=== PATIENT | male | born 1950 | race Caucasian/White ===

== ENCOUNTER 2017-06-04 18:24 | Inpatient (IN) | payer MEDICARE ==
[2017-06-04] MEDS ORDERED: DIPH,PERTUS(ACELL)TETVAC-LF 0.5 ML VIAL IM ONE (21:37)
[2017-06-04] MEDS ORDERED: VANCOMYCIN IV PER PHARMACY 1 EACH MISC MISCELLANE PRN (21:37)
[2017-06-04] MEDS ORDERED: HYDROcodone/APAP 5-325MG 1 EACH TAB PO STA (21:37)
--- NOTE | 2017-06-04 21:45 | ED ---
Skin/Abscess/FB HPI - General Chief complaint: Skin/Abscess/Foreign Body Stated complaint: arm infection Time Seen by Provider: 06/04/17 21:25 Source: patient Mode of arrival: ambulatory Limitations: no limitations - History of Present Illness Initial comments: This patient is a 66-year-old man who presents to be evaluated for right arm pain and swelling. The patient states that his right upper arm has been read, and has pain and swelling that is been going on for about 6-7 days. He noticed things from Sunday morning. On the day prior the patient states that he had been doing some work outside in his yard and believes he had scratched his arm on something. He states that he did not initially come in because the symptoms developed, and then were slightly better and then over the course the past day or 2 are worsening again. He states he has had similar episode to this and was told that he had an infection. Patient denies any IVDA. Patient does not recall when his last tetanus shot was. MD complaint: discoloration, other (Pain) Onset/Timin -: week(s) Tetanus Up to Date: no Location: RUE Severity: moderate Quality: dull, constant Consistency: constant Improves with: medication Worsens with: movement Associated symptoms: fever, chills Treatments Prior to Arrival: none - Related Data Previous Rx's Medication Instructions Recorded DAPTOmycin [Cubicin] 500 mg IVPB Q24HR #10 vial 06/15/17 HYDROcodone/APAP 7.5-325MG [[place]oga 2 each PO Q6H PRN #28 tab 06/15/17 7.5-325] amLODIPine [Norvasc] 5 mg PO DAILY #30 tab 06/15/17 Allergies Allergy/AdvReac Type Severity Reaction Status Date / Time No Known Allergies Allergy Verified 06/23/17 15:12 Review of Systems ROS Statement: Those systems with pertinent positive or pertinent negative responses have been documented in the HPI. ROS Other: All systems not noted in ROS Statement are negative. Constitutional: Reports: fever, chills. Denies: weakness Respiratory: Denies: cough, dyspnea Cardiovascular: Denies: chest pain, palpitations Gastrointestinal: Denies: abdominal pain, vomiting Skin: Reports: as per HPI, change in color Neurological: Denies: weakness, numbness, paresthesias Hematological/Lymphatic: Denies: easy bleeding Past Medical History Past Medical History: Cancer, COPD, Hypertension, Prostate Disorder Additional Past Medical History / Comment(s): prostate History of Any Multi-Drug Resistant Organisms: None Reported Past Surgical History: Hernia Repair, Prostate Surgery Additional Past Surgical History / Comment(s): Laparotomy with drainage of abscess. Prostatectomy with da Jessi. Past Anesthesia/Blood Transfusion Reactions: No Reported Reaction Past Psychological History: No Psychological Hx Reported Smoking Status: Former smoker Past Alcohol Use History: Occasional Past Drug Use History: None Reported - Past Family History Father Family Medical History: Cancer Additional Family Medical History / Comment(s): cholecystectomy General Exam Limitations: no limitations General appearance: alert, in no apparent distress Head exam: Present: atraumatic, normocephalic Neck exam: Present: normal inspection, full ROM. Absent: tenderness, meningismus, lymphadenopathy Respiratory exam: Present: normal lung sounds bilaterally. Absent: respiratory distress, wheezes, rales, rhonchi, stridor Cardiovascular Exam: Present: regular rate (Heart rate at my exam is 96.), normal rhythm, normal heart sounds. Absent: systolic murmur, diastolic murmur, rubs, gallop GI/Abdominal exam: Present: soft. Absent: tenderness Extremities exam: Present: tenderness, normal capillary refill. Absent: full ROM Right Shoulder Exam: Present: normal inspection, full ROM. Absent: tenderness, swelling, abrasion, laceration, ecchymosis Upper Arm exam: Present: tenderness, swelling, erythema, other (Patient has tenderness and swelling to the anteromedial aspect of the upper arm. This involves mainly the area over the biceps extending to the antecubital fossa. There is no detectable effusion.). Absent: abrasion, laceration, ecchymosis, deformity, crepidus, dislocation Elbow exam: Present: tenderness, swelling, erythema. Absent: full ROM, abrasion , laceration, ecchymosis, deformity, crepitus, dislocation, effusion, pain w/ pronation/supination, tenderness over radial head, other Forearm Wrist exam: Present: full ROM, erythema (To the proximal an acute low fossa. No track martinez.) Hand Wrist exam: Present: normal inspection, full ROM Neuro motor exam: Present: wrist extension intact, thumb opposition intact Neurosensory exam: Present: radial nerve intact, ulnar nerve intact, median nerve intact Vascular: Present: normal capillary refill, radial pulse (Normal) Neurological exam: Present: alert. Absent: motor sensory deficit Skin exam: Present: warm, dry, intact, erythema (See the extremity exam) Course Vital Signs 06/04/17 06/05/17 06/05/17 18:57 00:00 02:19 Temperature 97.8 F Pulse Rate 113 H 100 104 H Pulse Rate [ Left Pulse Oximetery] Respiratory 20 18 18 Rate Blood Pressure 114/57 132/74 134/71 Blood Pressure [Left Arm] O2 Sat by Pulse 96 98 97 Oximetry 06/05/17 06/05/17 06/05/17 03:46 04:46 04:57 Temperature 97.7 F Pulse Rate 98 85 Pulse Rate [ 109 H Left Pulse Oximetery] Respiratory 18 18 18 Rate Blood Pressure 122/70 116/70 Blood Pressure 118/73 [Left Arm] O2 Sat by Pulse 100 98 Oximetry Medical Decision Making - Medical Decision Making Patient is a 66-year-old man presenting with right upper extremity pain and swelling. He gives history of a possible scratch to the arm. He said he also had some fever and chills. His exam does look like cellulitis. Did obtain initial x-ray which does not show any foreign body or gas and soft tissue. Case discussed with Dr. Mihai Whiting who will admit patient and requested consults with Dr. Hare of infectious disease, and Dr. Marsh of surgery should there be abscess requiring I+D. patient also found to have some elevation of his creatinine, versus the previous result from a number of years ago, and the patient states that he had been [facility] that he did have some kidney issues though he does not recall his current creatinine. The patient did receive analgesia and antibiotics and was feeling better. Prior to going to the floor, his arm did seem to be developing some additional swelling, and computed tomography scan is added, also case discussed with Dr. Mendiola from orthopedics to see patient. - Lab Data Result diagrams: 06/14/17 06:42 06/15/17 07:00 Lab Results 06/04/17 06/04/17 06/04/17 Range/Units 22:00 22:00 23:00 WBC 29.3 H* (3.8-10.6) k/uL RBC 5.30 (4.30-5.90) m/uL Hgb 16.1 (13.0-17.5) gm/dL Hct 49.5 (39.0-53.0) % MCV 93.4 (80.0-100.0) fL MCH 30.3 (25.0-35.0) pg MCHC 32.4 (31.0-37.0) g/dL RDW 15.2 (11.5-15.5) % Plt Count 261 (150-450) k/uL Neutrophils % 94 % Lymphocytes % 1 % Monocytes % 3 % Eosinophils % 1 % Basophils % 0 % Neutrophils # 27.5 H (1.3-7.7) k/uL Lymphocytes # 0.3 L (1.0-4.8) k/uL Monocytes # 0.9 (0-1.0) k/uL Eosinophils # 0.1 (0-0.7) k/uL Basophils # 0.1 (0-0.2) k/uL Manual Slide Review Performed Toxic Granulation Present Sodium 133 L (137-145) mmol/L Potassium 4.5 (3.5-5.1) mmol/L Chloride 94 L (98-107) mmol/L Carbon Dioxide 21 L (22-30) mmol/L Anion Gap 18 mmol/L BUN 47 H (9-20) mg/dL Creatinine 3.20 H (0.66-1.25) mg/dL Est GFR (MDRD) Af Amer 24 (>60 ml/min/1.73 sqM) Est GFR (MDRD) Non-Af 20 (>60 ml/min/1.73 sqM) Glucose 93 (74-99) mg/dL Lactic Ac Sepsis Rflx Plasma Lactic Acid Gumaro (0.7-2.0) mmol/L Calcium 9.5 (8.4-10.2) mg/dL Total Creatine Kinase 490 H (55-170) U/L CK-MB (CK-2) 5.3 H* (0.0-2.4) ng/mL CK-MB (CK-2) Rel Index 1.1 06/05/17 06/05/17 06/05/17 Range/Units 00:01 00:38 04:06 WBC (3.8-10.6) k/uL RBC (4.30-5.90) m/uL Hgb (13.0-17.5) gm/dL Hct (39.0-53.0) % MCV (80.0-100.0) fL MCH (25.0-35.0) pg MCHC (31.0-37.0) g/dL RDW (11.5-15.5) % Plt Count (150-450) k/uL Neutrophils % % Lymphocytes % % Monocytes % % Eosinophils % % Basophils % % Neutrophils # (1.3-7.7) k/uL Lymphocytes # (1.0-4.8) k/uL Monocytes # (0-1.0) k/uL Eosinophils # (0-0.7) k/uL Basophils # (0-0.2) k/uL Manual Slide Review Toxic Granulation Sodium (137-145) mmol/L Potassium (3.5-5.1) mmol/L Chloride (98-107) mmol/L Carbon Dioxide (22-30) mmol/L Anion Gap mmol/L BUN (9-20) mg/dL Creatinine (0.66-1.25) mg/dL Est GFR (MDRD) Af Amer (>60 ml/min/1.73 sqM) Est GFR (MDRD) Non-Af (>60 ml/min/1.73 sqM) Glucose (74-99) mg/dL Lactic Ac Sepsis Rflx Y Plasma Lactic Acid Gumaro 3.2 H* 1.6 (0.7-2.0) mmol/L Calcium (8.4-10.2) mg/dL Total Creatine Kinase (55-170) U/L CK-MB (CK-2) (0.0-2.4) ng/mL CK-MB (CK-2) Rel Index Critical Care Time Critical Care Time: Yes (30 minutes) Total Critical Care Time: 30 Disposition Clinical Impression: Cellulitis, Acute renal failure, Leukocytosis, Lactic acidosis Disposition: ADMITTED IP TO THIS [facility] Condition: Fair
[2017-06-04] MEDS ORDERED: VANCOMYCIN 1,500 MG in SODIUM CHLORIDE 0.9% 250 ML IVPB STA (22:01)
[2017-06-04 22:10] LABS: Basophils # (A) 0.1 k/uL (0-0.2); Basophils % (A) 0 %; Eosinophils # (A) 0.1 k/uL (0-0.7); Eosinophils % (A) 1 %; HCT 49.5 % (39.0-53.0); HGB 16.1 gm/dL (13.0-17.5); Lymphocytes # (A) 0.3 k/uL (1.0-4.8); Lymphocytes % (A) 1 %; MCH 30.3 pg (25.0-35.0); MCHC 32.4 g/dL (31.0-37.0); MCV 93.4 fL (80.0-100.0); Monocytes # (A) 0.9 k/uL (0-1.0); Monocytes % (A) 3 %; Neutrophils # (A) 27.5 k/uL (1.3-7.7); Neutrophils % (A) 94 %; Platelet Count 261 k/uL (150-450); RDW 15.2 % (11.5-15.5)
[2017-06-04 22:19] LABS: WBC 29.3 k/uL (3.8-10.6)
--- NOTE | 2017-06-04 22:30 | XR ---
EXAMINATION TYPE: XR humerus RT DATE OF EXAM: 06/04/2017 COMPARISON: NONE HISTORY: Pain TECHNIQUE: 3 views FINDINGS: I see no fracture nor dislocation. Elbow joint and shoulder joint appear intact. There is n o sign of elbow joint effusion. There is soft tissue swelling around the elbow joint and lower forear m. IMPRESSION: Soft tissue swelling. No fracture seen.
[2017-06-04 22:32] LABS: Toxic Granulation Present
--- NOTE | 2017-06-04 23:13 | US ---
EXAMINATION TYPE: US venous doppler duplex UE RT DATE OF EXAM: 06/04/2017 COMPARISON: NONE CLINICAL HISTORY: Pain. Right arm edema and redness x 1 day SIDE PERFORMED: Right Right Arm: Negative for DVT No evidence of DVT right arm. IMPRESSION: Normal exam. No evidence of deep venous thrombosis in the right arm.
[2017-06-04] MEDS ORDERED: NAFCILLIN 2 GM in DEXTROSE 5% IN WATER 50 ML IVPB STA ×2 (23:28)
[2017-06-04 23:44] LABS: Calcium 9.5 mg/dL (8.4-10.2); Potassium 4.5 mmol/L (3.5-5.1)
[2017-06-05] MEDS ORDERED: SODIUM CHLORIDE 0.9% 2,500 ML IV ONE (00:38)
[2017-06-05] MEDS ORDERED: HYDROmorphone 1 MG/ML 1 ML SYRINGE IVP STA (01:50)
[2017-06-05 02:26] LABS: Creatine Kinase MB 5.3 ng/mL (0.0-2.4)
[2017-06-05] MEDS ORDERED: NALOXONE 0.4 MG/ML 1 ML VIAL IV PRN (04:24)
[2017-06-05 05:38] VITALS: BMI 24.3
[2017-06-05] MEDS: HYDROmorphone 2 MG/ML 1 ML SYRINGE IVP PRN ×5 (05:48→21:51)
--- NOTE | 2017-06-05 05:53 | CT ---
EXAM: CT Right Upper Extremity Without Intravenous Contrast CLINICAL HISTORY: Reason: pain TECHNIQUE: Axial computed tomography images of the right upper extremity without intravenous contrast. CTDI is 18 mGy and DLP is 737 mGy-cm. This CT exam was performed using one or more of the following dose reduction techniques: automated exposure control, adjustment of the mA and/or kV according to patient size, and/or use of iterative reconstruction technique. COMPARISON: No relevant prior studies available. FINDINGS: Bones/joints: Mild degenerative changes of the right acromioclavicular joint. No acute fracture. No dislocation. Soft tissues: Marked subcutaneous edema and swelling. No obvious intramuscular abnormality on this noncontrast study. Lymph nodes: Multiple axillary lymph nodes which predominantly demonstrate normal fatty leonid. Lungs: Visualized lungs are well aerated. Mediastinum: No definite mediastinal mass. IMPRESSION: Diffuse subcutaneous edema involving the right axilla and right upper extremity. Primary consideration is cellulitis. The nonenhanced muscle bundles of the right upper extremity demonstrate no definitive abnormality. However, if there is concern for myositis, MRI examination would provide greater soft tissue detail. Osseous right shoulder girdle and humerus demonstrate no CT abnormalities without evidence of fracture or osteomyelitis.
[2017-06-05] MEDS: SODIUM CHLORIDE 0.9% 1,000 ML IV SCH (06:11)
[2017-06-05] MEDS ORDERED: NAFCILLIN 2 GM in DEXTROSE 5% IN WATER 50 ML IVPB SCH ×2 (09:00)
--- NOTE | 2017-06-05 09:54 | P.CNOR ---
History of Present Illness - HPI Consult date: 06/05/17 Requesting physician: Gerardo Mendiola Consult reason: other History of present illness: This patient is a 66-year-old man seen at bedside this morning. He presented to the ER last evening after developing progressive right upper arm pain, redness and swelling for the past week. He states that he had been doing some work outside in his yard and believes he had scratched his arm on something. He also states that he was cleaning some cat litter boxes. He denies any other injury to his upper extremity. Patient denies any IVDA. He is currently denying numbness or tingling. He also denies fever, chills, chest pain or shortness of breath. Review of Systems All systems: negative Constitutional: Denies chills, Denies fever Eyes: denies blurred vision, denies pain Ears, nose, mouth and throat: Denies headache, Denies sore throat Cardiovascular: Denies chest pain, Denies shortness of breath Respiratory: Denies cough Gastrointestinal: Denies abdominal pain, Denies diarrhea, Denies nausea, Denies vomiting Musculoskeletal: Denies myalgias Integumentary: Denies pruritus, Denies rash Neurological: Denies numbness, Denies weakness Psychiatric: Denies anxiety, Denies depression Endocrine: Denies fatigue, Denies weight change Past Medical History Past Medical History: Cancer, COPD, Hypertension, Prostate Disorder Additional Past Medical History / Comment(s): prostate History of Any Multi-Drug Resistant Organisms: None Reported Past Surgical History: Hernia Repair, Prostate Surgery Additional Past Surgical History / Comment(s): Laparotomy with drainage of abscess. Prostatectomy with da Jessi. Past Anesthesia/Blood Transfusion Reactions: No Reported Reaction Past Psychological History: No Psychological Hx Reported Smoking Status: Former smoker Past Alcohol Use History: Occasional Past Drug Use History: None Reported - Past Family History Father Family Medical History: Cancer Additional Family Medical History / Comment(s): cholecystectomy Medications and Allergies Home Medications Medication Instructions Recorded Confirmed Type [id number] 1 - 2 tab PO Q4HR PRN 06/04/17 06/04/17 History [Excedrin] Allergies Allergy/AdvReac Type Severity Reaction Status Date / Time No Known Allergies Allergy Verified 06/04/17 21:44 Physical Examination Inspection of the right upper extremity shows diffuse erythema at the anterior aspect of the upper arm in the brachial region. There is no bony deformity. There is soft tissue swelling/edema and induration at the brachium. There is tenderness at the area of the tricep. The brachium is warm to touch. There is no apparent fluctuance or abscess. There is no fluid collection. He holds his arm in the flexed position. He has pain with extension to 30. He can flex to 100. There is mild pain with pronation and supination in the upper arm. Neurovascular status intact with motor and sensation throughout the right upper extremity. 2+ radial pulses present. Less than 2 second capillary refill is present. Results studies of the right upper extremity including x-ray, ultrasound and CT scan show no evidence of foreign body, abscess or fluid collection.there are no fractures or dislocations as well. - Labs Labs: Abnormal Lab Results - Last 24 Hours (Table) 06/04/17 06/04/17 06/04/17 Range/Units 22:00 22:00 23:00 WBC 29.3 H* (3.8-10.6) k/uL Neutrophils # 27.5 H (1.3-7.7) k/uL Lymphocytes # 0.3 L (1.0-4.8) k/uL Sodium 133 L (137-145) mmol/L Chloride 94 L (98-107) mmol/L Carbon Dioxide 21 L (22-30) mmol/L BUN 47 H (9-20) mg/dL Creatinine 3.20 H (0.66-1.25) mg/dL Plasma Lactic Acid Gumaro (0.7-2.0) mmol/L Total Creatine Kinase 490 H (55-170) U/L CK-MB (CK-2) 5.3 H* (0.0-2.4) ng/mL 06/05/17 Range/Units 00:01 WBC (3.8-10.6) k/uL Neutrophils # (1.3-7.7) k/uL Lymphocytes # (1.0-4.8) k/uL Sodium (137-145) mmol/L Chloride (98-107) mmol/L Carbon Dioxide (22-30) mmol/L BUN (9-20) mg/dL Creatinine (0.66-1.25) mg/dL Plasma Lactic Acid Gumaro 3.2 H* (0.7-2.0) mmol/L Total Creatine Kinase (55-170) U/L CK-MB (CK-2) (0.0-2.4) ng/mL H & H 06/04/17 Range/Units 22:00 Hgb 16.1 (13.0-17.5) gm/dL Hct 49.5 (39.0-53.0) % Result Diagrams: 06/04/17 22:00 06/04/17 22:00 Assessment and Plan (1) Cellulitis Narrative/Plan: Currently there is no apparent area for surgical I&D and he is neurovascularly intact. Recommend aggressive IV antibiotic therapy and elevation. Infectious disease has been consulted as well. Will consider obtaining MRI of the right upper arm. I'll discuss case with Dr. Mendiola and make further recommendations as appropriate. We will closely monitor. Current Visit: Yes Status: Acute Code(s): L03.90 - CELLULITIS, UNSPECIFIED SNOMED Code(s): 459596017 Time with Patient: Less than 30
[2017-06-05 10:00] LABS: HCT 42.1 % (39.0-53.0); HGB 13.6 gm/dL (13.0-17.5); MCH 30.2 pg (25.0-35.0); MCHC 32.2 g/dL (31.0-37.0); Mean Platelet Volume 9.5; Platelet Count 189 k/uL (150-450); RBC 4.48 m/uL (4.30-5.90); RDW 15.1 % (11.5-15.5); WBC 13.7 k/uL (3.8-10.6)
[2017-06-05 10:47] LABS: Band Neutrophils % 52 %; Lymphocytes # (M) 0.14 k/uL (1.0-4.8); Monocytes # (M) 0.41 k/uL (0-1.0); Myelocytes # (M) 0.14 k/uL (0); Myelocytes % 1 %; Neutrophils % (M) 44 %; Nucleated Red Blood Cells 0 /100 WBC (0-0); Total Cells Counted 200; Toxic Granulation Present
[2017-06-05 10:48] LABS: Anisocytosis (M) Present; Poikilocytosis (M) Present; Toxic Vacuolation Present
--- NOTE | 2017-06-05 13:32 | HP ---
HISTORY AND PHYSICAL CHIEF COMPLAINT: A 66-year-old white male with right arm cellulitis. HISTORY OF PRESENT ILLNESS: This 66-year-old white male presented to the ER after progressive right upper pain and swelling for the past week or 2. He said he scraped it on a board with some nails. He had a tetanus shot while being in the hospital. He also has been exposed to some cat litter boxes. He denies any other injury. He states he has hepatitis B and C, which he is not being treated for. He denies any numbness, tingling of the right extremity. Denies any chest pain, shortness of breath. Takes all natural medication. REVIEW OF SYSTEMS: Fourteen-point review of systems negative except for as mentioned in HPI. PAST MEDICAL HISTORY: Prostate cancer. He states he is in remission. COPD, hypertension. Hernia repair, prostate surgery are surgeries that have been done. and he had some infection status post prostatectomy with unsure of. He is a former smoker, quit 4 years ago. FAMILY HISTORY: Father with cancer, cholecystectomy. MEDICATIONS: Medications at home include aspirin, acetaminophen, caffeine. ALLERGIES: No known drug allergies. White count 29.3. Creatinine is 3.20, BUN is 47. Plasma lactic acid 3.2. Hemoglobin 16.1. ASSESSMENT: Cellulitis of the right arm extending into the right chest wall. IV nafcillin has been given. Await surgical recommendation. He has lactic acidosis with sepsis which is improving with normal lactic acidosis. His creatinine will be maybe a kidney doctor will see him as he has significant renal dysfunction of unclear etiology. MMODL / IJN: [id number] /
[2017-06-05] MEDS: ceFAZolin IN SWFI 2 GM/20 ML SYRINGE IVP SCH ×2 (14:01→23:44)
--- NOTE | 2017-06-05 15:30 | P.GSCN ---
History of Present Illness Consult date: 06/05/17 History of present illness: 66-year-old male being seen for a surgical eval at the request of the attending for patient developed a sudden onset a right upper arm pain increased swelling. Patient states that the incident occurred 6-7 days prior. He stated that he was out working in the yard and he scratched his right arm on something. Additionally patient stated he was cleaning out What her boxes Initially he did not become concerned because a was no symptoms. He stated over the past several days prior to coming to the emergency room the right arm became painful red and difficult to. He stated that he felt feverish and chilled. He denies any history of any IV drug use. He is not certain when he had his last tetanus shot. Patient reports that he had a similar episode to this and was told he had an infection. He states he did become concerned and did present to the emergency room with right upper arm significant pain and swelling noted. Patient has been seen by infectious disease as well as orthopedic service. White count was elevated to 29.3 computed tomography scan of the right upper extremity did show diffuse subcutaneous edema involving the right axillary in the right upper extremity. Consideration of cellulitis. Doppler studies to the right arm were negative for evidence of a DVT. Patient has a past medical history of prostate cancer, hypertension, COPD. Past surgical history hernia repair, prostate cancer surgery Review of Systems Essentially unremarkable except as mentioned in the present illness Past Medical History Past Medical History: Cancer, COPD, Hypertension, Prostate Disorder Additional Past Medical History / Comment(s): prostate History of Any Multi-Drug Resistant Organisms: None Reported Past Surgical History: Hernia Repair, Prostate Surgery Additional Past Surgical History / Comment(s): Laparotomy with drainage of abscess. Prostatectomy with da Jessi. Past Anesthesia/Blood Transfusion Reactions: No Reported Reaction Past Psychological History: No Psychological Hx Reported Smoking Status: Former smoker Past Alcohol Use History: Occasional Past Drug Use History: None Reported - Past Family History Father Family Medical History: Cancer Additional Family Medical History / Comment(s): cholecystectomy Medications and Allergies Home Medications Medication Instructions Recorded Confirmed Type [id number]-Gywq-[id number] [id number] 1 - 2 tab PO Q4HR PRN 06/04/17 06/04/17 History [Excedrin] Allergies Allergy/AdvReac Type Severity Reaction Status Date / Time No Known Allergies Allergy Verified 06/04/17 21:44 Surgical - Exam Vital Signs Temp Pulse Resp BP Pulse Ox 97.8 F 113 H 20 114/57 96 06/04/17 18:57 06/04/17 18:57 06/04/17 18:57 06/04/17 18:57 06/04/17 18:57 GENERAL APPEARANCE: The patient is alert, oriented, in no acute distress. VITAL SIGNS: Reviewed HEENT: Head is normocephalic and atraumatic. Pupils are equal and reactive. The nares are patent. Oropharynx is clear without lesions. NECK: Supple without lymphadenopathy. Traches midline. HEART: S1, S2. Regular rate and rhythm. Denying chest pain LUNGS: No crackles or wheezes are heard. Adequate air movement no shortness of breath ABDOMEN: Soft, nontender, nondistended with good bowel sounds. No peritoneal signs. No palpable organomegaly or masses. EXTREMITIES: Right upper extremity diffuse erythema at the anterior aspect of the right upper arm into the brachial region. No increase in reference markings positive tenderness at the area right upper arm pain with extension Radial pedal pulses are 2/4 bilaterally. Left upper extremity unremarkable no pedal edema NEUROLOGICAL: No focal deficits. Strength and sensation are grossly intact. Results - Labs 06/05/17 09:02 06/04/17 22:00 Abnormal Lab Results - Last 24 Hours (Table) 06/04/17 06/04/17 06/04/17 Range/Units 22:00 22:00 23:00 WBC 29.3 H* (3.8-10.6) k/uL Neutrophils # 27.5 H (1.3-7.7) k/uL Neutrophils # (Manual) (1.3-7.7) k/uL Lymphocytes # 0.3 L (1.0-4.8) k/uL Lymphocytes # (Manual) (1.0-4.8) k/uL Myelocytes # (Manual) (0) k/uL Sodium 133 L (137-145) mmol/L Chloride 94 L (98-107) mmol/L Carbon Dioxide 21 L (22-30) mmol/L BUN 47 H (9-20) mg/dL Creatinine 3.20 H (0.66-1.25) mg/dL Plasma Lactic Acid Gumaro (0.7-2.0) mmol/L Total Creatine Kinase 490 H (55-170) U/L CK-MB (CK-2) 5.3 H* (0.0-2.4) ng/mL 06/05/17 06/05/17 Range/Units 00:01 09:02 WBC 13.7 H (3.8-10.6) k/uL Neutrophils # (1.3-7.7) k/uL Neutrophils # (Manual) 13.10 H (1.3-7.7) k/uL Lymphocytes # (1.0-4.8) k/uL Lymphocytes # (Manual) 0.14 L (1.0-4.8) k/uL Myelocytes # (Manual) 0.14 H (0) k/uL Sodium (137-145) mmol/L Chloride (98-107) mmol/L Carbon Dioxide (22-30) mmol/L BUN (9-20) mg/dL Creatinine (0.66-1.25) mg/dL Plasma Lactic Acid Gumaro 3.2 H* (0.7-2.0) mmol/L Total Creatine Kinase (55-170) U/L CK-MB (CK-2) (0.0-2.4) ng/mL Diabetes panel 06/04/17 Range/Units 22:00 Sodium 133 L (137-145) mmol/L Potassium 4.5 (3.5-5.1) mmol/L Chloride 94 L (98-107) mmol/L Carbon Dioxide 21 L (22-30) mmol/L BUN 47 H (9-20) mg/dL Creatinine 3.20 H (0.66-1.25) mg/dL Glucose 93 (74-99) mg/dL Calcium 9.5 (8.4-10.2) mg/dL Calcium panel 06/04/17 Range/Units 22:00 Calcium 9.5 (8.4-10.2) mg/dL Pituitary panel 06/04/17 Range/Units 22:00 Sodium 133 L (137-145) mmol/L Potassium 4.5 (3.5-5.1) mmol/L Chloride 94 L (98-107) mmol/L Carbon Dioxide 21 L (22-30) mmol/L BUN 47 H (9-20) mg/dL Creatinine 3.20 H (0.66-1.25) mg/dL Glucose 93 (74-99) mg/dL Calcium 9.5 (8.4-10.2) mg/dL Adrenal panel 06/04/17 Range/Units 22:00 Sodium 133 L (137-145) mmol/L Potassium 4.5 (3.5-5.1) mmol/L Chloride 94 L (98-107) mmol/L Carbon Dioxide 21 L (22-30) mmol/L BUN 47 H (9-20) mg/dL Creatinine 3.20 H (0.66-1.25) mg/dL Glucose 93 (74-99) mg/dL Calcium 9.5 (8.4-10.2) mg/dL Assessment and Plan Assessment: Impression Present on admission right upper extremity pain redness suspect cellulitis Computed tomography scan of the right humerus show no evidence of a foreign body , abscess or fluid flexion no fractures Plan Continue recommendations by infectious disease antibiotic therapy No evidence for a surgical incision and drainage at this time Close monitoring Continue recommendations by orthopedic service defer to DVT and GI prophylaxis Pain control Will follow with you addressing surgically issues as they arise The above impression and plan of care have been discussed and directed by signing physician. Dasha Enciso nurse practitioner acting as scribe for signing physician.
[2017-06-05] MEDS: CLINDAMYCIN 900 MG in DEXTROSE 5% IN WATER 50 ML IVPB SCH ×4 (15:57→23:44)
[2017-06-05] MEDS ORDERED: VANCOMYCIN 1,500 MG in SODIUM CHLORIDE 0.9% 250 ML IVPB ONE (18:00)
[2017-06-06] MEDS: HYDROmorphone 2 MG/ML 1 ML SYRINGE IVP PRN ×7 (01:30→21:08)
[2017-06-06] MEDS: SODIUM CHLORIDE 0.9% 1,000 ML IV SCH ×2 (01:31→05:30)
--- NOTE | 2017-06-06 04:56 | CONS ---
CONSULTATION REASON FOR CONSULT: Renal failure. HISTORY OF PRESENT ILLNESS: The patient is a 66-year-old male who was admitted to the hospital with pain and swelling and redness in his right upper arm. He thinks he may have had a bite or a scratch while he was cleaning his mother's house. This has been going on for about 4 to 5 days. Patient's serum creatinine on admission was 3.2 mg/dL. We have a previous creatinine in 2014 of 1.09. 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 The patient did admit to use of nonsteroidal anti-inflammatory agents. He denies any difficulty in passing urine. He currently has significant infection of his left upper arm with cellulitis and is maintained on clindamycin and Kefzol. He did receive one dose of vancomycin. PAST MEDICAL HISTORY: Hypertension, COPD, BPH. PAST SURGICAL HISTORY: Prostatectomy for prostatic cancer, hernia repair. SOCIAL HISTORY: Patient is a former smoker. No history of drug abuse or alcohol abuse. MEDICATIONS: Prior to admission included Excedrin. The patient had taken some ibuprofen as well. ALLERGIES: None. PHYSICAL EXAMINATION: On examination, he is comfortable, awake. He is alert and oriented x3. He is not in any acute distress. Blood pressure is 120/66, heart rate 98 per minute. He is afebrile. EXAMINATION OF THE HEART: S1, S2. EXAMINATION OF THE LUNGS: Bilateral breath sounds are heard. Abdomen is soft, nontender. Examination of lower extremities shows no evidence of edema. His right upper extremity is significantly swollen and erythematous with severe cellulitis extending all the way down to his upper right chest with significant subcutaneous swelling noted as well. RELIGIOUS EDUCATION COORDINATOR exam is grossly intact. LABS: Sodium 133, potassium 4.5 from yesterday white cell count was 29.3, hemoglobin 16.1. ASSESSMENT: 1. Acute kidney injury secondary to severe cellulitis, currently nonoliguric. Will continue to maintain patient on IV fluids at 75 mL an hour. Continue current antibiotics. Hold off on second dose of vancomycin as patient has already received one dose. Repeat labs in a.m. Check ultrasound of the kidneys and check urinalysis. 2. Chronic kidney disease, baseline not known. Previous creatinine was 1.09 in June of 2014. 3. Severe cellulitis right upper arm, being followed by ID, maintained on antibiotics. CT does not show any gas/air. PLAN: Continue IV fluids. Hold off on vancomycin. Repeat labs in a.m. Check UA. Check ultrasound of the kidneys. Avoid nephrotoxic agents. The patient will need followup as outpatient for CKD. Thank you for your consultation. We will continue to follow the patient with you during his hospitalization. MMODL / IJN: [id number] /
[2017-06-06] MEDS: CLINDAMYCIN 900 MG in DEXTROSE 5% IN WATER 50 ML IVPB SCH ×4 (07:04→15:49)
[2017-06-06 08:11] LABS: Calcium 7.4 mg/dL (8.4-10.2); Potassium 4.1 mmol/L (3.5-5.1); Total Bilirubin 0.9 mg/dL (0.2-1.3); Total Protein 4.3 g/dL (6.3-8.2)
[2017-06-06 08:23] LABS: HCT 37.3 % (39.0-53.0); HGB 11.9 gm/dL (13.0-17.5); MCH 29.6 pg (25.0-35.0); MCHC 31.9 g/dL (31.0-37.0); MCV 92.9 fL (80.0-100.0); Mean Platelet Volume 9.7; Platelet Count 211 k/uL (150-450); RBC 4.02 m/uL (4.30-5.90); WBC 14.9 k/uL (3.8-10.6)
--- NOTE | 2017-06-06 08:45 | CONS ---
CONSULTATION DATE OF SERVICE: 06/05/2017. REASON FOR CONSULTATION: Right upper extremity cellulitis. HISTORY OF PRESENT ILLNESS: The patient is a 66-year-old male who presented to the ER at [facility] last evening with chief complaints of pain, swelling, redness of the right upper arm 3 days. Apparently the patient was working outside in the a.m. of Sunday when apparently he may have scratched his arm on something. He is not very clear about it. No history of any trauma. Over the last few days he noticed his right upper arm to becoming more swollen and red and painful. Pain described as throbbing almost 7 to 8/10, and no radiation. Subsequently spreading of the redness to the right upper chest wall area. The patient did have some chills. However, no high-grade fever has been noticed. The patient on arrival to the ER did have an elevated white count of 29.3. The patient did have a humerus CT, which did show diffuse subcutaneous edema involving the right axilla and right upper extremity suggestive of cellulitis. Right upper extremity Doppler was negative for DVT. The patient was started on nafcillin and vancomycin. ID was consulted for further recommendation regarding antibiotic therapy. REVIEW OF SYSTEMS: Constitutional: Positive for weakness with some chills. Eyes no complaint. ENT no complaint. Respiratory no complaint. Cardiovascular no complaint. Genitourinary no complaint. GASTROINTESTINAL: No complaint. Musculoskeletal as per HPI. Integumentary as per HPI. Psychological: No complaint. Endocrine: No complaint. Neurologic no complaint. PAST MEDICAL HISTORY: COPD, hypertension, prostate cancer. PAST SURGICAL HISTORY: Prostate cancer, hernia repair, laparotomy and drainage of the abscess. SOCIAL HISTORY: Former smoker. Occasionally drinks. No drug use. FAMILY HISTORY: Father with history of cancer of unknown type. ALLERGIES: No known drug allergies. MEDICATIONS: The patient is currently on Unasyn 1 g q.6h. He is on vancomycin, Dilaudid, Narcan, Zofran. EXAMINATION: Blood pressure is 97/56 with a pulse of 100, temperature 97.8. He is 100% on room air. General description is an elderly male lying in bed in no distress. No tachypnea or accessory muscles of respiration use. HEENT: Shows no pallor or scleral icterus. Oral mucosa membranes dry and no pharyngeal erythema or thrush. Neck trachea central. No thyromegaly. Lungs are unlabored breathing. Clear to auscultation. No wheeze or crackles. Heart S1, S2. Regular rate and rhythm. Abdomen soft. No tenderness. No guarding or rigidity. Extremities: No edema of the feet. Examination of the right upper extremity seemed to be swollen and red, warm to touch as well as tender to touch with some radiation to the right chest wall. No induration was noticed. Neurological patient is awake, alert, oriented x3. Mood and affect normal. LABS: Hemoglobin 13.6, white count 13.7, down from admission of 29,000 with a BUN of 47, creatinine 3.20. DIAGNOSTIC IMPRESSION AND PLAN: Patient with right upper extremity cellulitis with diffuse swelling and redness. Concern is likely for possible streptococcal cellulitis with no evidence of any abscess formation. Less likely MRSA or gram-negative infection. However the patient is to monitor closely for development of necrotizing fasciitis that may need for extensive surgical debridement and aggressive IV antibody therapy PLAN: 1. Jose Rafael the area of redness. 2. Discontinue Naprosyn daily and vancomycin. 3. We will start the patient on cefazolin 2 g q.12 hours dose adjust to his kidney function and clindamycin 900 mg IV piggyback q8h. 4. Monitor the patient closely for signs and symptoms of worsening infection and development of fasciitis, both orthopedics and surgery are on the case 5- Depending upon his clinical response as well as culture, will further adjust medication if needed. Thank you for this consultation. We will follow this patient along with you. MMODL / IJN: [id number] / MTDD
[2017-06-06 09:05] LABS: Nucleated Red Blood Cells 0 /100 WBC (0-0)
[2017-06-06 09:06] LABS: Band Neutrophils % 15 %; Eosinophils # (M) 0.45 k/uL (0-0.7); Neutrophils % (M) 78 %; Total Cells Counted 200
[2017-06-06 09:07] LABS: Poikilocytosis (M) Present; Toxic Granulation Present
--- NOTE | 2017-06-06 09:46 | P.PN ---
<Dasha Enciso - Last Filed: 06/06/17 09:36> Subjective Progress Note Date: 06/06/17 66-year-old male seen and examined. The right arm elevated on pillows. There is a significant improvement in the edema and the swelling in the right upper arm compared to prior assessment. Patient states the right upper arm less painful this morning Objective - Vital Signs Vital signs: Vital Signs Temp 97.5 F L 06/06/17 07:00 Pulse 100 06/06/17 08:00 Resp 16 06/06/17 08:00 BP 120/56 06/06/17 07:00 Pulse Ox 96 06/06/17 07:00 Intake & Output 06/05/17 06/06/17 06/06/17 18:59 06:59 18:59 Intake Total 675 Balance 675 Intake: Intake, IV Titration 675 Amount Nafcillin 2 gm In 50 Dextrose 5% in Water 50 ml @ 50 mls/hr IVPB Q8H [facility] Rx#:[id number] Sodium Chloride 0.9% 1, 625 000 ml @ 125 mls/hr IV . Q8H [facility] Rx#:[id number] Other: Voiding Method Toilet Toilet Toilet Urinal Urinal # Voids 1 - Exam Physical exam 66-year-old male sitting up in bed with right arm elevated on several pillows taking diet appears in no acute distress Lungs adequate air movement bilaterally no shortness of breath noted Heart S1-S2 audible regular denying chest pain Abdomen soft nondistended reports of nausea vomiting Extremities no pedal edema bilaterally. Left upper arm unremarkable right upper arm decrease redness from the reference markings involving right axillary - Labs CBC & Chem 7: 06/06/17 07:00 06/06/17 07:00 Labs: Abnormal Lab Results - Last 24 Hours (Table) 06/05/17 06/06/17 06/06/17 Range/Units 09:02 07:00 07:00 WBC 13.7 H 14.9 H (3.8-10.6) k/uL RBC 4.02 L (4.30-5.90) m/uL Hgb 11.9 L (13.0-17.5) gm/dL Hct 37.3 L (39.0-53.0) % Neutrophils # (Manual) 13.10 H 13.80 H (1.3-7.7) k/uL Lymphocytes # (Manual) 0.14 L 0.60 L (1.0-4.8) k/uL Myelocytes # (Manual) 0.14 H (0) k/uL Sodium 129 L (137-145) mmol/L Carbon Dioxide 18 L (22-30) mmol/L BUN 74 H (9-20) mg/dL Creatinine 4.89 H (0.66-1.25) mg/dL Calcium 7.4 L (8.4-10.2) mg/dL Total Protein 4.3 L (6.3-8.2) g/dL Albumin 2.0 L (3.5-5.0) g/dL Microbiology - Last 24 Hours (Table) 06/04/17 22:00 Blood Culture - Preliminary Blood No Growth after 24 hours Assessment and Plan Assessment: Impression Present on admission right upper extremity pain redness suspect cellulitis Computed tomography scan of the right humerus show no evidence of a foreign body , abscess or fluid flexion no fractures Plan Continue recommendations by infectious disease antibiotic therapy No evidence of a need for surgical incision and drainage at this time Keep elevated right upper arm at all times Continue recommendations by orthopedic service defer to DVT and GI prophylaxis Pain control The above impression and plan of care have been discussed and directed by signing physician. Dasha Enciso nurse practitioner acting as scribe for signing physician. <Eric Marsh - Last Filed: 06/06/17 17:29> Objective - Vital Signs Vital signs: Vital Signs Temp 98 F 06/06/17 15:00 Pulse 91 06/06/17 15:45 Resp 16 06/06/17 15:45 BP 129/62 06/06/17 15:00 Pulse Ox 97 06/06/17 15:00 Intake & Output 06/05/17 06/06/17 06/06/17 18:59 06:59 18:59 Intake Total 675 650 Balance 675 650 Intake: Intake, IV Titration 675 650 Amount Clindamycin 900 mg In 50 Dextrose 5% in Water 50 ml @ 100 mls/hr IVPB Q8HR [facility] Rx#:[id number] Nafcillin 2 gm In 50 Dextrose 5% in Water 50 ml @ 50 mls/hr IVPB Q8H [facility] Rx#:[id number] Sodium Chloride 0.9% 1, 625 475 000 ml @ 50 mls/hr IV . Q20H [facility] Rx#:[id number] Vancomycin 1,500 mg In 125 Sodium Chloride 0.9% 250 ml @ 125 mls/hr IVPB ONCE ONE Rx#:[id number] Other: Voiding Method Toilet Toilet Toilet Urinal Urinal # Voids 1 - Labs CBC & Chem 7: 06/06/17 07:00 06/06/17 07:00 Labs: Abnormal Lab Results - Last 24 Hours (Table) 06/06/17 06/06/17 Range/Units 07:00 07:00 WBC 14.9 H (3.8-10.6) k/uL RBC 4.02 L (4.30-5.90) m/uL Hgb 11.9 L (13.0-17.5) gm/dL Hct 37.3 L (39.0-53.0) % Neutrophils # (Manual) 13.80 H (1.3-7.7) k/uL Lymphocytes # (Manual) 0.60 L (1.0-4.8) k/uL Sodium 129 L (137-145) mmol/L Carbon Dioxide 18 L (22-30) mmol/L BUN 74 H (9-20) mg/dL Creatinine 4.89 H (0.66-1.25) mg/dL Calcium 7.4 L (8.4-10.2) mg/dL Total Protein 4.3 L (6.3-8.2) g/dL Albumin 2.0 L (3.5-5.0) g/dL Microbiology - Last 24 Hours (Table) 06/04/17 22:00 Blood Culture - Preliminary Blood No Growth after 24 hours Assessment and Plan Plan: Right arm cellulitis. The patient will be managed by orthopedics. We will sign off.
--- NOTE | 2017-06-06 11:49 | P.PN ---
Subjective Patient is seen in follow-up for acute kidney injury. His creatinine in 2015 was 1.09 and this admission it was 3.2. Renal function is worsening with creatinine up to 4.89 today. Patient presented to the hospital with right upper extremity swelling. He is currently maintained on antibiotics per infectious disease recommendations. His oral intake is fair. He admits to good urine output. No hematuria or dysuria. He denies regular use of NSAIDs. No vomiting or diarrhea. Hemodynamically stable. Vital signs are stable. General: The patient appeared well nourished and normally developed. HEENT: Head exam is unremarkable. Neck is without jugular venous distension. LUNGS: Lungs are clear to auscultation and percussion. Breath sounds decreased. HEART: Rate and Rhythm are regular. First and second heart sounds normal. No murmurs, rubs or gallops. ABDOMEN: Abdominal exam reveals normal bowel sounds. Non-tender and non- distended. No evidence of peritonitis. EXTREMITITES: No clubbing, cyanosis, or edema. Right upper extremity and axillary erythema noted. Objective - Vital Signs Vital signs: Vital Signs Temp 97.5 F L 06/06/17 07:00 Pulse 100 06/06/17 08:00 Resp 16 06/06/17 08:00 BP 120/56 06/06/17 07:00 Pulse Ox 96 06/06/17 07:00 Intake & Output 06/05/17 06/06/17 06/06/17 18:59 06:59 18:59 Intake Total 675 Balance 675 Intake: Intake, IV Titration 675 Amount Nafcillin 2 gm In 50 Dextrose 5% in Water 50 ml @ 50 mls/hr IVPB Q8H [facility] Rx#:[id number] Sodium Chloride 0.9% 1, 625 000 ml @ 125 mls/hr IV . Q8H [facility] Rx#:[id number] Other: Voiding Method Toilet Toilet Toilet Urinal Urinal # Voids 1 - Labs CBC & Chem 7: 06/06/17 07:00 06/06/17 07:00 Labs: Abnormal Lab Results - Last 24 Hours (Table) 06/06/17 06/06/17 Range/Units 07:00 07:00 WBC 14.9 H (3.8-10.6) k/uL RBC 4.02 L (4.30-5.90) m/uL Hgb 11.9 L (13.0-17.5) gm/dL Hct 37.3 L (39.0-53.0) % Neutrophils # (Manual) 13.80 H (1.3-7.7) k/uL Lymphocytes # (Manual) 0.60 L (1.0-4.8) k/uL Sodium 129 L (137-145) mmol/L Carbon Dioxide 18 L (22-30) mmol/L BUN 74 H (9-20) mg/dL Creatinine 4.89 H (0.66-1.25) mg/dL Calcium 7.4 L (8.4-10.2) mg/dL Total Protein 4.3 L (6.3-8.2) g/dL Albumin 2.0 L (3.5-5.0) g/dL Microbiology - Last 24 Hours (Table) 06/04/17 22:00 Blood Culture - Preliminary Blood No Growth after 24 hours Assessment and Plan Plan: Assessment: #1. Nonoliguric acute kidney injury secondary to septic ATN. Creatinine up to 4.89 today. Rule out urinary retention. #2. Hyponatremia. Appears euvolemic in nature. Due to excess water intake and poor solute intake. #3. Metabolic acidosis secondary to acute kidney injury. #4. Right upper extremity cellulitis maintain on antibiotics. #5. Rule out chronic kidney disease. Unclear as to what his baseline renal function is. Plan: Check urinalysis. Check renal ultrasound. Check postvoid residual. Encouraged oral intake. 1500 mL fluid restriction. Add oral sodium bicarbonate 650 mg twice daily. I will decrease rate of IV fluids to 50 mL an hour. Repeat electrolytes in the morning.
[2017-06-06] MEDS: SODIUM BICARBONATE TAB 650 MG TAB PO SCH ×2 (12:33→20:02)
[2017-06-06] MEDS: ceFAZolin IN SWFI 2 GM/20 ML SYRINGE IVP SCH (12:33)
--- NOTE | 2017-06-06 12:56 | P.PN ---
Subjective Progress Note Date: 06/06/17 Principal diagnosis: Right Upper extremity cellulitis Patient is a 66-year-old man seen at bedside this morning. We are following him for right upper arm cellulitis. He feels the swelling is a little improved today. No new complaints. He is currently denying numbness or tingling. He also denies fever, chills, chest pain or shortness of breath. He is on IV antibiotic therapy per ID and has been elevating it. Objective - Vital Signs Vital signs: Vital Signs Temp 97.5 F L 06/06/17 07:00 Pulse 100 06/06/17 08:00 Resp 16 06/06/17 08:00 BP 120/56 06/06/17 07:00 Pulse Ox 96 06/06/17 07:00 Intake & Output 06/05/17 06/06/17 06/06/17 18:59 06:59 18:59 Intake Total 675 Balance 675 Intake: Intake, IV Titration 675 Amount Nafcillin 2 gm In 50 Dextrose 5% in Water 50 ml @ 50 mls/hr IVPB Q8H [facility] Rx#:[id number] Sodium Chloride 0.9% 1, 625 000 ml @ 125 mls/hr IV . Q8H [facility] Rx#:[id number] Other: Voiding Method Toilet Toilet Toilet Urinal Urinal # Voids 1 - Exam Inspection of the right upper extremity shows diffuse erythema at the anterior aspect of the upper arm in the brachial region. It appears to be receded somewhat demarcated outlines. The diffuse edema and swelling is mildly improved. There is no bony deformity. There is soft tissue swelling/edema and induration at the brachium. There is tenderness at the area of the tricep. The brachium is warm to touch. There is no apparent fluctuance or abscess. There is no fluid collection. He holds his arm in the flexed position. He has pain with extension to 30. He can flex to 100. There is mild pain with pronation and supination in the upper arm. Neurovascular status intact with motor and sensation throughout the right upper extremity. 2+ radial pulses present. Less than 2 second capillary refill is present. - Constitutional General appearance: Present: no acute distress - Psychiatric Psychiatric: Present: A&O x's 3, appropriate affect, intact judgment & insight - Labs CBC & Chem 7: 06/06/17 07:00 06/06/17 07:00 Labs: Abnormal Lab Results - Last 24 Hours (Table) 06/06/17 06/06/17 Range/Units 07:00 07:00 WBC 14.9 H (3.8-10.6) k/uL RBC 4.02 L (4.30-5.90) m/uL Hgb 11.9 L (13.0-17.5) gm/dL Hct 37.3 L (39.0-53.0) % Neutrophils # (Manual) 13.80 H (1.3-7.7) k/uL Lymphocytes # (Manual) 0.60 L (1.0-4.8) k/uL Sodium 129 L (137-145) mmol/L Carbon Dioxide 18 L (22-30) mmol/L BUN 74 H (9-20) mg/dL Creatinine 4.89 H (0.66-1.25) mg/dL Calcium 7.4 L (8.4-10.2) mg/dL Total Protein 4.3 L (6.3-8.2) g/dL Albumin 2.0 L (3.5-5.0) g/dL Microbiology - Last 24 Hours (Table) 06/04/17 22:00 Blood Culture - Preliminary Blood No Growth after 24 hours Assessment and Plan (1) Cellulitis Narrative/Plan: There continues to be no apparent area for surgical I&D and he is neurovascularly intact. Recommend continued aggressive IV antibiotic therapy and elevation. We will closely monitor. Current Visit: Yes Status: Acute Code(s): L03.90 - CELLULITIS, UNSPECIFIED SNOMED Code(s): 041008407 Time with Patient: Less than 30
--- NOTE | 2017-06-06 16:20 | US ---
EXAMINATION TYPE: US kidneys/renal and bladder DATE OF EXAM: 06/06/2017 COMPARISON: NONE CLINICAL HISTORY: minal. EXAM MEASUREMENTS: Right Kidney: 11.5 x 4.9 x 5.3 cm Left Kidney: 11.9 x 5.7 x 3.7 cm Right Kidney: echogenic round mass measuring 0.5 x 0.5 x 0.6cm Left Kidney: No hydronephrosis or masses seen Bladder: not fully distended Patient scheduled for post void residual next week, in effort to save patient from coming back osvaldo hnologist had patient void. Normal post void residual of 12.5ml Cortical medullary differentiation is maintained. Renal echotexture on the right somewhat echogenic i n comparison to the liver echotexture. No evident renal calculi There is no ascites. IMPRESSION: There may be a component of medical renal disease. 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 Normal post void residual volume.
[2017-06-06 18:17] LABS: Amorphous Sediment,Urine Occasional /hpf; Appearance,Urine Turbid (Clear); Bacteria,Urine Occasional /hpf; Bilirubin,Urine Negative (Negative); Blood,Urine Small (Negative); Color,Urine Yellow; Glucose,Urine (UA) Negative (Negative); Granular Casts,Urine 36 /lpf (0); Hyaline Casts,Urine 21 /lpf (0-2); Ketones,Urine Negative (Negative); Leukocyte Esterase,Urine Large (Negative); Mucus,Urine Rare /hpf; Nitrite,Urine Negative (Negative); Protein,Urine 1+ (Negative); RBC,Urine 12 /hpf (0-5); Specific Gravity,Urine 1.009 (1.001-1.035); Squamous Epithelial Cell,Urine 4 /hpf (0-4); Urobilinogen,Urine <2.0 mg/dL (<2.0); WBC,Urine 110 /hpf (0-5)
--- NOTE | 2017-06-06 21:33 | PN ---
PROGRESS NOTE DATE OF SERVICE: 06/06/2017. REASON FOR FOLLOW UP: Right upper arm and chest wall cellulitis. INTERVAL HISTORY: The patient is afebrile. The right upper arm swelling and redness are improved as well as the pain has decreased. Denies having any chest pain or shortness of breath, cough. No abdominal pain. No diarrhea. EXAMINATION: Blood pressure 129/62 with a pulse of 91, temperature of 98. He is 97% on room air. General description is an elderly male lying in bed in no distress. Respiratory system: Unlabored breathing, clear to auscultation anteriorly. Heart S1, S2. Regular rate and rhythm. Abdomen soft. No tenderness. Right upper arm swelling and redness improved. Some more redness to the right lateral chest wall. LABS: Hemoglobin is 11.8, white count 14.9 with a BUN of 24, creatinine is 4.89. DIAGNOSTIC IMPRESSION AND PLAN: Patient with right upper arm and chest wall cellulitis with diffuse cellulitis likely streptococcal disease. No evidence of any abscess on the imaging study. Currently on cefazolin and Clinda. Continue to monitor his clinical course closely. Continue supportive care. MMODL / IJN: [id number] /
--- NOTE | 2017-06-06 22:48 | PN ---
PROGRESS NOTE SUBJECTIVE: 66-year-old white male with nonoliguric acute kidney injury secondary to septic ATN. Creatinine is up to 4.89 today. He has severe right arm and right lateral chest cellulitis with extreme amount of redness and fluctuance. Surgery has seen him for surgery and do not want to operate yet at this point. He is on IV cefazolin and IV Cleocin. Cardiovascular S1-S2. Lungs clear. GI soft. Integument: Whole right upper arm is swollen moderate with inner redness and fluctuance. Right upper chest is redness and swelling and increased redness. White count, lactic acid are improved. ASSESSMENTS: 1. Diffuse cellulitis. 2. Streptococcal disease. 3. No evidence of abscess. 4. On cefazolin, and clindamycin. 5. Renal doctor to maintaining renal function. Continue broad-spectrum antibiotics. MMODL / IJN: [id number] /
[2017-06-07] MEDS: HYDROmorphone 2 MG/ML 1 ML SYRINGE IVP PRN ×6 (00:14→23:43)
[2017-06-07] MEDS: ceFAZolin IN SWFI 2 GM/20 ML SYRINGE IVP SCH (00:14)
[2017-06-07] MEDS: CLINDAMYCIN 900 MG in DEXTROSE 5% IN WATER 50 ML IVPB SCH ×8 (00:14→23:45)
[2017-06-07] MEDS: SODIUM BICARBONATE TAB 650 MG TAB PO SCH ×2 (08:07→20:26)
[2017-06-07 08:45] LABS: MCH 29.9 pg (25.0-35.0); MCHC 32.5 g/dL (31.0-37.0); Mean Platelet Volume 8.8; Platelet Count 239 k/uL (150-450); RBC 4.02 m/uL (4.30-5.90); RDW 14.5 % (11.5-15.5)
[2017-06-07 08:57] LABS: Calcium 7.7 mg/dL (8.4-10.2); Total Bilirubin 0.9 mg/dL (0.2-1.3); Total Protein 4.3 g/dL (6.3-8.2)
--- NOTE | 2017-06-07 10:21 | P.PN ---
Subjective Progress Note Date: 06/07/17 Principal diagnosis: Right Upper extremity cellulitis Patient is a 66-year-old man seen at bedside this morning. We are following him for right upper arm cellulitis. He has minimal pain when interviewed today but relays stiffness. No new complaints. He is currently denying numbness or tingling. He also denies fever, chills, chest pain or shortness of breath. He is on IV antibiotic therapy per ID and has been elevating it. Objective - Vital Signs Vital signs: Vital Signs Temp 97.7 F 06/07/17 07:00 Pulse 91 06/07/17 07:00 Resp 18 06/07/17 07:00 BP 96/45 06/07/17 07:00 Pulse Ox 99 06/07/17 07:00 Intake & Output 06/06/17 06/07/17 06/07/17 18:59 06:59 18:59 Intake Total 650 1390 Balance 650 1390 Intake: Intake, IV Titration 650 400 Amount Clindamycin 900 mg In 50 Dextrose 5% in Water 50 ml @ 100 mls/hr IVPB Q8HR [facility] Rx#:[id number] Sodium Chloride 0.9% 1, 475 400 000 ml @ 50 mls/hr IV . Q20H [facility] Rx#:[id number] Vancomycin 1,500 mg In 125 Sodium Chloride 0.9% 250 ml @ 125 mls/hr IVPB ONCE ONE Rx#:[id number] Oral 990 Other: Voiding Method Toilet Toilet Toilet # Voids 2 - Exam Inspection of the right upper extremity shows diffuse erythema at the anterior aspect of the upper arm in the brachial region and right axilla. It appears to be receded somewhat from demarcated outlines. The diffuse edema and swelling is mildly improved. There is no bony deformity. There is soft tissue swelling/ edema and induration at the brachium. There is mild tenderness at the area of the tricep. The brachium is warm to touch. There is no apparent fluctuance or abscess. There is an superficial ecchymotic area measuring approximately 3cm x 6 cm at the brachium. There is no fluid collection. He holds his arm in the flexed position. He has minimal pain with passive extension to 20. He can flex to 100. Neurovascular status intact with motor and sensation throughout the right upper extremity. Sterile Tech strength, wrist flexion/extension are 5/5. 2+ radial pulse is present. Less than 2 second capillary refill is present. - Constitutional General appearance: Present: no acute distress - Psychiatric Psychiatric: Present: A&O x's 3, appropriate affect, intact judgment & insight - Labs CBC & Chem 7: 06/07/17 07:25 06/07/17 07:25 Labs: Abnormal Lab Results - Last 24 Hours (Table) 06/06/17 06/07/17 06/07/17 Range/Units 17:50 07:25 07:25 WBC 26.0 H* (3.8-10.6) k/uL RBC 4.02 L (4.30-5.90) m/uL Hgb 12.0 L (13.0-17.5) gm/dL Hct 37.0 L (39.0-53.0) % Sodium 129 L (137-145) mmol/L Carbon Dioxide 14 L (22-30) mmol/L BUN 86 H* (9-20) mg/dL Creatinine 5.48 H* (0.66-1.25) mg/dL Glucose 57 L (74-99) mg/dL Calcium 7.7 L (8.4-10.2) mg/dL Alkaline Phosphatase 135 H (38-126) U/L Total Protein 4.3 L (6.3-8.2) g/dL Albumin 2.0 L (3.5-5.0) g/dL Urine Protein 1+ H (Negative) Urine Blood Small H (Negative) Ur Leukocyte Esterase Large H (Negative) Urine RBC 12 H (0-5) /hpf Urine WBC 110 H (0-5) /hpf Urine WBC Clumps Many H (None) /hpf Amorphous Sediment Occasional H (None) /hpf Urine Bacteria Occasional H (None) /hpf Hyaline Casts 21 H (0-2) /lpf Urine Mucus Rare H (None) /hpf Microbiology - Last 24 Hours (Table) 06/04/17 22:00 Blood Culture - Preliminary Blood No Growth after 48 hours Assessment and Plan (1) Cellulitis Narrative/Plan: There continues to be no apparent area for surgical I&D and he is neurovascularly intact. His WBC has increased as well as his BUN/Creat. There is suspected streptococcal infection. He is being followed by ID, IM and Nephrology. IV antibiotics per ID. We will continue to monitor closely. Continue elevation. Current Visit: Yes Status: Acute Code(s): L03.90 - CELLULITIS, UNSPECIFIED SNOMED Code(s): 441633145 Time with Patient: Less than 30
[2017-06-07 10:48] LABS: Band Neutrophils % 4 %; Eosinophils # (M) 0.78 k/uL (0-0.7); Monocytes # (M) 0.52 k/uL (0-1.0); Myelocytes # (M) 0.26 k/uL (0); Myelocytes % 1 %; Neutrophils % (M) 91 %; Nucleated Red Blood Cells 0 /100 WBC (0-0); Total Cells Counted 200; Toxic Vacuolation Present
[2017-06-07 10:50] LABS: Polychromasia Present
[2017-06-07] MEDS: SODIUM CHLORIDE 0.9% 1,000 ML IV SCH ×4 (11:14→23:45)
--- NOTE | 2017-06-07 12:00 | P.PN ---
Subjective Progress Note Date: 06/07/17 66-year-old male seen and examined at the bedside patient states he is having increase stiffness involving the right upper arm. There is a slight increase in the reference markings. Patients being treated for right upper arm cellulitis. Patients being followed by infectious disease as well as orthopedic service. Surgical service was requested for evaluation for an incision and drainage of the affected area . Currently there is no surgical recommendations to do an incision and drainage of the right upper arm Objective - Vital Signs Vital signs: Vital Signs Temp 97.7 F 06/07/17 07:00 Pulse 91 06/07/17 07:00 Resp 18 06/07/17 07:00 BP 96/45 06/07/17 07:00 Pulse Ox 99 06/07/17 07:00 Intake & Output 06/06/17 06/07/17 06/07/17 18:59 06:59 18:59 Intake Total 650 1390 Balance 650 1390 Intake: Intake, IV Titration 650 400 Amount Clindamycin 900 mg In 50 Dextrose 5% in Water 50 ml @ 100 mls/hr IVPB Q8HR [facility] Rx#:[id number] Sodium Chloride 0.9% 1, 475 400 000 ml @ 50 mls/hr IV . Q20H [facility] Rx#:[id number] Vancomycin 1,500 mg In 125 Sodium Chloride 0.9% 250 ml @ 125 mls/hr IVPB ONCE ONE Rx#:[id number] Oral 990 Other: Voiding Method Toilet Toilet Toilet # Voids 2 - Exam Physical exam 66-year-old male sitting edge of bed right arm elevated on several pillows appears in no acute distress Lungs adequate air movement bilaterally no shortness of breath noted no cough noted Heart S1-S2 audible regular denying chest pain Abdomen soft nondistended reports of nausea vomiting Extremities no pedal edema bilaterally. Left upper arm unremarkable right upper arm increase redness from the reference markings involving right anterior aspect of the right upper arm brachial and right axillary palpable radial pulses. Patient states he has slight discomfort with passive extension of the right arm - Labs CBC & Chem 7: 06/07/17 07:25 06/07/17 07:25 Labs: Abnormal Lab Results - Last 24 Hours (Table) 06/06/17 06/07/17 06/07/17 Range/Units 17:50 07:25 07:25 WBC 26.0 H* (3.8-10.6) k/uL RBC 4.02 L (4.30-5.90) m/uL Hgb 12.0 L (13.0-17.5) gm/dL Hct 37.0 L (39.0-53.0) % Neutrophils # (Manual) 24.70 H (1.3-7.7) k/uL Eosinophils # (Manual) 0.78 H (0-0.7) k/uL Myelocytes # (Manual) 0.26 H (0) k/uL Sodium 129 L (137-145) mmol/L Carbon Dioxide 14 L (22-30) mmol/L BUN 86 H* (9-20) mg/dL Creatinine 5.48 H* (0.66-1.25) mg/dL Glucose 57 L (74-99) mg/dL Calcium 7.7 L (8.4-10.2) mg/dL Alkaline Phosphatase 135 H (38-126) U/L Total Protein 4.3 L (6.3-8.2) g/dL Albumin 2.0 L (3.5-5.0) g/dL Urine Protein 1+ H (Negative) Urine Blood Small H (Negative) Ur Leukocyte Esterase Large H (Negative) Urine RBC 12 H (0-5) /hpf Urine WBC 110 H (0-5) /hpf Urine WBC Clumps Many H (None) /hpf Amorphous Sediment Occasional H (None) /hpf Urine Bacteria Occasional H (None) /hpf Hyaline Casts 21 H (0-2) /lpf Urine Mucus Rare H (None) /hpf Microbiology - Last 24 Hours (Table) 06/04/17 22:00 Blood Culture - Preliminary Blood No Growth after 48 hours Assessment and Plan Assessment: Impression Present on admission right upper extremity pain redness suspect cellulitis Computed tomography scan of the right humerus show no evidence of a foreign body , abscess or fluid flexion no fractures Plan Continue recommendations by infectious disease antibiotic therapy No evidence of a need for surgical incision and drainage at this time Keep elevated right upper arm at all times Continue recommendations by orthopedic service defer to DVT and GI prophylaxis Pain control Will sign off and reevaluate as needed The above impression and plan of care have been discussed and directed by signing physician. Dasha Enciso nurse practitioner acting as scribe for signing physician.
[2017-06-07] MEDS ORDERED: SODIUM CHLORIDE 0.9% 1,000 ML IV SCH (12:15)
[2017-06-07] MEDS: DAPTOmycin IN 0.9% NACL 500 MG/10 ML SYRINGE IVP SCH (13:31)
--- NOTE | 2017-06-07 13:58 | PN ---
PROGRESS NOTE Patient is seen for followup for acute kidney injury. He was admitted to the hospital with a severe cellulitis of his right upper extremity. His serum creatinine on admission was 3.2 mg/dL and gone up to 5.4 today. Patient states he has been voiding. He is maintained on IV fluids. The patient received 1 dose of vancomycin after which it was discontinued. He is maintained on clindamycin right now and daptomycin. He denies any nausea, vomiting or abdominal pain. EXAMINATION: Blood pressure is 103/40, heart rate 73 per minute. Patient is afebrile. Examination of the heart: S1, S2. Examination lungs: Bilateral breath sounds are heard. Abdomen is soft. There is redness noted on the right side of the chest and significant edema in his right upper extremity with significant induration. FORWARDER OPERATOR exam is grossly intact. LABS SHOW: White cell count up to 26,000. Sodium 129, potassium 4.0, BUN 86, serum creatinine 5.48. ASSESSMENT: Acute kidney injury, acute tubular necrosis, currently nonoliguric secondary to ongoing severe cellulitis. The patient is maintained on IV fluids which I will increase for a short period of time. There is no evidence of obstructive uropathy on the ultrasound. Continue to avoid any nephrotoxic medications and repeat labs. Will check urine eosinophils as well. MMODL / IJN: [id number] /
--- NOTE | 2017-06-07 14:38 | CT ---
EXAMINATION TYPE: CT chest wo con DATE OF EXAM: 06/07/2017 COMPARISON: NONE HISTORY: Rt chest wall and trunk cellulitis CT DLP: 350.[address] of the chest was performed with lung and mediastinal window settings submitted. The la ck of contrast limits evaluation of the vascular, mediastinal and parenchymal structures including th e upper abdomen. Lack of contrast also limits evaluation for possible abscess formation. LUNGS: Mild basilar atelectasis noted right greater than left. No focal consolidation at this time. N o pulmonary nodule or mass is detected. No pleural effusion. No CT evidence of interstitial lung di sease. MEDIASTINUM/HOMERO: Thoracic aorta is of normal caliber with limited evaluation given lack of contrast . The heart is not enlarged. No evidence for mediastinal mass. No lymph nodes greater than 1cm. UPPER ABDOMEN: No significant abnormality is seen. OTHER: There is subcutaneous inflammatory change involving the right chest anteriorly with skin thick ening noted. There is also strandy density extending into the right axilla. There is also thickening of the right-sided pectoralis major and minor musculature. I do not see evidence for distinct abscess . A portion of the right chest wall is cut off the [id number]. Mild adenopathy right axilla measur ing up to 1.3 cm. IMPRESSION: 1. Cutaneous and subcutaneous edema extending to the right axilla and right chest wall without disce rnible drainable collection at this time although portions of the chest wall are cut off the field-of -view and limiting factor of noncontrast. There is also muscular edema noted of the pectoralis muscul ature which may reflect underlying myositis.
--- NOTE | 2017-06-07 15:28 | PN ---
PROGRESS NOTE DATE OF SERVICE: 06/07/2017 REASON FOR FOLLOWUP: Right upper extremity and right chest wall cellulitis and a question of abscess. INTERVAL HISTORY: The patient is afebrile. He is feeling slightly better as far as the pain and swelling is concerned. However, it has spread more down to the trunk on the right side. Patient denies having difficulty breathing. Denies having any chest pain. No cough. No abdominal pain. No diarrhea. He did have worsening of his creatinine, though his urine output is about the same and no decrease in the urine output. PHYSICAL EXAMINATION: Blood pressure is 112/57 with a pulse of 91, temperature of 97.9. He is 98% on 2 L nasal cannula. General description is an elderly male up in the room, in no distress. RESPIRATORY SYSTEM: Unlabored breathing, clear to auscultation. HEART: S1, S2. Regular rate and rhythm. ABDOMEN: Soft, no tenderness. Right upper extremity swelling and slightly decreased the right chest wall redness has tracked down to the lower trunk area, but no fluctuation. No crepitus. No induration, slightly warm to touch. LABS: Hemoglobin 12, white count 26,000 with a BUN of 86, creatinine 5.48. Culture has been negative so far. DIAGNOSTIC IMPRESSION AND PLAN: 1. Patient with a right upper extremity and chest wall cellulitis, now with worsening of his white count for which a CT has been done stat. Could not use the contrast because of his renal insufficiency. This shows cutaneous venous edema without drainable abscess and possible pectoralis muscle myositis. 2. Patient with right breast and extremity and left chest wall cellulitis with possible myositis in the jump in white count. Antibiotics will be adjusted to daptomycin. Continue with Clinda. Discussed with surgical team to see any need for I&D or any cultures. Continue supportive care. MMODL / IJN: [id number] /
--- NOTE | 2017-06-07 16:58 | PN ---
PROGRESS NOTE DATE OF VISIT: 06/07/2017. I visited Mani at the bedside today. He is resting comfortably. He notes minimal improvement at this point with his right upper extremity cellulitis. His pain is well controlled. He is being treated with IV antibiotics per the Infectious Disease service. He denies any numbness or tingling down into his hand. T-max 97.7, pulse 91, blood pressure 96/45, he is saturating 99% on room air. EXAM: Examination of his right upper extremity: There has been very little improvement since I examined him the other day. He still has a cellulitic area along the upper brachium. This is also extended into the lateral right-sided area of his axilla and chest as well. He does have an area of bruising/eschar in the central aspect of his upper brachium. This measures approximately 3 x 6 cm. There is no apparent fluctuance or subcutaneous fluid. There is no evidence of an abscess either. He has intact extensor pollicis longus, flexor pollicis longus, extensor indicis, hand intrinsics and the FDP to the small finger. He has intact radial, median, and ulnar nerve sensation and he has 2+ radial pulse with brisk capillary refill. LAB VALUES: Today, white count 26, hemoglobin 12, platelets 239. IMPRESSION: Right upper extremity cellulitis. RECOMMENDATIONS: Mani does appear to have a fairly serious cellulitic infection in his right upper extremity. At this point, there is no indication for surgical intervention as he does not have a subcutaneous fluid collection or deep abscess. He is being followed by infectious disease, internal medicine and nephrology. His IV antibiotics are as per the Infectious Disease service. We would recommend continue on antibiotic treatment and we will continue to follow closely. MMODL / IJN: [id number] /
--- NOTE | 2017-06-07 22:15 | PN ---
PROGRESS NOTE SUBJECTIVE: A 66-year-old white male with acute tubular necrosis, renal failure and worsening cellulitis of the right chest and right arm. He may need dialysis and [facility] is following him. His cellulitis appears to be a little bit more swelling on the right lateral chest. Surgical intervention is not needed per surgeon. His antibiotic, due to maybe progressive worsening of the cellulitis of right chest, has been switched to daptomycin IV by Infectious Disease. [facility] is following worsening renal function with creatinine over 5. ASSESSMENT: 1. Acute renal failure. 2. Cellulitis of the right upper extremity and right chest. 3. Appears acute tubular necrosis, acute renal failure. Please see further orders as mentioned above. MMODL / IJN: [id number] /
[2017-06-08] MEDS: HYDROmorphone 2 MG/ML 1 ML SYRINGE IVP PRN ×4 (02:35→14:25)
[2017-06-08] MEDS: CLINDAMYCIN 900 MG in DEXTROSE 5% IN WATER 50 ML IVPB SCH ×6 (08:16→23:57)
[2017-06-08] MEDS: SODIUM BICARBONATE TAB 650 MG TAB PO SCH ×3 (08:16→21:23)
--- NOTE | 2017-06-08 09:55 | P.PN ---
Subjective Progress Note Date: 06/08/17 Principal diagnosis: Right Upper extremity cellulitis Patient is a 66-year-old man seen at bedside this morning. We are following him for right upper arm, axillary and right sided chest cellulitis. He thinks he may feel improved today. He has no new complaints. He is currently denying numbness or tingling. He also denies fever, chills, chest pain or shortness of breath. He is on IV antibiotic therapy per ID and has been elevating it. Objective - Vital Signs Vital signs: Vital Signs Temp 98.1 F 06/08/17 07:00 Pulse 88 06/08/17 07:00 Resp 20 06/08/17 07:00 BP 120/66 06/08/17 07:00 Pulse Ox 97 06/08/17 07:00 Intake & Output 06/07/17 06/08/17 06/08/17 18:59 06:59 18:59 Intake Total 500 2040 Balance 500 2040 Intake: Intake, IV Titration 500 990 Amount Clindamycin 900 mg In 300 50 Dextrose 5% in Water 50 ml @ 100 mls/hr IVPB Q8HR [facility] Rx#:[id number] Sodium Chloride 0.9% 1, 200 000 ml @ 100 mls/hr IV . Q10H [facility] Rx#:[id number] Sodium Chloride 0.9% 1, 940 000 ml @ 70 mls/hr IV . [id number] [facility] Rx#:[id number] Oral 1050 Other: Voiding Method Toilet Toilet Toilet # Voids 3 - Exam Inspection of the right upper extremity shows diffuse erythema at the anterior aspect of the upper arm in the brachial region and right axilla and right chest. There may be some mild improvement with swelling. There is soft tissue swelling/edema and induration at the brachium. There is no apparent fluctuance or abscess. There is an superficial ecchymotic area measuring approximately 3cm x 6 cm at the brachium with a superficial blister. Neurovascular status intact with motor and sensation throughout the right upper extremity. Supervisor Solder Making strength, wrist flexion/extension are 5/5. 2+ radial pulse is present. Less than 2 second capillary refill is present. - Constitutional General appearance: Present: no acute distress - Psychiatric Psychiatric: Present: A&O x's 3, appropriate affect, intact judgment & insight - Labs CBC & Chem 7: 06/07/17 07:25 06/07/17 07:25 Labs: Abnormal Lab Results - Last 24 Hours (Table) 06/07/17 06/07/17 Range/Units 07:25 07:25 Neutrophils # (Manual) 24.70 H (1.3-7.7) k/uL Eosinophils # (Manual) 0.78 H (0-0.7) k/uL Myelocytes # (Manual) 0.26 H (0) k/uL BUN 86 H* (9-20) mg/dL Creatinine 5.48 H* (0.66-1.25) mg/dL Microbiology - Last 24 Hours (Table) 06/04/17 22:00 Blood Culture - Preliminary Blood No Growth after 72 hours Assessment and Plan (1) Cellulitis Narrative/Plan: There continues to be no apparent area for surgical I&D and he is neurovascularly intact. He is being followed by ID, IM and Nephrology. IV antibiotics per ID. We will continue to monitor closely. Continue pain management, supportive care, elevation. Current Visit: Yes Status: Acute Code(s): L03.90 - CELLULITIS, UNSPECIFIED SNOMED Code(s): 208849054 Time with Patient: Less than 30
[2017-06-08 10:22] LABS: HCT 37.8 % (39.0-53.0); Hypochromasia Slight; MCH 30.4 pg (25.0-35.0); MCHC 31.7 g/dL (31.0-37.0); MCV 95.8 fL (80.0-100.0); Mean Platelet Volume 9.1; Platelet Count 262 k/uL (150-450); RBC 3.95 m/uL (4.30-5.90); RDW 15.9 % (11.5-15.5)
[2017-06-08 10:33] LABS: Calcium 7.9 mg/dL (8.4-10.2); Potassium 4.2 mmol/L (3.5-5.1)
[2017-06-08 10:37] LABS: WBC 25.9 k/uL (3.8-10.6)
--- NOTE | 2017-06-08 16:05 | PN ---
PROGRESS NOTE Patient is seen for followup for acute kidney injury secondary to severe cellulitis of the right upper extremity. The patient is currently maintained on IV fluids. He has had good urine output. His creatinine is 5.2 from 5.4 yesterday. On examination, blood pressure is 120/66, heart rate 88 per minute. He is afebrile. EXAMINATION OF THE HEART: S1, S2. EXAMINATION OF LUNGS: Decreased breath sounds in the bases. ABDOMEN: Soft, non-tender. Examination of lower extremities shows no evidence of edema. Examination of his upper extremities shows severe cellulitis, close to abscess formation on his right upper extremity. CANAL TENDER exam is grossly intact. Labs show sodium 129, potassium 4.2, BUN 97, serum creatinine 5.2. ASSESSMENT: 1. Acute kidney injury, most likely acute tubular necrosis from severe infection and cellulitis. Serum creatinine is slightly improved from yesterday. Currently patient has good urine output. He is not maintained on any nephrotoxic agents. We will continue to monitor the renal function for now. 2. Metabolic acidosis secondary to renal failure, maintained on oral sodium bicarb. 3. Severe cellulitis of right upper extremity, maintained on clindamycin and status post vancomycin, currently on daptomycin; seems to be slowly improving. PLAN: Continue IV fluids. Repeat labs in a.m. Urine for eosinophils was ordered yesterday. MMODL / IJN: [id number] /
--- NOTE | 2017-06-08 16:23 | PN ---
PROGRESS NOTE DATE OF SERVICE: 06/08/2017 REASON FOR FOLLOWUP: Right upper extremity abscess and cellulitis. INTERVAL HISTORY: The patient is afebrile. He seems to have more fluctuation on the right upper arm with formation of a blister. The patient overall did mention that the pain has decreased in intensity. No chest pain. No abdominal pain. No diarrhea. PHYSICAL EXAMINATION: Blood pressure 120/66 with a pulse of 88, temperature 98.1. He is 97% on room air. General description is an elderly male up in the bed up in no distress. RESPIRATORY SYSTEM: Unlabored breathing. Clear to auscultation anteriorly. HEART: S1, S2. Regular rate and rhythm. ABDOMEN: Soft. No tenderness. Right upper arm is getting more fluctuant with formation of a blister. The right-sided trunk redness has decreased. LABS: Hemoglobin 12, white count 5.9 with a BUN of 97, creatinine 5.22. Blood culture has been negative so far. DIAGNOSTIC IMPRESSION AND PLAN: Patient with right upper extremity cellulitis involving the trunk with likely component of an abscess. Suspicion is likely for a group B abscess. Currently on daptomycin and clindamycin. Detailed discussion with the surgical team, who did mention they have signed out. I did contact Orthopedics and saw the patient again with them. Recommending drainage of the right upper arm abscess and exploration to make sure no evidence of any deep tissue involvement. Will keep on these antibiotics while waiting for the cultures to be finalized. Continue with supportive care. MMODL / IJN: [id number] /
[2017-06-08] MEDS: HYDROmorphone 0.5 MG/0.5 ML SYRINGE IVP PRN ×2 (17:25→21:28)
[2017-06-08] MEDS: SODIUM CHLORIDE 0.9% 1,000 ML IV SCH (19:25)
--- NOTE | 2017-06-08 19:37 | MR ---
MR right humerus without contrast HISTORY: Right upper extremity infection Multiplanar multisequence imaging through the right humerus. Correlation to chest CT 06/07/2017 There is extensive edema within the subcutaneous fat as well as right chest wall and the visualized p ortions. No definite fluid collection is present. The biceps muscle shows edema change. Adenopathy is present in the right axilla. Bone marrow signal is maintained. Myositis may extend into the pectoral is curvature. No intravenous contrast was administered due to patient's renal insufficiency. Acromioclavicular join t arthropathy noted incidentally. IMPRESSION: Cellulitis as described, myositis involving the biceps.
--- NOTE | 2017-06-08 22:20 | PN ---
PROGRESS NOTE SUBJECTIVE: 66-year-old white male with cellulitis of the right chest wall, right upper arm. He has been placed on IV daptomycin. His creatinine is little bit better from 5.8 down to 5.22. His white count still around 25,000. He has an early abscess on the right upper arm on the medial aspect for which I and D will be done. ASSESSMENT: 1. Abscess/cellulitis of the right upper arm and the right lateral chest. Continue on IV daptomycin I and D. 2. Acute tubular necrosis. 3. Renal failure. Continue with fluid rehydration and monitor with renal physician and infectious disease. MMODL / IJN: [id number] /
[2017-06-09] MEDS: HYDROmorphone 0.5 MG/0.5 ML SYRINGE IVP PRN ×7 (00:18→23:34)
[2017-06-09] MEDS: CLINDAMYCIN 900 MG in DEXTROSE 5% IN WATER 50 ML IVPB SCH ×6 (07:10→23:33)
[2017-06-09] MEDS: SODIUM BICARBONATE TAB 650 MG TAB PO SCH ×2 (07:13→19:19)
[2017-06-09 07:30] LABS: Anisocytosis Slight; Basophils # (A) 0.1 k/uL (0-0.2); Basophils % (A) 0 %; Eosinophils # (A) 0.6 k/uL (0-0.7); Eosinophils % (A) 3 %; HCT 35.5 % (39.0-53.0); HGB 11.3 gm/dL (13.0-17.5); Lymphocytes # (A) 0.7 k/uL (1.0-4.8); Lymphocytes % (A) 4 %; MCH 29.5 pg (25.0-35.0); MCHC 31.7 g/dL (31.0-37.0); Mean Platelet Volume 9.1; Monocytes # (A) 0.7 k/uL (0-1.0); Monocytes % (A) 4 %; Neutrophils # (A) 14.8 k/uL (1.3-7.7); Neutrophils % (A) 86 %; Platelet Count 284 k/uL (150-450); RBC 3.82 m/uL (4.30-5.90); WBC 17.2 k/uL (3.8-10.6)
[2017-06-09 07:48] LABS: Potassium 4.6 mmol/L (3.5-5.1); Total Bilirubin 1.1 mg/dL (0.2-1.3); Total Protein 4.5 g/dL (6.3-8.2)
--- NOTE | 2017-06-09 10:21 | P.PN ---
Subjective Progress Note Date: 06/09/17 Principal diagnosis: This is 66-year-old male seen in consultation because of acute kidney injury and chronic kidney disease. He was admitted with right upper arm cellulitis. His creatinine peaked at 5.48 and since yesterday has been improving, down 5.2 and 24.57 today. No fever chills or appetite no nausea vomiting diarrhea abdominal pain. The right upper arm pain remains but improved. Objective - Vital Signs Vital signs: Vital Signs Temp 97.4 F L 06/09/17 07:00 Pulse 87 06/09/17 07:00 Resp 16 06/09/17 07:00 BP 142/70 06/09/17 07:00 Pulse Ox 97 06/09/17 07:00 Intake & Output 06/08/17 06/09/17 06/09/17 18:59 06:59 18:59 Intake Total 560 Output Total 835 200 Balance -275 -200 Weight 70.45 kg 70.45 kg Intake: Intake, IV Titration 560 Amount Sodium Chloride 0.9% 1, 560 000 ml @ 70 mls/hr IV . [id number] [facility] Rx#:[id number] Output: Urine 835 200 Other: Voiding Method Toilet Toilet Urinal Urinal # Voids 2 On examination is awake alert oriented comfortable. HEENT exam no JVP lymphadenopathy thyromegaly. Lungs are clear to auscultation percussion good air entry bilaterally Heart sounds are unremarkable no murmur rub gallop Abdomen soft nontender no masses felt Extremity examination reveals no edema except the right upper arm which is swollen tender red. Neurologically awake alert oriented No focal motor deficit. - Labs CBC & Chem 7: 06/09/17 06:41 06/09/17 06:41 Labs: Abnormal Lab Results - Last 24 Hours (Table) 06/08/17 06/08/17 06/09/17 Range/Units 09:49 09:54 06:41 WBC 25.9 H* 17.2 H (3.8-10.6) k/uL RBC 3.95 L 3.82 L (4.30-5.90) m/uL Hgb 12.0 L 11.3 L (13.0-17.5) gm/dL Hct 37.8 L 35.5 L (39.0-53.0) % RDW 15.9 H 16.0 H (11.5-15.5) % Neutrophils # 14.8 H (1.3-7.7) k/uL Lymphocytes # 0.7 L (1.0-4.8) k/uL Sodium 129 L (137-145) mmol/L Carbon Dioxide 15 L (22-30) mmol/L BUN 97 H* (9-20) mg/dL Creatinine 5.22 H* (0.66-1.25) mg/dL Glucose 119 H (74-99) mg/dL Calcium 7.9 L (8.4-10.2) mg/dL Alkaline Phosphatase (38-126) U/L Total Protein (6.3-8.2) g/dL Albumin (3.5-5.0) g/dL 06/09/17 Range/Units 06:41 WBC (3.8-10.6) k/uL RBC (4.30-5.90) m/uL Hgb (13.0-17.5) gm/dL Hct (39.0-53.0) % RDW (11.5-15.5) % Neutrophils # (1.3-7.7) k/uL Lymphocytes # (1.0-4.8) k/uL Sodium 135 L (137-145) mmol/L Carbon Dioxide 17 L (22-30) mmol/L BUN 98 H* (9-20) mg/dL Creatinine 4.57 H (0.66-1.25) mg/dL Glucose (74-99) mg/dL Calcium 8.0 L (8.4-10.2) mg/dL Alkaline Phosphatase 238 H (38-126) U/L Total Protein 4.5 L (6.3-8.2) g/dL Albumin 2.0 L (3.5-5.0) g/dL Microbiology - Last 24 Hours (Table) 06/04/17 22:00 Blood Culture - Preliminary Blood No Growth after 96 hours Assessment and Plan Assessment: Impression. 1. Acute kidney injury from sepsis from right, creatinine improved from 5.48- 4.57. 2. Possible chronic kidney disease. The most recent previous creatinines 1.09 on 07/09/2014. 3. Myositis involving the biceps based on MRI. 4. Mild non-gap acidosis bicarb 17 improving. Recommendation. 1. Continue IV fluids. 2. Continue oral bicarb. 3. Continue antibiotics. Her graft 4. Monitor lytes BUN and creatinine
--- NOTE | 2017-06-09 10:33 | P.PN ---
Subjective Progress Note Date: 06/09/17 This is a 66-year-old male admitted for cellulitis of the right upper extremity. Orthopedics has been following. Patient is seen and evaluated at bedside today and patient reports a mild improvement in pain and swelling. Patient denies any fever/chills, numbness, weakness, tingling or any new complaints. Objective - Vital Signs Vital signs: Vital Signs Temp 97.4 F L 06/09/17 07:00 Pulse 87 06/09/17 07:00 Resp 16 06/09/17 07:00 BP 142/70 06/09/17 07:00 Pulse Ox 97 06/09/17 07:00 Intake & Output 06/08/17 06/09/17 06/09/17 18:59 06:59 18:59 Intake Total 560 Output Total 835 200 Balance -275 -200 Weight 70.45 kg 70.45 kg Intake: Intake, IV Titration 560 Amount Sodium Chloride 0.9% 1, 560 000 ml @ 70 mls/hr IV . [id number] [facility] Rx#:[id number] Output: Urine 835 200 Other: Voiding Method Toilet Toilet Urinal Urinal # Voids 2 - Exam On exam patient is in no acute distress and is alert and oriented 3. There is erythema and warmth to the right upper extremity extending from the right shoulder and axillary area to the elbow. There is ecchymosis and peeling skin to the medial aspect of the right upper arm. There is no drainage or abscess noted. Patient has full range of motion of the right wrist and hand. Sensation intact. Neurovascular status and circulatory status are intact. - Labs CBC & Chem 7: 06/09/17 06:41 06/09/17 06:41 Labs: Abnormal Lab Results - Last 24 Hours (Table) 06/08/17 06/08/17 06/09/17 Range/Units 09:49 09:54 06:41 WBC 25.9 H* 17.2 H (3.8-10.6) k/uL RBC 3.95 L 3.82 L (4.30-5.90) m/uL Hgb 12.0 L 11.3 L (13.0-17.5) gm/dL Hct 37.8 L 35.5 L (39.0-53.0) % RDW 15.9 H 16.0 H (11.5-15.5) % Neutrophils # 14.8 H (1.3-7.7) k/uL Lymphocytes # 0.7 L (1.0-4.8) k/uL Sodium 129 L (137-145) mmol/L Carbon Dioxide 15 L (22-30) mmol/L BUN 97 H* (9-20) mg/dL Creatinine 5.22 H* (0.66-1.25) mg/dL Glucose 119 H (74-99) mg/dL Calcium 7.9 L (8.4-10.2) mg/dL Alkaline Phosphatase (38-126) U/L Total Protein (6.3-8.2) g/dL Albumin (3.5-5.0) g/dL 06/09/17 Range/Units 06:41 WBC (3.8-10.6) k/uL RBC (4.30-5.90) m/uL Hgb (13.0-17.5) gm/dL Hct (39.0-53.0) % RDW (11.5-15.5) % Neutrophils # (1.3-7.7) k/uL Lymphocytes # (1.0-4.8) k/uL Sodium 135 L (137-145) mmol/L Carbon Dioxide 17 L (22-30) mmol/L BUN 98 H* (9-20) mg/dL Creatinine 4.57 H (0.66-1.25) mg/dL Glucose (74-99) mg/dL Calcium 8.0 L (8.4-10.2) mg/dL Alkaline Phosphatase 238 H (38-126) U/L Total Protein 4.5 L (6.3-8.2) g/dL Albumin 2.0 L (3.5-5.0) g/dL Microbiology - Last 24 Hours (Table) 06/04/17 22:00 Blood Culture - Preliminary Blood No Growth after 96 hours Assessment and Plan (1) Cellulitis Current Visit: Yes Status: Acute Code(s): L03.90 - CELLULITIS, UNSPECIFIED SNOMED Code(s): 735280029 Plan: #1. No surgical intervention planned at this time. We'll continue to follow the patient closely. #2. Continue rest, elevation, and antibiotics per infectious disease.
[2017-06-09] MEDS: SODIUM CHLORIDE 0.9% 1,000 ML IV SCH (11:16)
[2017-06-09] MEDS: DAPTOmycin IN 0.9% NACL 500 MG/10 ML SYRINGE IVP SCH (11:16)
--- NOTE | 2017-06-09 12:27 | PN ---
PROGRESS NOTE SUBJECTIVE: A 66-year-old white male for right upper extremity cellulitis into the right chest cellulitis. He has a mild improvement in his pain and swelling. No fever, chills, numbness, or tingling. Temp 97.4, pulse 87, respirations 16, blood pressure 142/70, O2 saturation 97. CARDIOVASCULAR: S1, S2. LUNGS: Transmitted upper airway sounds. INTEGUMENT: Erythema warmth right upper extremity extending from the right shoulder to the right axilla. Ecchymosis, peeling skin of the medial aspect of the right upper arm with some mild bruising. Full range of motion of his hand. He has decreased swelling in his right upper arm compared to the day before. NEUROVASCULAR: Intact. White count 17.2, hemoglobin is 11.3, BUN 98, creatinine 4.57, sodium 135. ASSESSMENT: 1. Cellulitis. Continue on IV which appears to be improving the patient. 2. Acute tubular necrosis secondary to sepsis. Creatinine is improved from 5.48 down to 4.57. 3. Myositis in biceps based on MRI. 4. Non anion gap metabolic acidosis, improving. Continue IV fluids, oral bicarbonate. Continue antibiotics. Prognosis is good as patient appears to be improving. MMODL / IJN: [id number] /
[2017-06-10] MEDS: HYDROmorphone 0.5 MG/0.5 ML SYRINGE IVP PRN (03:53)
[2017-06-10] MEDS: SODIUM CHLORIDE 0.9% 1,000 ML IV SCH ×2 (03:55→15:16)
[2017-06-10] MEDS: CLINDAMYCIN 900 MG in DEXTROSE 5% IN WATER 50 ML IVPB SCH ×4 (07:40→15:46)
[2017-06-10] MEDS: SODIUM BICARBONATE TAB 650 MG TAB PO SCH ×2 (07:40→21:21)
[2017-06-10 07:42] LABS: Anisocytosis Slight; HCT 40.2 % (39.0-53.0); HGB 12.7 gm/dL (13.0-17.5); MCH 29.9 pg (25.0-35.0); MCHC 31.5 g/dL (31.0-37.0); MCV 94.7 fL (80.0-100.0); Mean Platelet Volume 8.7; Platelet Count 348 k/uL (150-450); RBC 4.24 m/uL (4.30-5.90); RDW 16.4 % (11.5-15.5); WBC 14.9 k/uL (3.8-10.6)
--- NOTE | 2017-06-10 07:45 | P.PN ---
Subjective Progress Note Date: 06/10/17 This is a 66-year-old male admitted for cellulitis of the right upper extremity. Orthopedics has been following. Patient is seen and evaluated at bedside today and patient reports continued improvement in pain and swelling. Patient denies any fever/chills, numbness, weakness, tingling or any new complaints. Objective - Vital Signs Vital signs: Vital Signs Temp 98.7 F 06/09/17 22:20 Pulse 84 06/09/17 22:59 Resp 16 06/09/17 22:59 BP 169/83 06/09/17 22:20 Pulse Ox 96 06/09/17 22:05 Intake & Output 06/09/17 06/10/17 06/10/17 18:59 06:59 18:59 Intake Total 1210 810 Output Total 200 1300 Balance 1010 -490 Weight 70.45 kg Intake: Intake, IV Titration 750 810 Amount Clindamycin 900 mg In 50 Dextrose 5% in Water 50 ml @ 100 mls/hr IVPB Q8HR [facility] Rx#:[id number] Sodium Chloride 0.9% 1, 700 810 000 ml @ 70 mls/hr IV . [id number] [facility] Rx#:[id number] Oral 460 Output: Urine 200 1300 Other: Voiding Method Urinal Toilet Urinal # Voids 4 1 - Exam On exam patient is in no acute distress and is alert and oriented 3. There is erythema and warmth to the right upper extremity extending from the right axillary area to the elbow which is slightly improved from yesterday's exam. There is ecchymosis and peeling skin to the medial aspect of the right upper arm. There is no drainage or abscess noted. Patient has full range of motion of the right wrist and hand. Sensation intact. Neurovascular status and circulatory status are intact. - Labs CBC & Chem 7: 06/09/17 06:41 06/09/17 06:41 Labs: Abnormal Lab Results - Last 24 Hours (Table) 06/09/17 06/09/17 Range/Units 06:41 06:41 WBC 17.2 H (3.8-10.6) k/uL RBC 3.82 L (4.30-5.90) m/uL Hgb 11.3 L (13.0-17.5) gm/dL Hct 35.5 L (39.0-53.0) % RDW 16.0 H (11.5-15.5) % Neutrophils # 14.8 H (1.3-7.7) k/uL Lymphocytes # 0.7 L (1.0-4.8) k/uL Sodium 135 L (137-145) mmol/L Carbon Dioxide 17 L (22-30) mmol/L BUN 98 H* (9-20) mg/dL Creatinine 4.57 H (0.66-1.25) mg/dL Calcium 8.0 L (8.4-10.2) mg/dL Alkaline Phosphatase 238 H (38-126) U/L Total Protein 4.5 L (6.3-8.2) g/dL Albumin 2.0 L (3.5-5.0) g/dL Microbiology - Last 24 Hours (Table) 06/04/17 22:00 Blood Culture - Preliminary Blood No Growth after 120 hours Assessment and Plan (1) Cellulitis Current Visit: Yes Status: Acute Code(s): L03.90 - CELLULITIS, UNSPECIFIED SNOMED Code(s): 212058713 Plan: #1. No surgical intervention planned at this time. We'll continue to follow the patient closely. #2. Continue rest, elevation, and antibiotics per infectious disease.
[2017-06-10 07:46] LABS: Albumin 2.2 g/dL (3.5-5.0); Calcium 8.1 mg/dL (8.4-10.2); Potassium 4.8 mmol/L (3.5-5.1); Total Bilirubin 1.2 mg/dL (0.2-1.3); Total Protein 5.2 g/dL (6.3-8.2)
[2017-06-10] MEDS: HYDROcodone/APAP 7.5-325MG 1 EACH TAB PO PRN ×2 (10:01→15:46)
[2017-06-10 10:16] LABS: Band Neutrophils % 2 %; Eosinophils # (M) 0.45 k/uL (0-0.7); Lymphocytes # (M) 1.34 k/uL (1.0-4.8); Metamyelocytes # (M) 0.45 k/uL (0); Metamyelocytes % 3 %; Monocytes # (M) 0.75 k/uL (0-1.0); Myelocytes # (M) 0.15 k/uL (0); Myelocytes % 1 %; Neutrophils % (M) 80 %; Nucleated Red Blood Cells 0 /100 WBC (0-0); Total Cells Counted 200
[2017-06-10 10:17] LABS: Poikilocytosis (M) Present; Toxic Granulation Present
--- NOTE | 2017-06-10 11:02 | P.PN ---
Subjective Progress Note Date: 06/10/17 Principal diagnosis: This is 66-year-old male seen in consultation because of acute kidney injury and chronic kidney disease. He was admitted with right upper arm cellulitis. His creatinine peaked at 5.48 and s has been improving, down 5.2 and 4.57, and further down to 3.38 today. No fever chills or appetite no nausea vomiting diarrhea abdominal pain. The right upper arm pain remains but improved. No other new complaints. Appetite remains somewhat less than optimal Objective - Vital Signs Vital signs: Vital Signs Temp 98.8 F 06/10/17 07:00 Pulse 78 06/10/17 07:00 Resp 18 06/10/17 07:00 BP 151/70 06/10/17 07:00 Pulse Ox 97 06/10/17 07:00 Intake & Output 06/09/17 06/10/17 06/10/17 18:59 06:59 18:59 Intake Total 1210 810 Output Total 200 1300 Balance 1010 -490 Weight 70.45 kg Intake: Intake, IV Titration 750 810 Amount Clindamycin 900 mg In 50 Dextrose 5% in Water 50 ml @ 100 mls/hr IVPB Q8HR [facility] Rx#:[id number] Sodium Chloride 0.9% 1, 700 810 000 ml @ 70 mls/hr IV . [id number] [facility] Rx#:[id number] Oral 460 Output: Urine 200 1300 Other: Voiding Method Urinal Toilet Toilet Urinal Urinal # Voids 4 1 On examination is awake alert oriented comfortable HEENT exam no JVP neck supple no facial asymmetry The right upper arm remains red erythematous and edematoud, with a small bandage on the medial upper arm. Lungs are clear to auscultation percussion good air entry bilaterally. Heart sounds are unremarkable no murmur rub gallop Abdomen soft nontender Extremity exam was no edema Awake alert oriented comfortable - Labs CBC & Chem 7: 06/10/17 06:50 06/10/17 06:50 Labs: Abnormal Lab Results - Last 24 Hours (Table) 06/10/17 06/10/17 Range/Units 06:50 06:50 WBC 14.9 H (3.8-10.6) k/uL RBC 4.24 L (4.30-5.90) m/uL Hgb 12.7 L (13.0-17.5) gm/dL RDW 16.4 H (11.5-15.5) % Neutrophils # (Manual) 12.20 H (1.3-7.7) k/uL Metamyelocytes # (Man) 0.45 H (0) k/uL Myelocytes # (Manual) 0.15 H (0) k/uL Carbon Dioxide 20 L (22-30) mmol/L BUN 87 H* (9-20) mg/dL Creatinine 3.38 H (0.66-1.25) mg/dL Calcium 8.1 L (8.4-10.2) mg/dL Alkaline Phosphatase 273 H (38-126) U/L Total Protein 5.2 L (6.3-8.2) g/dL Albumin 2.2 L (3.5-5.0) g/dL Microbiology - Last 24 Hours (Table) 06/04/17 22:00 Blood Culture - Preliminary Blood No Growth after 120 hours Assessment and Plan Assessment: Impression. 1. Acute kidney injury from cellulitis of right upper arm and prerenal , creatinine improved from 5.48- to 3.38 2. Possible chronic kidney disease. The most recent previous creatinines 1.09 on 07/09/2014. 3. Myositis involving the biceps based on MRI. 4. Mild non-gap acidosis bicarb 20 improving. Recommendation. 1. Continue IV fluids. 2. Continue oral bicarb. 3. Continue antibiotics. 4. Monitor lytes BUN and creatinine
[2017-06-10] MEDS: NYSTATIN 100,000 UNIT/ML SUSP 500,000 UNIT/5 ML CUP PO SCH ×3 (13:08→21:22)
--- NOTE | 2017-06-10 18:49 | PN ---
PROGRESS NOTE SUBJECTIVE: 66-year-old white male who is admitted to the hospital. He remains on IV daptomycin, IV clindamycin for significant right upper arm and right chest infection, which is greatly improving. His labs show the white count is down to 14.9 from 17.2. His creatinine is down from 4.57 to 3.38. Albumin still remains low at 2.2 up from 2. ASSESSMENT: 1. Severe cellulitis of the upper right arm and right lateral chest. 2. Acute tubular necrosis, improving. 3. Protein calorie malnutrition, moderate to severe, improving. Please see further orders including antibiotics IV x2 and IV fluid rehydration. Please see further orders in the chart. MMODL / IJN: [id number] /
[2017-06-11] MEDS: ONDANSETRON 4 MG/2 ML VIAL IVP PRN (00:04)
[2017-06-11] MEDS: CLINDAMYCIN 900 MG in DEXTROSE 5% IN WATER 50 ML IVPB SCH ×8 (00:04→23:32)
--- NOTE | 2017-06-11 05:16 | PN ---
PROGRESS NOTE DATE OF SERVICE: 06/10/2017 REASON FOR FOLLOWUP: Right upper extremity, chest wall cellulitis and myositis. INTERVAL HISTORY: The patient is afebrile. He is feeling slightly better, breathing comfortably. Right- sided chest wall swelling and redness has improved and the right upper arm swelling and redness has improved as well. Denies having any abdominal pain or diarrhea. PHYSICAL EXAMINATION: On examination, blood pressure 150/96 with a pulse of 84, temperature of 99.6. He is 95% on room air. General description is an elderly male up in the bed, in no distress. RESPIRATORY SYSTEM: Unlabored breathing, clear to auscultation anteriorly. HEART: S1, S2. Regular rate and rhythm. ABDOMEN: Soft, no tenderness. Right upper extremity swelling has slightly improved. Chest wall redness has improved. LABS: Hemoglobin is 12.7, white count 14.9 with a BUN of 87, creatinine 3.38. Blood culture has been negative. DIAGNOSTIC IMPRESSION AND PLAN: Patient with right upper extremity and chest wall cellulitis and a component of myositis, no drainable abscess. Overall responding to the clindamycin and daptomycin, will be continued. In view of the extensive infection, he may need to continue with daptomycin outpatient setting. His outpatient antibiotic coverage will be discussed with the caser. Continue supportive care. MMODL / DREAN: [id number] /
[2017-06-11 07:40] LABS: Basophils # (A) 0.1 k/uL (0-0.2); Basophils % (A) 0 %; Eosinophils # (A) 0.2 k/uL (0-0.7); Eosinophils % (A) 2 %; HCT 38.1 % (39.0-53.0); HGB 12.1 gm/dL (13.0-17.5); Lymphocytes % (A) 7 %; MCH 29.8 pg (25.0-35.0); MCHC 31.8 g/dL (31.0-37.0); MCV 93.7 fL (80.0-100.0); Mean Platelet Volume 8.5; Monocytes # (A) 0.6 k/uL (0-1.0); Monocytes % (A) 4 %; Neutrophils % (A) 84 %; Platelet Count 327 k/uL (150-450); RBC 4.07 m/uL (4.30-5.90); WBC 13.2 k/uL (3.8-10.6)
[2017-06-11] MEDS: HYDROcodone/APAP 7.5-325MG 1 EACH TAB PO PRN (07:53)
[2017-06-11] MEDS: SODIUM BICARBONATE TAB 650 MG TAB PO SCH ×2 (07:55→21:17)
[2017-06-11] MEDS: NYSTATIN 100,000 UNIT/ML SUSP 500,000 UNIT/5 ML CUP PO SCH ×4 (07:55→21:17)
[2017-06-11 07:57] LABS: Albumin 2.1 g/dL (3.5-5.0); Calcium 7.8 mg/dL (8.4-10.2); Total Protein 5.1 g/dL (6.3-8.2)
[2017-06-11] MEDS: SODIUM CHLORIDE 0.9% 1,000 ML IV SCH (07:58)
--- NOTE | 2017-06-11 09:52 | P.PN ---
Subjective Progress Note Date: 06/11/17 Principal diagnosis: Right Upper extremity cellulitis Patient is a 66-year-old man seen at bedside this morning. We are following him for right upper arm, axillary and right sided chest cellulitis. He states he is doing better. His pain is improved as well as range of motion with right arm. He has no new complaints. He is currently denying numbness or tingling. He also denies fever, chills, chest pain or shortness of breath. He is on IV antibiotic therapy per ID and has been elevating it. Objective - Vital Signs Vital signs: Vital Signs Temp 98.0 F 06/11/17 07:00 Pulse 69 06/11/17 07:00 Resp 18 06/11/17 07:00 BP 150/69 06/11/17 07:00 Pulse Ox 97 06/11/17 07:00 Intake & Output 06/10/17 06/11/17 06/11/17 18:59 06:59 18:59 Intake Total 1520 Output Total 500 950 Balance 1020 -950 Weight 70.45 kg Intake: Intake, IV Titration 940 Amount Clindamycin 900 mg In 100 Dextrose 5% in Water 50 ml @ 100 mls/hr IVPB Q8HR [facility] Rx#:[id number] Sodium Chloride 0.9% 1, 840 000 ml @ 70 mls/hr IV . [id number] [facility] Rx#:[id number] Oral 580 Output: Urine 500 950 Other: Voiding Method Toilet Toilet Urinal Urinal # Voids 4 - Exam Inspection of the right upper extremity shows improved erythema at the anterior aspect of the upper arm in the brachial region and right axilla and right chest. There is also improvement with swelling. There continues to be no apparent fluctuance or abscess. The superficial ecchymotic area at the brachium is stable or improved. There previous blister has broken and skin is resolving. There is no purulent drainage. Neurovascular status intact with motor and sensation throughout the right upper extremity. Snapper On strength, wrist flexion/ extension are 5/5. 2+ radial pulse is present. Less than 2 second capillary refill is present. - Constitutional General appearance: Present: no acute distress - Psychiatric Psychiatric: Present: A&O x's 3, appropriate affect, intact judgment & insight - Labs CBC & Chem 7: 06/11/17 06:56 06/11/17 06:56 Labs: Abnormal Lab Results - Last 24 Hours (Table) 06/10/17 06/11/17 06/11/17 Range/Units 06:50 06:56 06:56 WBC 13.2 H (3.8-10.6) k/uL RBC 4.07 L (4.30-5.90) m/uL Hgb 12.1 L (13.0-17.5) gm/dL Hct 38.1 L (39.0-53.0) % Neutrophils # 11.0 H (1.3-7.7) k/uL Neutrophils # (Manual) 12.20 H (1.3-7.7) k/uL Metamyelocytes # (Man) 0.45 H (0) k/uL Myelocytes # (Manual) 0.15 H (0) k/uL Chloride 111 H (98-107) mmol/L Carbon Dioxide 20 L (22-30) mmol/L BUN 67 H (9-20) mg/dL Creatinine 2.45 H (0.66-1.25) mg/dL Calcium 7.8 L (8.4-10.2) mg/dL Alkaline Phosphatase 192 H (38-126) U/L Total Protein 5.1 L (6.3-8.2) g/dL Albumin 2.1 L (3.5-5.0) g/dL Microbiology - Last 24 Hours (Table) 06/04/17 22:00 Blood Culture - Final Blood No Growth after 144 hours Assessment and Plan (1) Cellulitis Narrative/Plan: Clinically overall it appears he is starting to significantly improve. His WBC has decreased significantly, his chemsitry is improving and his exam is improved. MRI was negative for abcess or fluid that required surgical intervention. Continue abiotics per ID. Continue pain management, supportive care, elevation. Will continue to monitor closely. Current Visit: Yes Status: Acute Priority: Medium Code(s): L03.90 - CELLULITIS, UNSPECIFIED SNOMED Code(s): 703909247 Time with Patient: Less than 30
[2017-06-11] MEDS: DAPTOmycin IN 0.9% NACL 500 MG/10 ML SYRINGE IVP SCH (11:43)
--- NOTE | 2017-06-11 19:25 | XR ---
EXAMINATION TYPE: XR chest 2V DATE OF EXAM: 06/11/2017 COMPARISON: NONE HISTORY: Facility placement TECHNIQUE: Frontal and lateral views of the chest are obtained. FINDINGS: There is no heart failure nor confluent pneumonic infiltrate. There is slight blunting of the Posterior costophrenic angles. Bony thorax is intact. IMPRESSION: Small pleural effusions or pleural diaphragmatic scarring. No gross heart failure.
--- NOTE | 2017-06-11 22:41 | PN ---
PROGRESS NOTE DATE OF SERVICE: 06/11/2017. REASON FOR FOLLOWUP: Right upper extremity and chest wall cellulitis and myositis. INTERVAL HISTORY: The patient is afebrile, has been breathing comfortably. Pain and swelling to the right upper arm and chest wall has improved. Denies having any shortness of breath. No abdominal pain. No diarrhea. EXAMINATION: Blood pressure 150/70 with a pulse of 66, temperature of 98.8. He is 99% on room air. General description is an elderly male up in the bed, in no distress. Respiratory system: Unlabored breathing, clear to auscultation anteriorly. Heart S1, S2 regular rate and rhythm. Abdomen soft. No tenderness. Right upper arm swelling has slightly improved. LABS: Hemoglobin is 12.1, white count 13.2 with a BUN of 67, creatinine is 2.45. DIAGNOSTIC IMPRESSION AND PLAN: Patient with right upper extremity cellulitis and myositis/clinically responding to the daptomycin and Clinda. We will recommend getting a PICC line once cleared by Nephrology and outpatient IV daptomycin for at least 2 weeks. Continue supportive care. MMODL / IJN: [id number] /
--- NOTE | 2017-06-11 23:32 | PN ---
PROGRESS NOTE SUBJECTIVE: 66-year-old white male whom is improving on IV daptomycin and Cleocin. His pain is improved. His right arm is moving. His creatinine is down to 3.5. Vital signs are stable. Afebrile. Cardiovascular S1, S2. Lungs clear. GI soft. Integument neurovascular intact, right upper extremity. Right upper extremity and erythema at the anterior aspect of the right arm, right chest, right axilla, right brachial region, improved. Continue with IV Cleocin IV daptomycin. White count of 13.2, hematocrit is down to 2.45, he has moderate protein calorie malnutrition and protein diet will be given. MMODL / IJN: [id number] /
--- NOTE | 2017-06-11 23:41 | PN ---
PROGRESS NOTE The patient is seen for followup for acute kidney injury. His renal function is now improved. Patient is maintained on IV fluids. He was admitted to the hospital with severe cellulitis and infection of his right upper arm. PHYSICAL EXAMINATION: On examination today, blood pressure was 150/70, heart rate 66 per minute. Patient is afebrile. Examination of the heart S1, S2. Examination of the lungs decreased breath sounds at bases. Abdomen is soft, nontender. Examination lower extremity shows no significant edema. His right upper extremity shows a significant infection. However, the redness seems to have decreased. LABS SHOW: Sodium 140, potassium 5.0, BUN 67, serum creatinine 2.45, hemoglobin 12.1 g/dL. ASSESSMENT: 1. Acute kidney injury secondary to severe cellulitis, currently improving. The patient is maintained on IV fluids which we will continue. 2. Severe cellulitis right upper extremity. Maintained on daptomycin and clindamycin. No abscess was noted. CT was negative for free air. 3. Metabolic acidosis secondary to renal failure, maintained on oral sodium bicarb. 4. Chronic kidney disease, baseline not known with previous creatinine 1.0 in June of 2014, possibly secondary to nephrosclerosis. This would be stage III. MMODL / IJN: [id number] /
[2017-06-12] MEDS: HYDROcodone/APAP 7.5-325MG 1 EACH TAB PO PRN ×2 (00:57→14:53)
[2017-06-12] MEDS: SODIUM CHLORIDE 0.9% 1,000 ML IV SCH ×2 (00:57→09:40)
[2017-06-12] MEDS: ONDANSETRON 4 MG/2 ML VIAL IVP PRN (00:57)
[2017-06-12 07:20] LABS: Basophils % (A) 0 %; Eosinophils # (A) 0.1 k/uL (0-0.7); Eosinophils % (A) 1 %; HCT 34.8 % (39.0-53.0); HGB 10.9 gm/dL (13.0-17.5); Lymphocytes # (A) 1.2 k/uL (1.0-4.8); Lymphocytes % (A) 10 %; MCH 29.1 pg (25.0-35.0); MCHC 31.4 g/dL (31.0-37.0); MCV 92.5 fL (80.0-100.0); Mean Platelet Volume 8.9; Monocytes # (A) 0.5 k/uL (0-1.0); Monocytes % (A) 4 %; Neutrophils # (A) 9.9 k/uL (1.3-7.7); Neutrophils % (A) 82 %; Platelet Count 309 k/uL (150-450); RBC 3.76 m/uL (4.30-5.90); RDW 15.7 % (11.5-15.5); WBC 12.1 k/uL (3.8-10.6)
[2017-06-12 07:38] LABS: Albumin 2.1 g/dL (3.5-5.0); Calcium 7.7 mg/dL (8.4-10.2); Potassium 4.8 mmol/L (3.5-5.1); Total Bilirubin 0.9 mg/dL (0.2-1.3); Total Protein 5.1 g/dL (6.3-8.2)
[2017-06-12] MEDS: NYSTATIN 100,000 UNIT/ML SUSP 500,000 UNIT/5 ML CUP PO SCH ×4 (08:53→21:47)
[2017-06-12] MEDS: SODIUM BICARBONATE TAB 650 MG TAB PO SCH ×2 (08:53→19:54)
[2017-06-12] MEDS: CLINDAMYCIN 900 MG in DEXTROSE 5% IN WATER 50 ML IVPB SCH ×2 (08:53)
--- NOTE | 2017-06-12 09:39 | PN ---
PROGRESS NOTE SUBJECTIVE: A 66-year-old white male with cellulitis of the right upper extremity and acute tubular necrosis renal failure and creatinine is improving to 3.5, decreasing over the last 4 to 5 days. His infection is improving on the right medial aspect of the arm and the right chest. Remains on IV Cleocin, IV daptomycin. CARDIOVASCULAR: S1 to S2. PSYCH: Fair mood and affect. NEUROLOGIC: Alert and oriented x3. GI: Soft, nontender. ASSESSMENT: 1. Cellulitis, right upper extremity. 2. Right chest wall cellulitis. 3. Acute tubular necrosis with end-stage renal disease. Continue current treatment. Monitor renal enzyme improvement. Sooner or later patient will be switched to oral antibiotics in next 2 to 3 days and the patient will be discharged home as he is greatly improving. MMODL / IJN: [id number] /
--- NOTE | 2017-06-12 09:48 | CDI ---
Last Revision, April 2017 Documentation Clarification Form Date: 06/12/2017 9:28:00 AM From: Dianne Gomez Admit Date: 06/05/2017 4:29:00 AM Patient Name: Mani Somers Visit Number: [id number] ATTENTION: The Clinical Documentation Specialists (CDI) and [facility] Coding Staff appreciate your assistance in clarifying documentation. Please respond to the clarification below the line at the bottom and electronically sign. The CDI & [facility] Coding staff will review the response and follow-up if needed. Please note: Queries are made part of the Legal Health Record. If you have any questions, please contact the author of this message via ITS. Dr. Mihai Whiting Sepsis is documented in the medical record in the H&P and progress notes until then dropped, Please clarify if this condition is current, ruled out or resolved. History/Risk Factors: Cellulitis, myocytis, scrapped right upper extremity on a board with nails 2 weeks [employer] [employer] Clinical Indicators: WBC: 29.3/13.7/14.9/26/25.9/17.2/14.9/13.2/12.1 Left Shift: 27.5/13.1/13.8/24.7/14.8/12.2/11.0/9.9 Lactic acid: 3.2/1.6 Blood cultures: negative blood cultures Vitals signs on admission: Temp 97.8, HR 113, RR 20, B/P 114/57, spo2 97% ra Other Clinical Indicators: MRI + for biceps myocytis with cellulitis of right upper extremity and chest wall YVROSE with ATN Treatment: ID Consult: Completed and following Antibiotics Currently: Clindamycin 900 mg IVPB q 8 hrs, Daptomycin 500 mg IVPB Q 48 hrs Previous: Vancomycin 1500 mg IVPB, Nafcillin 2 gm IVPB Q 8 hrs, Kefzol IVPB Q 12 hrs IV Bolus: 2.5 L IVF bolus followed by 70 cc/hr In your professional opinion, please clarify if these findings signify one of the following conditions, whether the condition is POA and current, resolved or ruled out, and cause, if known: Sepsis resolved Sepsis ruled out Sepsis Severe Sepsis Septic Shock Other, please specify Unable to determine Present on Admission: Yes No Identify the (suspected) organism Link or clarify if there is associated (due to/with): Organ failure Shock SIRS Criteria...2 or more of the following may indicate SIRS: Temperature < 96.8F (36C) or > 101.0F (38.3C) Heart Rate > 90 bpm Respiratory Rate > 20 breaths/min or PaCO2 < 32 mmHg White Blood Cell Count > 12,000 or < 4,000 cells/mm3 or > 10% bands Lactate >2.0 mmol/L (>4.0 is equivalent to septic shock) Please continue to document in your progress notes and discharge summary in order to capture severity of illness and risk of mortality. Include clinical findings that support your diagnosis. IRVIND
--- NOTE | 2017-06-12 10:08 | P.PN ---
Subjective Progress Note Date: 06/12/17 Principal diagnosis: Right Upper extremity cellulitis Patient is a 66-year-old man seen at bedside this morning. We are following him for right upper arm, axillary and right sided chest cellulitis. He states he is the same or a little better than yesterday, 06/11/17. His pain is controlled. He has no new complaints. He is currently denying numbness or tingling. He also denies fever, chills, chest pain or shortness of breath. He is on IV antibiotic therapy per ID. Objective - Vital Signs Vital signs: Vital Signs Temp 98.8 F 06/12/17 07:00 Pulse 65 06/12/17 07:00 Resp 18 06/12/17 07:00 BP 143/70 06/12/17 07:00 Pulse Ox 95 06/12/17 07:00 Intake & Output 06/11/17 06/12/17 06/12/17 18:59 06:59 18:59 Intake Total 1080 800 Output Total 480 500 Balance 600 300 Intake: Intake, IV Titration 560 Amount Sodium Chloride 0.9% 1, 560 000 ml @ 70 mls/hr IV . [id number] [facility] Rx#:[id number] Oral 1080 240 Output: Urine 480 500 Other: Voiding Method Urinal Urinal # Voids 3 2 - Exam Inspection of the right upper extremity shows improved erythema at the anterior aspect of the upper arm in the brachial region and right axilla and right chest. It has receded from the outlined areas. There is also improvement with swelling. There continues to be no apparent fluctuance or abscess. The superficial ecchymotic area at the brachium is stable or improved. Neurovascular status intact with motor and sensation throughout the right upper extremity. Control Specialist strength, wrist flexion/extension are 5/5. 2+ radial pulse is present. Less than 2 second capillary refill is present. - Constitutional General appearance: Present: no acute distress - Psychiatric Psychiatric: Present: A&O x's 3, appropriate affect, intact judgment & insight - Labs CBC & Chem 7: 06/12/17 06:28 06/12/17 06:28 Labs: Abnormal Lab Results - Last 24 Hours (Table) 06/12/17 06/12/17 Range/Units 06:28 06:28 WBC 12.1 H (3.8-10.6) k/uL RBC 3.76 L (4.30-5.90) m/uL Hgb 10.9 L (13.0-17.5) gm/dL Hct 34.8 L (39.0-53.0) % RDW 15.7 H (11.5-15.5) % Neutrophils # 9.9 H (1.3-7.7) k/uL Chloride 111 H (98-107) mmol/L BUN 54 H (9-20) mg/dL Creatinine 1.85 H (0.66-1.25) mg/dL Calcium 7.7 L (8.4-10.2) mg/dL Alkaline Phosphatase 152 H (38-126) U/L Total Protein 5.1 L (6.3-8.2) g/dL Albumin 2.1 L (3.5-5.0) g/dL Assessment and Plan (1) Cellulitis Narrative/Plan: He has continued with his improved status as his WBC remains decreased, he is afebrile, chemistry stabilized/improving and exam stable/improved. MRI was negative for abcess or fluid that required surgical intervention. Continue antibiotics per ID. Continue pain management, supportive care, elevation. Will continue to monitor closely. Current Visit: Yes Status: Acute Priority: Medium Code(s): L03.90 - CELLULITIS, UNSPECIFIED SNOMED Code(s): 658797431 Time with Patient: Less than 30
--- NOTE | 2017-06-12 11:47 | P.PN ---
Subjective Patient is seen in follow-up for acute kidney injury. His creatinine in 2015 was 1.09 and this admission it peaked at 5.48. Renal function has been improving over the last few days with creatinine down to 1.85 today. Patient presented to the hospital with right upper extremity swelling. He is currently maintained on antibiotics per infectious disease recommendations. His oral intake is fair. He admits to good urine output. No hematuria or dysuria. He denies regular use of NSAIDs. No vomiting or diarrhea. Hemodynamically stable. Vital signs are stable. General: The patient appeared well nourished and normally developed. HEENT: Head exam is unremarkable. Neck is without jugular venous distension. LUNGS: Lungs are clear to auscultation and percussion. Breath sounds decreased. HEART: Rate and Rhythm are regular. First and second heart sounds normal. No murmurs, rubs or gallops. ABDOMEN: Abdominal exam reveals normal bowel sounds. Non-tender and non- distended. No evidence of peritonitis. EXTREMITITES: No clubbing, cyanosis, or edema. Mild erythema in the right upper extremity noted. Objective - Vital Signs Vital signs: Vital Signs Temp 98.8 F 06/12/17 07:00 Pulse 65 06/12/17 07:00 Resp 18 06/12/17 07:00 BP 143/70 06/12/17 07:00 Pulse Ox 95 06/12/17 07:00 Intake & Output 06/11/17 06/12/17 06/12/17 18:59 06:59 18:59 Intake Total 1080 800 240 Output Total 480 500 Balance 600 300 240 Intake: Intake, IV Titration 560 Amount Sodium Chloride 0.9% 1, 560 000 ml @ 70 mls/hr IV . [id number] [facility] Rx#:[id number] Oral 1080 240 240 Output: Urine 480 500 Other: Voiding Method Urinal Urinal # Voids 3 2 - Labs CBC & Chem 7: 06/12/17 06:28 06/12/17 06:28 Labs: Abnormal Lab Results - Last 24 Hours (Table) 06/12/17 06/12/17 Range/Units 06:28 06:28 WBC 12.1 H (3.8-10.6) k/uL RBC 3.76 L (4.30-5.90) m/uL Hgb 10.9 L (13.0-17.5) gm/dL Hct 34.8 L (39.0-53.0) % RDW 15.7 H (11.5-15.5) % Neutrophils # 9.9 H (1.3-7.7) k/uL Chloride 111 H (98-107) mmol/L BUN 54 H (9-20) mg/dL Creatinine 1.85 H (0.66-1.25) mg/dL Calcium 7.7 L (8.4-10.2) mg/dL Alkaline Phosphatase 152 H (38-126) U/L Total Protein 5.1 L (6.3-8.2) g/dL Albumin 2.1 L (3.5-5.0) g/dL Assessment and Plan Plan: Assessment: #1. Nonoliguric acute kidney injury secondary to septic ATN. Renal function improving with creatinine down to 1.85 today. #2. Hyponatremia due to excess fluid intake and poor solute intake. Resolved. #3. Metabolic acidosis secondary to acute kidney injury. Improved. #4. Right upper extremity cellulitis maintain on antibiotics. #5. Rule out chronic kidney disease. Unclear as to what his baseline renal function is - creatinine was 1.09 in June 2014. Etiology is likely to be nephrosclerosis. Plan: Continue normal saline at 70 mL an hour. Nourished oral intake. Avoid nephrotoxic agents and hypotensive episodes. Repeat electrolytes in the morning. Potential discharge soon. He will need to follow-up as an outpatient in the next 2 weeks.
[2017-06-12] MEDS: DAPTOmycin 500 MG in SODIUM CHLORIDE 0.9% 50 ML IVPB SCH (12:54)
--- NOTE | 2017-06-12 15:09 | PN ---
PROGRESS NOTE DATE OF SERVICE: 06/12/2017 REASON FOR FOLLOWUP: Right upper extremity and chest wall cellulitis and myositis. INTERVAL HISTORY: The patient did have a low-grade fever last night of 100.1. The patient afebrile since then. Overall, swelling and redness to the right upper arm area has improved. The patient denies having any chest pain or shortness of breath. Occasional cough. No diarrhea. PHYSICAL EXAMINATION: Blood pressure 156/76 with a pulse of 60, temperature of 98.1. He is 98% on room air. General description is an elderly male lying in bed, in no distress. RESPIRATORY SYSTEM: Unlabored breathing clear to auscultation anteriorly. HEART: S1, S2. Regular rate. ABDOMEN: Soft, no tenderness. Right upper arm swelling and redness has decreased. LABS: Hemoglobin 10.8, white count 12.1. BUN of 54, creatinine has improved to 1.85. DIAGNOSTIC IMPRESSION AND PLAN: Patient with right upper extremity and chest wall cellulitis, a component of myositis. Responded very well to daptomycin, dose will be adjusted to daily dose in view of improvement in his kidney function. He will need a PICC line for outpatient IV antibiotic therapy for at least another 10 days. Continue with supportive care. MMODL / IJN: [id number] /
[2017-06-13] MEDS: HYDROcodone/APAP 7.5-325MG 1 EACH TAB PO PRN ×4 (00:18→22:05)
[2017-06-13] MEDS: SODIUM CHLORIDE 0.9% 1,000 ML IV SCH ×2 (00:19→15:58)
[2017-06-13 07:05] LABS: Calcium 7.8 mg/dL (8.4-10.2); Potassium 5.5 mmol/L (3.5-5.1)
[2017-06-13] MEDS: DAPTOmycin 500 MG in SODIUM CHLORIDE 0.9% 50 ML IVPB SCH (07:18)
[2017-06-13] MEDS: NYSTATIN 100,000 UNIT/ML SUSP 500,000 UNIT/5 ML CUP PO SCH ×4 (07:19→21:34)
[2017-06-13] MEDS: SODIUM BICARBONATE TAB 650 MG TAB PO SCH ×2 (07:19→20:15)
[2017-06-13] MEDS ORDERED: DAPTOmycin 500 MG in SODIUM CHLORIDE 0.9% 50 ML IVPB SCH (09:00)
[2017-06-13] MEDS ORDERED: LIDOCAINE 2% (PF) 20 MG/ML 10 ML AMP SQ ONE ×2 (10:08→10:14)
--- NOTE | 2017-06-13 11:58 | IR ---
EXAMINATION TYPE: IR cvc insert >=5 years DATE OF EXAM: 06/13/2017 COMPARISON: NONE CLINICAL HISTORY: Infection Needs long-term intravenous access for antibiotics. PROCEDURE: After informed consent, the skin overlying the left basilic vein was localized with ultrasound and no riya to be compressible and patent. An ultrasound image was obtained and submitted on the patient's c burnham. The overlying skin was prepped and draped and Lidocaine was used for local anesthesia. A skin lilia was made with a scalpel. Access was gained to the vein under ultrasound guidance with a 21 gau ge needle and a 0.018 inch wire was advanced. Access site was dilated with Peel-Away sheath and cath eter tailored to the appropriate length and advanced such that the distal tip is at the cavoatrial ju nction. Spot image was obtained verifying placement. Catheter was fixed to the skin with suture and a sterile dressing was placed following hemostasis. Catheter was aspirated and flushed with saline. Patient was discharged in stable condition without complication.Maximal barrier technique is utiliz ed. Ultrasound image is documented on the chart. Ultrasound used with sterile technique. Fluoro time and fluoroscopic images submitted to document procedure: 16 intraoperative images, 0.2 mi nutes fluoroscopy time IMPRESSION: STATUS POST ULTRASOUND AND FLUOROSCOPIC GUIDED PICC LINE PLACEMENT, READY FOR USE. THIS PROCEDURE WAS PERFORMED BY THE UNDERSIGNED.
--- NOTE | 2017-06-13 13:02 | P.PN ---
Subjective Patient is seen in follow-up for acute kidney injury. His creatinine in 2015 was 1.09 and this admission it peaked at 5.48. Renal function has been improving over the last few days with creatinine down to 1.51 today. Patient presented to the hospital with right upper extremity swelling. He is currently maintained on antibiotics per infectious disease recommendations. His oral intake is fair. He admits to good urine output. No hematuria or dysuria. He denies regular use of NSAIDs. No vomiting or diarrhea. Hemodynamically stable. Vital signs are stable. General: The patient appeared well nourished and normally developed. HEENT: Head exam is unremarkable. Neck is without jugular venous distension. LUNGS: Lungs are clear to auscultation and percussion. Breath sounds decreased. HEART: Rate and Rhythm are regular. First and second heart sounds normal. No murmurs, rubs or gallops. ABDOMEN: Abdominal exam reveals normal bowel sounds. Non-tender and non- distended. No evidence of peritonitis. EXTREMITITES: No clubbing, cyanosis, or edema. Mild erythema in the right upper extremity noted. Objective - Vital Signs Vital signs: Vital Signs Temp 97.8 F 06/13/17 07:00 Pulse 57 L 06/13/17 08:00 Resp 16 06/13/17 08:00 BP 154/74 06/13/17 07:00 Pulse Ox 98 06/13/17 07:00 Intake & Output 06/12/17 06/13/17 06/13/17 18:59 06:59 18:59 Intake Total 1580 920 Output Total 2200 650 Balance -620 270 Weight 70.45 kg 70.45 kg Intake: Intake, IV Titration 500 560 Amount Clindamycin 900 mg In 100 Dextrose 5% in Water 50 ml @ 100 mls/hr IVPB Q8HR [facility] Rx#:[id number] DAPTOmycin 500 mg In 50 Sodium Chloride 0.9% 50 ml @ 100 mls/hr IVPB Q24HR [facility] Rx#:[id number] DAPTOmycin 500 mg In 50 Sodium Chloride 0.9% 50 ml @ 100 mls/hr IVPB Q48H [facility] Rx#:[id number] Sodium Chloride 0.9% 1, 300 560 000 ml @ 70 mls/hr IV . [id number] [facility] Rx#:[id number] Oral 1080 360 Output: Urine 2200 650 Other: Voiding Method Urinal Urinal Urinal # Voids 3 1 - Labs CBC & Chem 7: 06/12/17 06:28 06/13/17 06:29 Labs: Abnormal Lab Results - Last 24 Hours (Table) 06/13/17 Range/Units 06:29 Potassium 5.5 H (3.5-5.1) mmol/L Chloride 110 H (98-107) mmol/L Carbon Dioxide 21 L (22-30) mmol/L BUN 49 H (9-20) mg/dL Creatinine 1.51 H (0.66-1.25) mg/dL Glucose 108 H (74-99) mg/dL Calcium 7.8 L (8.4-10.2) mg/dL Assessment and Plan Plan: Assessment: #1. Nonoliguric acute kidney injury secondary to septic ATN. Renal function improving with creatinine down to 1.51 today. #2. Hyponatremia due to excess fluid intake and poor solute intake. Resolved. #3. Metabolic acidosis secondary to acute kidney injury maintained on oral sodium bicarbonate. #4. Right upper extremity cellulitis maintain on antibiotics. #5. Rule out chronic kidney disease. Unclear as to what his baseline renal function is - creatinine was 1.09 in June 2014. Etiology is likely to be nephrosclerosis. #6. Mild hyperkalemia due to acute kidney injury and acidosis. No evidence of hypoglycemia. Plan: Continue normal saline at 70 mL an hour. Encouraged oral intake. Change to low potassium diet. Avoid nephrotoxic agents and hypotensive episodes. Repeat electrolytes in the morning. Potential discharge soon. He will need to follow-up as an outpatient in the next 2 weeks.
--- NOTE | 2017-06-13 14:19 | PN ---
PROGRESS NOTE DATE OF SERVICE: 06/13/2017 REASON FOR FOLLOWUP: Right upper extremity cellulitis, myositis. INTERVAL HISTORY: The patient is afebrile, has been breathing comfortably. Overall swelling and redness of the right upper extremity has slightly improved. The patient denies having any chest pain or shortness of breath. No cough, no abdominal pain and no diarrhea. PHYSICAL EXAMINATION: Blood pressure is 154/74 with a pulse of 57, temperature of 97.8, he is 98% on room air. General description is an elderly male up in the bed, in no distress. RESPIRATORY SYSTEM: Unlabored breathing, clear to auscultation anteriorly. HEART: S1, S2. Regular rate and rhythm. ABDOMEN: Soft, no tenderness. Right upper arm swelling and redness had improved. slight neurotic area more of a scab, but no drainage. LAB: Creatinine 1.51. Blood culture has been negative. DIAGNOSTIC IMPRESSION AND PLAN: Patient with right upper extremity cellulitis, myositis with cellulitis extending to the right chest wall. Patient seemed to be responding to the daptomycin that will be continued for another 10 days with close outpatient followup, baseline CPKs. Continue with supportive care. Once antibiotic administered, will go home from ID standpoint. MMODL / IJN: [id number] /
--- NOTE | 2017-06-13 16:44 | P.PN ---
Subjective Progress Note Date: 06/13/17 Principal diagnosis: Right Upper extremity cellulitis Patient is a 66-year-old man seen at bedside this morning, 06/13/17. We have been following him for right upper arm, axillary and right sided chest cellulitis. He has been improving on IV antibiotics. PICC line placed today. His pain is controlled. He has no new complaints. He is currently denying numbness or tingling. He also denies fever, chills, chest pain or shortness of breath. Objective - Vital Signs Vital signs: Vital Signs Temp 98.2 F 06/13/17 15:00 Pulse 56 L 06/13/17 15:00 Resp 16 06/13/17 16:00 BP 195/88 06/13/17 15:00 Pulse Ox 98 06/13/17 15:00 Intake & Output 06/12/17 06/13/17 06/13/17 18:59 06:59 18:59 Intake Total 1580 920 600 Output Total 2200 650 650 Balance -620 270 -50 Weight 70.45 kg 70.45 kg Intake: Intake, IV Titration 500 560 600 Amount Clindamycin 900 mg In 100 Dextrose 5% in Water 50 ml @ 100 mls/hr IVPB Q8HR [facility] Rx#:[id number] DAPTOmycin 500 mg In 50 100 Sodium Chloride 0.9% 50 ml @ 100 mls/hr IVPB Q24HR [facility] Rx#:[id number] DAPTOmycin 500 mg In 50 Sodium Chloride 0.9% 50 ml @ 100 mls/hr IVPB Q48H [facility] Rx#:[id number] Sodium Chloride 0.9% 1, 300 560 500 000 ml @ 70 mls/hr IV . [id number] [facility] Rx#:[id number] Oral 1080 360 Output: Urine 2200 650 650 Other: Voiding Method Urinal Urinal Urinal # Voids 3 1 1 - Exam Inspection of the right upper extremity shows continued improved erythema at the anterior aspect of the upper arm in the brachial region and right axilla and right chest. It has receded from the outlined areas. There is also improvement with swelling. There is a small collection at the anterior distal bicep area. It is not erythematous or hot to touch. there is no drainage. The superficial ecchymotic area at the brachium is stable or improved. Neurovascular status intact with motor and sensation throughout the right upper extremity. Ciaio Lumite Injector strength, wrist flexion/extension are 5/5. 2+ radial pulse is present. Less than 2 second capillary refill is present. - Constitutional General appearance: Present: no acute distress - Psychiatric Psychiatric: Present: A&O x's 3, appropriate affect, intact judgment & insight - Labs CBC & Chem 7: 06/12/17 06:28 06/13/17 06:29 Labs: Abnormal Lab Results - Last 24 Hours (Table) 06/13/17 Range/Units 06:29 Potassium 5.5 H (3.5-5.1) mmol/L Chloride 110 H (98-107) mmol/L Carbon Dioxide 21 L (22-30) mmol/L BUN 49 H (9-20) mg/dL Creatinine 1.51 H (0.66-1.25) mg/dL Glucose 108 H (74-99) mg/dL Calcium 7.8 L (8.4-10.2) mg/dL Assessment and Plan (1) Cellulitis Narrative/Plan: He has continued with his improved status as his WBC remains decreased, he is afebrile, chemistry stabilized/improving and exam stable. MRI performed 06/08/17 was negative for abcess or fluid that required surgical intervention. On exam today, he has a small superficial area at the distal anterior bicep that we will monitor. Continue antibiotics per ID. Continue pain management, supportive care, elevation. The patient was reviewed with Dr. Mendiola. He can follow up with Dr. Mendiola as an outpatient in one week from discharge. Current Visit: Yes Status: Acute Priority: Medium Code(s): L03.90 - CELLULITIS, UNSPECIFIED SNOMED Code(s): 298095078 Time with Patient: Less than 30
--- NOTE | 2017-06-13 23:01 | PN ---
PROGRESS NOTE DATE OF SERVICE: 06/13/2017 SUBJECTIVE: A 66-year-old white male with right upper extremity cellulitis, myositis. Overall redness in his right upper extremity is improving. Renal function is down to 1.5 today. Blood pressure 150s/70s, pulse 57, temp 97, O2 98. HEENT: Normocephalic, atraumatic. CARDIOVASCULAR: S1, S2. LUNGS: Clear. Abdomen is soft. MUSCULOSKELETAL: His right upper arm swelling, redness is improved. He has a red area in the mid deltoid and the right antecubital fossa of the right arm, a slight necrotic area, more of a scab. No drainage. Creatinine is 1.5. ASSESSMENT: Right upper extremity cellulitis, myositis with cellulitis, responded to daptomycin IV and a PICC line for 10 more days as outpatient. Creatinine is improving. Possibly will be discharged home tomorrow from medical standpoint. MMODL / IJN: [id number] /
--- NOTE | 2017-06-13 23:07 | PN ---
PROGRESS NOTE DATE OF SERVICE: 06/12/2017 Renal function has been improving over the last few days, down to 1.85 today. Right upper swelling improved. Chest swelling improving. Remains on IV antibiotics. PICC line will be set up as an outpatient. Vital signs are stable. Afebrile. CARDIOVASCULAR: S1, S2. LUNGS: Clear. GI: Soft. HEMATOLOGY: Negative Homans. INTEGUMENT: Right medial upper arm shows erythema with possible abscess and some blister areas over the mid deltoid. Temperature 98.8, pulse 65, respiratory rate 18, blood pressure 143/70, oxygen 95. White count 4.1, hemoglobin 10.9. ASSESSMENT: 1. Cellulitis/abscess, right upper extremity, right chest area. 2. Hyponatremia. 3. Non-oliguric acute renal injury. 4. Metabolic acidosis, improving. 5. Cellulitis, improving. Continue on IV fluids. Oral intake improved. PICC line will be set up. Possible outpatient IV antibiotics. MMODL / IJN: [id number] /
[2017-06-14] MEDS: HYDROcodone/APAP 7.5-325MG 1 EACH TAB PO PRN ×3 (05:21→18:34)
[2017-06-14] MEDS: SODIUM CHLORIDE 0.9% 1,000 ML IV SCH ×6 (05:23→23:12)
[2017-06-14 06:57] LABS: Basophils % (A) 0 %; Eosinophils # (A) 0.4 k/uL (0-0.7); Eosinophils % (A) 4 %; HCT 35.6 % (39.0-53.0); HGB 11.3 gm/dL (13.0-17.5); Lymphocytes # (A) 1.2 k/uL (1.0-4.8); Lymphocytes % (A) 12 %; MCH 29.9 pg (25.0-35.0); MCHC 31.7 g/dL (31.0-37.0); MCV 94.3 fL (80.0-100.0); Monocytes # (A) 0.3 k/uL (0-1.0); Monocytes % (A) 3 %; Neutrophils # (A) 7.8 k/uL (1.3-7.7); Neutrophils % (A) 79 %; Platelet Count 330 k/uL (150-450); RBC 3.77 m/uL (4.30-5.90); RDW 14.8 % (11.5-15.5); WBC 9.9 k/uL (3.8-10.6)
[2017-06-14 07:11] LABS: ALT 40 U/L (21-72); AST 40 U/L (17-59); Albumin 2.3 g/dL (3.5-5.0); Alkaline Phosphatase 116 U/L (38-126); Anion Gap 8 mmol/L; Blood Urea Nitrogen 39 mg/dL (9-20); Calcium 7.5 mg/dL (8.4-10.2); Carbon Dioxide 22 mmol/L (22-30); Chloride 107 mmol/L (98-107); Glucose 93 mg/dL (74-99); Potassium 4.2 mmol/L (3.5-5.1); Sodium 137 mmol/L (137-145); Total Bilirubin 0.9 mg/dL (0.2-1.3); Total Protein 5.3 g/dL (6.3-8.2)
[2017-06-14] MEDS: SODIUM BICARBONATE TAB 650 MG TAB PO SCH ×2 (08:08→20:35)
[2017-06-14] MEDS: DAPTOmycin 500 MG in SODIUM CHLORIDE 0.9% 50 ML IVPB SCH (08:08)
[2017-06-14] MEDS: NYSTATIN 100,000 UNIT/ML SUSP 500,000 UNIT/5 ML CUP PO SCH ×4 (08:08→23:12)
--- NOTE | 2017-06-14 10:05 | P.PN ---
Subjective Patient is seen in follow-up for acute kidney injury. His creatinine in 2015 was 1.09 and this admission it peaked at 5.48. Renal function has been improving over the last few days with creatinine down to 1.3 today. Patient presented to the hospital with right upper extremity swelling. He is currently maintained on antibiotics per infectious disease recommendations. His oral intake is fair. He admits to good urine output. No hematuria or dysuria. He denies regular use of NSAIDs. No vomiting or diarrhea. Hemodynamically stable. Vital signs are stable. General: The patient appeared well nourished and normally developed. HEENT: Head exam is unremarkable. Neck is without jugular venous distension. LUNGS: Lungs are clear to auscultation and percussion. Breath sounds decreased. HEART: Rate and Rhythm are regular. First and second heart sounds normal. No murmurs, rubs or gallops. ABDOMEN: Abdominal exam reveals normal bowel sounds. Non-tender and non- distended. No evidence of peritonitis. EXTREMITITES: No clubbing, cyanosis, or edema. Mild erythema in the right upper extremity noted. Objective - Vital Signs Vital signs: Vital Signs Temp 98.1 F 06/14/17 07:00 Pulse 62 06/14/17 07:00 Resp 18 06/14/17 07:00 BP 182/81 06/14/17 07:00 Pulse Ox 98 06/14/17 07:00 Intake & Output 06/13/17 06/14/17 06/14/17 18:59 06:59 18:59 Intake Total 600 320 Output Total 650 Balance -50 320 Weight 70.45 kg Intake: IV 320 Sodium Chloride 0.9% 1, 320 000 ml @ 70 mls/hr IV . [id number] COLBY Rx#:[id number] Intake, IV Titration 600 Amount DAPTOmycin 500 mg In 100 Sodium Chloride 0.9% 50 ml @ 100 mls/hr IVPB Q24HR [facility]BY Rx#:[id number] Sodium Chloride 0.9% 1, 500 000 ml @ 70 mls/hr IV . [id number] COLBY Rx#:[id number] Output: Urine 650 Other: Voiding Method Urinal Urinal Urinal # Voids 1 4 - Labs CBC & Chem 7: 06/14/17 06:42 06/14/17 06:42 Labs: Abnormal Lab Results - Last 24 Hours (Table) 06/13/17 06/14/17 06/14/17 Range/Units 06:29 06:42 06:42 RBC 3.77 L (4.30-5.90) m/uL Hgb 11.3 L (13.0-17.5) gm/dL Hct 35.6 L (39.0-53.0) % Neutrophils # 7.8 H (1.3-7.7) k/uL BUN 39 H (9-20) mg/dL Creatinine 1.30 H (0.66-1.25) mg/dL Calcium 7.5 L (8.4-10.2) mg/dL Creatine Kinase 41 L (55-170) U/L Total Protein 5.3 L (6.3-8.2) g/dL Albumin 2.3 L (3.5-5.0) g/dL Assessment and Plan Plan: Assessment: #1. Nonoliguric acute kidney injury secondary to septic ATN. Renal function improving with creatinine down to 1.3 today. #2. Hyponatremia due to excess fluid intake and poor solute intake. Resolved. #3. Metabolic acidosis secondary to acute kidney injury maintained on oral sodium bicarbonate. #4. Right upper extremity cellulitis maintain on antibiotics. #5. Rule out chronic kidney disease. Unclear as to what his baseline renal function is - creatinine was 1.09 in June 2014. Etiology is likely to be nephrosclerosis. #6. Mild hyperkalemia due to acute kidney injury and acidosis. No evidence of hypoglycemia. Improved. #7. Benign hypertension. Blood pressures running on the higher side. Partially related to IV fluids. Plan: I will decrease the rate of IV fluids. Add amlodipine 5 mg once daily. Encouraged oral intake. Changed to low potassium diet. Avoid nephrotoxic agents and hypotensive episodes. Repeat electrolytes in the morning. Potential discharge soon. He will need to follow-up as an outpatient in the next 2 weeks.
[2017-06-14] MEDS: amLODIPine 5 MG TAB PO SCH (10:37)
[2017-06-14] MEDS ORDERED: LIDOCAINE 1% INJ 10MG/ML (20 ML MDV) SQ PRN ×2 (12:44→13:24)
--- NOTE | 2017-06-14 12:58 | CDI ---
Last Revision, April 2017 Documentation Clarification Form Date: 06/12/2017 9:28:00 AM From: Dianne Gomez RN, CCDS Admit Date: 06/05/2017 4:29:00 AM Patient Name: Mani Somers Visit Number: [id number] ATTENTION: The Clinical Documentation Specialists (CDI) and [facility] Coding Staff appreciate your assistance in clarifying documentation. Please respond to the clarification below the line at the bottom and electronically sign. The CDI & [facility] Coding staff will review the response and follow-up if needed. Please note: Queries are made part of the Legal Health Record. If you have any questions, please contact the author of this message via ITS. Dr. Mihai Whiting Sepsis is documented in the medical record in the H&P and progress notes until then dropped, Please clarify if this condition is current, ruled out or resolved. 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 Clinical Indicators: WBC: 29.3/13.7/14.9/26/25.9/17.2/14.9/13.2/12.1 Left Shift: 27.5/13.1/13.8/24.7/14.8/12.2/11.0/9.9 Lactic acid: 3.2/1.6 Blood cultures: negative blood cultures Vitals signs on admission: Temp 97.8, HR 113, RR 20, B/P 114/57, spo2 97% ra Other Clinical Indicators: MRI + for biceps myocytis with cellulitis of right upper extremity and chest wall YVROSE with ATN Treatment: ID Consult: Completed and following Antibiotics Currently: Clindamycin 900 mg IVPB q 8 hrs, Daptomycin 500 mg IVPB Q 48 hrs Previous: Vancomycin 1500 mg IVPB, Nafcillin 2 gm IVPB Q 8 hrs, Kefzol IVPB Q 12 hrs IV Bolus: 2.5 L IVF bolus followed by 70 cc/hr In your professional opinion, please clarify if these findings signify one of the following conditions, whether the condition is POA, and cause, if known: Sepsis resolved Sepsis ruled out Sepsis Severe Sepsis Septic Shock Other, please specify Unable to determine Present on Admission: Yes No Identify the (suspected) organism Link or clarify if there is associated (due to/with): Organ failure Shock SIRS Criteria...2 or more of the following may indicate SIRS: Temperature < 96.8F (36C) or > 101.0F (38.3C) Heart Rate > 90 bpm Respiratory Rate > 20 breaths/min or PaCO2 < 32 mmHg White Blood Cell Count > 12,000 or < 4,000 cells/mm3 or > 10% bands Lactate >2.0 mmol/L (>4.0 is equivalent to septic shock) Please continue to document in your progress notes and discharge summary in order to capture severity of illness and risk of mortality. Include clinical findings that support your diagnosis. MTDD
--- NOTE | 2017-06-14 16:55 | PN ---
PROGRESS NOTE DATE OF SERVICE: 06/14/2017. REASON FOR FOLLOWUP: Right forearm abscess and cellulitis. INTERVAL HISTORY: The patient is afebrile, has developed a swelling at just above the elbow area which is fluctuant and draining some purulent material. Patient complaining of pain especially when touched. No nausea, vomiting. No abdominal pain, no diarrhea. EXAMINATION: Blood pressure 158/77 with a pulse of 62, temperature 98.1. He is 98% on room air. General description is an elderly male up in the bed, in no distress. RESPIRATORY SYSTEM: Unlabored breathing. Clear to auscultation anteriorly. HEART: S1, S2. Regular rate. ABDOMEN: Soft, no tenderness. Right forearm swelling and redness slightly decreased with fluctuant area. Culture obtained. LABS: Hemoglobin 11.2, white count of 9.9, BUN of 39, creatinine 1.30. IMPRESSION/PLAN: Patient with right forearm abscess and cellulitis with component of myositis. Now with fluctuant area. Culture obtained. Ortho will evaluate the patient for possible I and D of this area. Keep the patient on daptomycin with which the patient has responded. Continue supportive care. MMODL / IJN: [id number] /
--- NOTE | 2017-06-14 23:14 | PN ---
PROGRESS NOTE SUBJECTIVE: Right forearm abscess, cellulitis and renal insufficiency. Creatinine is down to 1.3, which is within normal range. There is swelling just above the elbow area which is fluctuant, some purulent material coming out of it, painful when touched. Blood pressure 150s over 70s, pulse 62, temperature 98.1, 98% on room air. CARDIOVASCULAR: S1, S2. Lungs are clear. GI: Soft. HEMATOLOGY: Negative Homans. PSYCH: Fair mood and affect. Hemoglobin 11.2, white count 9.9, creatinine 1.3. Possible myositis, cellulitis, right forearm abscess. Possible I&D of this area. Give the patient daptomycin. Continue supportive care. MMODL / IJN: [id number] /
[2017-06-15] MEDS: HYDROcodone/APAP 7.5-325MG 1 EACH TAB PO PRN ×3 (00:41→13:50)
[2017-06-15] MEDS: DAPTOmycin 500 MG in SODIUM CHLORIDE 0.9% 50 ML IVPB SCH (07:35)
[2017-06-15] MEDS: NYSTATIN 100,000 UNIT/ML SUSP 500,000 UNIT/5 ML CUP PO SCH ×2 (07:37→14:40)
[2017-06-15] MEDS: SODIUM BICARBONATE TAB 650 MG TAB PO SCH (07:37)
[2017-06-15] MEDS: amLODIPine 5 MG TAB PO SCH (07:37)
[2017-06-15 07:52] LABS: Anion Gap 6 mmol/L; Blood Urea Nitrogen 26 mg/dL (9-20); Carbon Dioxide 26 mmol/L (22-30); Chloride 103 mmol/L (98-107); Glucose 84 mg/dL (74-99); Potassium 4.2 mmol/L (3.5-5.1); Sodium 135 mmol/L (137-145)
[2017-06-15 08:35] VITALS: BP 155/69; PULSE 89; TEMP 98.4
--- NOTE | 2017-06-15 09:21 | P.PN ---
Subjective Progress Note Date: 06/15/17 Principal diagnosis: Infection Right arm. This is a 66-year-old male who we're following regarding infection to his right upper arm and antecubital space. The patient is a bit agitated today. Objective - Vital Signs Vital signs: Vital Signs Temp 98.4 F 06/15/17 07:00 Pulse 89 06/15/17 07:00 Resp 18 06/15/17 07:00 BP 155/69 06/15/17 07:00 Pulse Ox 97 06/15/17 07:00 Intake & Output 06/14/17 06/15/17 06/15/17 18:59 06:59 18:59 Intake Total 290 320 Output Total 1 Balance 290 319 Weight 70.45 kg Intake: IV 240 320 Sodium Chloride 0.9% 1, 240 320 000 ml @ 40 mls/hr IV . Q24H COLBY Rx#:[id number] Intake, IV Titration 50 Amount DAPTOmycin 500 mg In 50 Sodium Chloride 0.9% 50 ml @ 100 mls/hr IVPB Q24HR COLBY Rx#:[id number] Output: Stool 1 Other: Voiding Method Urinal Urinal # Voids 2 - Exam This is a 66-year-old male in no acute distress. He is agitated and slightly belligerent today. When removing his dressing the patient raised his hand as if he was going to hit me in the face. He finally did allow me to remove the dressing. Erythema is significantly improved. There is drainage from the antecubital wound. The area is irrigated with saline. The patient did not tolerate this well. - Labs CBC & Chem 7: 06/14/17 06:42 06/15/17 07:00 Labs: Abnormal Lab Results - Last 24 Hours (Table) 06/15/17 Range/Units 07:00 Sodium 135 L (137-145) mmol/L BUN 26 H (9-20) mg/dL Calcium 8.0 L (8.4-10.2) mg/dL Microbiology - Last 24 Hours (Table) 06/14/17 12:40 Gram Stain - Preliminary Arm - Right Wound Culture - Preliminary 06/14/17 12:40 Anaerobic Culture - Preliminary Arm - Right Assessment and Plan (1) Cellulitis Current Visit: Yes Status: Acute Priority: Medium Code(s): L03.90 - CELLULITIS, UNSPECIFIED SNOMED Code(s): 535456978 Plan: The clinical findings are discussed the patient. His PICC line is in place. He may be discharged from an orthopedic standpoint.
--- NOTE | 2017-06-15 13:51 | PCN ---
PROCEDURE NOTE DATE OF SERVICE: 06/14/2017 PRE-PROCEDURE DIAGNOSIS: Subcutaneous abscess, right antecubital fossa. POST PROCEDURE DIAGNOSIS: Subcutaneous abscess, right antecubital fossa. PROCEDURE: Performed bedside incision and drainage of the right antecubital fossa subcutaneous abscess. SURGEON: Gerardo Mendiola. ANESTHESIA: Local. ESTIMATED BLOOD LOSS: None. COMPLICATIONS: None apparent. INDICATIONS: Mani is a 66-year-old male who has been admitted to the hospital since June 05, 2017 with right upper extremity cellulitis. We have been following him in a consultation for quite some time. The cellulitis is resolving quite nicely. He has recently in the last day or 2 developed subcutaneous abscess just proximal to the antecubital fossa in his right arm. It did begin to spontaneously drain on its own. A decision was made to do a bedside incision and drainage to further evacuate the subcutaneous abscess. The risks were discussed with Mani. These risks include, but not limited to, risk of continued infection, scarring, and pain. All of his questions regarding risks were answered to his satisfaction and appropriate informed consent was obtained. DESCRIPTION OF PROCEDURE: He did have an approximate 3 cm subcutaneous abscess just proximal to the antecubital fossa in the right upper extremity. His cellulitis has been resolving very nicely. There is small punctate holes where the abscess is draining. I then infiltrated the area around the draining holes with 1% lidocaine without epinephrine. This gave him a good anesthesia. I then utilized a 15 blade scalpel and incised the area. This included the areas of spontaneous drainage. I made an approximately 2 to 3 cm incision. Copious amounts of purulent material was expressed at this point. There was very minimal to no bleeding. I then utilized a hemostat to further open this area to drain the purulent abscess. I then had the patient placed his right upper extremity into a basin filled with warm soapy water. He then massaged the area and expressed the remainder of the purulent material through this method. I then instructed the nurses after he did a 30 minute soak to pack the area and place a bulky dressing. Patient tolerated procedure without complication. MMODL / IJN: [id number] /
[2017-06-15 16:10] VITALS: RESP 16
--- NOTE | 2017-06-15 17:30 | PN ---
PROGRESS NOTE DATE OF SERVICE: 06/15/2017 REASON FOR FOLLOWUP: Right forearm abscess and cellulitis and chest wall cellulitis. INTERVAL HISTORY: The patient is afebrile. The patient did have bedside I&D of the right forearm abscess. Culture has been obtained. The patient overall is feeling better. Denies significant pain. He is anxious to go home, as he needs to attend wedding ceremony tomorrow. On examination, blood pressure 155/59 with a pulse of 89, temperature 98.4. He is 97% on room air. General description is an elderly male up in the room in no distress. RESPIRATORY SYSTEM: Unlabored breathing. Clear to auscultation anteriorly. Heart S1, S2. Regular rate and rhythm. ABDOMEN: Soft. No tenderness. Right upper extremity overall swelling and redness have decreased after drainage. LABS: White count is 9.9 with a BUN of 26, creatinine 1.10. DIAGNOSTIC IMPRESSION AND PLAN: Patient with right upper arm abscess and cellulitis, status post drainage with chest wall cellulitis that has shown overall improvement on daptomycin. That will be continued with close outpatient followup. Continue with supportive care. MMODL / IJN: [id number] / ZAIDA
--- NOTE | 2017-06-20 05:52 | DS ---
DISCHARGE SUMMARY Please add to the discharge diagnosis: Sepsis MMODL / IJN: [id number] /
== END 2017-06-15 16:00 | disposition home health service (06) | DRG 871 ==
LOC: EC 18:24 → 5MS5E 06-05 04:29
PROVIDERS: ADMIT Family Medicine; ATTEND Family Medicine
PROC: 3E0234Z Introduction of Serum, Toxoid and Vaccine into Muscle, Percutaneous Approach (ICD-10-PCS; 2017-06-04)
PROC: 02HV33Z Insertion of Infusion Device into Superior Vena Cava, Percutaneous Approach (ICD-10-PCS; 2017-06-13 09:52)
PROC: 0X9B0ZX Drainage of Right Elbow Region, Open Approach, Diagnostic (ICD-10-PCS; principal; 2017-06-14)
DX: A41.9 Sepsis, unspecified organism (principal); N17.0 Acute kidney failure with tubular necrosis; E87.2 Acidosis; N18.6 End stage renal disease; E44.0 Moderate protein-calorie malnutrition; E87.1 Hypo-osmolality and hyponatremia; L03.313 Cellulitis of chest wall; B19.10 Unspecified viral hepatitis B without hepatic coma; L03.113 Cellulitis of right upper limb; L02.413 Cutaneous abscess of right upper limb; I12.0 Hypertensive chronic kidney disease with stage 5 chronic kidney disease or end stage renal disease; Z23 Encounter for immunization; E87.5 Hyperkalemia; J44.9 Chronic obstructive pulmonary disease, unspecified; M60.9 Myositis, unspecified; B19.20 Unspecified viral hepatitis C without hepatic coma; N40.0 Benign prostatic hyperplasia without lower urinary tract symptoms; Z79.82 Long term (current) use of aspirin; Z85.46 Personal history of malignant neoplasm of prostate; Z87.891 Personal history of nicotine dependence; Z90.79 Acquired absence of other genital organ(s); Z90.49 Acquired absence of other specified parts of digestive tract
CPT/HCPCS: 36415; 36569; 71046; 71250; 76770; 76937; 77001; 80048; 80053; 81001; 82550; 82553; 83605; 85025; 85027; 87040; 87070; 87075; 87205; 90471; 90715; 96361; 96365; 96366; 96368; 96375; 99285

== ENCOUNTER → 2017-08-06 | Outpatient (CLI) | payer MEDICARE ==
--- NOTE | 2017-08-06 12:51 | XR ---
EXAMINATION TYPE: XR orbit complete bilateral DATE OF EXAM: 08/06/2017 COMPARISON: NONE HISTORY: Trauma to the right orbit TECHNIQUE: 3 views submitted of the orbits FINDINGS: Paranasal sinuses demonstrate mild mucosal thickening. Osseous structures grossly intact. IMPRESSION: 1. No definite acute fracture. If symptoms persist consider CT scan.
== END | disposition home or self-care (01) ==
LOC: RADXRMAIN 12:15
PROVIDERS: ATTEND Family Medicine
DX: S05.91XA Unspecified injury of right eye and orbit, initial encounter (principal)
CPT/HCPCS: 70200

== ENCOUNTER → 2017-11-06 | Outpatient (CLI) | payer MEDICARE ==
--- NOTE | 2017-11-06 08:02 | US ---
EXAMINATION TYPE: US liver DATE OF EXAM: 11/06/2017 COMPARISON: CT CLINICAL HISTORY: R94.5Abnormal results of liver function studies. Abnormal LFT's, pt states known He patitis x 2 years EXAM MEASUREMENTS: Liver Length: 12.9 cm Gallbladder Wall: 0.2 cm CBD: 0.4 cm Right Kidney: 10.7 x 4.4 x 4.5 cm Pancreas: wnl Liver: wnl Gallbladder: Possible polyp anterior wall and small, mobile gallstone at fundus, wall thickness uppe r limits of normal Evidence for sonographic Mendiola's sign: No CBD: wnl Right Kidney: Echogenic lesion lateral/mid= 0.6 x 0.7 x 0.6 cm IMPRESSION: 1. Cholelithiasis with additional probable gallbladder polyp. Gallbladder wall measures at the upper limits of normal at 3 mm. 2. 6 mm hyperechoic lesion right kidney could represent a small lipoma or angiomyolipoma. This is sta ble from the prior exam of 06/06/2017. No definite abnormality seen on the CT scan of 07/09/2014. There fore, 6 month follow-up recommended to confirm stability.
== END ==
LOC: RADUSWWP 06:45
PROVIDERS: ATTEND Family Medicine
DX: K80.20 Calculus of gallbladder without cholecystitis without obstruction (principal); N28.9 Disorder of kidney and ureter, unspecified; R17 Unspecified jaundice
CPT/HCPCS: 76705

== ENCOUNTER 2018-06-13 16:21 | Emergency (ER) | payer MEDICARE, OTHER ==
[2018-06-13] MEDS ORDERED: SODIUM CHLORIDE 0.9% 1,000 ML IV STA (16:39)
--- NOTE | 2018-06-13 16:46 | ED ---
General Adult HPI - General Chief complaint: Extremity Injury, Upper Stated complaint: finger infection Time Seen by Provider: 06/13/18 16:30 Source: patient, RN notes reviewed, old records reviewed Mode of arrival: ambulatory Limitations: no limitations - History of Present Illness Initial comments: 67-year-old male patient with past medical history of chronic hepatitis B, hepatitis C infection presents to ED with acute infection of second digit on left hand. Patient is listed ongoing for approximately 3 days. Patient denies any penetrating trauma to digit. Patient has a moderate amount of edema, erythema to second digit of left hand distal to MCP joint. Patient has purulent drainage noted. Patient had some nausea today, denies fever/chills and diarrhea at home. Patient denies all other complaints. Systemic: Pt denies fatigue, myalgia, fever/chills. Pt denies weakness, night sweats, weight loss. Neuro: Pt denies headache, visual disturbances, syncope or pre-syncope. HEENT: Pt denies ocular discharge or irritation, otalgia, rhinorrhea, pharyngitis or notable lymphadenopathy. Cardiopulmonary: Pt denies chest pain, SOB, heart palpitations, dyspnea on exertion. Abdominal/GI: Pt denies abdominal pain, n/v/d. : Pt denies dysuria, burning w/ urination, frequency/urgency. Denies new onset urinary or bowel incontinence. MSK: Pt denies myalgia, loss of strength or function in extremities. Neuro: Pt denies new onset weakness, paresthesias. - Related Data Previous Rx's Medication Instructions Recorded DAPTOmycin [Cubicin] 500 mg IVPB Q24HR #10 vial 06/15/17 HYDROcodone/APAP 7.5-325MG [[place] 2 each PO Q6H PRN #28 tab 06/15/17 7.5-325] amLODIPine [Norvasc] 5 mg PO DAILY #30 tab 06/15/17 Clindamycin [Cleocin] 450 mg PO Q8HR 10 Days #90 capsule 06/13/18 Permethrin 5% Cream [Elimite] 1 applic TOPICAL ONCE #1 tube 06/13/18 Allergies Allergy/AdvReac Type Severity Reaction Status Date / Time No Known Allergies Allergy Verified 06/13/18 16:25 Review of Systems ROS Statement: Those systems with pertinent positive or pertinent negative responses have been documented in the HPI. ROS Other: All systems not noted in ROS Statement are negative. Past Medical History Past Medical History: Cancer, COPD, Hypertension, Prostate Disorder Additional Past Medical History / Comment(s): prostate History of Any Multi-Drug Resistant Organisms: None Reported Past Surgical History: Hernia Repair, Orthopedic Surgery, Prostate Surgery Additional Past Surgical History / Comment(s): Laparotomy with drainage of abscess. Prostatectomy with da Jessi. Past Anesthesia/Blood Transfusion Reactions: No Reported Reaction Past Psychological History: No Psychological Hx Reported Smoking Status: Former smoker Past Alcohol Use History: None Reported, Occasional Past Drug Use History: None Reported - Past Family History Father Family Medical History: Cancer Additional Family Medical History / Comment(s): cholecystectomy General Exam - General Exam Comments Initial Comments: Constitutional: NAD, AOX3, Pt has pleasant affect. HEENT: NC/AT, trachea midline, neck supple, no lymphadenopathy. Posterior pharynx non erythematous, without exudates. External ears appear normal, without discharge. Mucous membranes moist. Eyes PERRLA, EOM intact. There is no scleral icterus. No pallor noted. Cardiopulmonary: RRR, no murmurs, rubs or gallops, no JVD noted. Lungs CTAB in anterior and posterior weeks. No peripheral edema. Abdominal exam: Abdomen soft and non-distended. Abdomen non-tender to palpation in all 4 quadrants. Bowel sounds active in LLQ. No hepatosplenomegaly. No ecchymosis Neuro: CN II-XII grossly intact. No nuchal rigidity. MSK: Moderate amount of erythema, edema, on dorsal aspect of 2nd digit on L hand distal to MCP joint. No pain on passive extension, no percussion tenderness , no flexion posture. Purulent drainage noted. Pt has full ROM of hand, capillary refill <2 seconds. No posterior calf tenderness bilaterally, homans sign negative bilaterally. Posterior tibialis and radial pulse +2 bilaterally. Sensation intact in upper and lower extremities. Full active ROM in upper and lower extremities, 5/5 stregnth. Limitations: no limitations Course Vital Signs 06/13/18 06/13/18 06/13/18 16:25 19:04 19:21 Temperature 97.4 F L 98.8 F 98.9 F Pulse Rate 73 78 64 Respiratory 18 18 16 Rate Blood Pressure 139/83 177/97 189/95 O2 Sat by Pulse 100 98 98 Oximetry Procedures - Incision & Drainage Time Out Performed?: Yes Site: scalp Anesthetic Used: lidocaine 1% I&D Cleaning Method: Chloroprep, Alcohol Wipe Scalpel Used: #11 Needle Aspiration Performed?: No I&D Drainage Obtained: Pus Culture Obtained?: Yes Patient Tolerated Procedure: well, no complications Medical Decision Making - Medical Decision Making 67-year-old male patient with past medical history of chronic hepatitis B, hepatitis C infection presents to ED with acute infection of second digit on left hand. Patient is listed ongoing for approximately 3 days. Patient denies any penetrating trauma to digit. Patient has a moderate amount of edema, erythema to second digit of left hand distal to MCP joint. Patient had some nausea today, denies fever/chills and diarrhea at home. Patient denies all other complaints. Pt VSS, afebrile. Physical exam displayed: Moderate amount of erythema, edema, on dorsal aspect of 2nd digit on L hand distal to MCP joint. No pain on passive extension, no percussion tenderness, no flexion posture. Laboratory investigations revealed non-impressive CBC. CMP revealed mildly elevated BUNs and creatinine. After fluid administration BUN/creatinine improved. Abscess was drained in ED, culture obtained. Due to patient having reportedly renal issues from Bactrim patient will be placed on clindamycin. Patient was administered 1 g Rocephin in ED. Patient to follow-up with [facility] tomorrow. Patient to return to ED if any new signs or symptoms develop. Patient educated extensively about signs symptoms of infection, warning signs to watch out for, patient verbalized understanding. Pt additionally rx permethin cream d/t pt request prior to dc 2/2 to him believing he may have scabies. Pt states that he has had some itching on that feels similar to scabies in the past, no s/sx of scabies on exam, no burrows, no rash. Case discussed in depth with Dr. Frazier. - Lab Data Result diagrams: 06/13/18 16:51 06/13/18 18:15 Lab Results 06/13/18 06/13/18 06/13/18 Range/Units 16:51 16:51 18:15 WBC 8.4 (3.8-10.6) k/uL RBC 4.64 (4.30-5.90) m/uL Hgb 14.2 (13.0-17.5) gm/dL Hct 42.5 (39.0-53.0) % MCV 91.7 (80.0-100.0) fL MCH 30.6 (25.0-35.0) pg MCHC 33.3 (31.0-37.0) g/dL RDW 13.9 (11.5-15.5) % Plt Count 257 (150-450) k/uL Neutrophils % 69 % Lymphocytes % 10 % Monocytes % 7 % Eosinophils % 11 % Basophils % 0 % Neutrophils # 5.8 (1.3-7.7) k/uL Lymphocytes # 0.9 L (1.0-4.8) k/uL Monocytes # 0.6 (0-1.0) k/uL Eosinophils # 0.9 H (0-0.7) k/uL Basophils # 0.0 (0-0.2) k/uL Sodium 136 L 137 (137-145) mmol/L Potassium 4.7 5.0 (3.5-5.1) mmol/L Chloride 103 109 H (98-107) mmol/L Carbon Dioxide 26 22 (22-30) mmol/L Anion Gap 7 6 mmol/L BUN 35 H 31 H (9-20) mg/dL Creatinine 1.37 H 1.20 (0.66-1.25) mg/dL Est GFR (CKD-EPI)AfAm 62 73 (>60 ml/min/1.73 sqM) Est GFR (CKD-EPI)NonAf 53 63 (>60 ml/min/1.73 sqM) Glucose 98 87 (74-99) mg/dL Calcium 8.9 8.2 L (8.4-10.2) mg/dL Total Bilirubin 0.5 (0.2-1.3) mg/dL AST 75 H (17-59) U/L ALT 78 H (21-72) U/L Alkaline Phosphatase 73 (38-126) U/L Total Protein 6.8 (6.3-8.2) g/dL Albumin 3.7 (3.5-5.0) g/dL Disposition Clinical Impression: Abscess Disposition: HOME SELF-CARE Condition: Good Instructions: Abscess Incision and Drainage (ED) Additional Instructions: Patient to adhere to previously discussed treatment plan and will take medication(s) as directed. Patient to follow up with PCP in 1-2 days. Patient to return to ED if symptoms do not improve. Prescriptions: Clindamycin [Cleocin] 450 mg PO Q8HR 10 Days #90 capsule Permethrin 5% Cream [Elimite] 1 applic TOPICAL ONCE #1 tube Is patient prescribed a controlled substance at d/c from ED?: No Referrals: [facility],Clinic [Primary Care Provider] - 1-2 days Time of Disposition: 19:13
[2018-06-13] MEDS ORDERED: IBUPROFEN 600 MG TAB PO STA (16:51)
[2018-06-13 17:09] LABS: Basophils % (A) 0 %; Eosinophils # (A) 0.9 k/uL (0-0.7); Eosinophils % (A) 11 %; HCT 42.5 % (39.0-53.0); HGB 14.2 gm/dL (13.0-17.5); Lymphocytes # (A) 0.9 k/uL (1.0-4.8); Lymphocytes % (A) 10 %; MCH 30.6 pg (25.0-35.0); MCHC 33.3 g/dL (31.0-37.0); MCV 91.7 fL (80.0-100.0); Mean Platelet Volume 7.5; Monocytes # (A) 0.6 k/uL (0-1.0); Monocytes % (A) 7 %; Neutrophils # (A) 5.8 k/uL (1.3-7.7); Neutrophils % (A) 69 %; Platelet Count 257 k/uL (150-450); RBC 4.64 m/uL (4.30-5.90); RDW 13.9 % (11.5-15.5); WBC 8.4 k/uL (3.8-10.6)
--- NOTE | 2018-06-13 17:11 | XR ---
EXAMINATION TYPE: XR hand complete LT DATE OF EXAM: 06/13/2018 COMPARISON: NONE HISTORY: Pain and redness TECHNIQUE: 3 views FINDINGS: Metacarpals are intact. I see no fracture nor dislocation. There are no erosions. There is narrowing of the IP joint spaces. There is no subluxation. IMPRESSION: Nonspecific arthritic changes. No evidence of osteomyelitis. There is soft tissue swellin g around the proximal phalanx of the index finger.
[2018-06-13 17:19] LABS: Albumin 3.7 g/dL (3.5-5.0); Calcium 8.9 mg/dL (8.4-10.2); Potassium 4.7 mmol/L (3.5-5.1); Total Bilirubin 0.5 mg/dL (0.2-1.3); Total Protein 6.8 g/dL (6.3-8.2)
[2018-06-13] MEDS ORDERED: LIDOCAINE 1% INJ 10MG/ML (20 ML MDV) SQ STA (18:16)
[2018-06-13 18:41] LABS: Calcium 8.2 mg/dL (8.4-10.2)
[2018-06-13 19:22] VITALS: BP 189/95; PULSE 64; RESP 16; TEMP 98.9
== END 2018-06-13 19:27 | disposition home or self-care (01) ==
LOC: EC 16:21
DX: L02.512 Cutaneous abscess of left hand (principal); R79.89 Other specified abnormal findings of blood chemistry; R11.0 Nausea; Z86.19 Personal history of other infectious and parasitic diseases; Z85.9 Personal history of malignant neoplasm, unspecified; Z87.891 Personal history of nicotine dependence
CPT/HCPCS: 36415; 80053; 80048; 85025; 87070; 87205; 73130; 99284; 10060; 96365; 96361; J2001; J0696

== ENCOUNTER 2018-06-16 00:50 | Emergency (ER) | payer OTHER, MEDICARE ==
[2018-06-16] MEDS ORDERED: SODIUM CHLORIDE 0.9% 1,000 ML IV STA (01:13)
[2018-06-16] MEDS ORDERED: LABETALOL SYRINGE 5 MG/ML IVP STA (01:16)
[2018-06-16] MEDS ORDERED: LORazepam 2 MG/ML INJ IV STA (01:42)
[2018-06-16 01:48] LABS: Basophils % (A) 0 %; Eosinophils # (A) 0.5 k/uL (0-0.7); Eosinophils % (A) 9 %; HCT 45.4 % (39.0-53.0); HGB 14.8 gm/dL (13.0-17.5); Lymphocytes # (A) 1.2 k/uL (1.0-4.8); Lymphocytes % (A) 22 %; MCH 29.6 pg (25.0-35.0); MCHC 32.6 g/dL (31.0-37.0); MCV 90.9 fL (80.0-100.0); Mean Platelet Volume 6.6; Monocytes # (A) 0.3 k/uL (0-1.0); Monocytes % (A) 6 %; Neutrophils # (A) 3.3 k/uL (1.3-7.7); Neutrophils % (A) 59 %; Platelet Count 271 k/uL (150-450); RDW 13.8 % (11.5-15.5); WBC 5.6 k/uL (3.8-10.6)
[2018-06-16 02:04] LABS: ALT 130 U/L (21-72); AST 113 U/L (17-59); Acetaminophen <10.0 ug/mL; Albumin 4.1 g/dL (3.5-5.0); Alcohol <10 mg/dL; Alkaline Phosphatase 83 U/L (38-126); Anion Gap 7 mmol/L; Blood Urea Nitrogen 20 mg/dL (9-20); Calcium 9.2 mg/dL (8.4-10.2); Carbon Dioxide 26 mmol/L (22-30); Chloride 105 mmol/L (98-107); Glucose 123 mg/dL (74-99); Potassium 4.2 mmol/L (3.5-5.1); Salicylate <1.0 mg/dL; Sodium 138 mmol/L (137-145); Total Bilirubin 0.6 mg/dL (0.2-1.3); Total Protein 7.5 g/dL (6.3-8.2)
--- NOTE | 2018-06-16 02:15 | ED ---
Overdose HPI - General Chief Complaint: Overdose Stated Complaint: overdose Time Seen by Provider: 06/16/18 00:55 Source: patient, family, RN notes reviewed, old records reviewed Mode of arrival: wheelchair Limitations: no limitations - History of Present Illness Initial Comments: 67-year-old male presents emergency department today with complaint of unresponsiveness. Patient was dropped off to the emergency department by his friends. Patient had a admits to here when a methamphetamine overdose. Patient initially was unarousable upon arriving to emergency department after triage he's been more alert. Patient reports that the overdose was not intentional. He's had a long history of drug abuse. Patient denies any complaints of pain at this time. He is currently being treated for an infection on his left 2nd finger with clindamycin. - Related Data Previous Rx's Medication Instructions Recorded DAPTOmycin [Cubicin] 500 mg IVPB Q24HR #10 vial 06/15/17 HYDROcodone/APAP 7.5-325MG [[place] 2 each PO Q6H PRN #28 tab 06/15/17 7.5-325] amLODIPine [Norvasc] 5 mg PO DAILY #30 tab 06/15/17 Clindamycin [Cleocin] 450 mg PO Q8HR 10 Days #90 capsule 06/13/18 Permethrin 5% Cream [Elimite] 1 applic TOPICAL ONCE #1 tube 06/13/18 Allergies Allergy/AdvReac Type Severity Reaction Status Date / Time No Known Allergies Allergy Verified 06/16/18 00:54 Review of Systems ROS Statement: Those systems with pertinent positive or pertinent negative responses have been documented in the HPI. ROS Other: All systems not noted in ROS Statement are negative. Past Medical History Past Medical History: Cancer, COPD, Hypertension, Prostate Disorder Additional Past Medical History / Comment(s): prostate History of Any Multi-Drug Resistant Organisms: None Reported Past Surgical History: Hernia Repair, Orthopedic Surgery, Prostate Surgery Additional Past Surgical History / Comment(s): Laparotomy with drainage of abscess. Prostatectomy with da Jessi. Past Anesthesia/Blood Transfusion Reactions: No Reported Reaction Past Psychological History: No Psychological Hx Reported Smoking Status: Never smoker Past Alcohol Use History: None Reported, Occasional Past Drug Use History: Heroin, Methamphetamine - Past Family History Father Family Medical History: Cancer Additional Family Medical History / Comment(s): cholecystectomy General Exam - General Exam Comments Initial Comments: 67-year-old male. Alert and oriented 3. No significant distress. Blood pressure elevated 200/107. Limitations: no limitations General appearance: alert, in no apparent distress Head exam: Present: atraumatic, normocephalic, normal inspection Eye exam: Present: normal appearance, PERRL, EOMI. Absent: scleral icterus, conjunctival injection, periorbital swelling ENT exam: Present: normal exam, mucous membranes moist Neck exam: Present: normal inspection. Absent: tenderness, meningismus, lymphadenopathy Respiratory exam: Present: normal lung sounds bilaterally. Absent: respiratory distress, wheezes, rales, rhonchi, stridor Cardiovascular Exam: Present: normal rhythm, tachycardia, normal heart sounds. Absent: regular rate, systolic murmur, diastolic murmur, rubs, gallop, clicks GI/Abdominal exam: Present: soft, normal bowel sounds. Absent: distended, tenderness, guarding, rebound, rigid Extremities exam: Present: normal inspection, full ROM, normal capillary refill , other (abscess over left second digit). Absent: tenderness, pedal edema, joint swelling, calf tenderness Back exam: Present: normal inspection Neurological exam: Present: alert, oriented X3, CN II-XII intact Psychiatric exam: Present: normal affect, normal mood Skin exam: Present: warm, dry, intact, normal color. Absent: rash Course Vital Signs 06/16/18 06/16/18 06/16/18 00:50 01:03 02:00 Temperature 98.6 F Pulse Rate 111 H 97 Respiratory 20 15 Rate Blood Pressure 207/117 201/109 O2 Sat by Pulse 96 97 97 Oximetry 06/16/18 06/16/18 06/16/18 02:30 02:57 03:19 Temperature 98.0 F Pulse Rate 113 H 96 Respiratory 16 Rate Blood Pressure 166/89 O2 Sat by Pulse Oximetry Medical Decision Making - Medical Decision Making Patient is a 67 rolled male presents returns today with complaints of overdose. He was unresponsive, by friends. Dropped off in the emergency department. Arrival he became arousable. Alert and oriented 3. Overdose was not intentional. Patient reports he mixed heroin and methamphetamine. Upon arrival he was hypertensive sympathomimetic due to the methamphetamine abuse. Patient was given 1 dose of Ativan. He was reevaluated heart rate came down blood pressure was decreased. He is currently being treated for infection over his left second digit. This is a healing of. Patient reports he missed his dose of antibiotic and would like one this time. Lab work was reviewed and unremarkable. Discharge the Patient with outpatient referrals for rehab and drug abuse. Discussed strict return parameters. - Lab Data Result diagrams: 06/16/18 01:34 06/16/18 01:34 Lab Results 06/16/18 06/16/18 06/16/18 Range/Units 01:34 01:34 01:34 WBC 5.6 (3.8-10.6) k/uL RBC 5.00 (4.30-5.90) m/uL Hgb 14.8 (13.0-17.5) gm/dL Hct 45.4 (39.0-53.0) % MCV 90.9 (80.0-100.0) fL MCH 29.6 (25.0-35.0) pg MCHC 32.6 (31.0-37.0) g/dL RDW 13.8 (11.5-15.5) % Plt Count 271 (150-450) k/uL Neutrophils % 59 % Lymphocytes % 22 % Monocytes % 6 % Eosinophils % 9 % Basophils % 0 % Neutrophils # 3.3 (1.3-7.7) k/uL Lymphocytes # 1.2 (1.0-4.8) k/uL Monocytes # 0.3 (0-1.0) k/uL Eosinophils # 0.5 (0-0.7) k/uL Basophils # 0.0 (0-0.2) k/uL Sodium 138 (137-145) mmol/L Potassium 4.2 (3.5-5.1) mmol/L Chloride 105 (98-107) mmol/L Carbon Dioxide 26 (22-30) mmol/L Anion Gap 7 mmol/L BUN 20 (9-20) mg/dL Creatinine 1.14 (0.66-1.25) mg/dL Est GFR (CKD-EPI)AfAm 78 (>60 ml/min/1.73 sqM) Est GFR (CKD-EPI)NonAf 67 (>60 ml/min/1.73 sqM) Glucose 123 H (74-99) mg/dL Calcium 9.2 (8.4-10.2) mg/dL Total Bilirubin 0.6 (0.2-1.3) mg/dL AST 113 H (17-59) U/L ALT 130 H (21-72) U/L Alkaline Phosphatase 83 (38-126) U/L Total Protein 7.5 (6.3-8.2) g/dL Albumin 4.1 (3.5-5.0) g/dL Urine Color Yellow Urine Appearance Clear (Clear) Urine pH 5.5 (5.0-8.0) Ur Specific [place] 1.026 (1.001-1.035) Urine Protein 2+ H (Negative) Urine Glucose (UA) Negative (Negative) Urine Ketones Negative (Negative) Urine Blood Negative (Negative) Urine Nitrite Negative (Negative) Urine Bilirubin Negative (Negative) Urine Urobilinogen 2.0 (<2.0) mg/dL Ur Leukocyte Esterase Small H (Negative) Urine RBC 4 (0-5) /hpf Urine WBC 27 H (0-5) /hpf Ur Squamous Epith Cells 1 (0-4) /hpf Calcium Oxalate Crystal Moderate H (None) /hpf Hyaline Casts 140 H (0-2) /lpf Urine Mucus Moderate H (None) /hpf Salicylates <1.0 mg/dL Urine Opiates Screen Detected H (NotDetected) Ur Oxycodone Screen Not Detected (NotDetected) Urine Methadone Screen Not Detected (NotDetected) Ur Propoxyphene Screen Detected H (NotDetected) Acetaminophen <10.0 ug/mL Ur Barbiturates Screen Not Detected (NotDetected) U Tricyclic Antidepress Not Detected (NotDetected) Ur Phencyclidine Scrn Not Detected (NotDetected) Ur Amphetamines Screen Detected H (NotDetected) U Methamphetamines Scrn Detected H (NotDetected) U Benzodiazepines Scrn Not Detected (NotDetected) Urine Cocaine Screen Not Detected (NotDetected) U Marijuana (THC) Screen Detected H (NotDetected) Serum Alcohol <10 mg/dL Interpretation: no acute changes 06/17/18 05:58EKG performed at 117 shows sinus tachycardia, there is normal EKG. Ventricularly of 111 bpm. [place] interval is 140 ms. QRS duration is 94 ms. QT QTc is 332/441 ms. Disposition Clinical Impression: Heroin abuse, Methamphetamine abuse Disposition: HOME SELF-CARE Condition: Good Instructions: Polysubstance Abuse (ED) Additional Instructions: Follow-up with primary care physician. Continue taking antibiotics for the infection on the finger. Return to emergency department if any alarming signs or symptoms occur. Is patient prescribed a controlled substance at d/c from ED?: No Referrals: [facility],Clinic [Primary Care Provider] - 1-2 days Time of Disposition: 03:01
[2018-06-16 02:20] LABS: Appearance,Urine Clear (Clear); Bilirubin,Urine Negative (Negative); Blood,Urine Negative (Negative); Calcium Oxalate Crystals,Urine Moderate /hpf; Color,Urine Yellow; Glucose,Urine (UA) Negative (Negative); Hyaline Casts,Urine 140 /lpf (0-2); Ketones,Urine Negative (Negative); Leukocyte Esterase,Urine Small (Negative); Mucus,Urine Moderate /hpf; Nitrite,Urine Negative (Negative); PH, Urine 5.5 (5.0-8.0); Protein,Urine 2+ (Negative); RBC,Urine 4 /hpf (0-5); Specific Gravity,Urine 1.026 (1.001-1.035); Squamous Epithelial Cell,Urine 1 /hpf (0-4); WBC,Urine 27 /hpf (0-5)
[2018-06-16 02:35] LABS: Amphetamine Screen,Urine Detected (NotDetected); Barbiturate Screen,Urine Not Detected (NotDetected); Benzodiazepines Screen,Urine Not Detected (NotDetected); Cocaine Screen,Urine Not Detected (NotDetected); Methadone Screen, Urine Not Detected (NotDetected); Opiate Screen,Urine Detected (NotDetected); Oxycodone Screen, Urine Not Detected (NotDetected); Phencyclidine Screen,Urine Not Detected (NotDetected); Tricyclic Antidepressant,Urine Not Detected (NotDetected); Urn Cannabinoid Scrn Detected (NotDetected)
[2018-06-16] MEDS ORDERED: CLINDAMYCIN 150 MG CAP PO STA ×2 (02:37→03:13)
[2018-06-16 02:56] VITALS: BP 166/89; RESP 16
[2018-06-16 02:58] VITALS: PULSE 96
[2018-06-16 03:24] VITALS: TEMP 98
== END 2018-06-16 03:19 | disposition home or self-care (01) ==
LOC: EC 00:50
DX: F15.10 Other stimulant abuse, uncomplicated (principal); F11.10 Opioid abuse, uncomplicated; R00.0 Tachycardia, unspecified; L02.512 Cutaneous abscess of left hand; Z85.46 Personal history of malignant neoplasm of prostate; Z90.79 Acquired absence of other genital organ(s); Z53.8 Procedure and treatment not carried out for other reasons
CPT/HCPCS: 36415; 93005; 80053; 85025; 81001; 80306; 83520 ×2; 80320; 87086; 99284; 96374; 96361; J2060

== ENCOUNTER 2018-08-30 19:31 | Emergency (ER) | payer OTHER, MEDICARE ==
[2018-08-30 19:43] VITALS: BP 159/101; PULSE 77; RESP 20; TEMP 97.8
--- NOTE | 2018-08-30 20:00 | ED ---
General Adult HPI - General Chief complaint: Upper Respiratory Infection Stated complaint: BESSIE Time Seen by Provider: 08/30/18 19:45 Source: patient, RN notes reviewed, old records reviewed Mode of arrival: ambulatory Limitations: no limitations - History of Present Illness Initial comments: 67-year-old male presenting for evaluation of cough, dyspnea. Patient's cough has been productive of white sputum. No reported fever or chills. He does report sore throat and rhinorrhea. His been sick for approximately 3 days. No vomiting or diarrhea. No chest pain. No abdominal pain. No lower extremity pain or swelling. Patient is exposed to secondhand smoke and does have history of COPD. - Related Data Previous Rx's Medication Instructions Recorded Albuterol Inhaler [Ventolin Hfa 1 - 2 puff INHALATION Q4HR PRN #1 08/30/18 Inhaler] inhaler Azithromycin [Zithromax Z-pack] 0 mg PO DIRECTED #6 tab 08/30/18 predniSONE 50 mg PO DAILY #5 tab 08/30/18 Allergies Allergy/AdvReac Type Severity Reaction Status Date / Time Sulfa (Sulfonamide AdvReac Nausea & Verified 08/30/18 20:17 Antibiotics) Vomiting & Diarrhea Review of Systems ROS Statement: Those systems with pertinent positive or pertinent negative responses have been documented in the HPI. ROS Other: All systems not noted in ROS Statement are negative. Past Medical History Past Medical History: Cancer, COPD, Hypertension, Prostate Disorder Additional Past Medical History / Comment(s): prostate History of Any Multi-Drug Resistant Organisms: MRSA Date of last positivie culture/infection: 06/13/18 MDRO Source:: Left Hand Past Surgical History: Hernia Repair, Orthopedic Surgery, Prostate Surgery Additional Past Surgical History / Comment(s): Laparotomy with drainage of abscess. Prostatectomy with da Jessi. Past Anesthesia/Blood Transfusion Reactions: No Reported Reaction Past Psychological History: No Psychological Hx Reported Smoking Status: Never smoker Past Alcohol Use History: None Reported, Occasional Past Drug Use History: Heroin, Methamphetamine - Past Family History Father Family Medical History: Cancer Additional Family Medical History / Comment(s): cholecystectomy General Exam Limitations: no limitations General appearance: alert, in no apparent distress Head exam: Present: atraumatic, normocephalic Eye exam: Present: normal appearance, PERRL ENT exam: Absent: normal oropharynx (Pharyngeal erythema, no tonsillar swelling or exudate) Neck exam: Present: normal inspection. Absent: tenderness, meningismus Respiratory exam: Present: wheezes (Data wheezing with good air entry). Absent: respiratory distress, accessory muscle use Cardiovascular Exam: Present: regular rate, normal rhythm, normal heart sounds GI/Abdominal exam: Present: soft. Absent: distended, tenderness, guarding, rebound Extremities exam: Present: normal inspection, normal capillary refill. Absent: pedal edema, calf tenderness Neurological exam: Present: alert, oriented X3 Psychiatric exam: Present: normal affect, normal mood Skin exam: Present: warm, dry, intact. Absent: cyanosis, diaphoretic Course Vital Signs 08/30/18 19:40 Temperature 97.8 F Pulse Rate 77 Respiratory 20 Rate Blood Pressure 159/101 O2 Sat by Pulse 99 Oximetry Medical Decision Making - Medical Decision Making 67-year-old presenting with cough and cold symptoms. Patient is well-appearing, stable vitals, good air entry with scattered wheezing. Chest x-ray obtained, negative for focal pneumonia. Influenza testing is obtained, this is also negative. Patient will be started on steroids, albuterol, and azithromycin. - Lab Data Lab Results 08/30/18 Range/Units 20:55 Influenza Type A RNA Not Detected (Not Detectd) Influenza Type B (PCR) Not Detected (Not Detectd) Disposition Clinical Impression: Bronchitis, Upper respiratory infection Disposition: HOME SELF-CARE Condition: Fair Prescriptions: predniSONE 50 mg PO DAILY #5 tab Albuterol Inhaler [Ventolin Hfa Inhaler] 1 - 2 puff INHALATION Q4HR PRN #1 inhaler PRN Reason: Shortness Of Breath Azithromycin [Zithromax Z-pack] 0 mg PO DIRECTED #6 tab Is patient prescribed a controlled substance at d/c from ED?: No Referrals: [facility],Clinic [Primary Care Provider] - 1-2 days Time of Disposition: 20:55
--- NOTE | 2018-08-30 20:44 | XR ---
EXAMINATION: XR chest 2V DATE AND TIME: 08/30/2018 8:03 PM CLINICAL INDICATION: PHH; Pain TECHNIQUE: Departmental protocol COMPARISON: 06/11/2017 FINDINGS: The lungs are clear. The pleural spaces are negative. The cardiac silhouette is not enlarged. The remainder of the mediastinal silhouette is unremarkable. The skeletal structures and soft tissues are negative for acute findings. IMPRESSION: NO ACUTE PROCESS.
== END 2018-08-30 21:41 | disposition home or self-care (01) ==
LOC: EC 19:31
DX: J40 Bronchitis, not specified as acute or chronic (principal); J06.9 Acute upper respiratory infection, unspecified; J44.9 Chronic obstructive pulmonary disease, unspecified; Z77.22 Contact with and (suspected) exposure to environmental tobacco smoke (acute) (chronic); Z88.2 Allergy status to sulfonamides; Z86.14 Personal history of Methicillin resistant Staphylococcus aureus infection; Z85.46 Personal history of malignant neoplasm of prostate; Z90.79 Acquired absence of other genital organ(s)
CPT/HCPCS: 71046; 87502; 99285

== ENCOUNTER 2018-12-04 15:37 | Observation (INO) | payer OTHER, MEDICARE ==
[2018-12-04] MEDS ORDERED: SODIUM CHLORIDE 0.9% 1,000 ML IV STA (16:49)
[2018-12-04] MEDS ORDERED: ONDANSETRON 4 MG/2 ML VIAL IVP STA (16:49)
--- NOTE | 2018-12-04 16:55 | ED ---
General Adult HPI - General Chief complaint: Abdominal Pain Stated complaint: Abd pain Time Seen by Provider: 12/04/18 16:00 Source: patient, RN notes reviewed Mode of arrival: ambulatory Limitations: no limitations - History of Present Illness Initial comments: This is a 68-year-old male who presents emergency Department complaining of diffuse abdominal pain. Patient states on November 22 he started having nausea and diarrhea. Patient states been continuous since per patient denies fever chills. Patient states he has abdominal pain mostly in the lower abdomen but it's not any specific spot. Patient denies any vomiting at all. Patient states he has been able to drink and eat a little but he is not eating much because he is nauseous. Patient denies any chest pain difficulty breathing shortest breath. Patient denies any back pain. Patient states he has already had his appendix out in the past. Patient denies any dysuria hematuria urinary frequency. - Related Data Home Medications Medication Instructions Recorded Confirmed Gabapentin [Neurontin] 300 mg PO TID 12/04/18 12/04/18 Vitamin D(Unknown) 1 tab PO DAILY 12/04/18 12/04/18 Allergies Allergy/AdvReac Type Severity Reaction Status Date / Time Sulfa (Sulfonamide AdvReac Nausea & Verified 12/04/18 17:05 Antibiotics) Vomiting & Diarrhea Review of Systems ROS Statement: Those systems with pertinent positive or pertinent negative responses have been documented in the HPI. ROS Other: All systems not noted in ROS Statement are negative. Past Medical History Past Medical History: Cancer, COPD, Hypertension, Prostate Disorder Additional Past Medical History / Comment(s): prostate History of Any Multi-Drug Resistant Organisms: MRSA Date of last positivie culture/infection: 06/13/18 MDRO Source:: Left Hand Past Surgical History: Hernia Repair, Orthopedic Surgery, Prostate Surgery Additional Past Surgical History / Comment(s): Laparotomy with drainage of abscess. Prostatectomy with da Jessi. Past Anesthesia/Blood Transfusion Reactions: No Reported Reaction Past Psychological History: No Psychological Hx Reported Smoking Status: Never smoker Past Alcohol Use History: None Reported, Occasional Past Drug Use History: Heroin, Methamphetamine - Past Family History Father Family Medical History: Cancer Additional Family Medical History / Comment(s): cholecystectomy General Exam - General Exam Comments Initial Comments: GENERAL: Patient is well-developed and well-nourished. Patient is nontoxic and well- hydrated and is in mild distress. ENT: Neck is soft and supple. No significant lymphadenopathy is noted. Oropharynx is clear. Dry mucous membranes. Neck has full range of motion without eliciting any pain. EYES: The sclera were anicteric and conjunctiva were pink and moist. Extraocular movements were intact and pupils were equal round and reactive to light. Eyelids were unremarkable. PULMONARY: Unlabored respirations. Good breath sounds bilaterally. No audible rales rhonchi or wheezing was noted. CARDIOVASCULAR: There is a regular rate and rhythm without any murmurs gallops or rubs. ABDOMEN: Soft and nontender with normal bowel sounds. No palpable organomegaly was noted. There is no palpable pulsatile mass. SKIN: Skin is clear with no lesions or rashes and otherwise unremarkable. NEUROLOGIC: Patient is alert and oriented x3. Cranial nerves II through XII are grossly intact. Motor and sensory are also intact. Normal speech, volume and content. Symmetrical smile. MUSCULOSKELETAL: Normal extremities with adequate strength and full range of motion. No lower extremity swelling or edema. No calf tenderness. LYMPHATICS: No significant lymphadenopathy is noted PSYCHIATRIC: Normal psychiatric evaluation. Limitations: no limitations Course Vital Signs 12/04/18 12/04/18 16:00 18:42 Temperature 98 F 98.3 F Pulse Rate 72 59 L Respiratory 18 18 Rate Blood Pressure 139/80 137/79 O2 Sat by Pulse 98 97 Oximetry Medical Decision Making - Medical Decision Making CT of the abdomen shows no acute abnormality. I went in the room the patient was resting comfortable in however his lipase is elevated so I kept the patient for 23 observation to repeat lab work in the [place] emergency department. I spoke with Dr. Restrepo he agreed to admit the patient admitted the patient wrote admitting orders - Lab Data Result diagrams: 12/04/18 16:54 12/04/18 16:54 Lab Results 12/04/18 12/04/18 12/04/18 Range/Units 16:54 16:54 16:54 WBC 6.9 (3.8-10.6) k/uL RBC 5.09 (4.30-5.90) m/uL Hgb 15.1 (13.0-17.5) gm/dL Hct 45.6 (39.0-53.0) % MCV 89.5 (80.0-100.0) fL MCH 29.6 (25.0-35.0) pg MCHC 33.0 (31.0-37.0) g/dL RDW 15.0 (11.5-15.5) % Plt Count 296 (150-450) k/uL Neutrophils % 70 % Lymphocytes % 18 % Monocytes % 6 % Eosinophils % 2 % Basophils % 1 % Neutrophils # 4.8 (1.3-7.7) k/uL Lymphocytes # 1.2 (1.0-4.8) k/uL Monocytes # 0.4 (0-1.0) k/uL Eosinophils # 0.2 (0-0.7) k/uL Basophils # 0.1 (0-0.2) k/uL Sodium 137 (137-145) mmol/L Potassium 4.6 (3.5-5.1) mmol/L Chloride 104 (98-107) mmol/L Carbon Dioxide 24 (22-30) mmol/L Anion Gap 9 mmol/L BUN 22 H (9-20) mg/dL Creatinine 1.13 (0.66-1.25) mg/dL Est GFR (CKD-EPI)AfAm 78 (>60 ml/min/1.73 sqM) Est GFR (CKD-EPI)NonAf 67 (>60 ml/min/1.73 sqM) Glucose 103 H (74-99) mg/dL Plasma Lactic Acid [place] 0.9 (0.7-2.0) mmol/L Calcium 9.3 (8.4-10.2) mg/dL Total Bilirubin 0.6 (0.2-1.3) mg/dL AST 39 (17-59) U/L ALT 49 (21-72) U/L Alkaline Phosphatase 67 (38-126) U/L Total Protein 7.5 (6.3-8.2) g/dL Albumin 4.2 (3.5-5.0) g/dL Amylase 105 (30-110) U/L Lipase 734 H (23-300) U/L Urine Color Urine Appearance (Clear) Urine pH (5.0-8.0) Ur Specific [place] (1.001-1.035) Urine Protein (Negative) Urine Glucose (UA) (Negative) Urine Ketones (Negative) Urine Blood (Negative) Urine Nitrite (Negative) Urine Bilirubin (Negative) Urine Urobilinogen (<2.0) mg/dL Ur Leukocyte Esterase (Negative) Urine RBC (0-5) /hpf Urine WBC (0-5) /hpf Urine WBC Clumps (None) /hpf Ur Squamous Epith Cells (0-4) /hpf Amorphous Sediment (None) /hpf Hyaline Casts (0-2) /lpf Urine Mucus (None) /hpf 12/04/18 Range/Units 17:58 WBC (3.8-10.6) k/uL RBC (4.30-5.90) m/uL Hgb (13.0-17.5) gm/dL Hct (39.0-53.0) % MCV (80.0-100.0) fL MCH (25.0-35.0) pg MCHC (31.0-37.0) g/dL RDW (11.5-15.5) % Plt Count (150-450) k/uL Neutrophils % % Lymphocytes % % Monocytes % % Eosinophils % % Basophils % % Neutrophils # (1.3-7.7) k/uL Lymphocytes # (1.0-4.8) k/uL Monocytes # (0-1.0) k/uL Eosinophils # (0-0.7) k/uL Basophils # (0-0.2) k/uL Sodium (137-145) mmol/L Potassium (3.5-5.1) mmol/L Chloride (98-107) mmol/L Carbon Dioxide (22-30) mmol/L Anion Gap mmol/L BUN (9-20) mg/dL Creatinine (0.66-1.25) mg/dL Est GFR (CKD-EPI)AfAm (>60 ml/min/1.73 sqM) Est GFR (CKD-EPI)NonAf (>60 ml/min/1.73 sqM) Glucose (74-99) mg/dL Plasma Lactic Acid [place] (0.7-2.0) mmol/L Calcium (8.4-10.2) mg/dL Total Bilirubin (0.2-1.3) mg/dL AST (17-59) U/L ALT (21-72) U/L Alkaline Phosphatase (38-126) U/L Total Protein (6.3-8.2) g/dL Albumin (3.5-5.0) g/dL Amylase (30-110) U/L Lipase (23-300) U/L Urine Color Yellow Urine Appearance Clear (Clear) Urine pH 5.5 (5.0-8.0) Ur Specific [place] 1.012 (1.001-1.035) Urine Protein Negative (Negative) Urine Glucose (UA) Negative (Negative) Urine Ketones Negative (Negative) Urine Blood Negative (Negative) Urine Nitrite Negative (Negative) Urine Bilirubin Negative (Negative) Urine Urobilinogen <2.0 (<2.0) mg/dL Ur Leukocyte Esterase Moderate H (Negative) Urine RBC 2 (0-5) /hpf Urine WBC 26 H (0-5) /hpf Urine WBC Clumps Rare H (None) /hpf Ur Squamous Epith Cells 1 (0-4) /hpf Amorphous Sediment Occasional H (None) /hpf Hyaline Casts 1 (0-2) /lpf Urine Mucus Occasional H (None) /hpf Disposition Clinical Impression: Abdominal pain Disposition: ADMITTED IP TO THIS HOSP Is patient prescribed a controlled substance at d/c from ED?: No Referrals: [facility],Clinic [Primary Care Provider] - 1-2 days Time of Disposition: 22:13
[2018-12-04 17:04] LABS: Basophils # (A) 0.1 k/uL (0-0.2); Basophils % (A) 1 %; Eosinophils # (A) 0.2 k/uL (0-0.7); Eosinophils % (A) 2 %; HCT 45.6 % (39.0-53.0); HGB 15.1 gm/dL (13.0-17.5); Lymphocytes # (A) 1.2 k/uL (1.0-4.8); Lymphocytes % (A) 18 %; MCH 29.6 pg (25.0-35.0); MCV 89.5 fL (80.0-100.0); Mean Platelet Volume 7.7; Monocytes # (A) 0.4 k/uL (0-1.0); Monocytes % (A) 6 %; Neutrophils # (A) 4.8 k/uL (1.3-7.7); Neutrophils % (A) 70 %; Platelet Count 296 k/uL (150-450); RBC 5.09 m/uL (4.30-5.90); WBC 6.9 k/uL (3.8-10.6)
[2018-12-04 17:13] LABS: Albumin 4.2 g/dL (3.5-5.0); Calcium 9.3 mg/dL (8.4-10.2); Potassium 4.6 mmol/L (3.5-5.1); Total Bilirubin 0.6 mg/dL (0.2-1.3); Total Protein 7.5 g/dL (6.3-8.2)
--- NOTE | 2018-12-04 17:21 | XR ---
EXAMINATION TYPE: XR KUB DATE OF EXAM: 12/04/2018 COMPARISON: 07/09/2014 HISTORY: Abdominal pain TECHNIQUE: 2 views upright FINDINGS: There is no sign of intestinal obstruction or pneumoperitoneum. Fecal pattern is normal. Candace ng bases are clear. IMPRESSION: Nonacute abdomen. No change.
[2018-12-04 18:09] LABS: Amorphous Sediment,Urine Occasional /hpf; Appearance,Urine Clear (Clear); Bilirubin,Urine Negative (Negative); Blood,Urine Negative (Negative); Color,Urine Yellow; Glucose,Urine (UA) Negative (Negative); Hyaline Casts,Urine 1 /lpf (0-2); Ketones,Urine Negative (Negative); Leukocyte Esterase,Urine Moderate (Negative); Mucus,Urine Occasional /hpf; Nitrite,Urine Negative (Negative); PH, Urine 5.5 (5.0-8.0); Protein,Urine Negative (Negative); RBC,Urine 2 /hpf (0-5); Specific Gravity,Urine 1.012 (1.001-1.035); Squamous Epithelial Cell,Urine 1 /hpf (0-4); Urobilinogen,Urine <2.0 mg/dL (<2.0); WBC,Urine 26 /hpf (0-5)
--- NOTE | 2018-12-04 21:19 | CT ---
EXAM: CT Abdomen and Pelvis With Intravenous Contrast CLINICAL HISTORY: ITS.REASON CT Reason: Pain TECHNIQUE: Axial computed tomography images of the abdomen and pelvis with intravenous contrast. CTDI is 13.5 mGy and DLP is 579 mGy-cm. This CT exam was performed using one or more of the following dose reduction techniques: automated exposure control, adjustment of the mA and/or kV according to patient size, and/or use of iterative reconstruction technique. COMPARISON: 07/09/14 FINDINGS: Lung bases: Groundglass opacities in both lung bases could represent atelectasis versus pneumonitis. ABDOMEN: Liver: Unremarkable. No mass. Gallbladder and bile ducts: Unremarkable. No calcified stones. No ductal dilation. Pancreas: Unremarkable. No mass. No ductal dilation. Spleen: Unremarkable. No splenomegaly. Adrenals: 3.5 cm left adrenal gland mass is stable compared to the prior. Kidneys and ureters: Unremarkable. No solid mass. No hydronephrosis. Stomach and bowel: The transverse and descending colon is decompressed. No obstruction. No mucosal thickening. PELVIS: Appendix: No findings to suggest acute appendicitis. Bladder: Mild circumferential urinary bladder wall thickening. Reproductive: Surgical clips in the region the prostate gland. ABDOMEN and PELVIS: Intraperitoneal space: Unremarkable. No free air. No significant fluid collection. Bones/joints: No acute fracture. No dislocation. Soft tissues: Unremarkable. Vasculature: Unremarkable. No abdominal aortic aneurysm. Lymph nodes: Unremarkable. No enlarged lymph nodes. IMPRESSION: Under distention of the transverse and descending colon. A low-grade colitis is difficult to exclude. Mild circumferential urinary bladder wall thickening. This may be related to under distention versus cystitis.
[2018-12-04] MEDS ORDERED: SODIUM CHLORIDE 0.9% 1,000 ML IV ONE (22:16)
[2018-12-05 01:03] VITALS: RESP 18
[2018-12-05 07:49] VITALS: BP 142/84; PULSE 68; TEMP 97.8
--- NOTE | 2018-12-05 14:21 | P.HPIM ---
History of Present Illness 68-year-old male came in with complaints of suprapubic right upper quadrant abdominal pain sharp in nature and nonradiating patient says he has 8/10 severe pain but patient was comfortably sleeping and he had this pain and abdomen is totally soft and benign CAT scan of the abdomen was obtained which showed possibility of mild colitis and the possibly of cystitis. Although clinically patient does not appear to have urinary tract infection does not have any dysuria urine increased urinary frequency no suprapubic pain UA is bit abnormal but not significant for UTI. He denied any nausea vomiting diarrhea Review of Systems REVIEW OF SYSTEMS: CONSTITUTIONAL: No fever, no malaise, no fatigue. HEENT: No recent visual problems or hearing problems. Denied any sore throat. CARDIOVASCULAR: No chest pain, orthopnea, PND, no palpitations, no syncope. PULMONARY: No shortness of breath, no cough, no hemoptysis. GASTROINTESTINAL: No diarrhea, no nausea, no vomiting, NEUROLOGICAL: No headaches, no weakness, no numbness. HEMATOLOGICAL: Denies any bleeding or petechiae. GENITOURINARY: Denies any burning micturition, frequency, or urgency. MUSCULOSKELETAL/RHEUMATOLOGICAL: Denies any joint pain, swelling, or any muscle pain. ENDOCRINE: Denies any polyuria or polydipsia. The rest of the 14-point review of systems is negative. Past Medical History Past Medical History: Cancer, COPD, Hypertension, Prostate Disorder Additional Past Medical History / Comment(s): prostate History of Any Multi-Drug Resistant Organisms: MRSA Date of last positivie culture/infection: 06/13/18 MDRO Source:: Left Hand Past Surgical History: Hernia Repair, Orthopedic Surgery, Prostate Surgery Additional Past Surgical History / Comment(s): Laparotomy with drainage of abscess. Prostatectomy with da Jessi. Past Anesthesia/Blood Transfusion Reactions: No Reported Reaction Past Psychological History: No Psychological Hx Reported Smoking Status: Never smoker Past Alcohol Use History: None Reported, Occasional Past Drug Use History: Heroin, Methamphetamine - Past Family History Father Family Medical History: Cancer Additional Family Medical History / Comment(s): cholecystectomy, pancreatic cancer Medications and Allergies Home Medications Medication Instructions Recorded Confirmed Type Gabapentin [Neurontin] 300 mg PO TID 12/04/18 12/04/18 History Vitamin D(Unknown) 1 tab PO DAILY 12/04/18 12/04/18 History Ciprofloxacin HCl [Cipro] 500 mg PO Q12HR #10 tablet 12/05/18 Rx metroNIDAZOLE [Flagyl] 500 mg PO Q8HR #15 tab 12/05/18 Rx Allergies Allergy/AdvReac Type Severity Reaction Status Date / Time Sulfa (Sulfonamide AdvReac Nausea & Verified 12/04/18 17:05 Antibiotics) Vomiting & Diarrhea Physical Exam Vitals: Vital Signs Temp Pulse Pulse Resp BP BP Pulse Ox 12/05/18 07:40 97.8 F 68 18 142/84 94 L 12/05/18 00:00 97.5 F L 61 18 163/78 98 12/04/18 23:34 61 16 166/95 97 12/04/18 18:42 98.3 F 59 L 18 137/79 97 12/04/18 16:00 98 F 72 18 139/80 98 Intake and Output 12/04/18 12/05/18 12/05/18 22:59 06:59 14:59 Other: Weight 63.503 kg PHYSICAL EXAMINATION: GENERAL: The patient is alert and oriented x3, not in any acute distress. Well developed, well nourished. HEENT: Pupils are round and equally reacting to light. EOMI. No scleral icterus. No conjunctival pallor. Normocephalic, atraumatic. No pharyngeal erythema. No thyromegaly. CARDIOVASCULAR: S1 and S2 present. No murmurs, rubs, or gallops. PULMONARY: Chest is clear to auscultation, no wheezing or crackles. ABDOMEN: Soft, nontender, nondistended, normoactive bowel sounds. No palpable organomegaly. MUSCULOSKELETAL: No joint swelling or deformity. EXTREMITIES: No cyanosis, clubbing, or pedal edema. NEUROLOGICAL: Gross neurological examination did not reveal any focal deficits. SKIN: No rashes. Results CBC & Chem 7: 12/04/18 16:54 12/04/18 16:54 Labs: Abnormal Lab Results - Last 24 Hours (Table) 12/04/18 12/04/18 Range/Units 16:54 17:58 BUN 22 H (9-20) mg/dL Glucose 103 H (74-99) mg/dL Lipase 734 H (23-300) U/L Ur Leukocyte Esterase Moderate H (Negative) Urine WBC 26 H (0-5) /hpf Urine WBC Clumps Rare H (None) /hpf Amorphous Sediment Occasional H (None) /hpf Urine Mucus Occasional H (None) /hpf Microbiology - Last 24 Hours (Table) 12/04/18 17:58 Urine Culture - Preliminary Urine,Voided Thrombosis Risk Factor Assmnt - Choose All That Apply Any of the Below Risk Factors Present?: Yes Each Factor Represents 1 point: Abnormal pulmonary function (COPD) Other Risk Factors: Yes Each Risk Factor Represents 2 Points: Age 61-74 years Each Risk Factor Represents 3 Points: Family history of DVT/PE Thrombosis Risk Factor Assessment Total Risk Factor Score: 6 Thrombosis Risk Factor Assessment Level: High Risk Assessment and Plan Plan: -Abdominal pain may be mild colitis patient will be empirically treated with 5 days of oral Cipro and metronidazole that is no clear evidence of urinary tract infection patient's abdomen is completely benign will not require any opiates for pain patient was advised to take Tylenol for pain -Mild acute renal failure patient will be increased to drink water -Mild elevated lipase of 734 not high enough to say pancreatitis and patient's symptomology is not consistent with pancreatitis either -COPD without any acute exacerbation benign prostatic appropriate Hypertension
--- NOTE | 2018-12-05 14:22 | P.DS ---
Providers Date of admission: 12/04/18 22:17 Attending physician: Jax Restrepo MD Primary care physician: [facility] Hospital Course: Please refer to my HPI Plan - Discharge Summary New Discharge Prescriptions: New Ciprofloxacin HCl [Cipro] 500 mg PO Q12HR #10 tablet metroNIDAZOLE [Flagyl] 500 mg PO Q8HR #15 tab No Action Gabapentin [Neurontin] 300 mg PO TID Vitamin D(Unknown) 1 tab PO DAILY Discharge Medication List Gabapentin [Neurontin] 300 mg PO TID 12/04/18 [History] Vitamin D(Unknown) 1 tab PO DAILY 12/04/18 [History] Ciprofloxacin HCl [Cipro] 500 mg PO Q12HR #10 tablet 12/05/18 [Rx] metroNIDAZOLE [Flagyl] 500 mg PO Q8HR #15 tab 12/05/18 [Rx] Follow up Appointment(s)/Referral(s): [facility],Clinic [Primary Care Provider] - 3 Days Discharge Disposition: HOME SELF-CARE
== END 2018-12-05 15:32 | disposition home or self-care (01) ==
LOC: EC 15:37 → 1SOBS 22:17
PROVIDERS: ADMIT Internal Medicine; ATTEND Internal Medicine
DX: R10.11 Right upper quadrant pain (principal); R10.30 Lower abdominal pain, unspecified; R11.0 Nausea; R19.7 Diarrhea, unspecified; N17.9 Acute kidney failure, unspecified; R74.8 Abnormal levels of other serum enzymes; N40.0 Benign prostatic hyperplasia without lower urinary tract symptoms; J44.9 Chronic obstructive pulmonary disease, unspecified; I10 Essential (primary) hypertension; Z86.14 Personal history of Methicillin resistant Staphylococcus aureus infection; Z79.899 Other long term (current) drug therapy; Z88.2 Allergy status to sulfonamides; Z80.0 Family history of malignant neoplasm of digestive organs; Z83.2 Family history of diseases of the blood and blood-forming organs and certain disorders involving the immune mechanism
CPT/HCPCS: 96361; 96374; 99285; 36415; 80053; 82150; 83605; 83690; 85025; 81001; 87086; 74018; 74177; G0378 ×2; J2405; Q9967

== ENCOUNTER 2019-01-10 20:56 | Emergency (ER) | payer MEDICARE, OTHER ==
[2019-01-10] MEDS ORDERED: LORazepam 2 MG/ML INJ IV STA (21:19)
--- NOTE | 2019-01-10 21:23 | ED ---
General Adult HPI - General Chief complaint: Overdose Stated complaint: Overdose Time Seen by Provider: 01/10/19 20:58 Source: patient, family Mode of arrival: ambulatory Limitations: no limitations - History of Present Illness Initial comments: Dictation was produced using [employer]ype dictation software. please excuse any grammatical, word or spelling errors. Chief Complaint: 68-year-old male found to be unresponsive after allegedly heroin overdose History of Present Illness: Is a 68-year-old male who is brought in by EMS for likely her when overdose. Patient is a regular IV drug user were the past year. Patient was found unresponsive in his ROM at his house. He was allegedly unresponsive for approximately 20 minutes. EMS was called patient was given 2 mg of intranasal Narcan. After several minutes patient's medical status dramatically improved. Patient has no recollection of what happened. States that he uses clean needles and clean equipment every time he checks opiates. Patient has no other complaints at this time. Patient denies any ill symptoms prior to today's events. The ROS documented in this emergency department record has been reviewed and confirmed by me. Those systems with pertinent positive or negative responses have been documented in the HPI. All other systems are other negative and/or noncontributory. PHYSICAL EXAM: General Impression: Alert and oriented x3, shivering HEENT: Normocephalic atraumatic, extra-ocular movements intact, pupils equal and reactive to light bilaterally, mucous membranes moist, poor dentition Cardiovascular: Tachycardic Chest: Lungs clear to auscultation bilaterally, no rhonchi, no wheeze, no rales Abdomen: Bowel sounds present, abdomen soft, non-tender, non-distended, no organomegaly Musculoskeletal: Pulses present and equal in all extremities, no peripheral edema Motor: no focal deficits noted Neurological: CN II-XII grossly intact, no focal motor or sensory deficits noted Skin: Painful node on the distal fingertips of the right hand Psych: Normal affect and mood ED course: In a 68-year-old male presents after likely heroin overdose. He is febrile on arrival. He does have a painful palpable node on one of his distal fingertips. This finding was concerning for possible endocarditis. Laboratory evaluation obtained. No leukocytosis. Patient is white blood cell count 5.6. Rest of CBC unremarkable. Metabolic panel is unremarkable his lactic acidosis at 2.8. Repeat lactic is 1.0. Urinalysis is unremarkable. Patient was observed in the emergency department for several hours. He appears to be well. Patient clear for discharge. She counseled on safe use of opiates. Pending blood cultures. Patient told to return to the emergency Department with any symptoms of infection. This point there is very low clinical suspicion of bacterial endocarditis at this time given no continued pyrexia, normal white blood cell count. told to follow up with blood cultures in 2 days. EKG interpretation: Ventricular rate 122, sinus tachycardia,. 1:30, care is 80, QTc 436. No NE prolongation, no QTC prolongation, no ST or T-wave changes noted. . Overall, this EKG is unremarkable - Related Data Home Medications Medication Instructions Recorded Confirmed Gabapentin [Neurontin] 300 mg PO TID 12/04/18 01/10/19 Allergies Allergy/AdvReac Type Severity Reaction Status Date / Time Sulfa (Sulfonamide AdvReac Nausea & Verified 01/10/19 21:28 Antibiotics) Vomiting & Diarrhea Review of Systems ROS Statement: Those systems with pertinent positive or pertinent negative responses have been documented in the HPI. ROS Other: All systems not noted in ROS Statement are negative. Past Medical History Past Medical History: Cancer, COPD, Hypertension, Prostate Disorder Additional Past Medical History / Comment(s): prostate History of Any Multi-Drug Resistant Organisms: MRSA Date of last positivie culture/infection: 06/13/18 MDRO Source:: Left Hand Past Surgical History: Hernia Repair, Orthopedic Surgery, Prostate Surgery Additional Past Surgical History / Comment(s): Laparotomy with drainage of abscess. Prostatectomy with da Jessi. Past Anesthesia/Blood Transfusion Reactions: No Reported Reaction Past Psychological History: No Psychological Hx Reported Smoking Status: Never smoker Past Alcohol Use History: None Reported, Occasional Past Drug Use History: Heroin, Methamphetamine - Past Family History Father Family Medical History: Cancer Additional Family Medical History / Comment(s): cholecystectomy, pancreatic cancer General Exam Limitations: no limitations Course Vital Signs 01/10/19 01/10/19 01/10/19 20:59 22:02 23:00 Temperature 102 F H Pulse Rate 124 H 97 84 Respiratory 22 20 16 Rate Blood Pressure 244/137 165/93 147/84 O2 Sat by Pulse 97 98 98 Oximetry 01/11/19 02:00 Temperature 98.8 F Pulse Rate 100 Respiratory 18 Rate Blood Pressure 152/85 O2 Sat by Pulse 98 Oximetry Medical Decision Making - Lab Data Result diagrams: 01/10/19 21:14 01/10/19 21:14 Lab Results 01/10/19 01/10/19 01/10/19 Range/Units 21:14 21:14 21:14 WBC 5.6 (3.8-10.6) k/uL RBC 5.38 (4.30-5.90) m/uL Hgb 16.3 (13.0-17.5) gm/dL Hct 48.1 (39.0-53.0) % MCV 89.3 (80.0-100.0) fL MCH 30.3 (25.0-35.0) pg MCHC 33.9 (31.0-37.0) g/dL RDW 15.1 (11.5-15.5) % Plt Count 199 (150-450) k/uL Neutrophils % 72 % Lymphocytes % 11 % Monocytes % 9 % Eosinophils % 2 % Basophils % 2 % Neutrophils # 4.0 (1.3-7.7) k/uL Lymphocytes # 0.6 L (1.0-4.8) k/uL Monocytes # 0.5 (0-1.0) k/uL Eosinophils # 0.1 (0-0.7) k/uL Basophils # 0.1 (0-0.2) k/uL Sodium 135 L (137-145) mmol/L Potassium 4.6 (3.5-5.1) mmol/L Chloride 95 L (98-107) mmol/L Carbon Dioxide 30 (22-30) mmol/L Anion Gap 10 mmol/L BUN 17 (9-20) mg/dL Creatinine 1.20 (0.66-1.25) mg/dL Est GFR (CKD-EPI)AfAm 72 (>60 ml/min/1.73 sqM) Est GFR (CKD-EPI)NonAf 62 (>60 ml/min/1.73 sqM) Glucose 113 H (74-99) mg/dL Lactic Ac Sepsis Rflx Plasma Lactic Acid Gumaro 2.8 H* (0.7-2.0) mmol/L Calcium 9.0 (8.4-10.2) mg/dL Magnesium 1.9 (1.6-2.3) mg/dL Urine Color Urine Appearance (Clear) Urine pH (5.0-8.0) Ur Specific [place] (1.001-1.035) Urine Protein (Negative) Urine Glucose (UA) (Negative) Urine Ketones (Negative) Urine Blood (Negative) Urine Nitrite (Negative) Urine Bilirubin (Negative) Urine Urobilinogen (<2.0) mg/dL Ur Leukocyte Esterase (Negative) Urine RBC (0-5) /hpf Urine WBC (0-5) /hpf Ur Squamous Epith Cells (0-4) /hpf Hyaline Casts (0-2) /lpf Urine Mucus (None) /hpf Urine Opiates Screen (NotDetected) Ur Oxycodone Screen (NotDetected) Urine Methadone Screen (NotDetected) Ur Propoxyphene Screen (NotDetected) Ur Barbiturates Screen (NotDetected) U Tricyclic Antidepress (NotDetected) Ur Phencyclidine Scrn (NotDetected) Ur Amphetamines Screen (NotDetected) U Methamphetamines Scrn (NotDetected) U Benzodiazepines Scrn (NotDetected) Urine Cocaine Screen (NotDetected) U Marijuana (THC) Screen (NotDetected) 01/10/19 01/10/19 01/11/19 Range/Units 21:14 21:43 01:01 WBC (3.8-10.6) k/uL RBC (4.30-5.90) m/uL Hgb (13.0-17.5) gm/dL Hct (39.0-53.0) % MCV (80.0-100.0) fL MCH (25.0-35.0) pg MCHC (31.0-37.0) g/dL RDW (11.5-15.5) % Plt Count (150-450) k/uL Neutrophils % % Lymphocytes % % Monocytes % % Eosinophils % % Basophils % % Neutrophils # (1.3-7.7) k/uL Lymphocytes # (1.0-4.8) k/uL Monocytes # (0-1.0) k/uL Eosinophils # (0-0.7) k/uL Basophils # (0-0.2) k/uL Sodium (137-145) mmol/L Potassium (3.5-5.1) mmol/L Chloride (98-107) mmol/L Carbon Dioxide (22-30) mmol/L Anion Gap mmol/L BUN (9-20) mg/dL Creatinine (0.66-1.25) mg/dL Est GFR (CKD-EPI)AfAm (>60 ml/min/1.73 sqM) Est GFR (CKD-EPI)NonAf (>60 ml/min/1.73 sqM) Glucose (74-99) mg/dL Lactic Ac Sepsis Rflx Y Plasma Lactic Acid Gumaro 1.0 (0.7-2.0) mmol/L Calcium (8.4-10.2) mg/dL Magnesium (1.6-2.3) mg/dL Urine Color Yellow Urine Appearance Clear (Clear) Urine pH 7.0 (5.0-8.0) Ur Specific [place] 1.013 (1.001-1.035) Urine Protein 3+ H (Negative) Urine Glucose (UA) Negative (Negative) Urine Ketones Negative (Negative) Urine Blood Small H (Negative) Urine Nitrite Negative (Negative) Urine Bilirubin Negative (Negative) Urine Urobilinogen <2.0 (<2.0) mg/dL Ur Leukocyte Esterase Negative (Negative) Urine RBC 3 (0-5) /hpf Urine WBC 3 (0-5) /hpf Ur Squamous Epith Cells 1 (0-4) /hpf Hyaline Casts 107 H (0-2) /lpf Urine Mucus Rare H (None) /hpf Urine Opiates Screen Not Detected (NotDetected) Ur Oxycodone Screen Not Detected (NotDetected) Urine Methadone Screen Not Detected (NotDetected) Ur Propoxyphene Screen Not Detected (NotDetected) Ur Barbiturates Screen Not Detected (NotDetected) U Tricyclic Antidepress Not Detected (NotDetected) Ur Phencyclidine Scrn Not Detected (NotDetected) Ur Amphetamines Screen Detected H (NotDetected) U Methamphetamines Scrn Detected H (NotDetected) U Benzodiazepines Scrn Not Detected (NotDetected) Urine Cocaine Screen Detected H (NotDetected) U Marijuana (THC) Screen Detected H (NotDetected) Disposition Clinical Impression: Heroin overdose Disposition: HOME SELF-CARE Condition: Good Instructions (If sedation given, give patient instructions): Narcotic Safety (E D) Is patient prescribed a controlled substance at d/c from ED?: No Referrals: None,Stated [Primary Care Provider] - 1-2 days Time of Disposition: 02:08
[2019-01-10 21:29] LABS: Basophils # (A) 0.1 k/uL (0-0.2); Basophils % (A) 2 %; Eosinophils # (A) 0.1 k/uL (0-0.7); Eosinophils % (A) 2 %; HCT 48.1 % (39.0-53.0); HGB 16.3 gm/dL (13.0-17.5); Lymphocytes # (A) 0.6 k/uL (1.0-4.8); Lymphocytes % (A) 11 %; MCH 30.3 pg (25.0-35.0); MCHC 33.9 g/dL (31.0-37.0); MCV 89.3 fL (80.0-100.0); Mean Platelet Volume 8.1; Monocytes # (A) 0.5 k/uL (0-1.0); Monocytes % (A) 9 %; Neutrophils % (A) 72 %; Platelet Count 199 k/uL (150-450); RBC 5.38 m/uL (4.30-5.90); RDW 15.1 % (11.5-15.5); WBC 5.6 k/uL (3.8-10.6)
--- NOTE | 2019-01-10 21:37 | XR ---
EXAMINATION TYPE: XR chest 1V portable DATE OF EXAM: 01/10/2019 COMPARISON: 08/30/2018 HISTORY: Dyspnea TECHNIQUE: Single frontal view of the chest is obtained. FINDINGS: Heart and mediastinum are normal. Lungs are clear. Diaphragm is normal. There are chest le ads. Bony thorax is intact. IMPRESSION: Normal chest. No change.
[2019-01-10 21:43] LABS: Appearance,Urine Clear (Clear); Bilirubin,Urine Negative (Negative); Blood,Urine Small (Negative); Color,Urine Yellow; Glucose,Urine (UA) Negative (Negative); Hyaline Casts,Urine 107 /lpf (0-2); Ketones,Urine Negative (Negative); Leukocyte Esterase,Urine Negative (Negative); Magnesium 1.9 mg/dL (1.6-2.3); Mucus,Urine Rare /hpf; Nitrite,Urine Negative (Negative); Potassium 4.6 mmol/L (3.5-5.1); Protein,Urine 3+ (Negative); RBC,Urine 3 /hpf (0-5); Specific Gravity,Urine 1.013 (1.001-1.035); Squamous Epithelial Cell,Urine 1 /hpf (0-4); Urobilinogen,Urine <2.0 mg/dL (<2.0); WBC,Urine 3 /hpf (0-5)
[2019-01-10 22:04] LABS: Amphetamine Screen,Urine Detected (NotDetected); Barbiturate Screen,Urine Not Detected (NotDetected); Benzodiazepines Screen,Urine Not Detected (NotDetected); Cocaine Screen,Urine Detected (NotDetected); Methadone Screen, Urine Not Detected (NotDetected); Opiate Screen,Urine Not Detected (NotDetected); Oxycodone Screen, Urine Not Detected (NotDetected); Phencyclidine Screen,Urine Not Detected (NotDetected); Tricyclic Antidepressant,Urine Not Detected (NotDetected); Urn Cannabinoid Scrn Detected (NotDetected)
--- NOTE | 2019-01-10 22:05 | CT ---
EXAMINATION TYPE: CT brain wo con DATE OF EXAM: 01/10/2019 COMPARISON: None HISTORY: Altered mental status. CT DLP: 1099.4 mGycm Automated exposure control for dose reduction was used. FINDINGS: Ventricles and sulci appear normal for age. There is no mass effect nor midline shift. There is no si gn of intracranial hemorrhage. Calvarium is intact. There is no evidence of cerebral edema. IMPRESSION: NEGATIVE CT SCAN OF THE BRAIN.
[2019-01-11 02:06] VITALS: BP 152/85; PULSE 100; RESP 18; TEMP 98.8
== END 2019-01-11 02:17 | disposition home or self-care (01) ==
LOC: EC 20:56
DX: T40.1X1A Poisoning by heroin, accidental (unintentional), initial encounter (principal); E87.2 Acidosis; R00.0 Tachycardia, unspecified; Z79.899 Other long term (current) drug therapy; Z88.2 Allergy status to sulfonamides
CPT/HCPCS: 96374; 36415 ×2; 93005; 80048; 83605 ×2; 83735; 85025; 81001; 87040; 80306; 87086; 71045; 70450; 99285; J2060

== ENCOUNTER → 2019-02-06 | Outpatient (CLI) | payer MEDICARE, OTHER ==
--- NOTE | 2019-02-06 11:54 | US ---
EXAMINATION TYPE: US abdomen complete DATE OF EXAM: 02/06/2019 COMPARISON: CT December 04, 2018 CLINICAL HISTORY: R10.9 abd pain. epigastric and RUQ pain EXAM MEASUREMENTS: Liver Length: 12.9 cm Gallbladder Wall: 0.3 cm CBD: 0.2 cm Spleen: 11.7 cm Right Kidney: 9.5 x 3.9 x 4.3 cm Left Kidney: 10.4 x 4.9 x 4.7 cm Technically difficult exam due to extensive bowel gas peristalsing throughout. Pancreas: visualized portions wnl Liver: wnl Gallbladder: very anterior and difficult to visualize. There is a small mobile non shadowing echogen ic foci Evidence for sonographic Mendiola's sign: No CBD: wnl Spleen: wnl Right Kidney: No hydronephrosis or masses seen Left Kidney: No hydronephrosis or masses seen Upper IVC: wnl Abd Aorta: wnl The visualized liver is homogenous. The intrahepatic portion of the IVC and visualized abdominal aor ta are within normal limits. There is no evidence of cholelithiasis. Common bile duct is unremarkab le. The visualized portions of the pancreas are homogenous. No shadowing mobile gallstones. The sple en is unremarkable. Kidneys are symmetric and free of hydronephrosis. No renal lesions are seen. IMPRESSION: Suboptimal study without suspicious acute finding seen to account for patient's symptoms of epigastric and right upper quadrant pain.
== END | disposition home or self-care (01) ==
LOC: RADUSWWP 10:49
PROVIDERS: ATTEND Physician Assistant
DX: R10.9 Unspecified abdominal pain (principal)
CPT/HCPCS: 76700

== ENCOUNTER 2019-02-11 09:29 | Day surgery (SDC) | payer OTHER ==
[2019-02-07 15:18] VITALS: BMI 21.6
[~2019-02-11 09:29] MED LIST: LACTATED RINGERS 1,000 ML IV SCH; LIDOCAINE 1% 20 ML VIAL (10MG/ML) FOR IV START INTRADERMA PRN
[2019-02-11 09:53] VITALS: RESP 16; TEMP 97.8
[2019-02-11 10:10] LABS: Glucose,Whole Blood 88 mg/dL (75-99)
[2019-02-11] MEDS ORDERED: PROPOFOL 10 MG/ML 20 ML VIAL IV ONE (10:59)
[2019-02-11] MEDS ORDERED: LIDOCAINE 1% INJ 10MG/ML (20 ML MDV) ONE (10:59)
[2019-02-11] MEDS ORDERED: LACTATED RINGERS 1,000 ML IV ONE (11:43)
--- NOTE | 2019-02-11 11:54 | P.PCN ---
Date of Procedure: 02/11/19 Description of Procedure: Brief history: Patient is a pleasant scheduled for an elective upper endoscopy as well as colonoscopy as a part of evaluation of evaluation of abdominal pain and rectal bleeding. Procedure performed: Esophagogastroduodenoscopy with biopsy Colonoscopy Estimated blood loss: Minimal. Preoperative diagnosis: Abdominal pain, GERD, blood per rectum, rectal hemorrhage Anesthesia: [facility] [place] Procedure: After informed consent was obtained from the patient was brought into the en doscopy unit and IV sedation was administered by anesthesia under continuous monitoring. Initially upper endoscopy was done. The Olympus GF 190 video endoscope was inserted inserted into the mouth and esophagus intubated without any difficulty and was gradually advanced into the stomach and duodenum and carefully examined. The bulb and second part of the duodenum appeared normal, with biopsies taken. The scope was then withdrawn into the stomach adequately insufflated with air and upon careful examination the antrum and body, cardia and fundus appeared normal, except for some mild scattered erythema in the antrum and body with biopsies taken. The scope was then withdrawn into the esophagus. The GE junction was located at 40 cm to the incisors. It appeared regular with no erythema erosions or ulcerations or varices noted. Small 1 cm hiatal hernia. Rest of the esophagus appeared normal. Patient tolerated the procedure well. At this time the patient continued to remain sedation. Initial digital rectal examination was normal. Olympus CF 190 video colonoscope was then inserted into the rectum and gradually advanced to the cecum without any difficulty. Careful examination was performed as the scope was gradually being withdrawn. The prep was excellent. The cecum, ascending colon, transverse colon, descending colon, sigmoid colon and rectum appeared somewhat dilated and redundant overall normal Retroflexion was performed in the rectum and no lesions were noted, mild internal hemorrhoids. Patient tolerated the procedure well. Impression: 1. Mild gastritis antrum and body, biopsied. Duodenal biopsies. Small 1 cm hiatal hernia. 2. Diagnostic, redundant colon however otherwise normal appearing. Low-grade internal hemorrhoids. Recommendations: Findings of this examination were discussed with the patient as well as his girlfriend. Okay to resume diet.Okay to resume medications. Follow-up in the gastroenterology clinic as scheduled. Continue omeprazole therapy. Await pathology from biopsies.
[2019-02-11 12:56] LABS: Basophils # (A) 0.2 k/uL (0-0.2); Basophils % (A) 3 %; Eosinophils # (A) 0.1 k/uL (0-0.7); Eosinophils % (A) 1 %; HCT 42.1 % (39.0-53.0); HGB 14.8 gm/dL (13.0-17.5); Lymphocytes # (A) 2.4 k/uL (1.0-4.8); Lymphocytes % (A) 38 %; MCH 29.9 pg (25.0-35.0); MCHC 35.1 g/dL (31.0-37.0); MCV 85.3 fL (80.0-100.0); Mean Platelet Volume 6.9; Monocytes # (A) 0.4 k/uL (0-1.0); Monocytes % (A) 6 %; Neutrophils # (A) 3.1 k/uL (1.3-7.7); Neutrophils % (A) 49 %; Platelet Count 244 k/uL (150-450); RBC 4.93 m/uL (4.30-5.90); RDW 13.8 % (11.5-15.5); WBC 6.4 k/uL (3.8-10.6)
[2019-02-11 13:02] LABS: Prothrombin Time 11.1 sec (9.0-12.0)
[2019-02-11 13:07] LABS: Albumin 3.3 g/dL (3.5-5.0); Bilirubin, Delta 0.2 mg/dL (0.0-0.2); Bilirubin,Unconjugated 0.6 mg/dL (0.0-1.1); Total Bilirubin 0.8 mg/dL (0.2-1.3); Total Protein 6.5 g/dL (6.3-8.2)
[2019-02-11 14:06] VITALS: BP 170/96
[2019-02-11 14:07] VITALS: PULSE 70
[2019-02-14 15:48] LABS: HCV Qualitative Result DETECTED (Not detected); HCV Quant Log 5.92 (<1.08)
== END 2019-02-11 12:49 | disposition home or self-care (01) ==
LOC: ORWHC2ENDO 09:29
PROVIDERS: ATTEND Internal Medicine
DX: K29.50 Unspecified chronic gastritis without bleeding (principal); Q43.8 Other specified congenital malformations of intestine; K64.8 Other hemorrhoids; K62.5 Hemorrhage of anus and rectum; K21.9 Gastro-esophageal reflux disease without esophagitis; K44.9 Diaphragmatic hernia without obstruction or gangrene; I10 Essential (primary) hypertension; Z88.2 Allergy status to sulfonamides; Z88.1 Allergy status to other antibiotic agents; Z85.46 Personal history of malignant neoplasm of prostate; Z79.899 Other long term (current) drug therapy; Z90.79 Acquired absence of other genital organ(s); Z98.890 Other specified postprocedural states
CPT/HCPCS: 88305; 87522; 80076; 80074; 85025; 85610; 45378; 43239; J2001; J2704; 87902

== ENCOUNTER 2019-05-24 16:48 | Inpatient (IN) | payer OTHER, MEDICARE ==
[2019-05-24] MEDS ORDERED: MAGNESIUM SULFATE-D5W PMX 1 GM in DEXTROSE/WATER 1 100ML.BAG IVPB STA (16:50)
[2019-05-24] MEDS ORDERED: methylPREDNISolone SOD SUCCI 125 MG/2 ML VIAL IV STA (16:50)
[2019-05-24] MEDS ORDERED: IPRATROPIUM 0.5 MG/2.5 ML NEBU INHALATION STA (16:50)
[2019-05-24] MEDS ORDERED: ALBUTEROL NEBULIZED 2.5 MG/3 ML INHALATION STA (16:50)
[2019-05-24] MEDS ORDERED: LORazepam 2 MG/ML INJ IV STA (17:02)
--- NOTE | 2019-05-24 17:08 | ED ---
General Adult HPI - General Stated complaint: BESSIE Time Seen by Provider: 05/24/19 16:49 Source: patient, RN notes reviewed, old records reviewed Limitations: physical limitation - History of Present Illness Initial comments: 68-year-old male history COPD presents with several days of worsening dyspnea. History is limited secondary to severe respiratory distress. Previous history of tobacco use and COPD. Patient states he's been out of his nebulized albuterol for the past several days. - Related Data Home Medications Medication Instructions Recorded Confirmed Omeprazole 20 mg PO DAILY 02/07/19 02/11/19 Allergies Allergy/AdvReac Type Severity Reaction Status Date / Time erythromycin base AdvReac Nausea & Verified 05/24/19 17:21 Vomiting & Diarrhea Sulfa (Sulfonamide AdvReac Nausea & Verified 05/24/19 17:21 Antibiotics) Vomiting & Diarrhea Review of Systems ROS Statement: Those systems with pertinent positive or pertinent negative responses have been documented in the HPI. ROS Other: All systems not noted in ROS Statement are negative. Past Medical History Past Medical History: Cancer, COPD, GERD/Reflux, Hypertension, Prostate Disorder Additional Past Medical History / Comment(s): having a hard time eating and acid reflux coming up into my chest.hx prostate CA History of Any Multi-Drug Resistant Organisms: MRSA Date of last positivie culture/infection: 06/13/18 MDRO Source:: Left Hand Past Surgical History: Hernia Repair, Orthopedic Surgery, Prostate Surgery Additional Past Surgical History / Comment(s): Laparotomy with drainage of abscess. Prostatectomy with da Jessi Past Anesthesia/Blood Transfusion Reactions: No Reported Reaction Additional Past Anesthesia/Blood Transfusion Reaction / Comment(s): no hx blood transfusion Smoking Status: Never smoker - Past Family History Father Family Medical History: Cancer Additional Family Medical History / Comment(s): cholecystectomy, pancreatic cancer General Exam General appearance: alert, in distress Head exam: Present: atraumatic, normocephalic Eye exam: Present: normal appearance, PERRL ENT exam: Present: normal exam Neck exam: Present: normal inspection. Absent: tenderness, meningismus Respiratory exam: Present: respiratory distress, wheezes, rhonchi, accessory muscle use, decreased breath sounds Cardiovascular Exam: Present: regular rate, normal rhythm GI/Abdominal exam: Present: soft. Absent: distended, tenderness, guarding Extremities exam: Present: normal inspection, normal capillary refill. Absent: pedal edema, calf tenderness Neurological exam: Present: alert Skin exam: Present: warm, dry, intact. Absent: cyanosis, diaphoretic Course Vital Signs 05/24/19 05/24/19 05/24/19 17:15 17:23 17:38 Temperature 97.5 F L Pulse Rate 75 110 H 65 Respiratory 14 38 H 26 H Rate Blood Pressure 195/105 155/101 O2 Sat by Pulse 96 100 Oximetry EKG Findings - EKG Comments: EKG Findings:: EKG sinus tachycardia, left atrial enlargement, rate of 112, [place] interval 148, QRS duration 84, QTC 442, baseline artifact secondary to respiratory distress, no ST segment elevation Medical Decision Making - Medical Decision Making 68-year-old male presenting with severe respiratory distress initial history is limited. He has minimal air entry bilaterally. BiPAP for respiratory support.He is given albuterol, Atrovent , magnesium, and IV steroids.He has a chest x-ray which is negative for pneumothorax,negativeforfocalpneumonia. Ahfyxrrliiavmzqnzngyiyc02.8.Hehasalacticacidof4.7whichislikelysecondarytohypoxia andwillberedrawnafte rimprovedrespiratorystatusandIVhydration.Hisinfluenzatestingisnegative.Onreevalu ationhehasimprovedai rentry,kqchtlkqqnblwozicalqzyhsbnhwxjjajrxjlcgwtlsiemfheq3lpez.Denieslowerextrem itypainorswelling.De niescentralchestpain.HewillbeadmittedfortreatmentofCOPDexacerbationandrespirator yfailurerequiringBiPAP.CaseisdiscussedwithDr. Kumarwhowillacceptadmission. - Lab Data Result diagrams: 05/24/19 17:00 05/24/19 17:00 Lab Results 05/24/19 05/24/19 05/24/19 Range/Units 17:00 17:00 17:00 WBC 13.8 H (3.8-10.6) k/uL RBC 5.44 (4.30-5.90) m/uL Hgb 16.6 (13.0-17.5) gm/dL Hct 50.1 (39.0-53.0) % MCV 92.0 (80.0-100.0) fL MCH 30.5 (25.0-35.0) pg MCHC 33.2 (31.0-37.0) g/dL RDW 14.1 (11.5-15.5) % Plt Count 321 (150-450) k/uL Neutrophils % 31 % Lymphocytes % 46 % Monocytes % 5 % Eosinophils % 14 % Basophils % 1 % Neutrophils # 4.2 (1.3-7.7) k/uL Lymphocytes # 6.4 H (1.0-4.8) k/uL Monocytes # 0.7 (0-1.0) k/uL Eosinophils # 2.0 H (0-0.7) k/uL Basophils # 0.1 (0-0.2) k/uL Manual Slide Review Performed Reactive Lymphocytes Present PT (9.0-12.0) sec INR (<1.2) APTT (22.0-30.0) sec Sodium 140 (137-145) mmol/L Potassium 4.7 (3.5-5.1) mmol/L Chloride 102 (98-107) mmol/L Carbon Dioxide 25 (22-30) mmol/L Anion Gap 13 mmol/L BUN 30 H (9-20) mg/dL Creatinine 1.10 (0.66-1.25) mg/dL Est GFR (CKD-EPI)AfAm 80 (>60 ml/min/1.73 sqM) Est GFR (CKD-EPI)NonAf 69 (>60 ml/min/1.73 sqM) Glucose 116 H (74-99) mg/dL Plasma Lactic Acid Gumaro 4.7 H* (0.7-2.0) mmol/L Calcium 9.7 (8.4-10.2) mg/dL Magnesium 2.1 (1.6-2.3) mg/dL Total Bilirubin 1.0 (0.2-1.3) mg/dL AST 96 H (17-59) U/L ALT 99 H (4-49) U/L Alkaline Phosphatase 124 (38-126) U/L Total Protein 8.8 H (6.3-8.2) g/dL Albumin 4.8 (3.5-5.0) g/dL Influenza Type A RNA (Not Detectd) Influenza Type B (PCR) (Not Detectd) 05/24/19 05/24/19 Range/Units 17:00 17:00 WBC (3.8-10.6) k/uL RBC (4.30-5.90) m/uL Hgb (13.0-17.5) gm/dL Hct (39.0-53.0) % MCV (80.0-100.0) fL MCH (25.0-35.0) pg MCHC (31.0-37.0) g/dL RDW (11.5-15.5) % Plt Count (150-450) k/uL Neutrophils % % Lymphocytes % % Monocytes % % Eosinophils % % Basophils % % Neutrophils # (1.3-7.7) k/uL Lymphocytes # (1.0-4.8) k/uL Monocytes # (0-1.0) k/uL Eosinophils # (0-0.7) k/uL Basophils # (0-0.2) k/uL Manual Slide Review Reactive Lymphocytes PT 9.6 (9.0-12.0) sec INR 0.9 (<1.2) APTT 21.8 L (22.0-30.0) sec Sodium (137-145) mmol/L Potassium (3.5-5.1) mmol/L Chloride (98-107) mmol/L Carbon Dioxide (22-30) mmol/L Anion Gap mmol/L BUN (9-20) mg/dL Creatinine (0.66-1.25) mg/dL Est GFR (CKD-EPI)AfAm (>60 ml/min/1.73 sqM) Est GFR (CKD-EPI)NonAf (>60 ml/min/1.73 sqM) Glucose (74-99) mg/dL Plasma Lactic Acid Gumaro (0.7-2.0) mmol/L Calcium (8.4-10.2) mg/dL Magnesium (1.6-2.3) mg/dL Total Bilirubin (0.2-1.3) mg/dL AST (17-59) U/L ALT (4-49) U/L Alkaline Phosphatase (38-126) U/L Total Protein (6.3-8.2) g/dL Albumin (3.5-5.0) g/dL Influenza Type A RNA Not Detected (Not Detectd) Influenza Type B (PCR) Not Detected (Not Detectd) Critical Care Time Critical Care Time: Yes Total Critical Care Time: 35 Disposition Clinical Impression: Acute exacerbation of chronic obstructive pulmonary disease Disposition: ADMITTED IP TO THIS HOSP Condition: Stable Is patient prescribed a controlled substance at d/c from ED?: No Referrals: [facility] [Primary Care Provider] - 1-2 days Decision to Admit Reason: Admit from EC Decision Date: 05/24/19 Decision Time: 18:10
[2019-05-24 17:14] LABS: Basophils # (A) 0.1 k/uL (0-0.2); Basophils % (A) 1 %; Eosinophils % (A) 14 %; HCT 50.1 % (39.0-53.0); HGB 16.6 gm/dL (13.0-17.5); Lymphocytes # (A) 6.4 k/uL (1.0-4.8); Lymphocytes % (A) 46 %; MCH 30.5 pg (25.0-35.0); MCHC 33.2 g/dL (31.0-37.0); Mean Platelet Volume 7.7; Monocytes # (A) 0.7 k/uL (0-1.0); Monocytes % (A) 5 %; Neutrophils # (A) 4.2 k/uL (1.3-7.7); Neutrophils % (A) 31 %; Platelet Count 321 k/uL (150-450); RBC 5.44 m/uL (4.30-5.90); RDW 14.1 % (11.5-15.5); WBC 13.8 k/uL (3.8-10.6)
[2019-05-24 17:24] LABS: Albumin 4.8 g/dL (3.5-5.0); Calcium 9.7 mg/dL (8.4-10.2); Magnesium 2.1 mg/dL (1.6-2.3); Potassium 4.7 mmol/L (3.5-5.1); Total Protein 8.8 g/dL (6.3-8.2)
--- NOTE | 2019-05-24 17:29 | XR ---
EXAMINATION TYPE: XR chest 1V portable DATE OF EXAM: 05/24/2019 COMPARISON: 01/10/2019 HISTORY: Difficulty breathing TECHNIQUE: Single view FINDINGS: Heart and mediastinum are normal. Lungs are clear. Diaphragm is normal. There are chest forrest ds. Bony thorax is intact. IMPRESSION: No active cardiopulmonary disease. Normal heart. No change.
[2019-05-24 17:44] LABS: INR 0.9 (<1.2); Prothrombin Time 9.6 sec (9.0-12.0)
[2019-05-24 17:48] LABS: Partial Thromboplastin Time 21.8 sec (22.0-30.0)
[2019-05-24] MEDS ORDERED: SODIUM CHLORIDE 0.9% 1,000 ML IV ONE (17:54)
[2019-05-24 18:02] LABS: Reactive Lymphocytes Present
[2019-05-24] MEDS ORDERED: IPRATROPIUM-ALBUTEROL 3 ML NEB INHALATION PRN (18:02)
[2019-05-24] MEDS ORDERED: ALBUTEROL NEBULIZED 2.5 MG/3 ML INHALATION PRN (18:04)
[2019-05-24] MEDS ORDERED: ACETAMINOPHEN TAB 500 MG TAB PO PRN (21:35)
[2019-05-24] MEDS ORDERED: HYDROcodone/APAP 5-325MG 1 EACH TAB PO PRN (21:35)
[2019-05-24] MEDS: IPRATROPIUM-ALBUTEROL 3 ML NEB INHALATION SCH (21:46)
[2019-05-24 21:47] LABS: Glucose,Whole Blood 134 mg/dL (75-99)
[2019-05-24] MEDS: SODIUM CHLORIDE 0.9% 1,000 ML IV SCH (21:49)
[2019-05-24] MEDS: HEPARIN SODIUM,PORCINE 5,000 UNIT/ML 1 ML VIAL SQ SCH (22:14)
[2019-05-25] MEDS: methylPREDNISolone SOD SUCCI 125 MG/2 ML VIAL IV SCH ×4 (00:27→17:16)
--- NOTE | 2019-05-25 01:01 | HP ---
HISTORY AND PHYSICAL DATE OF SERVICE: 05/24/2019. CHIEF COMPLAINTS: Shortness of breath. HISTORY OF PRESENT ILLNESS: This 68-year-old gentleman with a past medical history of multiple medical problems including history of COPD, history of GERD, hypertension, history of prostate disorder, history of prostate cancer, hernia repair, being followed by Dr. Strange in the [facility] in the outpatient setting complaining of shortness of breath. The patient had shortness of breath with increased in intensity with congestion and severe respiratory distress. Patient came to [facility] and the patient also multiple episodes of treatment and BiPAP for a few hours and the patient feeling better. The patient admitted for further evaluation and treatment. Chest x-ray showed no evidence of pneumonia. Influenza is negative. Lactic acid elevated to 4.7. There is no history of fever, rigors or chills. No history of headache, loss of consciousness, seizures. PAST MEDICAL HISTORY: History of COPD, GERD, hypertension, history of prostate disorder, history of hernia surgery. MEDICATIONS: Home medications are omeprazole. ALLERGIES: ERYTHROMYCIN, SULFA. FAMILY HISTORY: History of cholecystectomy. History of pancreatic cancer. SOCIAL HISTORY: No history of smoking. Occasional alcohol intake. REVIEW OF SYSTEMS: Review of systems could not be taken, the patient is on BiPAP at this time. PHYSICAL EXAM: Patient is alert, oriented x3. Pulse 91. Blood pressure 180/99. Respiration 20. Temperature normal. Pulse ox 100 percent on BiPAP. BIPAP Settings are noted. HEENT conjunctivae normal. Oral mucosa moist. NECK is no jugular venous distention. No carotid bruit. No lymph node enlargement. CARDIOVASCULAR system: S1, S2 muffled. RESPIRATIONS: Breath sounds diminished in the bases. Bilateral scattered rhonchi and crackles. Expiratory wheezing also present. ABDOMEN: Soft, nontender. No mass palpable. LEGS: No edema. No swelling. NERVOUS SYSTEM: Higher functions as mentioned earlier. Moves all four limbs. No focal motor or sensory deficits. SKIN: No ulcer, no rashes, no bleeding. JOINTS: No active deforming arthropathy. LABS: WBC 13.8, hemoglobin 16.6, sodium 140, potassium 4.7, lactic acid 4.7. AST is 96, ALT is 99, total protein is 8.8. ASSESSMENT: 1. Chronic obstructive pulmonary disease acute exacerbation with acute purulent tracheobronchitis with acute hypoxic respiratory failure on BiPAP with sepsis. 2. Increased WBC. 3. Increased random blood sugar. 4. Increased elevated plasma lactic acid, possible sepsis. 5. Increased AST/ALT, mild hepatitis of undetermined etiology. 6. History of gastroesophageal reflux disease. 7. History of hypertension. 8. History of prostate disorder. 9. History of MRSA. 10.History of hernia repair. 11.History of degenerative joint disease. 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 RECOMMENDATIONS AND DISCUSSION: In this 68-year-old gentleman who presented with multiple complex medical issues, at this time, I recommend to continue current medication, continue symptomatic treatment. I would initiate broad-spectrum IV antibiotics, steroids. Otherwise closely follow with Dr. Leung. See orders for further details. Home medication reconciled. Prognosis extremely guarded because of multiple complex medical issues. Further recommendations to follow. Cultures were obtained. See orders for details. MMODL / IJN: [id number] /
[2019-05-25] MEDS: SODIUM CHLORIDE 0.9% 1,000 ML IV SCH ×2 (07:30)
[2019-05-25 07:31] LABS: Glucose,Whole Blood 145 mg/dL (75-99)
[2019-05-25] MEDS: BUDESONIDE 1 MG/2 ML NEBU INHALATION SCH ×2 (07:46→19:09)
[2019-05-25] MEDS: FORMOTEROL FUMARATE 20 MCG/2 ML NEBU INHALATION SCH ×2 (07:46→19:09)
[2019-05-25] MEDS: IPRATROPIUM-ALBUTEROL 3 ML NEB INHALATION SCH ×4 (07:46→19:09)
[2019-05-25 08:08] LABS: Basophils % (A) 0 %; Eosinophils % (A) 0 %; HCT 41.5 % (39.0-53.0); HGB 13.9 gm/dL (13.0-17.5); Lymphocytes # (A) 0.8 k/uL (1.0-4.8); Lymphocytes % (A) 29 %; MCHC 33.5 g/dL (31.0-37.0); MCV 89.6 fL (80.0-100.0); Mean Platelet Volume 7.7; Monocytes % (A) 2 %; Neutrophils # (A) 1.9 k/uL (1.3-7.7); Neutrophils % (A) 68 %; Platelet Count 254 k/uL (150-450); RBC 4.63 m/uL (4.30-5.90); RDW 13.6 % (11.5-15.5); WBC 2.8 k/uL (3.8-10.6)
[2019-05-25 08:25] LABS: African American GFR (CKD) >90 (>60 ml/min/1.73 sqM); Anion Gap 9 mmol/L; Blood Urea Nitrogen 26 mg/dL (9-20); Carbon Dioxide 25 mmol/L (22-30); Chloride 103 mmol/L (98-107); Glucose 150 mg/dL (74-99); Non-African American GFR(CKD) 90 (>60 ml/min/1.73 sqM); Potassium 4.5 mmol/L (3.5-5.1); Sodium 137 mmol/L (137-145)
[2019-05-25] MEDS: PANTOPRAZOLE 40 MG/10 ML VIAL IVP SCH (09:34)
[2019-05-25] MEDS: INSULIN ASPART (NovoLOG) 100 UNIT/ML VIAL SQ SCH ×4 (09:34→23:18)
[2019-05-25] MEDS: HEPARIN SODIUM,PORCINE 5,000 UNIT/ML 1 ML VIAL SQ SCH ×2 (09:36→23:18)
[2019-05-25 10:17] LABS: Glucose,Whole Blood 193 mg/dL (75-99)
[2019-05-25] MEDS: MULTIVITAMINS, THERA 1 EACH TAB PO SCH (12:19)
[2019-05-25 13:47] LABS: Glucose,Whole Blood 185 mg/dL (75-99)
--- NOTE | 2019-05-25 15:09 | P.CNPUL ---
History of Present Illness Consult date: 05/25/19 Requesting physician: Claude Whitaker Reason for consult: COPD Chief complaint: Shortness of breath cough and wheezing History of present illness: This is a 68-year-old white male, remote smoking history, known history of COPD, however he is not O2 dependent and not prednisone dependent, history of GERD, hypertension, prostate cancer, normally sees Dr. Strange in the [facility] clinic. Patient presented to the ER with a few days' history of increased shortness of breath, cough, wheezing, cough is productive with whitish phlegm. Patient was apparently upon arrival in significant respiratory distress, placed on BiPAP initially, and he was given an updraft treatment, steroids, chest x-ray showed no evidence of infiltrate. Patient was admitted, and this consult was initiated. Patient denies any fever chills, denies any nausea vomiting abdominal pain, no melena, no hematemesis, denies any dysuria frequency or urgency. Patient describes less than 11-[id number]-uwye smoking history, however he has been exposed to smoke passively for many years. Presently does not smoke. And he normally has an inhaler which she uses on a regular basis, but ran out a few weeks ago, and hasn't been using any inhalers. Labs on admission showed WBC count of 2.8 hemoglobin 13.9 electrolytes were abnormal bicarb was 25. Renal profile was normal. Lactic acid was 1.5 Review of Systems Constitutional: Denies fever chills or weight loss. Denies weakness HEENT: Denies headache blurred vision dizziness or throat earache. Denies any nasal congestion. Cardiac: Denies chest pain syncope orthopnea PND Pulmonary: As noted in HPI. Neurologic: Denies any headache blurred vision dizziness. GI: Denies nausea vomiting abdominal pain melena or hematemesis. Genitourinary: Denies any dysuria frequency hematuria or urgency. Skin: Denies any rashes. Endocrine: Denies any heat or cold intolerance. Musculoskeletal: Denies any myalgia, arthralgia, or any deformities. Psychiatric: Denies any symptoms of active depression Hematologic: Denies any clotting bleeding or bruising. Past Medical History Past Medical History: Cancer, COPD, GERD/Reflux, Hypertension, Prostate Disorder Additional Past Medical History / Comment(s): having a hard time eating and acid reflux coming up into my chest.hx prostate CA. Hep C History of Any Multi-Drug Resistant Organisms: MRSA Date of last positivie culture/infection: 06/13/18 MDRO Source:: Left Hand Past Surgical History: Hernia Repair, Orthopedic Surgery, Prostate Surgery Additional Past Surgical History / Comment(s): Laparotomy with drainage of absce ss. Prostatectomy with da Jessi Past Anesthesia/Blood Transfusion Reactions: No Reported Reaction Additional Past Anesthesia/Blood Transfusion Reaction / Comment(s): no hx blood transfusion Past Psychological History: No Psychological Hx Reported Smoking Status: Former smoker Past Alcohol Use History: None Reported, Occasional Past Drug Use History: Heroin, Methamphetamine, Opiates, Prescription Drug Abuse Additional Drug Use History / Comment(s): past drug use heroin,methamphetamines,opiates,prescription-last use approx 1 month ago - Past Family History Father Family Medical History: Cancer Additional Family Medical History / Comment(s): cholecystectomy, pancreatic cancer Medications and Allergies Home Medications Medication Instructions Recorded Confirmed Type Glecaprevir/Pibrentasvir [Mavyret 3 tab PO DAILY 05/24/19 05/24/19 History 100-40 mg Tablet] Pregabalin [Lyrica] 75 mg PO BID PRN 05/24/19 05/24/19 History Allergies Allergy/AdvReac Type Severity Reaction Status Date / Time erythromycin base AdvReac Nausea & Verified 05/24/19 23:37 Vomiting & Diarrhea Sulfa (Sulfonamide AdvReac Nausea & Verified 05/24/19 23:37 Antibiotics) Vomiting & Diarrhea Physical Exam Vitals: Vital Signs Temp Pulse Resp BP Pulse Ox 05/25/19 12:20 98 16 132/79 99 05/25/19 11:31 87 16 135/79 98 05/25/19 11:11 90 05/25/19 11:00 101 H 05/25/19 08:07 67 05/25/19 07:57 75 05/25/19 07:46 74 05/25/19 07:24 61 16 147/88 99 05/25/19 06:04 99 05/25/19 05:00 67 19 160/95 100 05/25/19 04:06 98.5 F 66 19 149/101 99 05/25/19 00:00 65 17 138/80 100 05/24/19 23:00 64 18 154/90 100 05/24/19 22:02 87 22 05/24/19 22:00 84 19 158/102 100 05/24/19 21:46 91 22 05/24/19 21:40 90 20 143/101 99 05/24/19 21:00 101 H 20 165/97 100 05/24/19 19:00 91 20 180/99 100 05/24/19 18:25 69 25 H 169/90 99 05/24/19 17:45 91 24 05/24/19 17:38 65 26 H 155/101 100 05/24/19 17:23 97.5 F L 110 H 38 H 195/105 96 05/24/19 17:15 75 14 Intake and Output 05/24/19 05/25/19 05/25/19 22:59 06:59 14:59 Other: Weight 61.235 kg Physical exam revealed a 68-year-old white male, on 3 L nasal cannula, in no distress. HEENT: Atraumatic, normocephalic, PERRLA, EOMI, no icterus, moist mucous membranes. Neck reveals no JVD, carotid bruits, or thyromegaly. CHEST EXAMINATION: Trachea is central. Symmetrical expansion. Minimal wheezing on forced expiratory maneuver only. No chest wall tenderness CARDIAC: Normal S1, S2 with no gallops. No murmur. ABDOMEN: Soft. Bowel sounds normal. No organomegaly. No abdominal bruits. Extremities: No clubbing edema or cyanosis. Good pulses bilaterally. Neurologic: Alert and oriented 3, no gross focal neurologic deficits. Skin: No rash or skin lesions. Psychiatric: Normal mood affect and normal mental status examination. Musculoskeletal: No joint swelling or deformity. Normal range of motion. Lymphatics: No lymphadenopathy. Results - Laboratory Findings CBC and BMP: 05/25/19 07:49 05/25/19 07:49 PT/INR, D-dimer PT 9.6 sec (9.0-12.0) 05/24/19 17:00 INR 0.9 (<1.2) 05/24/19 17:00 Abnormal lab findings: Abnormal Labs 05/24/19 05/24/19 05/24/19 17:00 17:00 17:00 WBC 13.8 H Lymphocytes # 6.4 H Eosinophils # 2.0 H APTT BUN 30 H Glucose 116 H POC Glucose (mg/dL) Plasma Lactic Acid Gumaro 4.7 H* AST 96 H ALT 99 H Total Protein 8.8 H 05/24/19 05/24/19 05/25/19 17:00 21:45 07:29 WBC Lymphocytes # Eosinophils # APTT 21.8 L BUN Glucose POC Glucose (mg/dL) 134 H 145 H Plasma Lactic Acid Gumaro AST ALT Total Protein 05/25/19 05/25/19 05/25/19 07:49 07:49 09:29 WBC 2.8 L Lymphocytes # 0.8 L Eosinophils # APTT BUN 26 H Glucose 150 H POC Glucose (mg/dL) 193 H Plasma Lactic Acid Gumaro AST ALT Total Protein 05/25/19 13:46 WBC Lymphocytes # Eosinophils # APTT BUN Glucose POC Glucose (mg/dL) 185 H Plasma Lactic Acid Gumaro AST ALT Total Protein - Diagnostic Findings Chest x-ray: image reviewed (Chest x-ray showed no active cardiopulmonary disease.) Assessment and Plan Assessment: Impression: 1 acute exacerbation of COPD, and purulent tracheobronchitis. 2 acute leukocytosis with eosinophilia on his initial CBC, resolved on follow-up CBC, exact etiology is not clear. 3Acute purulent tracheobronchitis 4 history of prostate cancer, history of prostatectomy 5 history of remote minimal smoking history. 6 history of GERD with esophagitis. 7 history of benign essential hypertension Recommendation: Continue updrafts. Continue methylprednisolone. Continue Rocephin Continue Pulmicort and Perforomist. Continue Protonix. Reevaluate in a.m., and if he continues to do well, consider discharge planning. And follow-up on outpatient basis. Time with Patient: Greater than 30
[2019-05-25 16:45] LABS: Glucose,Whole Blood 210 mg/dL (75-99)
--- NOTE | 2019-05-25 18:02 | PN ---
PROGRESS NOTE DATE OF SERVICE: 05/25/2019. This 68-year-old gentleman who was admitted with COPD acute exacerbation as well as acute respiratory failure also had acute purulent tracheobronchitis. A chest x-ray which was personally reviewed by me showed increased bronchovascular markings and no evidence of definite evidence of pneumonia. Dr. Leung is following the patient closely. PAST MEDICAL HISTORY: Reviewed. REVIEW OF SYSTEMS: Cardiovascular system: No angina or palpitations. RESPIRATORY: As mentioned earlier. GI: As mentioned earlier. : No dysuria. CENTRAL NERVOUS SYSTEM: No numbness or weakness. CURRENT MEDICATIONS: Reviewed and include: 1. Tylenol p.r.n. 2. Cushing 5 mg q.6h p.r.n. 3. DuoNeb q.i.d. and p.r.n. 4. Xanax. 5. Pulmicort 1 mg b.i.d. 6. Rocephin 1 g daily. 7. Perforomist b.i.d. 8. Heparin. 9. NovoLog scale. 10.Solu-Medrol 60 IV q.6h. 11.Multivitamins. 12.Protonix. PHYSICAL EXAM: Patient is alert, oriented x2. Pulse 87. Pressure 130/70. Respiration 16, temperature normal. Pulse ox 99% on 3 L. HEENT: Conjunctivae normal. NECK: No JVD. CARDIOVASCULAR: S1, S2 muffled. RESPIRATION: Breath sounds diminished in the bases. Bilateral scattered rhonchi and crackles. Expiratory wheezing also present. ABDOMEN: Soft, nontender. No mass palpable. LEGS: No edema, no swelling. NERVOUS SYSTEM: No focal deficits. LABS: Labs are WBC 2.8, hemoglobin 13.9, sodium 137, potassium 4.5. ASSESSMENT: 1. Chronic obstructive pulmonary disease acute exacerbation with acute purulent tracheobronchitis with acute hypoxic respiratory failure with possible sepsis present on admission, status post BiPAP. 2. Increased white blood cell count secondary to steroids. 3. Increased random blood sugar. 4. Elevated plasma lactic acid, possible sepsis present on admission. 5. Increased AST/ALT and mild hepatitis of undetermined etiology. 6. History of gastroesophageal reflux disease. 7. History of hypertension. 8. History of prostate disorder. 9. History of MRSA. 10.History of hernia repair. 11.History of degenerative joint disease. 12.History of polydrug abuse in the past, heroin, methamphetamine, opiates and prescription drug abuse. RECOMMENDATIONS AND DISCUSSION: In this 68-year-old gentleman who presented with multiple complex medical issues, we will monitor the patient closely, continue the current medications, management and symptomatic treatment. Continue intensive bronchodilator treatment. Continue empiric antibiotics. Follow the cultures which are negative so far. IV steroids. Monitor blood sugars closely. DVT prophylaxis. Proton pump inhibitors. Cautious IV fluids. Otherwise closely follow with Dr. Leung. Guarded prognosis. Further recommendations to follow. MMODL / IJN: [id number] /
[2019-05-25 21:44] LABS: Glucose,Whole Blood 191 mg/dL (75-99)
[2019-05-26] MEDS: ALPRAZolam 0.25 MG TAB PO PRN ×2 (02:39→21:20)
[2019-05-26] MEDS: methylPREDNISolone SOD SUCCI 125 MG/2 ML VIAL IV SCH ×4 (06:02→17:34)
[2019-05-26] MEDS: SODIUM CHLORIDE 0.9% 1,000 ML IV SCH ×2 (06:48→11:03)
[2019-05-26] MEDS: INSULIN ASPART (NovoLOG) 100 UNIT/ML VIAL SQ SCH ×4 (07:20→21:12)
[2019-05-26 07:21] LABS: Glucose,Whole Blood 135 mg/dL (75-99)
[2019-05-26] MEDS: MULTIVITAMINS, THERA 1 EACH TAB PO SCH (07:28)
[2019-05-26] MEDS: HEPARIN SODIUM,PORCINE 5,000 UNIT/ML 1 ML VIAL SQ SCH ×2 (07:28→21:13)
[2019-05-26] MEDS: PANTOPRAZOLE 40 MG/10 ML VIAL IVP SCH ×2 (07:28→21:11)
[2019-05-26 07:55] VITALS: RESP 16
[2019-05-26 08:00] LABS: African American GFR (CKD) >90 (>60 ml/min/1.73 sqM); Anion Gap 5 mmol/L; Blood Urea Nitrogen 32 mg/dL (9-20); Calcium 8.9 mg/dL (8.4-10.2); Carbon Dioxide 28 mmol/L (22-30); Chloride 104 mmol/L (98-107); Glucose 131 mg/dL (74-99); Non-African American GFR(CKD) 84 (>60 ml/min/1.73 sqM); Sodium 137 mmol/L (137-145)
[2019-05-26] MEDS: FORMOTEROL FUMARATE 20 MCG/2 ML NEBU INHALATION SCH ×2 (08:42→21:42)
[2019-05-26] MEDS: IPRATROPIUM-ALBUTEROL 3 ML NEB INHALATION SCH ×4 (08:42→21:42)
[2019-05-26] MEDS: BUDESONIDE 1 MG/2 ML NEBU INHALATION SCH ×2 (08:42→21:41)
[2019-05-26 08:45] LABS: Basophils % (A) 0 %; Eosinophils % (A) 0 %; HGB 13.3 gm/dL (13.0-17.5); Lymphocytes # (A) 1.1 k/uL (1.0-4.8); Lymphocytes % (A) 5 %; MCH 30.8 pg (25.0-35.0); MCHC 34.1 g/dL (31.0-37.0); MCV 90.2 fL (80.0-100.0); Mean Platelet Volume 8.9; Monocytes % (A) 5 %; Neutrophils # (A) 18.7 k/uL (1.3-7.7); Neutrophils % (A) 89 %; Platelet Count 286 k/uL (150-450); RBC 4.33 m/uL (4.30-5.90); RDW 13.8 % (11.5-15.5); WBC 21.1 k/uL (3.8-10.6)
[2019-05-26 11:02] LABS: Glucose,Whole Blood 119 mg/dL (75-99)
[2019-05-26] MEDS ORDERED: ONDANSETRON 4 MG/2 ML VIAL IVP PRN (11:02)
[2019-05-26] MEDS ORDERED: PANTOPRAZOLE 40 MG/10 ML VIAL IVP ONE (12:06)
--- NOTE | 2019-05-26 15:08 | P.PN ---
Subjective Progress Note Date: 05/26/19 Principal diagnosis: Shortness of breath, cough and wheezing This is a 68-year-old white male, remote smoking history, known history of COPD, however he is not O2 dependent and not prednisone dependent, history of GERD, hypertension, prostate cancer, normally sees Dr. Strange in the [facility] clinic. Patient presented to the ER with a few days' history of increased shortness of breath, cough, wheezing, cough is productive with whitish phlegm. Patient was apparently upon arrival in significant respiratory distress, placed on BiPAP initially, and he was given an updraft treatment, steroids, chest x-ray showed no evidence of infiltrate. Patient was admitted, and this consult was initiated. Patient denies any fever chills, denies any nausea vomiting abdominal pain, no melena, no hematemesis, denies any dysuria frequency or urgency. Patient describes less than [id number] smoking history, however he has been exposed to smoke passively for many years. Presently does not smoke. And he normally has an inhaler which she uses on a regular basis, but ran out a few weeks ago, and hasn't been using any inhalers. Labs on admission showed WBC count of 2.8 hemoglobin 13.9 electrolytes were abnormal bicarb was 25. Renal profile was normal. Lactic acid was 1.5 On 05/26/2019 patient seen in follow-up on medical surgical floor. He is resting comfortably in bed, in no acute distress, lung sounds are clear to auscultation, no rhonchi, or wheezing, room air pulse ox is 97%, no fever or chills, patient is being treated with IV steroids, antibiotics, and nebulized b ronchodilators for COPD exacerbation improved tracheobronchitis. Clinically improving, vital signs are stable, patient can consider for discharge home today. Objective - Vital Signs Vital signs: Vital Signs Temp 97.7 F 05/26/19 07:00 Pulse 60 05/26/19 09:05 Resp 16 05/26/19 07:00 BP 168/71 05/26/19 07:00 Pulse Ox 97 05/26/19 08:42 Intake & Output 05/25/19 05/26/19 05/26/19 18:59 06:59 18:59 Output Total 450 Balance -450 Output: Urine 450 Other: Voiding Method Toilet Toilet Urinal Urinal # Voids 3 - Exam GENERAL EXAM: Alert, very pleasant, 68-year-old white male, on room air with a pulse ox of 97% comfortable in no apparent distress. HEAD: Normocephalic/atraumatic. EYES: Normal reaction of pupils, equal size. Conjunctiva pink, sclera white. NOSE: Clear with pink turbinates. THROAT: No erythema or exudates. NECK: No masses, no JVD, no thyroid enlargement, no adenopathy. CHEST: No chest wall deformity. Symmetrical expansion. LUNGS: Equal air entry with no crackles, wheeze, rhonchi or dullness. CVS: Regular rate and rhythm, normal S1 and S2, no gallops, no murmurs, no rubs ABDOMEN: Soft, nontender. No hepatosplenomegaly, normal bowel sounds, no guarding or rigidity. EXTREMITIES: No clubbing, no edema, no cyanosis, 2+ pulses and upper and lower extremities. MUSCULOSKELETAL: Muscle strength and tone normal. SPINE: No scoliosis or deformity SKIN: No rashes CENTRAL NERVOUS SYSTEM: Alert and oriented -3. No focal deficits, tone is normal in all 4 extremities. PSYCHIATRIC: Alert and oriented -3. Appropriate affect. Intact judgment and insight. - Labs CBC & Chem 7: 05/26/19 06:58 05/26/19 06:58 Labs: Abnormal Lab Results - Last 24 Hours (Table) 05/25/19 05/25/19 05/26/19 Range/Units 16:44 21:43 06:58 WBC 21.1 H (3.8-10.6) k/uL Neutrophils # 18.7 H (1.3-7.7) k/uL BUN (9-20) mg/dL Glucose (74-99) mg/dL POC Glucose (mg/dL) 210 H 191 H (75-99) mg/dL 05/26/19 05/26/19 05/26/19 Range/Units 06:58 07:15 11:00 WBC (3.8-10.6) k/uL Neutrophils # (1.3-7.7) k/uL BUN 32 H (9-20) mg/dL Glucose 131 H (74-99) mg/dL POC Glucose (mg/dL) 135 H 119 H (75-99) mg/dL Microbiology - Last 24 Hours (Table) 05/24/19 17:00 Blood Culture - Preliminary Blood No Growth after 24 hours Assessment and Plan Plan: Assessment: #1. Acute exacerbation of chronic obstructive pulmonary disease complicated by purulent tracheobronchitis #2. Acute leukocytosis with eosinophilia on his initial CBC resolved on follow- up CBC, with unknown etiology #3. Acute purulent tracheobronchitis #4. History of prostate cancer history of prostatectomy #5. History of remote minimal smoking history #6. History of GERD with esophagitis #7. History of benign essential hypertension Plan: Patient is doing well, his breathing has significantly improved, he is on room air, increase activity as tolerated, no acute events overnight, no specific complaints, no worsening dyspnea, no fever or chills. She came to consider for discharge home today with outpatient follow-up with Dr. Higginbotham in the office I performed a history & physical examination of the patient and discussed their management with my nurse practitioner, Carlene Camargo. I reviewed the nurse practitioner's note and agree with the documented findings and plan of care. Lung sounds are positive for clear breath sounds. The findings and the impression was discussed with the patient. I attest to the documentation by the nurse practitioner. Time with Patient: Less than 30
[2019-05-26 16:46] LABS: Glucose,Whole Blood 137 mg/dL (75-99)
[2019-05-26 20:23] LABS: Glucose,Whole Blood 141 mg/dL (75-99)
[2019-05-27] MEDS: SODIUM CHLORIDE 0.9% 1,000 ML IV SCH (00:28)
[2019-05-27] MEDS: methylPREDNISolone SOD SUCCI 125 MG/2 ML VIAL IV SCH ×2 (00:29→08:03)
--- NOTE | 2019-05-27 00:47 | PN ---
PROGRESS NOTE DATE OF SERVICE: 05/26/2019 This 68-year-old gentleman was admitted with COPD, acute exacerbation, with acute purulent tracheobronchitis, acute hypoxic respiratory failure. After BiPAP the patient is improving significantly. No chest pain. No palpitations. No fever. PHYSICAL EXAMINATION: Patient is alert and oriented x3. Pulse 53, blood pressure 144/92, respiration 16, temperature 98.1, pulse ox 98% on room air. HEENT: Conjunctivae normal. NECK: No jugular venous distention. CARDIOVASCULAR SYSTEM: S1, S2 muffled. RESPIRATORY SYSTEM: Breath sounds diminished at the bases. A few scattered rhonchi and crackles. ABDOMEN: Soft, non-tender. LEGS: No edema. No swelling. NERVOUS SYSTEM: No focal deficit. LABS: WBC 21.1, hemoglobin 13.3. Accu-Cheks noted. ASSESSMENT: 1. Chronic obstructive pulmonary disease, acute exacerbation, with acute purulent tracheobronchitis with acute hypoxic respiratory failure with possible sepsis, present on admission, status post BiPAP. 2. Increased white count, possibly secondary to steroids. 3. Increased random blood sugar. 4. Elevated plasma lactic acid and possible sepsis, present on admission. 5. Increased AST, ALT with mild hepatitis of undetermined etiology. 6. History of gastroesophageal reflux disease. 7. History of hypertension. 8. History of prostate disorder. 9. History of methicillin-resistant Staphylococcus aeruginosa. 10.History of hernia repair. 11.History of degenerative joint disease. 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 13.History of heroin, methamphetamine, opiates and prescription drug abuse. RECOMMENDATIONS AND DISCUSSION: I recommend to continue current medications, continue with the monitoring, symptomatic treatment. Continue with bronchodilators. Continue with steroids. Dr. Cortez's input appreciated. Otherwise, I would also recommend tapering the steroids further. Increase ambulation. Possible discharge in the next 24 to 48 hours if okay with Pulmonology. Guarded prognosis. Further recommendations to follow. MMODL / IJN: [id number] /
[2019-05-27] MEDS ORDERED: hydrALAZINE HCL 20 MG/ML 1 ML VIAL IVP PRN (03:02)
[2019-05-27 07:12] LABS: Glucose,Whole Blood 119 mg/dL (75-99)
[2019-05-27] MEDS: INSULIN ASPART (NovoLOG) 100 UNIT/ML VIAL SQ SCH ×2 (07:23→12:01)
[2019-05-27] MEDS: BUDESONIDE 1 MG/2 ML NEBU INHALATION SCH (07:40)
[2019-05-27] MEDS: FORMOTEROL FUMARATE 20 MCG/2 ML NEBU INHALATION SCH (07:40)
[2019-05-27] MEDS: IPRATROPIUM-ALBUTEROL 3 ML NEB INHALATION SCH ×2 (07:41→11:55)
[2019-05-27 07:53] LABS: African American GFR (CKD) >90 (>60 ml/min/1.73 sqM); Anion Gap 9 mmol/L; Blood Urea Nitrogen 23 mg/dL (9-20); Calcium 9.2 mg/dL (8.4-10.2); Carbon Dioxide 24 mmol/L (22-30); Chloride 101 mmol/L (98-107); Glucose 129 mg/dL (74-99); Non-African American GFR(CKD) >90 (>60 ml/min/1.73 sqM); Potassium 4.2 mmol/L (3.5-5.1); Sodium 134 mmol/L (137-145)
[2019-05-27] MEDS: PANTOPRAZOLE 40 MG/10 ML VIAL IVP SCH (08:02)
[2019-05-27] MEDS: MULTIVITAMINS, THERA 1 EACH TAB PO SCH (08:03)
[2019-05-27] MEDS: HEPARIN SODIUM,PORCINE 5,000 UNIT/ML 1 ML VIAL SQ SCH (08:03)
[2019-05-27 08:06] VITALS: BP 166/78; PULSE 70; TEMP 99.5
[2019-05-27 08:09] LABS: Basophils % (A) 0 %; Eosinophils # (A) 0.1 k/uL (0-0.7); Eosinophils % (A) 1 %; HCT 42.6 % (39.0-53.0); HGB 14.4 gm/dL (13.0-17.5); Lymphocytes % (A) 7 %; MCH 30.3 pg (25.0-35.0); MCHC 33.8 g/dL (31.0-37.0); MCV 89.7 fL (80.0-100.0); Mean Platelet Volume 8.4; Monocytes # (A) 0.5 k/uL (0-1.0); Monocytes % (A) 4 %; Neutrophils # (A) 12.3 k/uL (1.3-7.7); Neutrophils % (A) 88 %; Platelet Count 280 k/uL (150-450); RBC 4.75 m/uL (4.30-5.90); RDW 13.7 % (11.5-15.5); WBC 14.1 k/uL (3.8-10.6)
[2019-05-27 11:21] LABS: Glucose,Whole Blood 138 mg/dL (75-99)
--- NOTE | 2019-05-27 13:54 | P.PN ---
Subjective Progress Note Date: 05/27/19 Principal diagnosis: Shortness of breath, cough and wheezing This is a 68-year-old white male, remote smoking history, known history of COPD, however he is not O2 dependent and not prednisone dependent, history of GERD, hypertension, prostate cancer, normally sees Dr. Strange in the [facility] clinic. Patient presented to the ER with a few days' history of increased shortness of breath, cough, wheezing, cough is productive with whitish phlegm. Patient was apparently upon arrival in significant respiratory distress, placed on BiPAP initially, and he was given an updraft treatment, steroids, chest x-ray showed no evidence of infiltrate. Patient was admitted, and this consult was initiated. Patient denies any fever chills, denies any nausea vomiting abdominal pain, no melena, no hematemesis, denies any dysuria frequency or urgency. Patient describes less than [id number] smoking history, however he has been exposed to smoke passively for many years. Presently does not smoke. And he normally has an inhaler which she uses on a regular basis, but ran out a few weeks ago, and hasn't been using any inhalers. Labs on admission showed WBC count of 2.8 hemoglobin 13.9 electrolytes were abnormal bicarb was 25. Renal profile was normal. Lactic acid was 1.5 On 05/26/2019 patient seen in follow-up on medical surgical floor. He is resting comfortably in bed, in no acute distress, lung sounds are clear to auscultation, no rhonchi, or wheezing, room air pulse ox is 97%, no fever or chills, patient is being treated with IV steroids, antibiotics, and nebulized b ronchodilators for COPD exacerbation improved tracheobronchitis. Clinically improving, vital signs are stable, patient can consider for discharge home today. On 05/27/2019 patient seen in follow-up on medical surgical floor. He is resting quietly in bed, in no acute distress, denies any difficulty breathing, no cough or congestion, lung sounds are clear today's exam, patient is on room air with a pulse of 97%, no acute events overnight, no specific complaints. Patient has been treated with nebulized bronchodilator's, Pulmicort, Perforomist, and IV steroids, improved, and he is anticipated to be discharged home today. Objective - Vital Signs Vital signs: Vital Signs Temp 99.5 F 05/27/19 07:00 Pulse 70 05/27/19 07:00 Resp 16 05/27/19 07:00 BP 166/78 05/27/19 07:00 Pulse Ox 97 05/27/19 07:00 Intake & Output 05/26/19 05/27/19 05/27/19 18:59 06:59 18:59 Other: Voiding Method Toilet # Voids 3 1 - Exam GENERAL EXAM: Alert, very pleasant, 68-year-old white male, on room air with a pulse ox of 97% comfortable in no apparent distress. HEAD: Normocephalic/atraumatic. EYES: Normal reaction of pupils, equal size. Conjunctiva pink, sclera white. NOSE: Clear with pink turbinates. THROAT: No erythema or exudates. NECK: No masses, no JVD, no thyroid enlargement, no adenopathy. CHEST: No chest wall deformity. Symmetrical expansion. LUNGS: Equal air entry with no crackles, wheeze, rhonchi or dullness. CVS: Regular rate and rhythm, normal S1 and S2, no gallops, no murmurs, no rubs ABDOMEN: Soft, nontender. No hepatosplenomegaly, normal bowel sounds, no guarding or rigidity. EXTREMITIES: No clubbing, no edema, no cyanosis, 2+ pulses and upper and lower extremities. MUSCULOSKELETAL: Muscle strength and tone normal. SPINE: No scoliosis or deformity SKIN: No rashes CENTRAL NERVOUS SYSTEM: Alert and oriented -3. No focal deficits, tone is normal in all 4 extremities. PSYCHIATRIC: Alert and oriented -3. Appropriate affect. Intact judgment and insight. - Labs CBC & Chem 7: 05/27/19 07:24 05/27/19 07:24 Labs: Abnormal Lab Results - Last 24 Hours (Table) 05/26/19 05/26/19 05/27/19 Range/Units 16:45 20:21 07:04 WBC (3.8-10.6) k/uL Neutrophils # (1.3-7.7) k/uL Sodium (137-145) mmol/L BUN (9-20) mg/dL Glucose (74-99) mg/dL POC Glucose (mg/dL) 137 H 141 H 119 H (75-99) mg/dL 12/05/27/19 05/27/19 Range/Units 07:24 07:24 11:20 WBC 14.1 H (3.8-10.6) k/uL Neutrophils # 12.3 H (1.3-7.7) k/uL Sodium 134 L (137-145) mmol/L BUN 23 H (9-20) mg/dL Glucose 129 H (74-99) mg/dL POC Glucose (mg/dL) 138 H (75-99) mg/dL Microbiology - Last 24 Hours (Table) 05/24/19 17:00 Blood Culture - Preliminary Blood No Growth after 48 hours Assessment and Plan Plan: Assessment: #1. Acute exacerbation of chronic obstructive pulmonary disease complicated by purulent tracheobronchitis #2. Acute leukocytosis with eosinophilia on his initial CBC resolved on follow- up CBC, with unknown etiology #3. Acute purulent tracheobronchitis #4. History of prostate cancer history of prostatectomy #5. History of remote minimal smoking history #6. History of GERD with esophagitis #7. History of benign essential hypertension Plan: Patient is doing well, breathing is comfortable, no acute distress, no acute events overnight, no signs are stable, patient has been treated with IV mode roids, nebulized bronchodilators and antibiotics, there have been no fever or chills, from pulmonary perspective patient is stable for discharge home today. Follow up with Dr. Higginbotham in the office in one week I performed a history & physical examination of the patient and discussed their management with my nurse practitioner, Carlene Camargo. I reviewed the nurse practitioner's note and agree with the documented findings and plan of care. Lung sounds are positive for clear breath sounds. The findings and the impression was discussed with the patient. I attest to the documentation by the nurse practitioner. Time with Patient: Less than 30
[2019-05-27] MEDS ORDERED: PANTOPRAZOLE 40 MG TABLET PO SCH (21:00)
--- NOTE | 2019-05-28 01:27 | DS ---
DISCHARGE SUMMARY DATE OF SERVICE: 05/27/2019. FINAL DIAGNOSES: 1. Chronic obstructive pulmonary disease exacerbation with acute tracheobronchitis with acute hypoxic respiratory failure with possible sepsis present on admission, status post BiPAP. 2. Increased WBC, possibly secondary to steroids. 3. Increased random blood sugar. 4. Elevated plasma lactic acid, possible sepsis, present on admission. 5. Increased AST/ALT, mild hepatitis of undetermined etiology. 6. History of gastroesophageal reflux disease. 7. Hypertension. 8. History of prostate disorder. 9. History of MRSA. 10.History of hernia repair. 11.History of degenerative joint disease. 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 13.History of heroin, methamphetamine, opiates and prescription drug abuse. DISCHARGE DISPOSITION: The patient will be discharged in stable condition with guarded prognosis. HISTORY OF PRESENT ILLNESS: This 68-year-old gentleman with a past medical history of multiple medical problems admitted to the hospital with chronic obstructive pulmonary disease acute exacerbation as well as multiple medical problems with respiratory failure and sepsis also. The patient was extremely sick at the time of admission, but rapidly improved with IV antibiotics, history of multiple other medical problems. Seen by Dr. Leung and Dr. Cortez. On exam, vitals are stable. Cardiovascular system: S1, S2. Respiration: A few scattered rhonchi. Abdomen soft. Nervous System: No focal deficits. LABS: WBC 14.2, hemoglobin 14.6. DISCHARGE ADVICE AND MEDICATIONS: 1. Diet is cardiac diet. 2. Activity limited until followup. 3. Follow up with [facility] and Dr. Strange. 4. Follow with Dr. Leung as recommended. DISCHARGE MEDICATIONS: 1. Lyrica 75 mg p.o. b.i.d. 2. Glecaprevir Pibrentasvir 1 to 3 tablets p.o. daily. 3. Ceftin 500 mg daily for 3 days. 4. DuoNeb q.i.d. and p.r.n. 5. Prednisone taper that is 40 mg daily for 3 days, 30 for 3 days, 20 for 3 days 10 for 3 days. 6. Symbicort 1 puff b.i.d. Once again the patient will be discharged in stable condition with guarded prognosis. MMODL / IJN: [id number] /
== END 2019-05-27 14:05 | disposition home or self-care (01) | DRG 871 ==
LOC: EC 16:48 → 3SCARD 18:02 → 5NMEDONC 05-25 11:53 → 4SSUR 05-25 13:06
PROVIDERS: ADMIT Hospitalist; ATTEND Hospitalist
PROC: 5A09357 Assistance with Respiratory Ventilation, Less than 24 Consecutive Hours, Continuous Positive Airway Pressure (ICD-10-PCS; principal; 2019-05-24)
DX: A41.9 Sepsis, unspecified organism (principal); J96.01 Acute respiratory failure with hypoxia; J44.0 Chronic obstructive pulmonary disease with (acute) lower respiratory infection; J44.1 Chronic obstructive pulmonary disease with (acute) exacerbation; E87.2 Acidosis; J20.9 Acute bronchitis, unspecified; T38.0X5A Adverse effect of glucocorticoids and synthetic analogues, initial encounter; D72.829 Elevated white blood cell count, unspecified; F11.11 Opioid abuse, in remission; F15.11 Other stimulant abuse, in remission; F19.11 Other psychoactive substance abuse, in remission; I10 Essential (primary) hypertension; B19.20 Unspecified viral hepatitis C without hepatic coma; Z79.899 Other long term (current) drug therapy; Z80.0 Family history of malignant neoplasm of digestive organs; Z85.46 Personal history of malignant neoplasm of prostate; Z86.14 Personal history of Methicillin resistant Staphylococcus aureus infection; Z87.891 Personal history of nicotine dependence; Z90.79 Acquired absence of other genital organ(s); M19.90 Unspecified osteoarthritis, unspecified site; Z88.1 Allergy status to other antibiotic agents; Z88.2 Allergy status to sulfonamides; Z88.8 Allergy status to other drugs, medicaments and biological substances; Z77.22 Contact with and (suspected) exposure to environmental tobacco smoke (acute) (chronic)
CPT/HCPCS: 36415; 71045; 80048; 80053; 83605; 83735; 85025; 85610; 85730; 87040; 87502; 93005; 94640; 94660; 94760; 96361; 96365; 96366; 96367; 96372; 96375; 96376; 99291

== ENCOUNTER 2019-06-17 17:04 | Inpatient (IN) | payer OTHER, MEDICARE ==
[2019-06-17] MEDS ORDERED: SODIUM CHLORIDE 0.9% 1,000 ML IV STA (17:28)
[2019-06-17] MEDS ORDERED: SODIUM CHLORIDE 0.9% 500 ML 500 ML IV STA (17:28)
[2019-06-17] MEDS ORDERED: ONDANSETRON 4 MG/2 ML VIAL IVP STA (17:28)
[2019-06-17] MEDS ORDERED: FAMOTIDINE 20 MG/2 ML VIAL IV STA (17:29)
--- NOTE | 2019-06-17 17:32 | ED ---
General Adult HPI - General Chief complaint: Weakness Stated complaint: herniated esophagus Time Seen by Provider: 06/17/19 17:23 Source: patient, family, RN notes reviewed Mode of arrival: ambulatory Limitations: no limitations - History of Present Illness Initial comments: Patient is a pleasant 68-year-old male presenting to the emergency department w ith fatigue and generalized weakness. Patient believes this is likely from dehydration from his hiatal hernia. Patient states he was diagnosed with this months ago with similar symptoms. Patient states he feels weak all over. Patient states he is a almost nothing over the past week. Patient is trying to keep some fluids and however that is very limited as well. Patient states there may be some minimal discomfort in the esophagus region. Patient does have some nausea. No constipation or diarrhea. No fevers. No isolated area of weakness. - Related Data Home Medications Medication Instructions Recorded Confirmed Pregabalin [Lyrica] 75 mg PO BID PRN 05/24/19 06/17/19 Budesonide/Formoterol Fumarate 1 puff INHALATION RT-BID 06/17/19 06/17/19 [Symbicort 160-4.5 Mcg Inhaler] Cholecalciferol [Vitamin D3 (25 2,000 unit PO DAILY 06/17/19 06/17/19 Mcg = 1000 Iu)] Famotidine [Pepcid] 40 mg PO BID 06/17/19 06/17/19 Magnesium Oxide [Mag-Ox] 500 mg PO BID 06/17/19 06/17/19 Methocarbamol [Robaxin] 750 mg PO QID PRN 06/17/19 06/17/19 Naproxen [Naprosyn] 500 mg PO Q12HR PRN 06/17/19 06/17/19 Allergies Allergy/AdvReac Type Severity Reaction Status Date / Time erythromycin base AdvReac Nausea & Verified 06/17/19 18:07 Vomiting & Diarrhea Sulfa (Sulfonamide AdvReac Nausea & Verified 06/17/19 18:07 Antibiotics) Vomiting & Diarrhea Review of Systems ROS Statement: Those systems with pertinent positive or pertinent negative responses have been documented in the HPI. ROS Other: All systems not noted in ROS Statement are negative. Constitutional: Denies: fever Eyes: Denies: eye pain ENT: Denies: ear pain Respiratory: Denies: cough, dyspnea Cardiovascular: Denies: chest pain Endocrine: Reports: fatigue Gastrointestinal: Reports: as per HPI, nausea, other (Anorexia) Genitourinary: Denies: dysuria Musculoskeletal: Denies: arthralgia Skin: Denies: rash Neurological: Denies: confusion Past Medical History Past Medical History: Cancer, COPD, GERD/Reflux, Hypertension, Prostate Disorder Additional Past Medical History / Comment(s): having a hard time eating and acid reflux coming up into my chest.hx prostate CA. Hep C History of Any Multi-Drug Resistant Organisms: MRSA Date of last positivie culture/infection: 06/13/18 MDRO Source:: Left Hand Past Surgical History: Hernia Repair, Orthopedic Surgery, Prostate Surgery Additional Past Surgical History / Comment(s): Laparotomy with drainage of abscess. Prostatectomy with da Jessi Past Anesthesia/Blood Transfusion Reactions: No Reported Reaction Additional Past Anesthesia/Blood Transfusion Reaction / Comment(s): no hx blood transfusion Past Psychological History: Depression Smoking Status: Former smoker Past Alcohol Use History: Daily, Heavy Past Drug Use History: Heroin, Methamphetamine, Opiates, Prescription Drug Abuse - Past Family History Father Family Medical History: Cancer Additional Family Medical History / Comment(s): cholecystectomy, pancreatic cancer General Exam Limitations: no limitations General appearance: alert, in no apparent distress Head exam: Present: normocephalic Eye exam: Present: normal appearance, PERRL ENT exam: Present: normal oropharynx Neck exam: Present: normal inspection Respiratory exam: Present: normal lung sounds bilaterally Cardiovascular Exam: Present: regular rate, normal rhythm GI/Abdominal exam: Present: soft, normal bowel sounds. Absent: distended, tend erness Extremities exam: Present: normal inspection, full ROM Neurological exam: Present: alert, oriented X3, CN II-XII intact. Absent: motor sensory deficit Expanded Motor strength exam: RUE: 5, LUE: 5, RLE: 5, LLE: 5 Eye Response: (4) open spontaneously Motor Response: (6) obeys commands Verbal Response: (5) oriented Psychiatric exam: Present: normal affect, normal mood Skin exam: Present: normal color Course Vital Signs 06/17/19 17:10 Temperature 97.6 F Pulse Rate 106 H Respiratory 20 Rate Blood Pressure 119/78 O2 Sat by Pulse 99 Oximetry EKG Findings - EKG Comments: EKG Findings:: Normal sinus rhythm 92. WA 124. QRS 84. QT 342. QTC 422. Normal axis. Normal QRS. No acute ST change. Medical Decision Making - Medical Decision Making Patient reevaluated and resting comfortably in bed. Patient and family updated on results and plan. Case discussed in detail with Dr. Arevalo, who will admit covering for this tx Patient. - Lab Data Result diagrams: 06/17/19 17:42 06/17/19 17:42 Lab Results 06/17/19 06/17/19 06/17/19 Range/Units 17:42 17:42 17:42 WBC 7.6 (3.8-10.6) k/uL RBC 2.95 L (4.30-5.90) m/uL Hgb 9.1 L D (13.0-17.5) gm/dL Hct 27.0 L (39.0-53.0) % MCV 91.5 (80.0-100.0) fL MCH 30.7 (25.0-35.0) pg MCHC 33.6 (31.0-37.0) g/dL RDW 13.6 (11.5-15.5) % Plt Count 281 (150-450) k/uL Neutrophils % 72 % Lymphocytes % 18 % Monocytes % 7 % Eosinophils % 1 % Basophils % 0 % Neutrophils # 5.5 (1.3-7.7) k/uL Lymphocytes # 1.4 (1.0-4.8) k/uL Monocytes # 0.5 (0-1.0) k/uL Eosinophils # 0.1 (0-0.7) k/uL Basophils # 0.0 (0-0.2) k/uL PT (9.0-12.0) sec INR (<1.2) APTT (22.0-30.0) sec Sodium 135 L (137-145) mmol/L Potassium 4.3 (3.5-5.1) mmol/L Chloride 104 (98-107) mmol/L Carbon Dioxide 23 (22-30) mmol/L Anion Gap 8 mmol/L BUN 64 H (9-20) mg/dL Creatinine 0.79 (0.66-1.25) mg/dL Est GFR (CKD-EPI)AfAm >90 (>60 ml/min/1.73 sqM) Est GFR (CKD-EPI)NonAf >90 (>60 ml/min/1.73 sqM) Glucose 136 H (74-99) mg/dL Plasma Lactic Acid [place] 1.9 (0.7-2.0) mmol/L Calcium 8.9 (8.4-10.2) mg/dL Magnesium 1.8 (1.6-2.3) mg/dL Total Bilirubin 0.4 (0.2-1.3) mg/dL AST 16 L (17-59) U/L ALT 12 (4-49) U/L Alkaline Phosphatase 51 (38-126) U/L Creatine Kinase 24 L (55-170) U/L Troponin I (0.000-0.034) ng/mL Total Protein 5.8 L (6.3-8.2) g/dL Albumin 3.3 L (3.5-5.0) g/dL Amylase 49 (30-110) U/L Lipase 252 (23-300) U/L Urine Color Urine Appearance (Clear) Urine pH (5.0-8.0) Ur Specific [place] (1.001-1.035) Urine Protein (Negative) Urine Glucose (UA) (Negative) Urine Ketones (Negative) Urine Blood (Negative) Urine Nitrite (Negative) Urine Bilirubin (Negative) Urine Urobilinogen (<2.0) mg/dL Ur Leukocyte Esterase (Negative) 06/17/19 06/17/19 06/17/19 Range/Units 17:42 17:42 17:55 WBC (3.8-10.6) k/uL RBC (4.30-5.90) m/uL Hgb (13.0-17.5) gm/dL Hct (39.0-53.0) % MCV (80.0-100.0) fL MCH (25.0-35.0) pg MCHC (31.0-37.0) g/dL RDW (11.5-15.5) % Plt Count (150-450) k/uL Neutrophils % % Lymphocytes % % Monocytes % % Eosinophils % % Basophils % % Neutrophils # (1.3-7.7) k/uL Lymphocytes # (1.0-4.8) k/uL Monocytes # (0-1.0) k/uL Eosinophils # (0-0.7) k/uL Basophils # (0-0.2) k/uL PT 10.0 (9.0-12.0) sec INR 1.0 (<1.2) APTT 21.0 L (22.0-30.0) sec Sodium (137-145) mmol/L Potassium (3.5-5.1) mmol/L Chloride (98-107) mmol/L Carbon Dioxide (22-30) mmol/L Anion Gap mmol/L BUN (9-20) mg/dL Creatinine (0.66-1.25) mg/dL Est GFR (CKD-EPI)AfAm (>60 ml/min/1.73 sqM) Est GFR (CKD-EPI)NonAf (>60 ml/min/1.73 sqM) Glucose (74-99) mg/dL Plasma Lactic Acid [place] (0.7-2.0) mmol/L Calcium (8.4-10.2) mg/dL Magnesium (1.6-2.3) mg/dL Total Bilirubin (0.2-1.3) mg/dL AST (17-59) U/L ALT (4-49) U/L Alkaline Phosphatase (38-126) U/L Creatine Kinase (55-170) U/L Troponin I <0.012 (0.000-0.034) ng/mL Total Protein (6.3-8.2) g/dL Albumin (3.5-5.0) g/dL Amylase (30-110) U/L Lipase (23-300) U/L Urine Color Yellow Urine Appearance Clear (Clear) Urine pH 5.0 (5.0-8.0) Ur Specific [place] 1.029 (1.001-1.035) Urine Protein Trace H (Negative) Urine Glucose (UA) Negative (Negative) Urine Ketones Negative (Negative) Urine Blood Negative (Negative) Urine Nitrite Negative (Negative) Urine Bilirubin Negative (Negative) Urine Urobilinogen <2.0 (<2.0) mg/dL Ur Leukocyte Esterase Negative (Negative) - Radiology Data Radiology results: image reviewed (Chest x-ray shows no acute process) Disposition Clinical Impression: Dehydration Disposition: ADMITTED IP TO THIS [facility] Is patient prescribed a controlled substance at d/c from ED?: No Referrals: [facility],Clinic [Primary Care Provider] - 1-2 days Decision Time: 19:19
[2019-06-17 18:00] LABS: Basophils % (A) 0 %; Eosinophils # (A) 0.1 k/uL (0-0.7); Eosinophils % (A) 1 %; Lymphocytes # (A) 1.4 k/uL (1.0-4.8); Lymphocytes % (A) 18 %; MCH 30.7 pg (25.0-35.0); MCHC 33.6 g/dL (31.0-37.0); MCV 91.5 fL (80.0-100.0); Monocytes # (A) 0.5 k/uL (0-1.0); Monocytes % (A) 7 %; Neutrophils # (A) 5.5 k/uL (1.3-7.7); Neutrophils % (A) 72 %; Platelet Count 281 k/uL (150-450); RBC 2.95 m/uL (4.30-5.90); RDW 13.6 % (11.5-15.5); WBC 7.6 k/uL (3.8-10.6)
[2019-06-17 18:02] LABS: HGB 9.1 gm/dL (13.0-17.5)
[2019-06-17 18:15] LABS: ALT 12 U/L (4-49); AST 16 U/L (17-59); African American GFR (CKD) >90 (>60 ml/min/1.73 sqM); Albumin 3.3 g/dL (3.5-5.0); Alkaline Phosphatase 51 U/L (38-126); Amylase 49 U/L (30-110); Anion Gap 8 mmol/L; Blood Urea Nitrogen 64 mg/dL (9-20); Calcium 8.9 mg/dL (8.4-10.2); Carbon Dioxide 23 mmol/L (22-30); Chloride 104 mmol/L (98-107); Creatine Kinase 24 U/L (55-170); Glucose 136 mg/dL (74-99); Magnesium 1.8 mg/dL (1.6-2.3); Non-African American GFR(CKD) >90 (>60 ml/min/1.73 sqM); Potassium 4.3 mmol/L (3.5-5.1); Sodium 135 mmol/L (137-145); Total Bilirubin 0.4 mg/dL (0.2-1.3); Total Protein 5.8 g/dL (6.3-8.2)
[2019-06-17 18:18] LABS: Appearance,Urine Clear (Clear); Bilirubin,Urine Negative (Negative); Blood,Urine Negative (Negative); Color,Urine Yellow; Glucose,Urine (UA) Negative (Negative); Ketones,Urine Negative (Negative); Leukocyte Esterase,Urine Negative (Negative); Nitrite,Urine Negative (Negative); Protein,Urine Trace (Negative); Specific Gravity,Urine 1.029 (1.001-1.035); Urobilinogen,Urine <2.0 mg/dL (<2.0)
--- NOTE | 2019-06-17 18:49 | XR ---
EXAMINATION TYPE: XR chest 2V DATE OF EXAM: 06/17/2019 COMPARISON: 05/24/2019 HISTORY: Difficulty breathing TECHNIQUE: 3 views FINDINGS: Heart is normal. Lungs are clear of infiltrate. There is no heart failure. There are no hil ar masses. There is mild pulmonary hyperinflation. Bony thorax is intact. IMPRESSION: No active cardiopulmonary disease. No change. There is probably some COPD.
[2019-06-17] MEDS ORDERED: NALOXONE 0.4 MG/ML 1 ML VIAL IV PRN (19:19)
[2019-06-17] MEDS ORDERED: ONDANSETRON 4 MG/2 ML VIAL IVP PRN (19:19)
[2019-06-17] MEDS: SODIUM CHLORIDE 0.9% 1,000 ML IV SCH (21:37)
[2019-06-17] MEDS ORDERED: IPRATROPIUM-ALBUTEROL 3 ML NEB INHALATION PRN (21:57)
[2019-06-17] MEDS ORDERED: Potassium Replacement Protocol 1 EACH MISC MISCELLANE PRN (21:59)
[2019-06-17] MEDS ORDERED: Magnesium Replacement Protocol 1 EACH MISC MISCELLANE PRN (22:00)
[2019-06-18] MEDS: ACETAMINOPHEN TAB 325 MG TAB PO PRN ×4 (02:14→23:41)
[2019-06-18] MEDS: SODIUM CHLORIDE 0.9% 1,000 ML IV SCH (04:20)
--- NOTE | 2019-06-18 07:48 | P.HPIM ---
History of Present Illness This is a pleasant 68 years old male with past medical history of COPD, gastroesophageal reflux disease, hypertension, prostate cancer status post surgery and prostatectomy, hep C, heroin abuse and overdose. Patient comes with difficulty swallowing of one week duration. Patient states that has been diagnosed with hiatal hernia on 03/[address] Jorge when tested him, for the last week she's been having difficulty eating and drinking for almost everything he eats comes back up to his mouth but no overt vomiting or nausea. He had some sort pain but no abdominal pain, also he had those black colored stool with drop of his hemoglobin. And on examination he has epigastric tenderness. Denies smoking, alcohol or illicit drugs. States he stopped using her wound Also patient complains from chronic low back pain Labs showing a drop of hemoglobin from 14.4 on 04/2019, down to 9.1 yesterday. INR is normal at 1.0, sodium 135, creatinine 0.79, BUN is elevated at 64, glucose 136, AST 16 ALT 12 which were not elevated. Lipase is normal. Urinalysis is clear. EKG showing normal sinus rhythm at [address]-T changes. Chest x-ray: His with no acute process by radiologist. In the emergency room Patient got liter and a half of normal saline, Zofran, Pepcid. And he was started on normal saline and 120 mL/h. And Protonix Vitals are stable. Review of Systems CONSTITUTIONAL: No fever, no malaise, no fatigue. HEENT: No recent visual problems or hearing problems. Denied any sore throat. CARDIOVASCULAR: No orthopnea, PND, no palpitations, no syncope. PULMONARY: No shortness of breath, no cough, no hemoptysis. GASTROINTESTINAL: No diarrhea, no nausea, no vomiting, no abdominal pain. Normoactive bowel sounds. NEUROLOGICAL: No headaches, no weakness, no numbness. HEMATOLOGICAL: Denies any bleeding or petechiae. GENITOURINARY: Denies any burning micturition, frequency, or urgency. MUSCULOSKELETAL/RHEUMATOLOGICAL: Denies any joint pain, swelling, or any muscle pain. ENDOCRINE: Denies any polyuria or polydipsia. Past Medical History Past Medical History: Cancer, COPD, GERD/Reflux, Hypertension, Prostate Disorder Additional Past Medical History / Comment(s): having a hard time eating and acid reflux coming up into my chest.hx prostate CA. Hep C History of Any Multi-Drug Resistant Organisms: MRSA Date of last positivie culture/infection: 06/13/18 MDRO Source:: Left Hand Past Surgical History: Hernia Repair, Orthopedic Surgery, Prostate Surgery Additional Past Surgical History / Comment(s): Laparotomy with drainage of abscess. Prostatectomy with da Jessi Past Anesthesia/Blood Transfusion Reactions: No Reported Reaction Additional Past Anesthesia/Blood Transfusion Reaction / Comment(s): no hx blood transfusion Past Psychological History: Depression Smoking Status: Former smoker Past Alcohol Use History: Daily, Heavy Past Drug Use History: Heroin, Methamphetamine, Opiates, Prescription Drug Abuse Additional Drug Use History / Comment(s): past drug use heroin,methamphetamines,opiates,prescription-last use approx 1 month ago - Past Family History Father Family Medical History: Cancer Additional Family Medical History / Comment(s): cholecystectomy, pancreatic cancer Medications and Allergies Home Medications Medication Instructions Recorded Confirmed Type Pregabalin [Lyrica] 75 mg PO BID PRN 05/24/19 06/17/19 History Budesonide/Formoterol Fumarate 1 puff INHALATION RT-BID 06/17/19 06/17/19 History [Symbicort 160-4.5 Mcg Inhaler] Cholecalciferol [Vitamin D3 (25 2,000 unit PO DAILY 06/17/19 06/17/19 History Mcg = 1000 Iu)] Famotidine [Pepcid] 40 mg PO BID 06/17/19 06/17/19 History Magnesium Oxide [Mag-Ox] 500 mg PO BID 06/17/19 06/17/19 History Methocarbamol [Robaxin] 750 mg PO QID PRN 06/17/19 06/17/19 History Naproxen [Naprosyn] 500 mg PO Q12HR PRN 06/17/19 06/17/19 History Allergies Allergy/AdvReac Type Severity Reaction Status Date / Time erythromycin base AdvReac Nausea & Verified 06/17/19 18:07 Vomiting & Diarrhea Sulfa (Sulfonamide AdvReac Nausea & Verified 06/17/19 18:07 Antibiotics) Vomiting & Diarrhea Physical Exam Vitals: Vital Signs Temp Pulse Pulse Resp BP BP Pulse Ox 06/18/19 06:26 98.4 F 79 20 134/61 98 06/17/19 21:20 97.6 F 79 20 137/72 100 06/17/19 20:30 83 18 116/63 97 06/17/19 19:00 89 18 158/89 96 06/17/19 17:10 97.6 F 106 H 20 119/78 99 Intake and Output 06/17/19 06/18/19 06/18/19 22:59 06:59 14:59 Intake Total 100 Output Total 450 Balance 100 -450 Intake: Oral 100 Output: Urine 450 Other: Weight 54.431 kg -GENERAL: The patient is alert and oriented x3, not in any acute distress. Thin built HEENT: Pupils are round and equally reacting to light. EOMI. No scleral icterus. No conjunctival pallor. Normocephalic, atraumatic. No pharyngeal erythema. No thyromegaly. CARDIOVASCULAR: S1 and S2 present. No murmurs, rubs, or gallops. PULMONARY: Chest is clear to auscultation, no wheezing or crackles. -ABDOMEN: Soft, epigastric tenderness with no guarding or rebound tenderness nondistended, normoactive bowel sounds. No palpable organomegaly. MUSCULOSKELETAL: No joint swelling or deformity. EXTREMITIES: No cyanosis, clubbing, or pedal edema. NEUROLOGICAL: Gross neurological examination did not reveal any focal deficits. SKIN: No rashes. No petechiae Results CBC & Chem 7: 06/17/19 17:42 06/17/19 17:42 Labs: Abnormal Lab Results - Last 24 Hours (Table) 06/17/19 06/17/19 06/17/19 Range/Units 17:42 17:42 17:42 RBC 2.95 L (4.30-5.90) m/uL Hgb 9.1 L D (13.0-17.5) gm/dL Hct 27.0 L (39.0-53.0) % APTT 21.0 L (22.0-30.0) sec Sodium 135 L (137-145) mmol/L BUN 64 H (9-20) mg/dL Glucose 136 H (74-99) mg/dL AST 16 L (17-59) U/L Creatine Kinase 24 L (55-170) U/L Total Protein 5.8 L (6.3-8.2) g/dL Albumin 3.3 L (3.5-5.0) g/dL Urine Protein (Negative) 01/21/20 Range/Units 17:55 RBC (4.30-5.90) m/uL Hgb (13.0-17.5) gm/dL Hct (39.0-53.0) % APTT (22.0-30.0) sec Sodium (137-145) mmol/L BUN (9-20) mg/dL Glucose (74-99) mg/dL AST (17-59) U/L Creatine Kinase (55-170) U/L Total Protein (6.3-8.2) g/dL Albumin (3.5-5.0) g/dL Urine Protein Trace H (Negative) Thrombosis Risk Factor Assmnt - Choose All That Apply Any of the Below Risk Factors Present?: Yes Other Risk Factors: Yes Each Risk Factor Represents 2 Points: Age 61-74 years Thrombosis Risk Factor Assessment Total Risk Factor Score: 2 Thrombosis Risk Factor Assessment Level: Low Risk Assessment and Plan Assessment: Difficulty swallowing Black stool with epigastric tenderness, rule out GI bleed Dehydration GERD Hypertension Hep C COPD, not acute exacerbation History of prostate cancer status post surgery History of heroin abuse and overdose Plan: This is a pleasant 68 years old male who presents with difficulty eating and drinking, dehydration and black stool. Rule out GI bleed We are going to do anemia workup. Continue with IV fluids and symptomatic treatment, continue with Protonix. Call GI consult Labs and medication were reviewed.. Continue same treatment. Continue with symptomatic treatment. Resume home medication. Monitor lytes and vitals. DVT and GI prophylaxis. Further recommendations of the clinical course of the patient DVT prophylaxis: No heparin, and in view of possible GI bleed GI Prophylaxis: Protonix PT/OT: Pending Prognosis is guarded
[2019-06-18 07:54] LABS: African American GFR (CKD) >90 (>60 ml/min/1.73 sqM); Anion Gap 5 mmol/L; Blood Urea Nitrogen 46 mg/dL (9-20); Calcium 8.1 mg/dL (8.4-10.2); Carbon Dioxide 23 mmol/L (22-30); Chloride 107 mmol/L (98-107); Glucose 107 mg/dL (74-99); Magnesium 1.6 mg/dL (1.6-2.3); Non-African American GFR(CKD) >90 (>60 ml/min/1.73 sqM); Potassium 4.1 mmol/L (3.5-5.1); Sodium 135 mmol/L (137-145)
[2019-06-18 07:57] LABS: Basophils % (A) 0 %; Eosinophils # (A) 0.1 k/uL (0-0.7); Eosinophils % (A) 1 %; HCT 20.7 % (39.0-53.0); Lymphocytes # (A) 2.1 k/uL (1.0-4.8); Lymphocytes % (A) 35 %; MCH 31.2 pg (25.0-35.0); MCHC 34.2 g/dL (31.0-37.0); MCV 91.3 fL (80.0-100.0); Mean Platelet Volume 8.7; Monocytes # (A) 0.4 k/uL (0-1.0); Monocytes % (A) 7 %; Neutrophils # (A) 3.2 k/uL (1.3-7.7); Neutrophils % (A) 55 %; Platelet Count 233 k/uL (150-450); RBC 2.27 m/uL (4.30-5.90); RDW 13.9 % (11.5-15.5); WBC 5.9 k/uL (3.8-10.6)
[2019-06-18 08:05] LABS: HGB 7.1 gm/dL (13.0-17.5)
[2019-06-18] MEDS: PANTOPRAZOLE 40 MG/10 ML VIAL IV SCH (08:17)
[2019-06-18] MEDS: DEXTROSE 5%-0.9% NACL 1,000 ML IV SCH ×2 (08:23→16:53)
[2019-06-18 12:09] VITALS: BMI 18.8
[2019-06-18] MEDS ORDERED: IV FLUID CONTINUATION 1,000 ML IV ONE (12:18)
[2019-06-18] MEDS ORDERED: PROPOFOL 10 MG/ML 20 ML VIAL IV ONE (12:24)
--- NOTE | 2019-06-18 12:34 | P.PCN ---
Date of Procedure: 06/18/19 Procedure(s) Performed: BRIEF HISTORY: Patient is a 68-year-old, pleasant, male, admitted hospital with dysphagia for the last 3-4 days duration and black tarry stools and dropped hemoglobin from 14-9 g/dL. His and scheduled for an upper endoscopy to evaluate further. PROCEDURE PERFORMED: Esophagogastroduodenoscopy with biopsy. PREOPERATIVE DIAGNOSIS: .Dysphagia/melena/drop in hemoglobin IV sedation per anesthesia. PROCEDURE: After informed consent was obtained, the patient was brought into the endoscopy unit. IV sedation was administered by Anesthesia under continuous monitoring. Initially the Olympus GIF-140 video endoscope was inserted into the mouth. Esophagus intubated without any difficulty. It was gradually advanced into the stomach and duodenum and carefully examined. The bulb and the second part of the duodenum appeared normal. The scope at this time was withdrawn to the stomach, adequately insufflated with air, and upon careful examination, mucosa of the antrum, appeared normal. The proximal body the stomach there was a 7-8 mm clean-based ulcer identified with no active bleeding and biopsies were done from the margin of the ulcer. Rest of the body, cardia and the fundus appeared normal. The scope was then withdrawn into the esophagus. The GE junction was located at 39 cm from the incisors. There were linear ulcerations and erosions of the distal esophagus consistent with LA grade C reflux esophagitis. Biopsies were done from the distal esophagus and the patient tolerated the procedure well. IMPRESSION: 1. 7-8 mm in-based proximal gastric ulcer with no active bleeding status post biopsy 2. Linear erosions and ulcerations in the mid and distal esophagus consistent with LA grade C reflux esophagitis RECOMMENDATIONS: The findings of this examination were discussed with the patient as well as his family. He was advised to follow with the biopsy . He results.'ll be continued on Protonix 40 mg daily and was briefly educated about antireflux measures. Diet will be advanced as tolerated.
[2019-06-18 13:15] LABS: % Iron Saturation 16.27 (15.00-50.00)
[2019-06-18 13:25] LABS: Ferritin 69.4 ng/mL (22.0-322.0)
[2019-06-18 13:30] LABS: Folate, Serum 14.5 ng/mL
--- NOTE | 2019-06-18 14:13 | CONS ---
CONSULTATION DATE OF DICTATION: 06/18/2019 REASON FOR CONSULTATION: Dysphagia, black tarry stools of 4 days' duration. HISTORY OF PRESENT ILLNESS: The patient is a 68-year-old pleasant white male who was admitted to the hospital because of progressive dysphagia to solids for the last 4-5 days duration. For the same duration of time, he was having some black tarry stools also. He states he had an upper endoscopy done. Upper endoscopy as well as colonoscopy done by Dr. Cordova in March of 2019 that showed evidence of gastritis, esophagitis and was treated with Protonix 40 mg daily. However, the patient has not been taking the medications lately. He states that because of poor oral intake, he lost about 15-20 pounds in the last 3 month's duration. His hemoglobin in April of 2019 was 13.4 and during this hospitalization. it was 9.1 g/dL. He has been having black tarry stools. He denies any nausea, vomiting. No abdominal pain. PAST MEDICAL HISTORY: Significant for GERD, hypertension, prostate disorder prostate cancer. PAST SURGICAL HISTORY: Hernia repair, prostatectomy. SOCIAL HISTORY: Former smoker and heavy alcohol abuse. FAMILY HISTORY: Father had pancreatic cancer. MEDICATIONS: At home, Lyrica, Symbicort, Pepcid, magnesium oxide, Robaxin, Naproxen. ALLERGIES: To ERYTHROMYCIN and SULFA. REVIEW OF SYSTEMS: CARDIOPULMONARY: No chest pain, no shortness of breath. GENITOURINARY: No dysuria or hematuria. MUSCULOSKELETAL: Unremarkable. SKIN: Unremarkable. ENDOCRINE: Unremarkable. PSYCHIATRIC: Unremarkable. NEUROLOGY: Unremarkable. ENT/VISION: Unremarkable. CONSTITUTIONAL: Weight loss of 20 pounds. No fever, chills, night sweats. PHYSICAL EXAMINATION: Appears comfortable. No apparent distress. Vital signs are stable. Blood pressure is 134/61, pulse is 79, temperature 98.4. HEENT: Examination unremarkable, conjunctivae are pink, sclerae nonicteric. Oral cavity no lesions. NECK: No JVD or lymph node enlargement. CHEST: Clear to auscultation. HEART: Regular rate and rhythm. ABDOMEN: Soft, bowel sounds are positive. No organomegaly. EXTREMITIES: No pedal edema. SKIN: No rashes. NEUROLOGIC: Alert and oriented x3. No focal deficits. LABS: From yesterday WBC 7.6, hemoglobin 9.1, platelets normal. INR is 1, BUN 64, creatinine 0.79. Repeat labs today WBC is 5.9, hemoglobin is down to 7.1, BUN is 46, creatinine 0.76. Rest of the labs are within normal limits. IMPRESSION: 1. Dysphagia/odynophagia for the last 3-4 days' duration. Patient is known to have history of gastroesophageal reflux disease and was supposed to be on proton pump inhibitors but patient has not been taking the medication as prescribed. Now concerns with worsening symptoms, most likely related to worsening reflux esophagitis. 2. Drop in hemoglobin from 14 g/dL in April of 2019 to 7.1 g/dL today. Clinically, he has been having some black tarry stools for the last few days. No upper GI symptoms of bleeding. He also takes naproxen as needed and possibility of peptic ulcer disease needs to be considered. 3. Heavy alcohol abuse. 4. Questionable history of chronic hepatitis C infection in the past. 5. Progressive weight loss of 20 pounds in the last 4 months. RECOMMENDATION: 1. Will start him on Protonix 40 mg twice daily. 2. Proceed with an upper endoscopy today. Discussed with the patient the complications of the procedure and he is agreeable to it. 3. Repeat CBC in the morning and will follow with you closely during this hospital stay. Thank you for this consultation. VERENICE / DREAN: [id number] /
[2019-06-18] MEDS: FERROUS SULFATE 325 MG TAB PO SCH (23:24)
[2019-06-18] MEDS: CYANOCOBALAMIN 1,000 MCG/ML 1 ML VIAL IM SCH (23:25)
[2019-06-19] MEDS: DEXTROSE 5%-0.9% NACL 1,000 ML IV SCH ×2 (03:26→13:55)
[2019-06-19] MEDS: PANTOPRAZOLE 40 MG/10 ML VIAL IV SCH (07:42)
[2019-06-19] MEDS: ACETAMINOPHEN TAB 325 MG TAB PO PRN ×3 (07:42→19:30)
[2019-06-19] MEDS: FERROUS SULFATE 325 MG TAB PO SCH ×2 (07:50→17:30)
[2019-06-19] MEDS: CYANOCOBALAMIN 1,000 MCG/ML 1 ML VIAL IM SCH (07:51)
--- NOTE | 2019-06-19 08:39 | P.PN ---
Subjective This is a pleasant 68 years old male with past medical history of COPD, gastroesophageal reflux disease, hypertension, prostate cancer status post s urgery and prostatectomy, hep C, heroin abuse and overdose. Patient comes with difficulty swallowing of one week duration. Patient states that has been diagnosed with hiatal hernia on 03/[address] Jorge when tested him, for the last week she's been having difficulty eating and drinking for almost everything he eats comes back up to his mouth but no overt vomiting or nausea. He had some sort pain but no abdominal pain, also he had those black colored stool with drop of his hemoglobin. And on examination he has epigastric tenderness. Denies smoking, alcohol or illicit drugs. States he stopped using her wound Also patient complains from chronic low back pain Labs showing a drop of hemoglobin from 14.4 on 04/2019, down to 9.1 yesterday. INR is normal at 1.0, sodium 135, creatinine 0.79, BUN is elevated at 64, glucose 136, AST 16 ALT 12 which were not elevated. Lipase is normal. Ur inalysis is clear. EKG showing normal sinus rhythm at [address]-T changes. Chest x-ray: His with no acute process by radiologist. In the emergency room Patient got liter and a half of normal saline, Zofran, Pepcid. And he was started on normal saline and 120 mL/h. And Protonix Vitals are stable. 06/19/2019 Patient status post EGD yesterday which shows peptic ulcer disease with esophagitis with linear ulceration and inflammation. Patient says his pain is a little bit better, he couldn't tolerate that half of his diet this morning. His abdominal tenderness is slightly less than yesterday. Patient is counseled about keeping away from NSAIDs like Motrin, Naprosyn and more week and he verbalized understanding and acceptance. Also he can take Tylenol and he should be on antiacids like Protonix and he agrees. Hemoglobin yesterday was 7.1, patient was started on iron pills and we'll monitor his hemoglobin and acute drop in hemoglobin went into blood transfusion, risks, benefits and alternative for blood transfusion explained to him and he agrees if his needed. No other new complaints. Review of systems CONSTITUTIONAL: No fever, no malaise, no fatigue. HEENT: No recent visual problems or hearing problems. Denied any sore throat. CARDIOVASCULAR: No orthopnea, PND, no palpitations, no syncope. PULMONARY: No shortness of breath, no cough, no hemoptysis. GASTROINTESTINAL: No diarrhea, no nausea, no vomiting, no abdominal pain. N ormoactive bowel sounds. NEUROLOGICAL: No headaches, no weakness, no numbness. HEMATOLOGICAL: Denies any bleeding or petechiae. GENITOURINARY: Denies any burning micturition, frequency, or urgency. MUSCULOSKELETAL/RHEUMATOLOGICAL: Denies any joint pain, swelling, or any muscle pain. ENDOCRINE: Denies any polyuria or polydipsia. Active Medications Generic Name Dose Route Start Last Admin Trade Name Freq PRN Reason Stop Dose Admin Acetaminophen 650 mg 06/18/19 02:06 06/19/19 07:42 Tylenol Tab PO 650 mg Q4HR PRN Administration Fever and/ or Pain Albuterol/Ipratropium 3 ml 06/17/19 21:57 Duoneb 0.5 Mg-3 Mg/3 Ml Soln INHALATION RT-Q4H PRN Shortness Of Breath Or Wheezing Cyanocobalamin 1,000 mcg 06/18/19 22:30 06/19/19 07:51 Vitamin B-12 IM 1,000 mcg DAILY COLBY Administration Ferrous Sulfate 325 mg 06/18/19 22:30 06/19/19 07:50 Feosol PO 325 mg BID-W/MEALS COLBY Administration Dextrose/Sodium Chloride 1,000 mls @ 100 mls/hr 06/18/19 07:45 06/19/19 03:26 Dextrose 5%-Ns Iv Soln IV 100 mls/hr .Q10H COLBY Administration Miscellaneous Information 1 each 06/17/19 21:59 Potassium Per Protocol MISCELLANE DAILY PRN Per Protocol Protocol Miscellaneous Information 1 each 06/17/19 22:00 Magnesium Per Protocol MISCELLANE DAILY PRN Per Protocol Protocol Naloxone HCl 0.2 mg 06/17/19 19:19 Narcan IV Q2M PRN Opioid Reversal Ondansetron HCl 4 mg 06/17/19 19:19 Zofran IVP Q8HR PRN Nausea And Vomiting Pantoprazole Sodium 40 mg 06/18/19 09:00 06/19/19 07:42 Protonix IV 40 mg DAILY COLBY Administration Objective - Vital Signs Vital signs: Vital Signs Temp 98.8 F 06/19/19 05:17 Pulse 71 06/19/19 05:17 Resp 20 06/19/19 05:17 BP 139/64 06/19/19 05:17 Pulse Ox 99 06/19/19 05:17 Intake & Output 06/18/19 06/19/19 06/19/19 18:59 06:59 18:59 Intake Total 1440 Output Total 900 650 Balance 540 -650 Weight 54.431 kg Intake: IV 900 Dextrose 5%-0.9% NaCl 1, 800 000 ml @ 100 mls/hr IV . Q10H COLBY Rx#:[id number] Oral 540 Output: Urine 900 650 Other: # Voids 300 # Bowel Movements 0 - Exam -GENERAL: The patient is alert and oriented x3, not in any acute distress. Thin built HEENT: Pupils are round and equally reacting to light. EOMI. No scleral icterus. No conjunctival pallor. Normocephalic, atraumatic. No pharyngeal erythema. No thyromegaly. CARDIOVASCULAR: S1 and S2 present. No murmurs, rubs, or gallops. PULMONARY: Chest is clear to auscultation, no wheezing or crackles. -ABDOMEN: Soft, epigastric tenderness with no guarding or rebound tenderness n ondistended, normoactive bowel sounds. No palpable organomegaly. MUSCULOSKELETAL: No joint swelling or deformity. EXTREMITIES: No cyanosis, clubbing, or pedal edema. NEUROLOGICAL: Gross neurological examination did not reveal any focal deficits. SKIN: No rashes. No petechiae - Labs CBC & Chem 7: 06/18/19 07:02 06/18/19 07:02 Labs: Abnormal Lab Results - Last 24 Hours (Table) 06/18/19 Range/Units 07:02 Iron 41 L (65-175) ug/dL Assessment and Plan Assessment: Peptic ulcer disease with gastric ulcer of 7-8 mm, not actively bleeding. With linear erosions and ulceration in the mid and distal esophagus consistent with reflux esophagitis, per EGD done on 06/18/2019 acute blood loss anemia Dehydration, Improving Low vitamin B12 GERD Hypertension Hep C COPD, not acute exacerbation History of prostate cancer status post surgery History of heroin abuse and overdose Plan: This is a pleasant 68 years old male who presents with peptic ulcer disease and GERD. Continue with Protonix and iron pills. Monitor hemoglobin and transfuse if hemoglobin less than 7. Follow-up recommendation by GI team. Replace vitamin B12 Labs and medication were reviewed.. Continue same treatment. Continue with symptomatic treatment. Resume home medication. Monitor lytes and vitals. DVT and GI prophylaxis. Further recommendations of the clinical course of the patient DVT prophylaxis: No heparin, and in view of possible GI bleed GI Prophylaxis: Protonix PT/OT: Pending Prognosis is guarded
[2019-06-19 08:47] LABS: Basophils % (A) 1 %; Eosinophils # (A) 0.1 k/uL (0-0.7); Eosinophils % (A) 2 %; HCT 20.2 % (39.0-53.0); Lymphocytes % (A) 39 %; MCH 31.1 pg (25.0-35.0); MCHC 33.8 g/dL (31.0-37.0); Mean Platelet Volume 8.9; Monocytes # (A) 0.4 k/uL (0-1.0); Monocytes % (A) 8 %; Neutrophils # (A) 2.6 k/uL (1.3-7.7); Neutrophils % (A) 49 %; Platelet Count 222 k/uL (150-450); RBC 2.19 m/uL (4.30-5.90); RDW 14.3 % (11.5-15.5); WBC 5.3 k/uL (3.8-10.6)
[2019-06-19 08:59] LABS: HGB 6.8 gm/dL (13.0-17.5)
[2019-06-19 09:04] LABS: African American GFR (CKD) >90 (>60 ml/min/1.73 sqM); Anion Gap 5 mmol/L; Blood Urea Nitrogen 21 mg/dL (9-20); Calcium 7.6 mg/dL (8.4-10.2); Carbon Dioxide 23 mmol/L (22-30); Chloride 105 mmol/L (98-107); Glucose 110 mg/dL (74-99); Non-African American GFR(CKD) >90 (>60 ml/min/1.73 sqM); Potassium 3.7 mmol/L (3.5-5.1); Sodium 133 mmol/L (137-145)
[2019-06-19 17:05] VITALS: TEMP 98.6
--- NOTE | 2019-06-19 18:17 | PN ---
PROGRESS NOTE DATE OF DICTATION: 06/19/2019 The patient is a 68-year-old pleasant white male admitted to the hospital with black tarry stools and severe dysphagia, odynophagia for the last few days' duration. Hemoglobin dropped to 6.8 g/dL. He is receiving one unit of blood transfusion. He underwent an upper endoscopy done by me yesterday that showed a 1 cm proximal gastric ulcer and severe reflux esophagitis. Presently on Protonix 40 mg daily. He had some dark stool this morning. No abdominal pain. PHYSICAL EXAMINATION: He appears comfortable. No apparent distress. Vital signs are stable. Blood pressure is 154/83, pulse rate 75, temperature 97.9. HEENT examination unremarkable. Conjunctivae pink. Sclerae anicteric. Oral cavity no lesions. NECK: No JVD or lymph node enlargement. CHEST: Clear to auscultation. HEART: Regular rate and rhythm. ABDOMEN: Soft. Mild tenderness in the epigastric area. Bowel sounds are positive. No organomegaly. EXTREMITIES: No pedal edema. SKIN: No rashes. NEUROLOGIC: Alert and oriented x3. No focal deficits. LABS: WBC 5.3, hemoglobin 6.8, platelets are normal. Basic metabolic panel is within normal limits. BUN is 21, creatinine 0.73. IMPRESSION: 1. Anemia/acute gastrointestinal bleed with black tarry stools, status post esophagogastroduodenoscopy yesterday that showed a 1 cm nonbleeding proximal gastric ulcer and severe reflux esophagitis. Presently receiving one unit of PRBC transfusion for a hemoglobin of 6.8 g/dL. 2. Severe reflux esophagitis. RECOMMENDATIONS: 1. Continue with Protonix 40 mg twice daily. 2. Full-liquid diet, and if the hemoglobin is stable, advance as tolerated. 3. Avoid NSAIDs and patient was advised to stop the naproxen and use Tylenol as needed for the chronic back pain. 4. Abstinence from alcohol. 5. Repeat labs in the morning, and if stable he can be discharged home tomorrow. Thank you for this consultation. MMODL / IJN: [id number] /
[2019-06-19 19:01] LABS: Basophils % (A) 1 %; Eosinophils # (A) 0.1 k/uL (0-0.7); Eosinophils % (A) 2 %; HGB 8.1 gm/dL (13.0-17.5); Lymphocytes # (A) 1.8 k/uL (1.0-4.8); Lymphocytes % (A) 38 %; MCH 30.8 pg (25.0-35.0); MCHC 33.6 g/dL (31.0-37.0); MCV 91.5 fL (80.0-100.0); Mean Platelet Volume 8.7; Monocytes # (A) 0.5 k/uL (0-1.0); Monocytes % (A) 9 %; Neutrophils # (A) 2.3 k/uL (1.3-7.7); Neutrophils % (A) 47 %; Platelet Count 244 k/uL (150-450); RBC 2.62 m/uL (4.30-5.90); RDW 14.6 % (11.5-15.5); WBC 4.9 k/uL (3.8-10.6)
[2019-06-19] MEDS: PANTOPRAZOLE 40 MG TABLET PO SCH (23:31)
[2019-06-20] MEDS: ACETAMINOPHEN TAB 325 MG TAB PO PRN (00:48)
[2019-06-20] MEDS: DEXTROSE 5%-0.9% NACL 1,000 ML IV SCH ×2 (00:51→09:29)
[2019-06-20 06:15] VITALS: BP 136/65; PULSE 66; RESP 18
[2019-06-20 08:49] LABS: African American GFR (CKD) >90 (>60 ml/min/1.73 sqM); Anion Gap 3 mmol/L; Blood Urea Nitrogen 10 mg/dL (9-20); Calcium 7.9 mg/dL (8.4-10.2); Carbon Dioxide 25 mmol/L (22-30); Chloride 106 mmol/L (98-107); Glucose 98 mg/dL (74-99); Non-African American GFR(CKD) >90 (>60 ml/min/1.73 sqM); Sodium 134 mmol/L (137-145)
[2019-06-20 08:54] LABS: Basophils % (A) 0 %; Eosinophils # (A) 0.2 k/uL (0-0.7); Eosinophils % (A) 5 %; HCT 23.7 % (39.0-53.0); HGB 8.1 gm/dL (13.0-17.5); Lymphocytes # (A) 1.9 k/uL (1.0-4.8); Lymphocytes % (A) 42 %; MCH 31.2 pg (25.0-35.0); MCHC 34.2 g/dL (31.0-37.0); MCV 91.3 fL (80.0-100.0); Mean Platelet Volume 8.6; Monocytes # (A) 0.4 k/uL (0-1.0); Monocytes % (A) 9 %; Neutrophils % (A) 42 %; Platelet Count 272 k/uL (150-450); Poikilocytosis Slight; RBC 2.59 m/uL (4.30-5.90); RDW 15.6 % (11.5-15.5); WBC 4.6 k/uL (3.8-10.6)
--- NOTE | 2019-06-20 08:57 | P.DS ---
Providers Date of admission: 06/19/19 11:57 Attending physician: Jax Restrepo MD Consults: 06/17/19 19:20 Consult Physician Urgent Consulting Provider: Andree Jorge Consult Reason/Comments: dehydration, anorexia Do you want consulting provider notified?: Yes 06/18/19 07:47 Consult Physician Urgent Consulting Provider: Andree Jorge Consult Reason/Comments: Difficulty swallowing and black stool Do you want consulting provider notified?: Yes Primary care physician: [facility] Hospital Course: Diagnoses: Peptic ulcer disease with gastric ulcer of 7-8 mm, not actively bleeding. With linear erosions and ulceration in the mid and distal esophagus consistent with reflux esophagitis, per EGD done on 06/18/2019 acute blood loss anemia Dehydration, Improving Low vitamin B12 GERD Hypertension Hep C COPD, not acute exacerbation History of prostate cancer status post surgery History of heroin abuse and overdose Hospital course: This is a pleasant 68 years old male with past medical history of COPD, gastroesophageal reflux disease, hypertension, prostate cancer status post surgery and prostatectomy, hep C, heroin abuse and overdose. Patient comes with difficulty swallowing of one week duration. Patient states that has been diagnosed with hiatal hernia on 03/[address] Jorge when tested him, for the last week she's been having difficulty eating and drinking for almost everything he eats comes back up to his mouth, black colored stool with drop of his hemoglobin. And on examination he has epigastric tenderness. Was taking NSAIDs for his back pain and he consult to avoid NSAIDs and instead he can use Tylenol and lidocaine patch He had EGD which shows peptic ulcer disease with esophagitis with linear ulceration and inflammation. His hemoglobin dropped to 6.8 and he received monitor blood transfusion, after that his abdomen went up to 8.1 His vitamin B12 level was low normal at 228, patient got injection and will discharge on oral replacement with a recommendation to recheck it as an outpatient Patient symptoms improved and he tolerated diet with this pain. Patient was cleared for discharge by GI team. Patient will be discharged on Protonix twice a day, Tylenol and lidocaine patch Problems and management plan were discussed with the patient and he verbalized understanding and acceptance Patient was found stable and can be discharged home however he needs follow-up as an outpatient. Patient was instructed to follow up with PCP within one week and patient agrees. Patient was instructed to follow up with his intern in 1-2 weeks and he agrees, patient instructed to follow-up the biopsy results and he agrees Notes: The family were requesting patient. Psych consult for his bipolar, however when I asked the patient he denies depression, no euphoria no hopelessness or helplessness, no suicidal ideation or homicidal ideation. No delusions or hallucinations. No other psych issue under my encounter. Patient was instructed to follow up with his PCP and his psychiatrist as an outpatient and he agrees Gen: patient is a AAOx3, no distress CVS: S1-S2, RRR, no murmur Lungs: B/L CTA, no wheezing Abdomen: soft, no distention, no tenderness, positive bowel sounds Extremity: no leg edema or induration Time spent more than 35 minutes Plan - Discharge Summary New Discharge Prescriptions: New Ferrous Sulfate [Iron (65 MG Elemental)] 325 mg PO BID-W/MEALS #60 tab Lidocaine 5% Patch [Lidoderm 5% Patch] 1 patch TOPICAL DAILY #30 patch Pantoprazole [Protonix] 40 mg PO AC-BID #60 tablet. Acetaminophen Tab [Tylenol] 650 mg PO Q4HR PRN tab PRN Reason: Fever And/ Or Pain Cyanocobalamin [Vitamin B-12] 1,000 mcg PO DAILY #30 tablet Continue Pregabalin [Lyrica] 75 mg PO BID PRN PRN Reason: Pain Budesonide/Formoterol Fumarate [Symbicort 160-4.5 Mcg Inhaler] 1 puff INHALATION RT-BID Naproxen [Naprosyn] 500 mg PO Q12HR PRN PRN Reason: Pain Magnesium Oxide [Mag-Ox] 500 mg PO BID Cholecalciferol [Vitamin D3 (25 Mcg = 1000 Iu)] 2,000 unit PO DAILY Methocarbamol [Robaxin] 750 mg PO QID PRN PRN Reason: Muscle Spasm Discontinued Famotidine [Pepcid] 40 mg PO BID Discharge Medication List Pregabalin [Lyrica] 75 mg PO BID PRN 05/24/19 [History] Budesonide/Formoterol Fumarate [Symbicort 160-4.5 Mcg Inhaler] 1 puff INHALATION RT-BID 06/17/19 [History] Cholecalciferol [Vitamin D3 (25 Mcg = 1000 Iu)] 2,000 unit PO DAILY 06/17/19 [History] Magnesium Oxide [Mag-Ox] 500 mg PO BID 06/17/19 [History] Methocarbamol [Robaxin] 750 mg PO QID PRN 06/17/19 [History] Naproxen [Naprosyn] 500 mg PO Q12HR PRN 06/17/19 [History] Acetaminophen Tab [Tylenol] 650 mg PO Q4HR PRN tab 06/20/19 [Rx] Cyanocobalamin [Vitamin B-12] 1,000 mcg PO DAILY #30 tablet 06/20/19 [Rx] Ferrous Sulfate [Iron (65 MG Elemental)] 325 mg PO BID-W/MEALS #60 tab 06/20/19 [Rx] Lidocaine 5% Patch [Lidoderm 5% Patch] 1 patch TOPICAL DAILY #30 patch 06/20/19 [Rx] Pantoprazole [Protonix] 40 mg PO AC-BID #60 tablet. 06/20/19 [Rx] Follow up Appointment(s)/Referral(s): Andree Jorge MD [STAFF PHYSICIAN] - 1 Week [facility] [Primary Care Provider] - 1-2 days Activity/Diet/Wound Care/Special Instructions: avoid use NSAIDs, like no motrin , no naprosen , no mobic
[2019-06-20] MEDS ORDERED: PANTOPRAZOLE 40 MG TABLET PO SCH (09:00)
[2019-06-20] MEDS ORDERED: LIDOCAINE 5% PATCH TOPICAL SCH (09:00)
[2019-06-20] MEDS: CYANOCOBALAMIN 1,000 MCG/ML 1 ML VIAL IM SCH (09:29)
[2019-06-20] MEDS: PANTOPRAZOLE 40 MG TABLET PO SCH (09:29)
[2019-06-20] MEDS: FERROUS SULFATE 325 MG TAB PO SCH (09:29)
== END 2019-06-20 13:17 | disposition home or self-care (01) | DRG 378 ==
LOC: EC 17:04 → 6NMEDSUR 19:20 → OBSVTOIN 06-19 11:57
PROVIDERS: ADMIT Internal Medicine; ATTEND Internal Medicine
PROC: 0DB68ZX Excision of Stomach, Via Natural or Artificial Opening Endoscopic, Diagnostic (ICD-10-PCS; principal; 2019-06-18 08:15)
PROC: 30233N1 Transfusion of Nonautologous Red Blood Cells into Peripheral Vein, Percutaneous Approach (ICD-10-PCS; 2019-06-19)
DX: K25.4 Chronic or unspecified gastric ulcer with hemorrhage (principal); D62 Acute posthemorrhagic anemia; K21.0 Gastro-esophageal reflux disease with esophagitis; B18.2 Chronic viral hepatitis C; E86.0 Dehydration; F10.10 Alcohol abuse, uncomplicated; F32.9 Major depressive disorder, single episode, unspecified; I10 Essential (primary) hypertension; J44.9 Chronic obstructive pulmonary disease, unspecified; K44.9 Diaphragmatic hernia without obstruction or gangrene; R13.10 Dysphagia, unspecified; G89.29 Other chronic pain; M54.5 Low back pain; R63.4 Abnormal weight loss; Z79.51 Long term (current) use of inhaled steroids; Z79.899 Other long term (current) drug therapy; Z88.1 Allergy status to other antibiotic agents; Z88.2 Allergy status to sulfonamides; Z87.891 Personal history of nicotine dependence; Z85.46 Personal history of malignant neoplasm of prostate; Z86.14 Personal history of Methicillin resistant Staphylococcus aureus infection; Z90.79 Acquired absence of other genital organ(s); Z80.0 Family history of malignant neoplasm of digestive organs
CPT/HCPCS: 36415; 43239; 71046; 80048; 80053; 81003; 82150; 82550; 82607; 82728; 82746; 83540; 83550; 83605; 83690; 83735; 84484; 85025; 85610; 85730; 86850; 86900; 86901; 86920; 88305; 88312; 93005; 96361; 96374; 96375; 99285

== ENCOUNTER 2020-02-14 18:57 | Emergency (ER) | payer OTHER, MEDICARE ==
[2020-02-14 19:02] VITALS: TEMP 99.2
--- NOTE | 2020-02-14 19:10 | ED ---
General Adult HPI - General Chief complaint: Overdose Stated complaint: OD Time Seen by Provider: 02/14/20 19:02 Source: EMS Mode of arrival: EMS Limitations: no limitations - History of Present Illness Initial comments: Dictation was produced using [employer] dictation software. please excuse any grammatical, word or spelling errors. This patient was cared for during a federal and state declared state of emergency secondary to Covid 19 Chief Complaint: 69-year-old male with history of illicit drug abuse presents with heroin overdose. History of Present Illness: 69-year-old male who uses heroin and opiates recreationally. Patient was allegedly of an arts when he is found to be unresponsive. CPR was initiated and EMS was called. EMS provided patient with 1 mg of intranasal Narcan with improvement of mentation. Patient admits to snorting heroin or carfentanil prior to what happened today. Patient has no other complaints at this time. Patient denies any suicidal or homicidal ideation. The ROS documented in this emergency department record has been reviewed and confirmed by me. Those systems with pertinent positive or negative responses have been documented in the HPI. All other systems are other negative and/or noncontributory. PHYSICAL EXAM: General Impression: Alert and oriented x3, not in acute distress HEENT: Normocephalic atraumatic, extra-ocular movements intact, pupils equal and reactive to light bilaterally, mucous membranes moist. Cardiovascular: Heart regular rate and rhythm Chest: Able to complete full sentences, no retractions, no tachypnea Abdomen: abdomen soft, non-tender, non-distended, no organomegaly Musculoskeletal: Pulses present and equal in all extremities, no peripheral edema Motor: no focal deficits noted Neurological: CN II-XII grossly intact, no focal motor or sensory deficits noted Skin: Intact with no visualized rashes Psych: Normal affect and mood ED course: 69 yo male presents after opiate overdose. vital signs upon arrival shows heart rate of 146, rest of vital signs within acceptable limits. Patient is well-appearing at bedside. Chest X is unremarkable. Patient was observed in emergency Department with no acute issues. Patient's well-appearing at bedside. He is at bedside playing with his cellular phone. He is showing no signs of respiratory distress. Patient warned of the effects of heroin. He is told to follow-up with his primary care physician. - Related Data Home Medications Medication Instructions Recorded Confirmed Pregabalin [Lyrica] 75 mg PO BID PRN 05/24/19 06/17/19 Budesonide/Formoterol Fumarate 1 puff INHALATION RT-BID 06/17/19 06/17/19 [Symbicort 160-4.5 Mcg Inhaler] Cholecalciferol [Vitamin D3 (25 2,000 unit PO DAILY 06/17/19 06/17/19 Mcg = 1000 Iu)] Magnesium Oxide [Mag-Ox] 500 mg PO BID 06/17/19 06/17/19 Naproxen [Naprosyn] 500 mg PO Q12HR PRN 06/17/19 06/17/19 methocarbamoL [Robaxin] 750 mg PO QID PRN 06/17/19 06/17/19 Previous Rx's Medication Instructions Recorded Acetaminophen Tab [Tylenol] 650 mg PO Q4HR PRN tab 06/20/19 Cyanocobalamin [Vitamin B-12] 1,000 mcg PO DAILY #30 tablet 06/20/19 Ferrous Sulfate [Iron (65 MG 325 mg PO BID-W/MEALS #60 tab 06/20/19 Elemental)] Lidocaine 5% Patch [Lidoderm 5% 1 patch TOPICAL DAILY #30 patch 06/20/19 Patch] Pantoprazole [Protonix] 40 mg PO AC-BID #60 tablet. 06/20/19 Allergies Allergy/AdvReac Type Severity Reaction Status Date / Time erythromycin base AdvReac Nausea & Verified 02/14/20 18:58 Vomiting & Diarrhea Sulfa (Sulfonamide AdvReac Nausea & Verified 02/14/20 18:58 Antibiotics) Vomiting & Diarrhea Review of Systems ROS Statement: Those systems with pertinent positive or pertinent negative responses have been documented in the HPI. ROS Other: All systems not noted in ROS Statement are negative. Past Medical History Past Medical History: Cancer, COPD, GERD/Reflux, Hypertension, Prostate Disorder Additional Past Medical History / Comment(s): having a hard time eating and acid reflux coming up into my chest.hx prostate CA. Hep C History of Any Multi-Drug Resistant Organisms: MRSA Date of last positivie culture/infection: 06/13/18 MDRO Source:: Left Hand Past Surgical History: Hernia Repair, Orthopedic Surgery, Prostate Surgery Additional Past Surgical History / Comment(s): Laparotomy with drainage of abscess. Prostatectomy with da Jessi Past Anesthesia/Blood Transfusion Reactions: No Reported Reaction Additional Past Anesthesia/Blood Transfusion Reaction / Comment(s): no hx blood transfusion Past Psychological History: Depression Smoking Status: Never smoker Past Alcohol Use History: Daily, Heavy Past Drug Use History: Heroin, Methamphetamine, Opiates, Prescription Drug Abuse - Past Family History Father Family Medical History: Cancer Additional Family Medical History / Comment(s): cholecystectomy, pancreatic cancer General Exam Limitations: no limitations Course Vital Signs 02/14/20 02/14/20 18:59 19:27 Temperature 99.2 F Pulse Rate 93 85 Respiratory 146 H 17 Rate Blood Pressure 191/104 169/93 O2 Sat by Pulse 97 98 Oximetry Disposition Clinical Impression: Heroin overdose Disposition: HOME SELF-CARE Condition: Good Instructions (If sedation given, give patient instructions): Adult Overdose (ED) Is patient prescribed a controlled substance at d/c from ED?: No Referrals: [facility],Clinic [Primary Care Provider] - 1-2 days Time of Disposition: 20:30
--- NOTE | 2020-02-14 19:22 | XR ---
EXAMINATION TYPE: XR chest 2V DATE OF EXAM: 02/14/2020 COMPARISON: Chest x-ray June 17, 2019. HISTORY: Overdose today with pain. TECHNIQUE: Frontal and lateral views of the chest are obtained. FINDINGS: There is no suspicious new focal air space opacity, pleural effusion, or pneumothorax seen . The cardiac silhouette size remains within normal limits. Overlying EKG leads are in current study . The osseous structures are intact. IMPRESSION: No acute cardiopulmonary process. No significant change from prior.
[2020-02-14 19:28] VITALS: BP 169/93; PULSE 85; RESP 17
== END 2020-02-14 20:51 | disposition home or self-care (01) ==
LOC: EC 18:57
DX: T40.1X1A Poisoning by heroin, accidental (unintentional), initial encounter (principal); K21.9 Gastro-esophageal reflux disease without esophagitis; J44.9 Chronic obstructive pulmonary disease, unspecified; Z79.899 Other long term (current) drug therapy; Z79.51 Long term (current) use of inhaled steroids; Z88.2 Allergy status to sulfonamides; Z88.1 Allergy status to other antibiotic agents; Z85.46 Personal history of malignant neoplasm of prostate; Z90.79 Acquired absence of other genital organ(s)
CPT/HCPCS: 71046; 99284

== ENCOUNTER → 2020-06-15 | Outpatient (CLI) | payer OTHER ==
--- NOTE | 2020-06-16 07:05 | CT ---
"EXAMINATION TYPE: CT brain wo/w con, CT soft tissue neck wo/w con DATE OF EXAM: 06/15/2020 COMPARISON: CT brain January 10, 2019. HISTORY: Left sided mandibular mass/lump. (accession [id number]), Left sided mandibular mass/lump. BB p laced on region of interest. (accession [id number]) CT DLP: 2172.9 (accession [id number]), 542.2 (accession [id number]) mGycm Automated exposure control for dose reduction was used. CONTRAST: CT scan of the head and neck are performed without and with IV Contrast, patient injected with 100ml mL of Isovue 300. FINDINGS: Noncontrast images show no acute intracranial hemorrhage or midline shift. There is mild ventricular and sulcal prominence redemonstrated. Tyson-white matter differentiation is maintained. Postcontrast images show no suspicious enhancing mass. The globes are intact bilaterally. There is tolc-ik-[id number] e mucosal thickening involving the visualized portion of right maxillary sinus on current study. Ther e is near complete opacification of the left maxillary sinus on current study. Nasal septum remains d eviated to left of midline. There is mucosal thickening and patchy opacification in the left ethmoid sinuses, persistent patchy fluid and mild to moderate thickening in the posterior right ethmoid sinus es is seen. Patent nasopharyngeal and oropharyngeal airway. Region of epiglottis and vallecula appears unremarkab le. Slight asymmetry just inferior to this presumed related to retained secretions, no obvious enhanc ing mucosal mass. Thyroid gland within normal limits. Lung apices are clear with mild underlying emph ysematous change. Parotid and submandibular glands are unremarkable. Mild calcified plaque left carotid bulb without si gnificant stenosis. Codominant vertebrobasilar system. Slight dextroconvex scoliotic curvature centered in the upper thoracic spine. Grade 1 retrolisthesis of C3 on C4 and C4 on C5. Moderate multilevel disc space narrowing and spurring, findings raise the C 4-C5 level where there is endplate sclerosis also present. Multilevel uncovertebral and facet degener ative changes seen on axial images. Posterior spur disc complex effacing anterior thecal sac at C3-C4 through C6-C7 levels. Metallic BBs placed the level palpable abnormality lateral left neck at level of the hyoid bone corre sponding to the C4-C5 disc space level. There are 2 adjacent prominent draining external veins at thi s level. This is below level of the inferior parotid gland. Adjacent sternocleidomastoid mastoid musc le appears unremarkable. A few scattered subcentimeter lymph nodes are seen deep to this. No concerni ng solid or cystic mass or abnormal fluid collection is identified at this level however superior and anterior to this there is asymmetric minimally enhancing solid mass measuring 3.1 x 3.0 x 3.1 cm axi al image 15 and coronal image 29. The lesion appears to have some small patent vessels transversing a long the superior aspect. No bony destruction is seen. It is causing posterior and right-sided deviat ion of the internal and external carotid arteries. It is just posterior to the left submandibular gla nd. There are prominent but subcentimeter lymph nodes in the submandibular region just anterior to th e submandibular gland noted. For reference there is 10 x 9 mm lymph node axial image 46. Lesion is fa irly well-defined IMPRESSION: 1. Stable mild diffuse age-related cerebral atrophy. New acute on chronic paranasal sinus disease as detailed above. 2. Abnormal 3.1 cm minimally enhancing solid mass left corresponding to palpable abnormality as detai led above worrisome for mass or neoplasm or most likely abnormal neck adenopathy. Though no distinct lesion clearly seen primary throat cancer neoplasm needs to be excluded. Advise ENT referral for furt her evaluation. A Yellow level critical message alert has been initiated for RODNEY Angel via the [facility] [address] | Critical Results System on 06/16/2020 7:02 AM. This message alert has been sent to RODNEY Angel via the preferences provided by the clinician for the receipt of Radiology Critical Findings. Message ID [id number]."
== END | disposition home or self-care (01) ==
LOC: RADCTMAIN 16:05
DX: G31.1 Senile degeneration of brain, not elsewhere classified (principal); R22.1 Localized swelling, mass and lump, neck
CPT/HCPCS: 82565; 84520; 70492; 70470; 36415; Q9967

== ENCOUNTER 2020-11-18 23:26 | Inpatient (IN) | payer OTHER, MEDICARE ==
[2020-11-18] MEDS ORDERED: SODIUM CHLORIDE 0.9% 500 ML 500 ML IV STA (23:38)
[2020-11-18] MEDS ORDERED: SODIUM CHLORIDE 0.9% 1,000 ML IV STA (23:38)
--- NOTE | 2020-11-18 23:42 | ED ---
Weakness HPI - General Chief complaint: Weakness Stated complaint: Weakness Time Seen by Provider: 11/18/20 23:38 Source: patient, RN notes reviewed, old records reviewed Mode of arrival: ambulatory Limitations: no limitations - History of Present Illness Initial comments: This is a 61-year-old male DF for evaluation of weakness. Patient going through radiation for the next tumor. Patient will he racing female has persistent nausea vomiting throughout today. Feels weak lightheaded and dizzy, has occasional diarrhea along with the vomiting. No other family members have any illness MD Complaint: generalized weakness, lack of energy -: hour(s) Location: generalized Severity: moderate Severity scale (1-10): 7 Consistency: constant Improves with: none, evening Context: recent illness, history of similar Associated Symptoms: loss of appetite, nausea/vomiting, myalgias - Related Data Home Medications Medication Instructions Recorded Confirmed Pregabalin [Lyrica] 75 mg PO BID PRN 05/24/19 06/17/19 Budesonide/Formoterol Fumarate 1 puff INHALATION RT-BID 06/17/19 06/17/19 [Symbicort 160-4.5 Mcg Inhaler] Cholecalciferol [Vitamin D3 (25 2,000 unit PO DAILY 06/17/19 06/17/19 Mcg = 1000 Iu)] Magnesium Oxide [Mag-Ox] 500 mg PO BID 06/17/19 06/17/19 Naproxen [Naprosyn] 500 mg PO Q12HR PRN 06/17/19 06/17/19 methocarbamoL [Robaxin] 750 mg PO QID PRN 06/17/19 06/17/19 Previous Rx's Medication Instructions Recorded Acetaminophen Tab [Tylenol] 650 mg PO Q4HR PRN tab 06/20/19 Cyanocobalamin [Vitamin B-12] 1,000 mcg PO DAILY #30 tablet 06/20/19 Ferrous Sulfate [Iron (65 MG 325 mg PO BID-W/MEALS #60 tab 06/20/19 Elemental)] Lidocaine 5% Patch [Lidoderm 5% 1 patch TOPICAL DAILY #30 patch 06/20/19 Patch] Pantoprazole [Protonix] 40 mg PO AC-BID #60 tablet. 06/20/19 Allergies Allergy/AdvReac Type Severity Reaction Status Date / Time erythromycin base AdvReac Nausea & Verified 11/18/20 23:32 Vomiting & Diarrhea Sulfa (Sulfonamide AdvReac Nausea & Verified 11/18/20 23:32 Antibiotics) Vomiting & Diarrhea Review of Systems ROS Statement: Those systems with pertinent positive or pertinent negative responses have been documented in the HPI. ROS Other: All systems not noted in ROS Statement are negative. Past Medical History Past Medical History: Cancer, COPD, GERD/Reflux, Hypertension, Prostate Disorder Additional Past Medical History / Comment(s): having a hard time eating and acid reflux coming up into my chest.hx prostate CA. Hep C History of Any Multi-Drug Resistant Organisms: MRSA Date of last positivie culture/infection: 06/13/18 MDRO Source:: Left Hand Past Surgical History: Hernia Repair, Orthopedic Surgery, Prostate Surgery Additional Past Surgical History / Comment(s): Laparotomy with drainage of abscess. Prostatectomy with da Jessi Past Anesthesia/Blood Transfusion Reactions: No Reported Reaction Additional Past Anesthesia/Blood Transfusion Reaction / Comment(s): no hx blood transfusion Past Psychological History: Depression Smoking Status: Never smoker Past Alcohol Use History: Daily, Heavy Past Drug Use History: Heroin, Methamphetamine, Opiates, Prescription Drug Abuse - Past Family History Father Family Medical History: Cancer Additional Family Medical History / Comment(s): cholecystectomy, pancreatic cancer General Exam Limitations: no limitations General appearance: alert, in no apparent distress Head exam: Present: atraumatic, normocephalic, normal inspection Eye exam: Present: normal appearance, PERRL, EOMI. Absent: scleral icterus, conjunctival injection, periorbital swelling ENT exam: Present: normal exam, mucous membranes moist Neck exam: Present: normal inspection. Absent: tenderness, meningismus, lymphadenopathy Respiratory exam: Present: normal lung sounds bilaterally. Absent: respiratory distress, wheezes, rales, rhonchi, stridor Cardiovascular Exam: Present: regular rate, normal rhythm, normal heart sounds. Absent: systolic murmur, diastolic murmur, rubs, gallop, clicks GI/Abdominal exam: Present: soft, normal bowel sounds. Absent: distended, tenderness, guarding, rebound, rigid Extremities exam: Present: normal inspection, full ROM, normal capillary refill. Absent: tenderness, pedal edema, joint swelling, calf tenderness Back exam: Present: normal inspection Neurological exam: Present: alert, oriented X3, CN II-XII intact Psychiatric exam: Present: normal affect, normal mood Skin exam: Present: warm, dry, intact, normal color. Absent: rash Course Vital Signs 11/18/20 11/19/20 23:30 01:30 Temperature 97.7 F Pulse Rate 60 64 Respiratory 16 17 Rate Blood Pressure 154/82 152/85 O2 Sat by Pulse 95 94 L Oximetry - Reevaluation(s) Reevaluation #1: 11/19/20 02:42 Medical records reviewed Reevaluation #2: 11/19/20 02:42 Symptoms mildly improved here in the ER although patient does not fill comfortable with discharge EKG Findings - EKG Comments: EKG Findings:: EKG is sinus bradycardia 56, MD 144 QRS 92 QTC 428 Medical Decision Making - Medical Decision Making 69 male with persistent nausea vomiting weakness after radiation treatment. Patient will be admitted for symptomatic therapy - Lab Data Result diagrams: 11/19/20 00:20 11/19/20 00:20 Lab Results 11/19/20 11/19/20 11/19/20 Range/Units 00:20 00:20 00:20 WBC 3.0 L (3.8-10.6) k/uL RBC 4.33 (4.30-5.90) m/uL Hgb 12.7 L (13.0-17.5) gm/dL Hct 37.8 L (39.0-53.0) % MCV 87.4 (80.0-100.0) fL MCH 29.3 (25.0-35.0) pg MCHC 33.6 (31.0-37.0) g/dL RDW 15.1 (11.5-15.5) % Plt Count 190 (150-450) k/uL MPV 8.4 PT 10.5 (9.0-12.0) sec INR 1.0 (<1.2) APTT 24.2 (22.0-30.0) sec Sodium (137-145) mmol/L Potassium (3.5-5.1) mmol/L Chloride (98-107) mmol/L Carbon Dioxide (22-30) mmol/L Anion Gap mmol/L BUN (9-20) mg/dL Creatinine (0.66-1.25) mg/dL Est GFR (CKD-EPI)AfAm (>60 ml/min/1.73 sqM) Est GFR (CKD-EPI)NonAf (>60 ml/min/1.73 sqM) Glucose (74-99) mg/dL Plasma Lactic Acid Gumaro (0.7-2.0) mmol/L Calcium (8.4-10.2) mg/dL Phosphorus (2.5-4.5) mg/dL Magnesium (1.6-2.3) mg/dL Total Bilirubin (0.2-1.3) mg/dL AST (17-59) U/L ALT (4-49) U/L Alkaline Phosphatase (38-126) U/L Creatine Kinase (55-170) U/L Troponin I (0.000-0.034) ng/mL NT-Pro-B Natriuret Pep pg/mL Total Protein (6.3-8.2) g/dL Albumin (3.5-5.0) g/dL Urine Color Yellow Urine Appearance Clear (Clear) Urine pH 6.0 (5.0-8.0) Ur Specific [place] 1.030 (1.001-1.035) Urine Protein 1+ H (Negative) Urine Glucose (UA) Negative (Negative) Urine Ketones 1+ H (Negative) Urine Blood Negative (Negative) Urine Nitrite Negative (Negative) Urine Bilirubin Negative (Negative) Urine Urobilinogen 4.0 (<2.0) mg/dL Ur Leukocyte Esterase Negative (Negative) Urine RBC 1 (0-5) /hpf Urine WBC 5 (0-5) /hpf Ur Squamous Epith Cells 2 (0-4) /hpf Urine Bacteria Rare H (None) /hpf Hyaline Casts 1 (0-2) /lpf Urine Mucus Rare H (None) /hpf 11/19/20 11/19/20 11/19/20 Range/Units 00:20 00:20 00:20 WBC (3.8-10.6) k/uL RBC (4.30-5.90) m/uL Hgb (13.0-17.5) gm/dL Hct (39.0-53.0) % MCV (80.0-100.0) fL MCH (25.0-35.0) pg MCHC (31.0-37.0) g/dL RDW (11.5-15.5) % Plt Count (150-450) k/uL MPV PT (9.0-12.0) sec INR (<1.2) APTT (22.0-30.0) sec Sodium 136 L (137-145) mmol/L Potassium 4.3 (3.5-5.1) mmol/L Chloride 100 (98-107) mmol/L Carbon Dioxide 26 (22-30) mmol/L Anion Gap 10 mmol/L BUN 47 H (9-20) mg/dL Creatinine 1.31 H (0.66-1.25) mg/dL Est GFR (CKD-EPI)AfAm 65 (>60 ml/min/1.73 sqM) Est GFR (CKD-EPI)NonAf 56 (>60 ml/min/1.73 sqM) Glucose 104 H (74-99) mg/dL Plasma Lactic Acid Gumaro 1.0 (0.7-2.0) mmol/L Calcium 8.6 (8.4-10.2) mg/dL Phosphorus 3.7 (2.5-4.5) mg/dL Magnesium 1.9 (1.6-2.3) mg/dL Total Bilirubin 0.6 (0.2-1.3) mg/dL AST 29 (17-59) U/L ALT 17 (4-49) U/L Alkaline Phosphatase 56 (38-126) U/L Creatine Kinase 130 (55-170) U/L Troponin I 0.018 (0.000-0.034) ng/mL NT-Pro-B Natriuret Pep pg/mL Total Protein 5.9 L (6.3-8.2) g/dL Albumin 3.3 L (3.5-5.0) g/dL Urine Color Urine Appearance (Clear) Urine pH (5.0-8.0) Ur Specific [place] (1.001-1.035) Urine Protein (Negative) Urine Glucose (UA) (Negative) Urine Ketones (Negative) Urine Blood (Negative) Urine Nitrite (Negative) Urine Bilirubin (Negative) Urine Urobilinogen (<2.0) mg/dL Ur Leukocyte Esterase (Negative) Urine RBC (0-5) /hpf Urine WBC (0-5) /hpf Ur Squamous Epith Cells (0-4) /hpf Urine Bacteria (None) /hpf Hyaline Casts (0-2) /lpf Urine Mucus (None) /hpf 11/19/20 Range/Units 00:20 WBC (3.8-10.6) k/uL RBC (4.30-5.90) m/uL Hgb (13.0-17.5) gm/dL Hct (39.0-53.0) % MCV (80.0-100.0) fL MCH (25.0-35.0) pg MCHC (31.0-37.0) g/dL RDW (11.5-15.5) % Plt Count (150-450) k/uL MPV PT (9.0-12.0) sec INR (<1.2) APTT (22.0-30.0) sec Sodium (137-145) mmol/L Potassium (3.5-5.1) mmol/L Chloride (98-107) mmol/L Carbon Dioxide (22-30) mmol/L Anion Gap mmol/L BUN (9-20) mg/dL Creatinine (0.66-1.25) mg/dL Est GFR (CKD-EPI)AfAm (>60 ml/min/1.73 sqM) Est GFR (CKD-EPI)NonAf (>60 ml/min/1.73 sqM) Glucose (74-99) mg/dL Plasma Lactic Acid Gumaro (0.7-2.0) mmol/L Calcium (8.4-10.2) mg/dL Phosphorus (2.5-4.5) mg/dL Magnesium (1.6-2.3) mg/dL Total Bilirubin (0.2-1.3) mg/dL AST (17-59) U/L ALT (4-49) U/L Alkaline Phosphatase (38-126) U/L Creatine Kinase (55-170) U/L Troponin I (0.000-0.034) ng/mL NT-Pro-B Natriuret Pep 1550 pg/mL Total Protein (6.3-8.2) g/dL Albumin (3.5-5.0) g/dL Urine Color Urine Appearance (Clear) Urine pH (5.0-8.0) Ur Specific [place] (1.001-1.035) Urine Protein (Negative) Urine Glucose (UA) (Negative) Urine Ketones (Negative) Urine Blood (Negative) Urine Nitrite (Negative) Urine Bilirubin (Negative) Urine Urobilinogen (<2.0) mg/dL Ur Leukocyte Esterase (Negative) Urine RBC (0-5) /hpf Urine WBC (0-5) /hpf Ur Squamous Epith Cells (0-4) /hpf Urine Bacteria (None) /hpf Hyaline Casts (0-2) /lpf Urine Mucus (None) /hpf Disposition Clinical Impression: Weakness, Nausea & vomiting Disposition: ADMITTED IP TO THIS HOSP Condition: Good Is patient prescribed a controlled substance at d/c from ED?: No
[2020-11-19 00:47] LABS: Partial Thromboplastin Time 24.2 sec (22.0-30.0); Prothrombin Time 10.5 sec (9.0-12.0)
[2020-11-19 00:49] LABS: Albumin 3.3 g/dL (3.5-5.0); Calcium 8.6 mg/dL (8.4-10.2); Magnesium 1.9 mg/dL (1.6-2.3); Phosphorus 3.7 mg/dL (2.5-4.5); Potassium 4.3 mmol/L (3.5-5.1); Total Bilirubin 0.6 mg/dL (0.2-1.3); Total Protein 5.9 g/dL (6.3-8.2)
[2020-11-19] MEDS ORDERED: NALOXONE 0.4 MG/ML 1 ML VIAL IV PRN (01:14)
[2020-11-19] MEDS ORDERED: ONDANSETRON 4 MG/2 ML VIAL IVP STA (01:15)
[2020-11-19] MEDS ORDERED: LORazepam 2 MG/ML INJ IV STA (01:15)
[2020-11-19] MEDS: DEXTROSE 5%-0.45% NACL 1,000 ML IV SCH ×3 (01:25→14:17)
[2020-11-19 01:33] LABS: HCT 37.8 % (39.0-53.0); HGB 12.7 gm/dL (13.0-17.5); MCH 29.3 pg (25.0-35.0); MCHC 33.6 g/dL (31.0-37.0); MCV 87.4 fL (80.0-100.0); Mean Platelet Volume 8.4; Platelet Count 190 k/uL (150-450); RBC 4.33 m/uL (4.30-5.90); RDW 15.1 % (11.5-15.5)
[2020-11-19 01:59] LABS: Appearance,Urine Clear (Clear); Bacteria,Urine Rare /hpf; Bilirubin,Urine Negative (Negative); Blood,Urine Negative (Negative); Color,Urine Yellow; Glucose,Urine (UA) Negative (Negative); Hyaline Casts,Urine 1 /lpf (0-2); Ketones,Urine 1+ (Negative); Leukocyte Esterase,Urine Negative (Negative); Mucus,Urine Rare /hpf; Nitrite,Urine Negative (Negative); Protein,Urine 1+ (Negative); RBC,Urine 1 /hpf (0-5); Squamous Epithelial Cell,Urine 2 /hpf (0-4); WBC,Urine 5 /hpf (0-5)
[2020-11-19 03:40] LABS: Anisocytosis (M) Present; Band Neutrophils % 13 %; Eosinophils # (M) 0.36 k/uL (0-0.7); Lymphocytes # (M) 0.18 k/uL (1.0-4.8); Monocytes # (M) 0.39 k/uL (0-1.0); Neutrophils % (M) 56 %; Nucleated Red Blood Cells 0 /100 WBC (0-0); Total Cells Counted 100
[2020-11-19 03:42] LABS: Polychromasia Present
[2020-11-19] MEDS: PANTOPRAZOLE 40 MG/10 ML VIAL IV SCH (07:27)
[2020-11-19] MEDS: ONDANSETRON 4 MG/2 ML VIAL IVP PRN (11:11)
[2020-11-19] MEDS: MORPHINE SULFATE 4 MG/ML SYRINGE IV PRN ×2 (11:12→15:14)
[2020-11-19] MEDS ORDERED: SALT AND SODA MOUTHWASH 1,000 ML PO PRN (13:30)
[2020-11-20] MEDS: DEXTROSE 5%-0.45% NACL 1,000 ML IV SCH ×2 (01:00→11:43)
[2020-11-20 04:34] LABS: Basophils % (A) 0 %; Eosinophils # (A) 0.5 k/uL (0-0.7); Eosinophils % (A) 14 %; HGB 13.1 gm/dL (13.0-17.5); Lymphocytes # (A) 0.3 k/uL (1.0-4.8); Lymphocytes % (A) 7 %; MCH 30.2 pg (25.0-35.0); MCHC 35.4 g/dL (31.0-37.0); MCV 85.1 fL (80.0-100.0); Mean Platelet Volume 8.5; Monocytes # (A) 0.4 k/uL (0-1.0); Monocytes % (A) 11 %; Neutrophils # (A) 2.4 k/uL (1.3-7.7); Neutrophils % (A) 65 %; Platelet Count 178 k/uL (150-450); RBC 4.34 m/uL (4.30-5.90); RDW 14.6 % (11.5-15.5); WBC 3.7 k/uL (3.8-10.6)
[2020-11-20] MEDS ORDERED: ACETAMINOPHEN TAB 325 MG TAB PO PRN (05:45)
[2020-11-20] MEDS: ONDANSETRON 4 MG/2 ML VIAL IVP PRN ×2 (05:59→11:51)
[2020-11-20] MEDS: MORPHINE SULFATE 4 MG/ML SYRINGE IV PRN ×2 (07:50→11:51)
[2020-11-20] MEDS: PANTOPRAZOLE 40 MG/10 ML VIAL IV SCH (07:51)
--- NOTE | 2020-11-20 09:17 | P.HPIM ---
History of Present Illness H&P Date: 11/19/20 Chief Complaint: Weakness 61-year-old male DF for evaluation of weakness. Patient going through radiation for the next tumor. Patient will he racing female has persistent nausea vomiting throughout today. Feels weak lightheaded and dizzy, has occasional diarrhea along with the vomiting. No other family members have any illness Patient continued to complain of persistent nausea, vomiting and weakness and is admitted to the hospital for further evaluation and treatment Review of Systems REVIEW OF SYSTEMS: CONSTITUTIONAL: No fever, no malaise, no fatigue. HEENT: No recent visual problems or hearing problems. Denied any sore throat. CARDIOVASCULAR: No chest pain, orthopnea, PND, no palpitations, no syncope. PULMONARY: No shortness of breath, no cough, no hemoptysis. GASTROINTESTINAL: No diarrhea, no nausea, no vomiting, no abdominal pain. NEUROLOGICAL: No headaches, no weakness, no numbness. HEMATOLOGICAL: Denies any bleeding or petechiae. GENITOURINARY: Denies any burning micturition, frequency, or urgency. MUSCULOSKELETAL/RHEUMATOLOGICAL: Denies any joint pain, swelling, or any muscle pain. ENDOCRINE: Denies any polyuria or polydipsia. The rest of the 14-point review of systems is negative. Past Medical History Past Medical History: Cancer, COPD, GERD/Reflux, Hypertension, Prostate Disorder Additional Past Medical History / Comment(s): having a hard time eating and acid reflux coming up into my chest.hx prostate CA. Hep C , currently having chemotherapy and radiation treatments History of Any Multi-Drug Resistant Organisms: MRSA Date of last positivie culture/infection: 06/13/18 MDRO Source:: Left Hand Past Surgical History: Hernia Repair, Orthopedic Surgery, Prostate Surgery Additional Past Surgical History / Comment(s): Laparotomy with drainage of abscess. Prostatectomy with da Jessi PEG tube insertion Past Anesthesia/Blood Transfusion Reactions: No Reported Reaction Additional Past Anesthesia/Blood Transfusion Reaction / Comment(s): no hx blood transfusion Smoking Status: Former smoker - Past Family History Father Family Medical History: Cancer Additional Family Medical History / Comment(s): cholecystectomy, pancreatic cancer Medications and Allergies Home Medications Medication Instructions Recorded Confirmed Type Cholecalciferol [Vitamin D3 (25 50 mcg PO DAILY 06/17/19 11/19/20 History Mcg = 1000 Iu)] Magnesium Oxide [Mag-Ox] 500 mg PO BID 06/17/19 11/19/20 History Calcium Carbonate [Tums] 500 mg PO TID PRN 11/19/20 11/19/20 History Cyanocobalamin (Vitamin B-12) 1,000 mcg PO DAILY 11/19/20 11/19/20 History [Vitamin B-12] Multivitamins, Thera [Multivitamin 1 tab PO DAILY 11/19/20 11/19/20 History (formulary)] Pantoprazole [Protonix] 40 mg PO DAILY 11/19/20 11/19/20 History Allergies Allergy/AdvReac Type Severity Reaction Status Date / Time erythromycin base AdvReac Nausea & Verified 11/19/20 08:59 Vomiting & Diarrhea Sulfa (Sulfonamide AdvReac Nausea & Verified 11/19/20 08:59 Antibiotics) Vomiting & Diarrhea Physical Exam Vitals: Vital Signs Temp Pulse Pulse Resp BP BP Pulse Ox 11/19/20 12:02 98.2 F 58 L 17 156/84 97 11/19/20 04:33 98.0 F 62 16 158/81 96 11/19/20 01:30 64 17 152/85 94 L 11/18/20 23:30 97.7 F 60 16 154/82 95 Intake and Output 11/19/20 11/19/20 11/19/20 06:59 14:59 22:59 Other: Weight 65.317 kg 65.317 kg PHYSICAL EXAMINATION: GENERAL: The patient is alert and oriented x3, not in any acute distress. Well developed, well nourished. HEENT: Pupils are round and equally reacting to light. EOMI. No scleral icterus. No conjunctival pallor. Normocephalic, atraumatic. No pharyngeal erythema. No thyromegaly. CARDIOVASCULAR: S1 and S2 present. No murmurs, rubs, or gallops. PULMONARY: Chest is clear to auscultation, no wheezing or crackles. ABDOMEN: Soft, nontender, nondistended, normoactive bowel sounds. No palpable organomegaly. MUSCULOSKELETAL: No joint swelling or deformity. EXTREMITIES: No cyanosis, clubbing, or pedal edema. NEUROLOGICAL: Gross neurological examination did not reveal any focal deficits. SKIN: No rashes. Results CBC & Chem 7: 11/20/20 03:56 11/19/20 00:20 Labs: Abnormal Lab Results - Last 24 Hours (Table) 11/19/20 11/19/20 11/19/20 Range/Units 00:20 00:20 00:20 WBC 3.0 L (3.8-10.6) k/uL Hgb 12.7 L (13.0-17.5) gm/dL Hct 37.8 L (39.0-53.0) % Lymphocytes # (Manual) 0.18 L (1.0-4.8) k/uL Sodium 136 L (137-145) mmol/L BUN 47 H (9-20) mg/dL Creatinine 1.31 H (0.66-1.25) mg/dL Glucose 104 H (74-99) mg/dL Total Protein 5.9 L (6.3-8.2) g/dL Albumin 3.3 L (3.5-5.0) g/dL Urine Protein 1+ H (Negative) Urine Ketones 1+ H (Negative) Urine Bacteria Rare H (None) /hpf Urine Mucus Rare H (None) /hpf Thrombosis Risk Factor Assmnt - Choose All That Apply Each Factor Represents 1 point: Medical pt on bed rest Each Risk Factor Represents 2 Points: Patient confined to bed, Malignancy Thrombosis Risk Factor Assessment Total Risk Factor Score: 5 Thrombosis Risk Factor Assessment Level: High Risk Assessment and Plan Assessment: 1. Intractable nausea and vomiting We will continue patient on IV fluid hydration in form of D5 half-normal saline at a rate of 100 mL an hour and encourage oral intake; patient can start with full liquid or soft diet and could be advanced as tolerated; continue with symptomatic treatment of nausea and vomiting 2. Acute renal injury/dehydration; IV fluid hydration with D5 half normal saline; we will monitor renal function and electrolytes; avoid nephrotoxic agents; monitor strict KAMRAN's, daily weights 3. Neutropenia; monitor CBC closely; we will consult oncology if WBC count continues to decline 4. Hypertension; blood pressure is currently soft due to persistent nausea and vomiting and dehydration; we will hold off on antihypertensive therapy 5. COPD; not in exacerbation 6. Prostate cancer; outpatient follow-up DVT prophylaxis; SCDs/subcu heparin CODE STATUS; full code
[2020-11-20 09:52] LABS: African American GFR (CKD) 89.2 (60.0-200.0); Albumin 3.4 g/dL (3.80-4.90); Albumin/Globulin Ratio 1.55 (1.60-3.17); Anion Gap 7.6 mmol/L (4.00-12.00); Calcium 8.1 mg/dL (8.7-10.3); Carbon Dioxide 26.4 mmol/L (21.6-31.8); Globulin 2.2 g/dL (1.6-3.3); Magnesium 1.4 mg/dL (1.5-2.4); Phosphorus 2.6 mg/dL (2.4-5.1); Potassium 3.7 mmol/L (3.5-5.5); Total Bilirubin 0.5 mg/dL (0.2-1.2); Total Protein 5.6 g/dL (6.2-8.2)
[2020-11-20] MEDS ORDERED: Magnesium Replacement Protocol 1 EACH MISC MISCELLANE PRN (11:29)
[2020-11-20] MEDS: MAGNESIUM SULFATE-D5W PMX 1 GM in DEXTROSE/WATER 1 100ML.BAG IVPB SCH ×3 (11:42→13:35)
[2020-11-20] MEDS: SODIUM CHLORIDE 0.9% 1,000 ML IV SCH (12:46)
--- NOTE | 2020-11-20 14:12 | P.CONS ---
History of Present Illness - Reason for Consult Consult date: 11/20/20 Neck cancer Requesting physician: Claude Whitaker - Chief Complaint Weakness - History of Present Illness Mr. Somers is a very pleasant 69-year-old gentleman with multiple comorbidities who is here for weakness. 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 He is currently under the care of Dr. Cortez in [facility]. I do not have records of his cancer care. He was supposed to see Dr. Ozuna however when he was referred to ENT for biopsy and diagnosis he ended up being referred to Dr. Cortez and proceeding with his care there. He is struggling with transportation however and plans on transferring his RT therapy here to Dr. Wynne. It sounds like he was started on chemotherapy with radiation and has already received 2 cycles of chemo, likely cisplatin. He has 2 more weeks of radiation therapy left. He is here with difficulty in swallowing and pain on swallowing. Unable to maintain adequate oral intake for the past few days and has had increasing weakness since then. He does have a PEG tube also in place however has not been able to tolerate the full rate of PEG feeding due to nausea. Otherwise denies any fevers or other complaints at this point. He does have a prescription for fentanyl as well as Dilaudid that does not seem to be filled. Likely this was recently prescribed to control his pain. Past Medical History Past Medical History: Cancer, COPD, GERD/Reflux, Hypertension, Prostate Disorder Additional Past Medical History / Comment(s): having a hard time eating and acid reflux coming up into my chest.hx prostate CA. Hep C , currently having chemoth erapy and radiation treatments History of Any Multi-Drug Resistant Organisms: MRSA Year Discovered:: 06/13/18 MDRO Source:: Left Hand Past Surgical History: Hernia Repair, Orthopedic Surgery, Prostate Surgery Additional Past Surgical History / Comment(s): Laparotomy with drainage of abscess. Prostatectomy with da Jessi PEG tube insertion Past Anesthesia/Blood Transfusion Reactions: No Reported Reaction Additional Past Anesthesia/Blood Transfusion Reaction / Comm: no hx blood transfusion Smoking Status: Former smoker - Past Family History Father Family Medical History: Cancer Additional Family Medical History / Comment(s): cholecystectomy, pancreatic cancer Medications and Allergies Home Medications Medication Instructions Recorded Confirmed Type Cholecalciferol [Vitamin D3 (25 50 mcg PO DAILY 06/17/19 11/19/20 History Mcg = 1000 Iu)] Magnesium Oxide [Mag-Ox] 500 mg PO BID 06/17/19 11/19/20 History Calcium Carbonate [Tums] 500 mg PO TID PRN 11/19/20 11/19/20 History Cyanocobalamin (Vitamin B-12) 1,000 mcg PO DAILY 11/19/20 11/19/20 History [Vitamin B-12] Multivitamins, Thera [Multivitamin 1 tab PO DAILY 11/19/20 11/19/20 History (formulary)] Pantoprazole [Protonix] 40 mg PO DAILY 11/19/20 11/19/20 History Allergies Allergy/AdvReac Type Severity Reaction Status Date / Time erythromycin base AdvReac Nausea & Verified 11/19/20 08:59 Vomiting & Diarrhea Sulfa (Sulfonamide AdvReac Nausea & Verified 11/19/20 08:59 Antibiotics) Vomiting & Diarrhea Physical Exam Vitals: Vital Signs Temp Pulse Resp BP Pulse Ox 11/20/20 04:38 98.6 F 56 L 16 160/85 94 L 11/19/20 19:36 98.7 F 55 L 16 153/78 96 Intake and Output 11/19/20 11/20/20 11/20/20 22:59 06:59 14:59 Intake Total 240 Output Total 1100 900 200 Balance -860 -900 -200 Intake: Oral 240 Output: Urine 1100 900 200 Other: Voiding Method Urinal Urinal Weight 64.5 kg Gen.: No acute distress HEENT: Mucosa moist Neck: Supple Lungs: No respiratory distress Heart: Regular rate Abdomen: Soft MSK: Appropriate strength in all 4 extremities Neuro: Alert and oriented 3 Skin: No jaundice Psych: Appropriate affect Results CBC & Chem 7: 11/20/20 03:56 11/20/20 03:56 Labs: Abnormal Lab Results - Last 24 Hours (Table) 11/20/20 11/20/20 Range/Units 03:56 03:56 WBC 3.7 L (3.8-10.6) k/uL Hct 37.0 L (39.0-53.0) % Lymphocytes # 0.3 L (1.0-4.8) k/uL Sodium 132 L (135-145) mmol/L BUN/Creatinine Ratio 25.00 H (12.00-20.00) Ratio Glucose 165 H (70-110) mg/dL Calcium 8.1 L (8.7-10.3) mg/dL Magnesium 1.4 L (1.5-2.4) mg/dL Total Protein 5.6 L (6.2-8.2) g/dL Albumin 3.40 L (3.80-4.90) g/dL Albumin/Globulin Ratio 1.55 L (1.60-3.17) g/dL Assessment and Plan Assessment: 1. Head and neck cancer 2. Radiation induced esophagitis 3. Weakness due to chemotherapy 4. Leukopenia due to chemotherapy 5. YVROSE 6. Hyponatremia Plan: Mr. Somers is a very pleasant 69 yo male with multiple comorbidities including newly found head and neck cancer on chemotherapy with radiation with what sounds like cisplatin who is here for decreased by mouth intake and weakness. He seems to have started to develop radiation-induced pharyngitis and esophagitis. He has a PEG tube. Unable to tolerate full rate of PEG tube feedings. We'll change his tube feedings to continue his over 24 hours at a lower rate incentive 12 hours. Pain control, resumed on his home medication of fentanyl and Dilaudid that he has not filled yet as [facility] so he didn't have to pay out of pocket for this. Anti-emetics and hydration. Consult radiation oncology. He says that although his care is at [facility] that is [place] drive for him and he is in the process of transferring his remainder of radiation to Dr. Wynne here. Will also need to obtain records of his cancer and treatment history from [place] on Sunday. Discussed with patient in great detail and he is agreeable to the plan. Discussed with nursing staff. All of their questions were answered.
[2020-11-20] MEDS: HYDROmorphone 2 MG TAB PO PRN ×2 (17:05→23:59)
[2020-11-20] MEDS: MAGNESIUM OXIDE 400 MG TAB PO SCH (20:34)
[2020-11-21] MEDS: SODIUM CHLORIDE 0.9% 1,000 ML IV SCH ×3 (00:12→20:12)
[2020-11-21] MEDS: HYDROmorphone 2 MG TAB PO PRN ×3 (09:14→23:13)
[2020-11-21] MEDS: MAGNESIUM OXIDE 400 MG TAB PO SCH ×2 (09:16→20:12)
[2020-11-21] MEDS: PANTOPRAZOLE 40 MG/10 ML VIAL IV SCH (09:16)
[2020-11-21] MEDS: ONDANSETRON 4 MG/2 ML VIAL IVP PRN ×2 (15:26)
--- NOTE | 2020-11-21 17:07 | P.PN ---
Subjective Progress Note Date: 11/20/20 Principal diagnosis: Intractable nausea and vomiting/radiation induced esophagitis Lethargy/weakness due to chemotherapy Neutropenia related to chemotherapy Acute renal injury Head and neck cancer Mr. Somers is a very pleasant 69 yo male with multiple comorbidities including newly found head and neck cancer on chemotherapy with radiation with what sounds like cisplatin who is here for intractable nausea and vomiting and decreased by mouth intake and weakness. He seems to have started to develop radiation- induced pharyngitis and esophagitis. He has a PEG tube. Unable to tolerate full rate of PEG tube feedings. Objective - Vital Signs Vital signs: Vital Signs Temp 98.0 F 11/20/20 13:00 Pulse 51 L 11/20/20 13:00 Resp 18 11/20/20 13:00 BP 173/88 11/20/20 13:00 Pulse Ox 97 11/20/20 13:00 Intake & Output 11/19/20 11/20/20 11/20/20 18:59 06:59 18:59 Intake Total 240 Output Total 1100 900 200 Balance -860 -900 -200 Weight 65.317 kg 64.5 kg Intake: Oral 240 Output: Urine 1100 900 200 Other: Voiding Method Urinal Urinal - Exam GENERAL: The patient is alert and oriented x3, not in any acute distress. Well developed, well nourished. HEENT: Pupils are round and equally reacting to light. EOMI. No scleral icterus. No conjunctival pallor. Normocephalic, atraumatic. No pharyngeal erythema. No thyromegaly. CARDIOVASCULAR: S1 and S2 present. No murmurs, rubs, or gallops. PULMONARY: Chest is clear to auscultation, no wheezing or crackles. ABDOMEN: Soft, nontender, nondistended, normoactive bowel sounds. No palpable organomegaly. MUSCULOSKELETAL: No joint swelling or deformity. EXTREMITIES: No cyanosis, clubbing, or pedal edema. NEUROLOGICAL: Gross neurological examination did not reveal any focal deficits. SKIN: No rashes. - Labs CBC & Chem 7: 11/20/20 03:56 11/20/20 03:56 Labs: Abnormal Lab Results - Last 24 Hours (Table) 11/20/20 11/20/20 Range/Units 03:56 03:56 WBC 3.7 L (3.8-10.6) k/uL Hct 37.0 L (39.0-53.0) % Lymphocytes # 0.3 L (1.0-4.8) k/uL Sodium 132 L (135-145) mmol/L BUN/Creatinine Ratio 25.00 H (12.00-20.00) Ratio Glucose 165 H (70-110) mg/dL Calcium 8.1 L (8.7-10.3) mg/dL Magnesium 1.4 L (1.5-2.4) mg/dL Total Protein 5.6 L (6.2-8.2) g/dL Albumin 3.40 L (3.80-4.90) g/dL Albumin/Globulin Ratio 1.55 L (1.60-3.17) g/dL Assessment and Plan Assessment: 1. Intractable nausea and vomiting We will continue patient on IV fluid hydration in form of D5 half-normal saline at a rate of 100 mL an hour and encourage oral intake; patient can start with full liquid or soft diet and could be advanced as tolerated; continue with symptomatic treatment of nausea and vomiting 2. Acute renal injury/dehydration; IV fluid hydration with D5 half normal saline; we will monitor renal function and electrolytes; avoid nephrotoxic age nts; monitor strict KAMRAN's, daily weights 3. Neutropenia; monitor CBC closely; we will consult oncology if WBC count continues to decline 4. Hypertension; blood pressure is currently soft due to persistent nausea and vomiting and dehydration; we will hold off on antihypertensive therapy 5. COPD; not in exacerbation 6. Prostate cancer; outpatient follow-up DVT prophylaxis; SCDs/subcu heparin CODE STATUS; full code
--- NOTE | 2020-11-21 18:01 | P.PN ---
Subjective Progress Note Date: 11/21/20 Principal diagnosis: Intractable nausea and vomiting/radiation induced esophagitis Lethargy/weakness due to chemotherapy Neutropenia related to chemotherapy Acute renal injury Head and neck cancer Mr. Somers is a very pleasant 69 yo male with multiple comorbidities including newly found head and neck cancer on chemotherapy with radiation with what sounds like cisplatin who is here for intractable nausea and vomiting and decreased by mouth intake and weakness. He seems to have started to develop radiation- induced pharyngitis and esophagitis. He has a PEG tube. Unable to tolerate full rate of PEG tube feedings. 11/21/2020 Patient is seen and evaluated resting in bed; reports no further nausea vomiting; has been restarted on tube feeding with the lower rate and has been tolerating well so far Patient reports improved pain control with home dose of fentanyl and Dilaudid; continue with antiemetics and IV fluid hydration; oncology recommending consult with radiation oncology since patient is in the process of transferring remainder of his radiation treatment to Dr. Wynne locally; his care has been at [facility] so far Objective - Vital Signs Vital signs: Vital Signs Temp 98.5 F 11/21/20 12:12 Pulse 55 L 11/21/20 12:12 Resp 17 11/21/20 12:12 BP 157/81 11/21/20 12:12 Pulse Ox 95 11/21/20 12:12 Intake & Output 11/20/20 11/21/20 11/21/20 18:59 06:59 18:59 Output Total 200 250 Balance -200 -250 Weight 67.5 kg Output: Urine 200 250 Other: Voiding Method Urinal Urinal Urinal - Exam GENERAL: The patient is alert and oriented x3, not in any acute distress. Well developed, well nourished. HEENT: Pupils are round and equally reacting to light. EOMI. No scleral icterus. No conjunctival pallor. Normocephalic, atraumatic. No pharyngeal erythema. No thyromegaly. CARDIOVASCULAR: S1 and S2 present. No murmurs, rubs, or gallops. PULMONARY: Chest is clear to auscultation, no wheezing or crackles. ABDOMEN: Soft, nontender, nondistended, normoactive bowel sounds. No palpable organomegaly. MUSCULOSKELETAL: No joint swelling or deformity. EXTREMITIES: No cyanosis, clubbing, or pedal edema. NEUROLOGICAL: Gross neurological examination did not reveal any focal deficits. SKIN: No rashes. - Labs CBC & Chem 7: 11/20/20 03:56 11/20/20 03:56 Assessment and Plan Assessment: 1. Intractable nausea and vomiting We will continue patient on IV fluid hydration in form of D5 half-normal saline at a rate of 100 mL an hour and encourage oral intake; patient can start with full liquid or soft diet and could be advanced as tolerated; continue with symptomatic treatment of nausea and vomiting 2. Acute renal injury/dehydration; IV fluid hydration with D5 half normal saline; we will monitor renal function and electrolytes; avoid nephrotoxic agents; monitor strict KAMRAN's, daily weights 3. Neutropenia; monitor CBC closely; we will consult oncology if WBC count continues to decline 4. Hypertension; blood pressure is currently soft due to persistent nausea and vomiting and dehydration; we will hold off on antihypertensive therapy 5. COPD; not in exacerbation 6. Prostate cancer; outpatient follow-up DVT prophylaxis; SCDs/subcu heparin CODE STATUS; full code
[2020-11-22] MEDS: HYDROmorphone 2 MG TAB PO PRN ×2 (06:09→16:49)
[2020-11-22] MEDS: SODIUM CHLORIDE 0.9% 1,000 ML IV SCH ×2 (06:09→19:23)
[2020-11-22] MEDS: PANTOPRAZOLE 40 MG/10 ML VIAL IV SCH (07:35)
[2020-11-22] MEDS: MAGNESIUM OXIDE 400 MG TAB PO SCH ×2 (07:35→22:15)
[2020-11-22 13:41] VITALS: BMI 22.4
[2020-11-22] MEDS: MEGESTROL 400 MG/10 ML CUP PO SCH (16:31)
[2020-11-22] MEDS: MAG HYDROX/AL HYDROX/SIMETH 30 ML, LIDOCAINE VISCOUS 30 ML, diphenhydrAMINE ELIXIR 75 M... PO SCH ×8 (16:43→22:05)
[2020-11-22] MEDS: dexAMETHasone ORAL SOLUTION 10 MG/ML VIAL PO SCH ×2 (16:46→23:12)
--- NOTE | 2020-11-22 17:45 | PN ---
PROGRESS NOTE DATE OF SERVICE: 11/22/2020. INTERVAL HISTORY: This 69-year-old gentleman admitted with intractable nausea and vomiting is being closely monitored. The patient also had acute renal injury. The patient also had history of prostate cancer. No chest pain. No palpitations. No fever. PHYSICAL EXAMINATION: Alert, attentive. Pulse 64, blood pressure 171/87, respiration 18, temperature 98 degrees, pulse ox 97 percent room air. Skin: Normal. Respirations: Pulse pressure in the bases. A few rhonchi, no crackles. Abdomen: Soft, nontender. Legs: No edema. No swelling. Nervous system: No focal deficits. LABS: WBC 3.7, sodium 132, other labs are noted. ASSESSMENT: 1. Intractable nausea, vomiting, possibly acute gastritis. 2. Acute renal failure with acute tubular necrosis secondary dehydration. 3. Neutropenia. 4. Hypertension. 5. COPD. 6. History of prostate cancer. 7. Hyponatremia secondary to anemia. 8. Hypomagnesemia. RECOMMENDATIONS: Recommend to continue current medications. Continue the current management. Otherwise, repeat labs in the morning. Continue the current medications and the patient is complaining of significant ( ). Add Megace to the current regimen. Further recommendations to follow. MMODL / IJN: [id number] /
--- NOTE | 2020-11-22 17:51 | P.PN ---
Subjective Progress Note Date: 11/22/20 Principal diagnosis: nausea, vomiting, weakness. Tonsil malignancy In follow-up today patient seems to be tolerating his tube feeding at the slower rate, no nausea, his pain is currently controlled. He is still swallowing some foods/fluids. He does still have a fairly decent cough reflex. Objective - Vital Signs Vital signs: Vital Signs Temp 98.0 F 11/22/20 11:03 Pulse 64 11/22/20 11:03 Resp 18 11/22/20 11:03 BP 171/87 11/22/20 11:03 Pulse Ox 97 11/22/20 11:03 Intake & Output 11/21/20 11/22/20 11/22/20 18:59 06:59 18:59 Intake Total 520 Output Total 400 Balance 120 Weight 65 kg 65 kg Intake: Intake, IV Titration 120 Amount Sodium Chloride 0.9% 1, 120 000 ml @ 100 mls/hr IV . Q10H [facility] Rx#:[id number] Oral 100 Tube Feeding 300 Output: Urine 400 Other: Voiding Method Urinal Urinal - Constitutional General appearance: Present: average body habitus, cooperative, no acute distress - EENT EENT Comment(s): reddened oral mucosa, mild glossitis, diffuse superficial ulcerations on the lateral tongue Eyes: Present: anicteric sclerae, EOMI - Respiratory Respiratory: bilateral: CTA - Cardiovascular Rhythm: regular Heart sounds: normal: S1, S2 Abnormal Heart Sounds: Absent: systolic murmur, diastolic murmur, rub, S3 Gallop, S4 Gallop, click, other - Gastrointestinal General gastrointestinal: Present: normal bowel sounds, soft. Absent: absent bowel sounds, decreased bowel sounds, distended, hepatomegaly, hyperactive bowel sounds, organomegaly, rigid, scaphoid, splenomegaly, tenderness, umbilical herni a, ventral hernia - Neurologic Neurologic: Present: CNII-XII intact - Musculoskeletal Musculoskeletal: Present: generalized weakness - Psychiatric Psychiatric: Present: A&O x's 3, appropriate affect, intact judgment & insight - Labs CBC & Chem 7: 11/20/20 03:56 11/20/20 03:56 Assessment and Plan (1) Nausea & vomiting Narrative/Plan: Medically managed. Changes made to patient's tube feeding rate has decreased sensation of nausea. Continue with the same treatment plan outpatient. Current Visit: Yes Status: Acute Priority: High Code(s): R11.2 - NAUSEA WITH VOMITING, UNSPECIFIED SNOMED Code(s): 86124656 (2) Tonsil neoplasm Narrative/Plan: Patient has begun treatment, he is having difficulty traveling to and from appointments. He has requested to see Radiation oncology locally. I have spoken with Dr. Wynne, consult has been placed, he will see the patient and discuss how care can be transferred. Current Visit: Yes Status: Acute Priority: Medium Code(s): D49.0 - NEOPLASM OF UNSPECIFIED BEHAVIOR OF DIGESTIVE SYSTEM SNOMED Code(s): 105937180
[2020-11-22] MEDS: HEPARIN SODIUM,PORCINE/PF 5,000 UNIT/0.5 ML SYRINGE SQ SCH (22:15)
[2020-11-23] MEDS: HYDROmorphone 2 MG TAB PO PRN ×3 (04:26→22:55)
[2020-11-23] MEDS: SODIUM CHLORIDE 0.9% 1,000 ML IV SCH ×2 (04:26→16:35)
[2020-11-23 06:02] LABS: Basophils % (A) 0 %; Eosinophils % (A) 0 %; HGB 13.7 gm/dL (13.0-17.5); Lymphocytes # (A) 0.3 k/uL (1.0-4.8); Lymphocytes % (A) 10 %; MCH 29.4 pg (25.0-35.0); Mean Platelet Volume 8.3; Monocytes # (A) 0.2 k/uL (0-1.0); Monocytes % (A) 6 %; Neutrophils # (A) 2.8 k/uL (1.3-7.7); Neutrophils % (A) 83 %; Platelet Count 226 k/uL (150-450); RBC 4.64 m/uL (4.30-5.90); RDW 14.1 % (11.5-15.5); WBC 3.4 k/uL (3.8-10.6)
[2020-11-23] MEDS: CYANOCOBALAMIN 500 MCG TAB PO SCH (08:26)
[2020-11-23] MEDS: MAGNESIUM OXIDE 400 MG TAB PO SCH ×2 (08:27→21:23)
[2020-11-23] MEDS: MEGESTROL 400 MG/10 ML CUP PO SCH (08:27)
[2020-11-23] MEDS: PANTOPRAZOLE 40 MG TABLET PO SCH (08:27)
[2020-11-23] MEDS: MULTIVITAMINS, THERA 1 EACH TAB PO SCH (08:27)
[2020-11-23] MEDS: HEPARIN SODIUM,PORCINE/PF 5,000 UNIT/0.5 ML SYRINGE SQ SCH ×3 (08:28→21:27)
[2020-11-23] MEDS: MAG HYDROX/AL HYDROX/SIMETH 30 ML, LIDOCAINE VISCOUS 30 ML, diphenhydrAMINE ELIXIR 75 M... PO SCH ×12 (08:28→21:24)
[2020-11-23] MEDS: dexAMETHasone ORAL SOLUTION 10 MG/ML VIAL PO SCH ×3 (09:58→21:32)
--- NOTE | 2020-11-23 13:15 | P.PN ---
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 The patient was diagnosed during an inpatient stay at [facility], and initiated chemoradiation as the patient spent some time afterwards in a skilled nursing. He presents regarding possible continuation of his radiation (completed 17/35 fractions) locally. The patient was unfortunately hospitalized after his most recent cycle of chemo. The patient had his second cycle of high-dose cisplatin on Sunday. I evaluated him in our clinic on Sunday, and he was feeling fairly well. However, over the next couple days the patient reports he felt very fatigued, nauseous and was unable to tolerate any food by mouth and even his tube feeds. Since being hospitalized the patient has received hydration, and reports he is feeling a bit better. He still notes some pain in the throat. Objective - Vital Signs Vital signs: Vital Signs Temp 98.5 F 11/23/20 11:48 Pulse 62 11/23/20 11:48 Resp 18 11/23/20 11:48 BP 170/81 11/23/20 11:48 Pulse Ox 96 11/23/20 11:48 Intake & Output 11/22/20 11/23/20 11/23/20 18:59 06:59 18:59 Intake Total 1880 Output Total 1400 Balance 480 Weight 65 kg 65 kg Intake: Intake, IV Titration 1200 Amount Sodium Chloride 0.9% 1, 1200 000 ml @ 100 mls/hr IV . Q10H [facility] Rx#:[id number] Tube Feeding 500 Other 180 Output: Urine 1400 Other: Voiding Method Urinal Urinal - Constitutional General appearance: Present: no acute distress - EENT Eyes: Present: EOMI, PERRLA ENT: Present: NA/AT, pharyngeal erythema (mucositis posterior oropharynx) - Neck Neck: Absent: lymphadenopathy - Respiratory Respiratory: bilateral: CTA - Cardiovascular Rhythm: regular - Integumentary Integumentary: Present: pale. 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 The patient was diagnosed during an inpatient stay at [facility], and initiated chemoradiation as the patient spent some time afterwards in a skilled nursing. He presents regarding possible continuation of his radiation (completed fractions) locally. The patient was unfortunately hospitalized after his most recent cycle of chemo. Plan: 1. Dehydration/nausea: This is likely related to the patient's most recent cycle of chemotherapy. He appears improved after being hospitalized the past few days. He is now tolerating tube feeds, and is working with nutrition regarding increasing the rate. Clinical dehydration appears resolved. 2. Tonsil cancer: As noted above, the patient is in the middle of transferring his radiation care from [facility] to [facility]. This is largely driven by social issues, as the patient has difficulty with traveling between his current home in [place] and the radiation Center at [facility]. We will look to continue his therapy on the afternoon of November 23. His ongoing therapy is likely the reason for his mucositis and has mild erythema of the bilateral neck. He appears to be responding well to treatment however; based on initial imaging. Time with Patient: Less than 30
[2020-11-23 14:14] LABS: African American GFR (CKD) 100.6 (60.0-200.0); Anion Gap 7.6 mmol/L (4.00-12.00); BUN/Creat Ratio 18.89 Ratio (12.00-20.00); Calcium 8.6 mg/dL (8.7-10.3); Carbon Dioxide 24.4 mmol/L (21.6-31.8); Non-African American GFR(CKD) 86.8 (60.0-200.0); Potassium 4.6 mmol/L (3.5-5.5)
--- NOTE | 2020-11-23 14:42 | CDI ---
Documentation Clarification Form Date: 11/23/2020 02:16:21 PM From: Shey Collier RN CCDS Admit Date: 11/19/2020 01:14:00 AM Patient Name: Mani Somers Visit Number: [id number] Discharge Date: ATTENTION: The Clinical Documentation Specialists (CDI) and [facility] Coding Staff appreciate your assistance in clarifying documentation. Please respond to the clarification below the line at the bottom and electronically sign. The CDI & [facility] Coding staff will review the response and follow-up if needed. Please note: Queries are made part of the Legal Health Record. If you have any questions, please contact the author of this message via ITS. Dr. Claude Whitaker, There is documentation of acute gastritis, documented in Medicine progress notes 11/22. Additional clarification is requested. History/Risk Factors: 69-year-old female presents to the ED for evaluation of persistent nausea, vomiting and weakness. 11/19 H&P. Medical History: Head and Neck cancer currently has two more weeks of radiation finished chemotherapy. Heme Onc consult 11/20. Clinical Indicators: Intractable nausea, vomiting, possibly acute gastritis. Medicine progress note 11/22 Treatment: 11/20 Mag Ox 400mg PO BID to current; 11/22 Megace 400mg PO Daily to current; 11/19 Zofran 4mg IVP Q8H PRN changed 11/20 to 4mg IVP Q6H PRN to current; 11/19 Protonix 40mg IV Daily changed on to 11/23 Protonix 40mg PO AC Breakfast to current. Can you please clarify acute gastritis? [ ] Acute Viral Gastritis [ ] Acute Gastritis related to Radiation [ ] Other, please specify [ ] Unable to determine (Template Last Revised: July 2020) Acute gastritis related to recent chemotherapy documented in the discarge summary 11/24/20 by Ron SALAS/ Dr. Edwar CERDA
--- NOTE | 2020-11-23 17:22 | P.PN ---
Subjective Progress Note Date: 11/23/20 Principal diagnosis: nausea, vomiting, weakness. Tonsil malignancy In follow-up today patient cont to tolerate tube feeding at the slower rate, no nausea, vomiting. Pain is controlled on analgesic regimen. He is still swallowing some foods/fluids. Objective - Vital Signs Vital signs: Vital Signs Temp 98.5 F 11/23/20 11:48 Pulse 62 11/23/20 11:48 Resp 18 11/23/20 11:48 BP 170/81 11/23/20 11:48 Pulse Ox 96 11/23/20 11:48 Intake & Output 11/22/20 11/23/20 11/23/20 18:59 06:59 18:59 Intake Total 1880 Output Total 1400 Balance 480 Weight 65 kg 65 kg Intake: Intake, IV Titration 1200 Amount Sodium Chloride 0.9% 1, 1200 000 ml @ 100 mls/hr IV . Q10H [facility] Rx#:[id number] Tube Feeding 500 Other 180 Output: Urine 1400 Other: Voiding Method Urinal Urinal - Constitutional General appearance: Present: cooperative, no acute distress, thin - EENT Eyes: Present: anicteric sclerae, EOMI ENT: Present: hearing grossly normal, pharyngeal erythema - Respiratory Respiratory: bilateral: CTA - Cardiovascular Rhythm: regular Heart sounds: normal: S1, S2 Abnormal Heart Sounds: Absent: systolic murmur, diastolic murmur, rub, S3 Gallop, S4 Gallop, click, other - Gastrointestinal General gastrointestinal: Present: normal bowel sounds, soft - Neurologic Neurologic: Present: CNII-XII intact - Musculoskeletal Musculoskeletal: Present: generalized weakness - Psychiatric Psychiatric: Present: A&O x's 3, appropriate affect, intact judgment & insight - Labs CBC & Chem 7: 11/23/20 05:21 11/23/20 05:21 Labs: Abnormal Lab Results - Last 24 Hours (Table) 11/23/20 11/23/20 Range/Units 05:21 05:21 WBC 3.4 L (3.8-10.6) k/uL Lymphocytes # 0.3 L (1.0-4.8) k/uL Sodium 133 L (135-145) mmol/L Glucose 120 H (70-110) mg/dL Calcium 8.6 L (8.7-10.3) mg/dL Assessment and Plan (1) Nausea & vomiting Narrative/Plan: Medically managed. Changes made to patient's tube feeding rate has decreased sensation of nausea. Continue with the same treatment plan outpatient. Current Visit: Yes Status: Acute Priority: High Code(s): R11.2 - NAUSEA WITH VOMITING, UNSPECIFIED SNOMED Code(s): 21565487 (2) Tonsil neoplasm Narrative/Plan: Dr. Wynne has seen pt, spoke to treating Radiation Oncologist and has agree to take over care. Defer to Rad Onc for treatment plans. Pt is not tra nsferring is Medical Onc care here. Current Visit: Yes Status: Acute Priority: Medium Code(s): D49.0 - NEOPLASM OF UNSPECIFIED BEHAVIOR OF DIGESTIVE SYSTEM SNOMED Code(s): 235340104 Plan: Attests: I have performed H&P, developed impression and plan of care. Discussed with dictator. Agree with dictation, documented as a scribe
[2020-11-23] MEDS: BENZONATATE 100 MG CAP PO PRN (21:47)
--- NOTE | 2020-11-24 02:09 | P.PN ---
Subjective Progress Note Date: 11/23/20 This is a 70 year old male who was recently admitted with intractable nausea and vomiting and unable to tolerate tube feeds or oral intake and is being closely monitored. Patient has recent history of left tonsillar malignancy and started chemoradiation therapy while hospitalized at [facility] previously. Patient does have a Peg tube and has been managing independently and recently had to decrease rate as he was not tolerating. Patient also recently underwent chemotherapy and continued to have intolerance to oral intake and N,V with dehydration. Patient is tolerating tube feeds at a decreased rate and able to tolerate oral intake. Patient has been seen by radiation oncology here and will continue with radiation therapy here at [facility]. Patient has poor social issues and may possibly be staying at the [facility] while receiving radiation therapy. Sister is working on further placement once radiation treatment is complete. Review of systems: Constitutional: No reports of fatigue, fever, or chills Cardiovascular: No reports of chest pain or palpitations Respiratory: No reports of shortness of breath or cough GI: No reports of nausea, vomiting, or diarrhea : No reports of dysuria or retention Neurovascular: no reports of weakness All medications have been reviewed Objective - Vital Signs Vital signs: Vital Signs Temp 98.7 F 11/23/20 04:17 Pulse 72 11/23/20 04:17 Resp 18 11/23/20 04:17 BP 163/89 11/23/20 04:17 Pulse Ox 95 11/23/20 04:17 Intake & Output 11/22/20 11/23/20 11/23/20 18:59 06:59 18:59 Intake Total 1880 Output Total 1400 Balance 480 Weight 65 kg 65 kg Intake: Intake, IV Titration 1200 Amount Sodium Chloride 0.9% 1, 1200 000 ml @ 100 mls/hr IV . Q10H [facility] Rx#:[id number] Tube Feeding 500 Other 180 Output: Urine 1400 Other: Voiding Method Urinal - Exam GENERAL: The patient is alert and oriented x3, not in any acute distress. Thin built HEENT: Pupils are round and equally reacting to light. EOMI. No scleral icterus. No conjunctival pallor. Normocephalic, atraumatic. No pharyngeal erythema. No thyromegaly. CARDIOVASCULAR: S1 and S2 present. No murmurs, rubs, or gallops. PULMONARY: Diminished breath sounds bilaterally with no wheezing or rhonchi noted. ABDOMEN: Soft, thin, nontender, nondistended, normoactive bowel sounds. No palpable organomegaly. MUSCULOSKELETAL: No joint swelling or deformity. EXTREMITIES: No cyanosis, clubbing, no edema NEUROLOGICAL: Gross neurological examination did not reveal any focal deficits. SKIN: No rashes. no petechiae. - Labs CBC & Chem 7: 11/23/20 05:21 11/23/20 05:21 Labs: Abnormal Lab Results - Last 24 Hours (Table) 11/23/20 Range/Units 05:21 WBC 3.4 L (3.8-10.6) k/uL Lymphocytes # 0.3 L (1.0-4.8) k/uL Assessment and Plan Assessment: Intractable nausea and vomiting most likely due to recent chemotherapy treatment Acute renal failure with acute tubular necrosis secondary to dehydration Left tonsil malignancy Neutropenia hypertension COPD, not in acute exacerbation History of prostate cancer hyponatremia hypomagnesemia full code Plan: continue with gentle IV hydration. continue with tube feeds as tolerated. Continue with radiation treatments per radiology oncology and needs approximately 3 more weeks of radiation therapy. Patient will likely discharge to the [facility] which is being arranged by social work from [facility] to be able to accommodate compliance with treatments as he has many social barriers. Will repeat labs and monitor closely. Possible discharge in 24 hours.
[2020-11-24] MEDS: SODIUM CHLORIDE 0.9% 1,000 ML IV SCH ×2 (03:09→12:19)
[2020-11-24] MEDS: HYDROmorphone 2 MG TAB PO PRN ×2 (06:02→10:54)
[2020-11-24] MEDS: BENZONATATE 100 MG CAP PO PRN ×2 (06:05→09:01)
[2020-11-24 06:19] LABS: African American GFR (CKD) >90 (>60 ml/min/1.73 sqM); Anion Gap 7 mmol/L; Blood Urea Nitrogen 21 mg/dL (9-20); Calcium 9.2 mg/dL (8.4-10.2); Carbon Dioxide 23 mmol/L (22-30); Chloride 104 mmol/L (98-107); Glucose 132 mg/dL (74-99); Magnesium 1.7 mg/dL (1.6-2.3); Non-African American GFR(CKD) >90 (>60 ml/min/1.73 sqM); Potassium 4.7 mmol/L (3.5-5.1); Sodium 134 mmol/L (137-145)
[2020-11-24] MEDS ORDERED: MAGNESIUM SULFATE-D5W PMX 1 GM in DEXTROSE/WATER 1 100ML.BAG IVPB SCH (08:00)
[2020-11-24 08:33] VITALS: TEMP 98
[2020-11-24] MEDS: PANTOPRAZOLE 40 MG TABLET PO SCH (09:02)
[2020-11-24] MEDS: MAGNESIUM OXIDE 400 MG TAB PO SCH (09:02)
[2020-11-24] MEDS: MULTIVITAMINS, THERA 1 EACH TAB PO SCH (09:02)
[2020-11-24] MEDS: ONDANSETRON 4 MG/2 ML VIAL IVP PRN (09:02)
[2020-11-24] MEDS: CYANOCOBALAMIN 500 MCG TAB PO SCH (09:02)
[2020-11-24] MEDS: MAG HYDROX/AL HYDROX/SIMETH 30 ML, LIDOCAINE VISCOUS 30 ML, diphenhydrAMINE ELIXIR 75 M... PO SCH ×4 (09:03)
[2020-11-24] MEDS: MEGESTROL 400 MG/10 ML CUP PO SCH (09:03)
[2020-11-24] MEDS: HEPARIN SODIUM,PORCINE/PF 5,000 UNIT/0.5 ML SYRINGE SQ SCH (09:05)
[2020-11-24 12:05] VITALS: BP 178/89; PULSE 52; RESP 18
[2020-11-24] MEDS: dexAMETHasone ORAL SOLUTION 10 MG/ML VIAL PO SCH (12:18)
--- NOTE | 2020-11-25 09:43 | P.DS ---
Providers Date of admission: 11/19/20 01:14 Expected date of discharge: 11/24/20 Attending physician: Claude Whitaker Consults: 11/19/20 11:59 Consult Physician Routine Consulting Provider: Braden Ozuna Consult Reason/Comments: neck cancer Do you want consulting provider notified?: Yes 11/22/20 13:42 Consult Physician Routine Consulting Provider: Saad Wynne Consult Reason/Comments: continue radiation Do you want consulting provider notified?: Already Contacted Primary care physician: [facility] Hospital Course: Final diagnosis Acute gastritis related to recent chemotherapy Intractable nausea and vomiting most likely due to recent chemotherapy treatment Acute renal failure with acute tubular necrosis secondary to dehydration Left tonsil malignancy Neutropenia hypertension COPD, not in acute exacerbation History of prostate cancer hyponatremia hypomagnesemia full code Discharge disposition Patient is being discharged in a stable condition with guarded prognosis to [facility]. Patient will continue with radiation treatments at the [facility]. Patient will follow-up with [facility] in the outpatient setting upon discharge. Patient also will follow-up with Dr. Saad Wynne radiation oncology as scheduled. Total time taken is greater than 35 minutes. Hospital course This is a 70 year old male who was recently admitted with intractable nausea and vomiting and unable to tolerate tube feeds or oral intake and is being closely monitored. Patient has recent history of left tonsillar malignancy and started chemoradiation therapy while hospitalized at [facility] previously. Patient does have a Peg tube and has been managing independently and recently had to decrease rate as he was not tolerating. Patient also recently underwent chemotherapy and continued to have intolerance to oral intake and N,V with dehydration. Patient is tolerating tube feeds at a decreased rate and able to tolerate oral intake. Patient has been seen by radiation oncology here and will continue with radiation therapy here at [facility]. Patient has poor social issues and may possibly be staying at the [facility] while receiving radiation therapy. Si jonathon is working on further placement once radiation treatment is complete. 11/24/2020 Patient is seen in follow-up this morning status post receiving radiation and will continue to do so for the next 3 weeks. Patient is tolerating diet as well as the reduced rate of tube feedings and will continue in the outpatient setting. Patient is scheduled to go to the [facility] to assist with being co mpliant with radiation treatments as they accommodate travel to [facility] for appointments. [facility] out of [facility] as he has no plans for transferring care to oncology up in this area. She was provided prescriptions and instructed to follow-up with primary care provider this week. Patient has poor social living situations and resources provided. Patient's sister is also working on possible placement once radiation is done. Patient's blood pressure elevated during hospitalization likely related to pain but instructed the patient to follow-up with primary care provider this week to discuss possible hypertension medications and instructed the patient to closely monitor blood pressures upon discharge. Currently no reports of chest pain, shortness of breath, or palpitations. Patient is afebrile. No reports of nausea or vomiting and patient is tolerating diet. Patient will be going to [facility] today. On exam vital signs are stable. Cardio S1, S2 are muffled. Respiratory system shows diminished breath sounds at the bases with no wheezing or rhonchi noted. Abdomen is soft and nontender. Nervous system shows no focal deficit. Please refer to medication reconciliation sheet for a list of medications. Patient Condition at Discharge: Good Plan - Discharge Summary Discharge Rx Participant: No New Discharge Prescriptions: New diphenhydrAMINE ELIXIR [Benadryl Elixir] 75 mg PO TID #300 ml dexAMETHasone ORAL SOLUTION [Decadron Oral Solution] 5 mg PO TID #20 vial HYDROmorphone [Dilaudid] 2 mg PO Q6HR PRN #12 tab PRN Reason: Breakthrough Pain fentaNYL 25MCG/HR PATCH [Duragesic 25MCG/HR] 1 patch TRANSDERM Q72H #3 patch Magnesium Oxide [Mag-Ox] 400 mg PO TID #60 tab Megestrol [Megace] 400 mg PO DAILY #100 ml Nystatin 100,000 Unit/ml Susp [Mycostatin Oral Susp] 3,000,000 unit PO TID #100 ml Benzonatate [Tessalon Perles] 100 mg PO TID PRN #30 cap PRN Reason: Cough Acetaminophen Tab [Tylenol] 650 mg PO Q6HR PRN #30 tab PRN Reason: Fever And/ Or Pain Lidocaine Viscous [Xylocaine Viscous 2%] 30 ml PO TID #300 ml fentaNYL 12MCG/HR PATCH [Duragesic 12MCG/HR] 1 patch TRANSDERM Q72H #3 patch Mag Hydrox/Al Hydrox/Simeth [Maalox] 30 ml PO TID #300 ml Continue Cholecalciferol [Vitamin D3 (25 Mcg = 1000 Iu)] 50 mcg PO DAILY Multivitamins, Thera [Multivitamin (formulary)] 1 tab PO DAILY Cyanocobalamin (Vitamin B-12) [Vitamin B-12] 1,000 mcg PO DAILY Calcium Carbonate [Tums] 500 mg PO TID PRN PRN Reason: Heartburn Pantoprazole [Protonix] 40 mg PO DAILY Discontinued Magnesium Oxide [Mag-Ox] 500 mg PO BID Discharge Medication List Cholecalciferol [Vitamin D3 (25 Mcg = 1000 Iu)] 50 mcg PO DAILY 06/17/19 [History] Calcium Carbonate [Tums] 500 mg PO TID PRN 11/19/20 [History] Cyanocobalamin (Vitamin B-12) [Vitamin B-12] 1,000 mcg PO DAILY 11/19/20 [History] Multivitamins, Thera [Multivitamin (formulary)] 1 tab PO DAILY 11/19/20 [History] Pantoprazole [Protonix] 40 mg PO DAILY 11/19/20 [History] Acetaminophen Tab [Tylenol] 650 mg PO Q6HR PRN #30 tab 11/24/20 [Rx] Benzonatate [Tessalon Perles] 100 mg PO TID PRN #30 cap 11/24/20 [Rx] HYDROmorphone [Dilaudid] 2 mg PO Q6HR PRN #12 tab 11/24/20 [Rx] Lidocaine Viscous [Xylocaine Viscous 2%] 30 ml PO TID #300 ml 11/24/20 [Rx] Mag Hydrox/Al Hydrox/Simeth [Maalox] 30 ml PO TID #300 ml 11/24/20 [Rx] Magnesium Oxide [Mag-Ox] 400 mg PO TID #60 tab 11/24/20 [Rx] Megestrol [Megace] 400 mg PO DAILY #100 ml 11/24/20 [Rx] Nystatin 100,000 Unit/ml Susp [Mycostatin Oral Susp] 3,000,000 unit PO TID #100 ml 11/24/20 [Rx] dexAMETHasone ORAL SOLUTION [Decadron Oral Solution] 5 mg PO TID #20 vial 11/24/20 [Rx] diphenhydrAMINE ELIXIR [Benadryl Elixir] 75 mg PO TID #300 ml 11/24/20 [Rx] fentaNYL 12MCG/HR PATCH [Duragesic 12MCG/HR] 1 patch TRANSDERM Q72H #3 patch 11/24/20 [Rx] fentaNYL 25MCG/HR PATCH [Duragesic 25MCG/HR] 1 patch TRANSDERM Q72H #3 patch 11/24/20 [Rx] Follow up Appointment(s)/Referral(s): Saad Wynne MD [STAFF PHYSICIAN] - 11/25/20 11:15 am [facility],Clinic [Primary Care Provider] - 12/03/20 2:30 pm Patient Instructions/Handouts: Benzonatate (By mouth), Diphenhydramine (By mouth), Nystatin (By mouth), Fentanyl (Absorbed through the skin), Hydromorphone (By mouth), Megestrol Acetate (By mouth), Dexamethasone (By mouth), Magnesium H ydroxide (By mouth), Magnesium Oxide (By mouth) Activity/Diet/Wound Care/Special Instructions: Patient is going to [facility] and needs to call to make appointment Continue with oncology at [facility] Continue with radiation treatments at [facility] and follow-up with Dr. Saad Wynne Take medications as prescribed All prescriptions sent down to [facility] pharmacy during the hospital Continue tube feedings at current rate and as tolerated Continue dysphagia 2 ground diet Discharge Disposition: OTHER INSTITUTION NOT DEFINED
== END 2020-11-24 15:30 | disposition home or self-care (01) | DRG 391 ==
LOC: EC 23:26 → 5NMEDONC 11-19 01:14
PROVIDERS: ADMIT Hospitalist; ATTEND Hospitalist
PROC: D70 Radiation Therapy, Lymphatic and Hematologic System, Beam Radiation (ICD-10-PCS; principal; 2020-11-23)
DX: K29.00 Acute gastritis without bleeding (principal); N17.0 Acute kidney failure with tubular necrosis; E87.1 Hypo-osmolality and hyponatremia; Z43.1 Encounter for attention to gastrostomy; K20.80 Other esophagitis without bleeding; D70.1 Agranulocytosis secondary to cancer chemotherapy; C09.9 Malignant neoplasm of tonsil, unspecified; E86.0 Dehydration; J44.9 Chronic obstructive pulmonary disease, unspecified; F11.11 Opioid abuse, in remission; F15.11 Other stimulant abuse, in remission; J02.9 Acute pharyngitis, unspecified; Z20.822 Contact with and (suspected) exposure to COVID-19; T45.1X5A Adverse effect of antineoplastic and immunosuppressive drugs, initial encounter; E83.42 Hypomagnesemia; I10 Essential (primary) hypertension; N42.9 Disorder of prostate, unspecified; K21.9 Gastro-esophageal reflux disease without esophagitis; R19.7 Diarrhea, unspecified; B19.20 Unspecified viral hepatitis C without hepatic coma; Z79.899 Other long term (current) drug therapy; Z87.19 Personal history of other diseases of the digestive system; Z90.79 Acquired absence of other genital organ(s); Z86.14 Personal history of Methicillin resistant Staphylococcus aureus infection; Z85.46 Personal history of malignant neoplasm of prostate; Z86.19 Personal history of other infectious and parasitic diseases; Z90.49 Acquired absence of other specified parts of digestive tract; Z86.59 Personal history of other mental and behavioral disorders; Z87.891 Personal history of nicotine dependence; Z98.890 Other specified postprocedural states; Z88.1 Allergy status to other antibiotic agents; Z88.2 Allergy status to sulfonamides; Y84.2 Radiological procedure and radiotherapy as the cause of abnormal reaction of the patient, or of later complication, without mention of misadventure at the time of the procedure; Z80.0 Family history of malignant neoplasm of digestive organs
CPT/HCPCS: 36415; 77300; 77301; 77338; 77386; 80048; 80053; 81001; 82550; 83605; 83735; 83880; 84100; 84484; 85025; 85610; 85730; 87635; 93005; 96360; 99285

== ENCOUNTER 2020-12-01 14:15 | Inpatient (IN) | payer OTHER, MEDICARE ==
[2020-12-01] MEDS ORDERED: SODIUM CHLORIDE 0.9% 1,000 ML IV STA ×2 (14:37)
--- NOTE | 2020-12-01 15:41 | ED ---
Psych HPI - General Chief Complaint: Psychiatric Symptoms Stated Complaint: Mental Health Time Seen by Provider: 12/01/20 14:15 Source: patient, police, RN notes reviewed Mode of arrival: EMS - History of Present Illness Initial Comments: This is a 69-year-old male history of alcoholism and substance abuse also history of tonsillar cancer who has been in the past receiving radiation who is brought in today by police and petitioned for altered mental status and bizarre activity. Patient states she hasn't drank recently. He had been kicked out of [employer] due to drinking. He had prior to that been kicked out of her house for drinking. He also was evasive when asked about other substances. He is demonstrating flight of ideas. MD Complaint: feels depressed, other - Related Data Home Medications Medication Instructions Recorded Confirmed Cholecalciferol [Vitamin D3 (25 50 mcg PO DAILY 06/17/19 11/19/20 Mcg = 1000 Iu)] Calcium Carbonate [Tums] 500 mg PO TID PRN 11/19/20 11/19/20 Cyanocobalamin (Vitamin B-12) 1,000 mcg PO DAILY 11/19/20 11/19/20 [Vitamin B-12] Multivitamins, Thera [Multivitamin 1 tab PO DAILY 11/19/20 11/19/20 (formulary)] Pantoprazole [Protonix] 40 mg PO DAILY 11/19/20 11/19/20 Previous Rx's Medication Instructions Recorded Acetaminophen Tab [Tylenol] 650 mg PO Q6HR PRN #30 tab 11/24/20 Benzonatate [Tessalon Perles] 100 mg PO TID PRN #30 cap 11/24/20 HYDROmorphone [Dilaudid] 2 mg PO Q6HR PRN #12 tab 11/24/20 Lidocaine Viscous [Xylocaine 30 ml PO TID #300 ml 11/24/20 Viscous 2%] Mag Hydrox/Al Hydrox/Simeth 30 ml PO TID #300 ml 11/24/20 [Maalox] Magnesium Oxide [Mag-Ox] 400 mg PO TID #60 tab 11/24/20 Megestrol [Megace] 400 mg PO DAILY #100 ml 11/24/20 Nystatin 100,000 Unit/ml Susp 3,000,000 unit PO TID #100 ml 11/24/20 [Mycostatin Oral Susp] dexAMETHasone ORAL SOLUTION 5 mg PO TID #20 vial 11/24/20 [Decadron Oral Solution] diphenhydrAMINE ELIXIR [Benadryl 75 mg PO TID #300 ml 11/24/20 Elixir] fentaNYL 12MCG/HR PATCH [Duragesic 1 patch TRANSDERM Q72H #3 patch 11/24/20 12MCG/HR] fentaNYL 25MCG/HR PATCH [Duragesic 1 patch TRANSDERM Q72H #3 patch 11/24/20 25MCG/HR] Allergies Allergy/AdvReac Type Severity Reaction Status Date / Time erythromycin base AdvReac Nausea & Verified 11/19/20 08:59 Vomiting & Diarrhea Sulfa (Sulfonamide AdvReac Nausea & Verified 11/19/20 08:59 Antibiotics) Vomiting & Diarrhea Review of Systems ROS Statement: Those systems with pertinent positive or pertinent negative responses have been documented in the HPI. ROS Other: All systems not noted in ROS Statement are negative. Past Medical History Past Medical History: Cancer, COPD, GERD/Reflux, Hypertension, Prostate Disorder Additional Past Medical History / Comment(s): having a hard time eating and acid reflux coming up into my chest.hx prostate CA. Hep C , currently having chemotherapy and radiation treatments History of Any Multi-Drug Resistant Organisms: MRSA Date of last positivie culture/infection: 06/13/18 MDRO Source:: Left Hand Past Surgical History: Hernia Repair, Orthopedic Surgery, Prostate Surgery Additional Past Surgical History / Comment(s): Laparotomy with drainage of abscess. Prostatectomy with da Jessi PEG tube insertion Past Anesthesia/Blood Transfusion Reactions: No Reported Reaction Additional Past Anesthesia/Blood Transfusion Reaction / Comment(s): no hx blood transfusion Past Psychological History: Depression Smoking Status: Former smoker Past Alcohol Use History: Occasional Past Drug Use History: Prescription Drug Abuse - Past Family History Father Family Medical History: Cancer Additional Family Medical History / Comment(s): cholecystectomy, pancreatic cancer General Exam - General Exam Comments Initial Comments: Is a well-developed asthenic appearing male who is awake and alert demonstrating flight of ideas Limitations: no limitations General appearance: alert, anxious Head exam: Present: atraumatic, normocephalic, normal inspection Eye exam: Present: normal appearance, PERRL, EOMI. Absent: scleral icterus, conjunctival injection, periorbital swelling ENT exam: Present: mucous membranes dry Neck exam: Present: normal inspection. Absent: tenderness, meningismus, lymphadenopathy Respiratory exam: Present: normal lung sounds bilaterally. Absent: respiratory distress, wheezes, rales, rhonchi, stridor Cardiovascular Exam: Present: normal rhythm, tachycardia, normal heart sounds. Absent: systolic murmur, diastolic murmur, rubs, gallop, clicks GI/Abdominal exam: Present: soft, normal bowel sounds. Absent: distended, tenderness, guarding, rebound, rigid Extremities exam: Present: normal inspection, full ROM, normal capillary refill. Absent: tenderness, pedal edema, joint swelling, calf tenderness Back exam: Present: normal inspection Neurological exam: Present: alert, oriented X3, CN II-XII intact Psychiatric exam: Present: normal affect, normal mood Skin exam: Present: warm, dry, intact, normal color. Absent: rash Course Vital Signs 12/01/20 14:25 Temperature 99.9 F H Pulse Rate 166 H Respiratory 18 Rate Blood Pressure 189/127 O2 Sat by Pulse 98 Oximetry - Reevaluation(s) Reevaluation #1: 12/01/20 16:42 Patient's heart rate has improved after IV fluids. Medical Decision Making - Medical Decision Making I decided no infectious processes identified over the patient does have evidence of rhabdomyolysis and acute kidney injury drug screen was positive for methamphetamines. Patient will be admitted I did discuss case with Dr. Strauss. Psych service will be consulted - Lab Data Result diagrams: 12/01/20 15:11 12/01/20 15:11 Lab Results 12/01/20 12/01/20 12/01/20 Range/Units 15:10 15:11 15:11 WBC 2.6 L (3.8-10.6) k/uL RBC 4.32 (4.30-5.90) m/uL Hgb 12.5 L (13.0-17.5) gm/dL Hct 37.9 L (39.0-53.0) % MCV 87.6 (80.0-100.0) fL MCH 28.9 (25.0-35.0) pg MCHC 32.9 (31.0-37.0) g/dL RDW 15.4 (11.5-15.5) % Plt Count 167 (150-450) k/uL MPV 8.2 Sodium (137-145) mmol/L Potassium (3.5-5.1) mmol/L Chloride (98-107) mmol/L Carbon Dioxide (22-30) mmol/L Anion Gap mmol/L BUN (9-20) mg/dL Creatinine (0.66-1.25) mg/dL Est GFR (CKD-EPI)AfAm (>60 ml/min/1.73 sqM) Est GFR (CKD-EPI)NonAf (>60 ml/min/1.73 sqM) Glucose (74-99) mg/dL Calcium (8.4-10.2) mg/dL Magnesium (1.6-2.3) mg/dL Total Bilirubin (0.2-1.3) mg/dL AST (17-59) U/L ALT (4-49) U/L Alkaline Phosphatase (38-126) U/L Creatine Kinase (55-170) U/L Troponin I 0.026 (0.000-0.034) ng/mL Total Protein (6.3-8.2) g/dL Albumin (3.5-5.0) g/dL Lipase (23-300) U/L Urine Color Yellow Urine Appearance Cloudy (Clear) Urine pH 5.0 (5.0-8.0) Ur Specific [place] 1.027 (1.001-1.035) Urine Protein 1+ H (Negative) Urine Glucose (UA) Negative (Negative) Urine Ketones 1+ H (Negative) Urine Blood Negative (Negative) Urine Nitrite Negative (Negative) Urine Bilirubin Negative (Negative) Urine Urobilinogen <2.0 (<2.0) mg/dL Ur Leukocyte Esterase Negative (Negative) Urine RBC 2 (0-5) /hpf Urine WBC 4 (0-5) /hpf Ur Squamous Epith Cells 1 (0-4) /hpf Hyaline Casts 15 H (0-2) /lpf Granular Casts 1 (0) /lpf Urine Mucus Rare H (None) /hpf Urine Opiates Screen Detected H (NotDetected) Ur Oxycodone Screen Not Detected (NotDetected) Urine Methadone Screen Not Detected (NotDetected) Ur Propoxyphene Screen Not Detected (NotDetected) Ur Barbiturates Screen Not Detected (NotDetected) U Tricyclic Antidepress Not Detected (NotDetected) Ur Phencyclidine Scrn Not Detected (NotDetected) Ur Amphetamines Screen Detected H (NotDetected) U Methamphetamines Scrn Detected H (NotDetected) U Benzodiazepines Scrn Not Detected (NotDetected) Urine Cocaine Screen Not Detected (NotDetected) U Marijuana (THC) Screen Not Detected (NotDetected) Serum Alcohol mg/dL 12/01/20 Range/Units 15:11 WBC (3.8-10.6) k/uL RBC (4.30-5.90) m/uL Hgb (13.0-17.5) gm/dL Hct (39.0-53.0) % MCV (80.0-100.0) fL MCH (25.0-35.0) pg MCHC (31.0-37.0) g/dL RDW (11.5-15.5) % Plt Count (150-450) k/uL MPV Sodium 141 (137-145) mmol/L Potassium 4.5 (3.5-5.1) mmol/L Chloride 107 (98-107) mmol/L Carbon Dioxide 18 L (22-30) mmol/L Anion Gap 16 mmol/L BUN 52 H (9-20) mg/dL Creatinine 1.80 H (0.66-1.25) mg/dL Est GFR (CKD-EPI)AfAm 43 (>60 ml/min/1.73 sqM) Est GFR (CKD-EPI)NonAf 38 (>60 ml/min/1.73 sqM) Glucose 106 H (74-99) mg/dL Calcium 9.3 (8.4-10.2) mg/dL Magnesium 2.1 (1.6-2.3) mg/dL Total Bilirubin 0.6 (0.2-1.3) mg/dL AST 63 H (17-59) U/L ALT 25 (4-49) U/L Alkaline Phosphatase 73 (38-126) U/L Creatine Kinase 2407 H* (55-170) U/L Troponin I (0.000-0.034) ng/mL Total Protein 7.3 (6.3-8.2) g/dL Albumin 4.5 (3.5-5.0) g/dL Lipase 56 (23-300) U/L Urine Color Urine Appearance (Clear) Urine pH (5.0-8.0) Ur Specific [place] (1.001-1.035) Urine Protein (Negative) Urine Glucose (UA) (Negative) Urine Ketones (Negative) Urine Blood (Negative) Urine Nitrite (Negative) Urine Bilirubin (Negative) Urine Urobilinogen (<2.0) mg/dL Ur Leukocyte Esterase (Negative) Urine RBC (0-5) /hpf Urine WBC (0-5) /hpf Ur Squamous Epith Cells (0-4) /hpf Hyaline Casts (0-2) /lpf Granular Casts (0) /lpf Urine Mucus (None) /hpf Urine Opiates Screen (NotDetected) Ur Oxycodone Screen (NotDetected) Urine Methadone Screen (NotDetected) Ur Propoxyphene Screen (NotDetected) Ur Barbiturates Screen (NotDetected) U Tricyclic Antidepress (NotDetected) Ur Phencyclidine Scrn (NotDetected) Ur Amphetamines Screen (NotDetected) U Methamphetamines Scrn (NotDetected) U Benzodiazepines Scrn (NotDetected) Urine Cocaine Screen (NotDetected) U Marijuana (THC) Screen (NotDetected) Serum Alcohol <10 mg/dL - EKG Data -: EKG Interpreted by Me EKG shows normal: sinus rhythm EKG Comments: Sinus tachycardia rate 131. Interval 140 QRS duration 86 QT since QTC 280/[address]-T wave configuration - Radiology Data Radiology results: report reviewed (Imaging reviewed no acute findings.), image reviewed Disposition Clinical Impression: Rhabdomyolysis, Acute kidney injury, Dehydration, Methamphetamine abuse, History of cancer tonsil Disposition: ADMITTED IP TO THIS HOSP Condition: Fair Referrals: [facility],Clinic [Primary Care Provider] - 1-2 days
[2020-12-01 15:43] LABS: Appearance,Urine Cloudy (Clear); Bilirubin,Urine Negative (Negative); Blood,Urine Negative (Negative); Color,Urine Yellow; Glucose,Urine (UA) Negative (Negative); Granular Casts,Urine 1 /lpf (0); Hyaline Casts,Urine 15 /lpf (0-2); Ketones,Urine 1+ (Negative); Leukocyte Esterase,Urine Negative (Negative); Mucus,Urine Rare /hpf; Nitrite,Urine Negative (Negative); Protein,Urine 1+ (Negative); RBC,Urine 2 /hpf (0-5); Specific Gravity,Urine 1.027 (1.001-1.035); Squamous Epithelial Cell,Urine 1 /hpf (0-4); Urobilinogen,Urine <2.0 mg/dL (<2.0); WBC,Urine 4 /hpf (0-5)
[2020-12-01 15:57] LABS: ALT 25 U/L (4-49); AST 63 U/L (17-59); African American GFR (CKD) 43 (>60 ml/min/1.73 sqM); Albumin 4.5 g/dL (3.5-5.0); Alcohol <10 mg/dL; Alkaline Phosphatase 73 U/L (38-126); Anion Gap 16 mmol/L; Blood Urea Nitrogen 52 mg/dL (9-20); Calcium 9.3 mg/dL (8.4-10.2); Carbon Dioxide 18 mmol/L (22-30); Chloride 107 mmol/L (98-107); Glucose 106 mg/dL (74-99); HCT 37.9 % (39.0-53.0); HGB 12.5 gm/dL (13.0-17.5); Lipase 56 U/L (23-300); MCH 28.9 pg (25.0-35.0); MCHC 32.9 g/dL (31.0-37.0); MCV 87.6 fL (80.0-100.0); Magnesium 2.1 mg/dL (1.6-2.3); Mean Platelet Volume 8.2; Non-African American GFR(CKD) 38 (>60 ml/min/1.73 sqM); Platelet Count 167 k/uL (150-450); Potassium 4.5 mmol/L (3.5-5.1); RBC 4.32 m/uL (4.30-5.90); RDW 15.4 % (11.5-15.5); Sodium 141 mmol/L (137-145); Total Bilirubin 0.6 mg/dL (0.2-1.3); Total Protein 7.3 g/dL (6.3-8.2); WBC 2.6 k/uL (3.8-10.6)
[2020-12-01 16:06] LABS: Creatine Kinase 2407 U/L (55-170)
[2020-12-01 16:24] LABS: Cocaine Screen,Urine Not Detected (NotDetected); Phencyclidine Screen,Urine Not Detected (NotDetected); Urn Cannabinoid Scrn Not Detected (NotDetected)
[2020-12-01 16:25] LABS: Amphetamine Screen,Urine Detected (NotDetected); Barbiturate Screen,Urine Not Detected (NotDetected); Benzodiazepines Screen,Urine Not Detected (NotDetected); Methadone Screen, Urine Not Detected (NotDetected); Opiate Screen,Urine Detected (NotDetected); Oxycodone Screen, Urine Not Detected (NotDetected); Tricyclic Antidepressant,Urine Not Detected (NotDetected)
--- NOTE | 2020-12-01 16:26 | XR ---
EXAMINATION TYPE: XR chest 2V DATE OF EXAM: 12/01/2020 COMPARISON: xray dated 02/14/2020 HISTORY: Altered mental status TECHNIQUE: Frontal and lateral views of the chest are obtained. FINDINGS: There is no focal air space opacity, pleural effusion, or pneumothorax seen. The cardiac silhouette size is within normal limits. Port a cath present in left pectoral region, catheter tip ov er SVC region. Suspect pectus deformity. Gastric tube note in left upper quadrant. The osseous stru ctures are intact. IMPRESSION: No acute cardiopulmonary process.
--- NOTE | 2020-12-01 16:32 | CT ---
EXAMINATION TYPE: CT brain wo con DATE OF EXAM: 12/01/2020 COMPARISON: 06/15/2020 HISTORY: Weakness with history of cancer. CT DLP: 1102.[address] of the brain was performed. The ventricles, basal cisterns and sulci overlying the cerebral convexities demonstrate mild enlargem ent. There is no evidence for intracranial hemorrhage or sulcal effacement. There is decreased attenuation about the periventricular white matter and deep white matter of both c erebral hemispheres, compatible with chronic small vessel ischemia. Differential diagnosis does inclu de demyelination. No mass effects are seen.No midline shift. Osseous calvarium is intact. If symptoms persist consider MRI. IMPRESSION: 1. Age related atrophic and chronic small vessel ischemic change without acute intracranial process s een at this time.
[2020-12-01] MEDS ORDERED: NALOXONE 0.4 MG/ML 1 ML VIAL IV PRN (16:45)
[2020-12-01] MEDS ORDERED: BENZONATATE 100 MG CAP PO PRN (16:47)
[2020-12-01] MEDS ORDERED: CALCIUM CARBONATE 500 MG CHEWABLE PO PRN (16:47)
[2020-12-01 16:52] LABS: Lymphocytes # (M) 0.23 k/uL (1.0-4.8); Monocytes # (M) 0.49 k/uL (0-1.0); Neutrophils # (M) 1.87 k/uL (1.3-7.7); Neutrophils % (M) 72 %; Nucleated Red Blood Cells 0 /100 WBC (0-0); Total Cells Counted 100
[2020-12-01] MEDS: MAG HYDROX/AL HYDROX/SIMETH 30 ML, LIDOCAINE VISCOUS 30 ML, diphenhydrAMINE ELIXIR 75 M... PO SCH ×4 (21:39)
[2020-12-01] MEDS: MAGNESIUM OXIDE 400 MG TAB PO SCH (21:50)
[2020-12-01] MEDS: cloNIDine HCL 0.1 MG TAB PO SCH (21:50)
[2020-12-01] MEDS: HYDROmorphone 2 MG TAB PO PRN (21:56)
[2020-12-01] MEDS ORDERED: NYSTATIN 100,000 UNIT/ML SUSP 500,000 UNIT/5 ML CUP PO SCH (22:00)
[2020-12-01] MEDS ORDERED: dexAMETHasone ORAL SOLUTION 10 MG/ML VIAL PO SCH (22:00)
[2020-12-01] MEDS ORDERED: LIDOCAINE VISCOUS PO SCH (22:00)
[2020-12-01] MEDS ORDERED: MAG HYDROX/AL HYDROX/SIMETH 30 ML CUP PO SCH (22:00)
[2020-12-01] MEDS ORDERED: diphenhydrAMINE ELIXIR 25 MG/10 ML CUP PO SCH (22:00)
--- NOTE | 2020-12-01 22:48 | P.HPIM ---
History of Present Illness H&P Date: 12/01/20 Chief Complaint: Psychosis Patient is a 70-year-old male with known history of COPD, hypertension, GERD, hepatitis C history of prostate cancer, tonsillar cancer currently undergoing chemotherapy and radiation treatment and alcohol abuse, prior history of smoking and depression and other multiple medical problems was brought to the hospital by police and petitioned due to altered mental status and bizarre behavior activity. Patient had been kicked out of the [place] house due to drinking. Patient is having flight of ideas. Denied any chest pain or shortness of breat h. No complaints of abdominal pain. No leg swelling. Chest x-ray showed no acute cardiopulmonary process CT head showed age-related atrophic and chronic small vessel ischemic change without acute intracranial process. EKG showed sinus tachycardia Laboratory data showed WBC 2.6 hemoglobin 12.5 and platelets 167 Sodium 141 potassium 4.5 chloride 107 bicarb is 18 BUN 52 and creatinine 1.8 AST 63, CK 247 and troponin 0 0.026 Lipase 56 Urinalysis is negative for infection UDS is positive for opiates, amphetamines, methamphetamines. Serum alcohol level is less than 10 Review of Systems Complete review of systems could not be obtained from the patient Past Medical History Past Medical History: Cancer, COPD, GERD/Reflux, Hypertension, Prostate Disorder Additional Past Medical History / Comment(s): having a hard time eating and acid reflux coming up into my chest.hx prostate CA. Hep C , currently having chemotherapy and radiation treatments History of Any Multi-Drug Resistant Organisms: MRSA Date of last positivie culture/infection: 06/13/18 MDRO Source:: Left Hand Past Surgical History: Hernia Repair, Orthopedic Surgery, Prostate Surgery Additional Past Surgical History / Comment(s): Laparotomy with drainage of abscess. Prostatectomy with da Jessi PEG tube insertion Past Anesthesia/Blood Transfusion Reactions: No Reported Reaction Additional Past Anesthesia/Blood Transfusion Reaction / Comment(s): no hx blood transfusion Past Psychological History: Depression Smoking Status: Former smoker Past Alcohol Use History: Occasional Past Drug Use History: Prescription Drug Abuse - Past Family History Father Family Medical History: Cancer Additional Family Medical History / Comment(s): cholecystectomy, pancreatic cancer Medications and Allergies Home Medications Medication Instructions Recorded Confirmed Type Cholecalciferol [Vitamin D3 (25 50 mcg PO DAILY 06/17/19 12/01/20 History Mcg = 1000 Iu)] Calcium Carbonate [Tums] 500 mg PO TID PRN 11/19/20 12/01/20 History Cyanocobalamin (Vitamin B-12) 1,000 mcg PO DAILY 11/19/20 12/01/20 History [Vitamin B-12] Multivitamins, Thera [Multivitamin 1 tab PO DAILY 11/19/20 12/01/20 History (formulary)] Pantoprazole [Protonix] 40 mg PO DAILY 11/19/20 12/01/20 History Acetaminophen Tab [Tylenol] 650 mg PO Q6HR PRN #30 tab 11/24/20 12/01/20 Rx Benzonatate [Tessalon Perles] 100 mg PO TID PRN #30 cap 11/24/20 12/01/20 Rx Lidocaine Viscous [Xylocaine 30 ml PO TID #300 ml 11/24/20 12/01/20 Rx Viscous 2%] Mag Hydrox/Al Hydrox/Simeth 30 ml PO TID #300 ml 11/24/20 12/01/20 Rx [Maalox] Magnesium Oxide [Mag-Ox] 400 mg PO TID #60 tab 11/24/20 12/01/20 Rx Megestrol [Megace] 400 mg PO DAILY #100 ml 11/24/20 12/01/20 Rx Nystatin 100,000 Unit/ml Susp 3,000,000 unit PO TID #100 ml 11/24/20 12/01/20 Rx [Mycostatin Oral Susp] diphenhydrAMINE ELIXIR [Benadryl 75 mg PO TID #300 ml 11/24/20 12/01/20 Rx Elixir] fentaNYL 12MCG/HR PATCH [Duragesic 1 patch TRANSDERM Q72H #3 patch 11/24/20 12/01/20 Rx 12MCG/HR] fentaNYL 25MCG/HR PATCH [Duragesic 1 patch TRANSDERM Q72H #3 patch 11/24/20 12/01/20 Rx 25MCG/HR] Pregabalin [Lyrica] 75 mg PO BID 12/01/20 12/01/20 History Allergies Allergy/AdvReac Type Severity Reaction Status Date / Time erythromycin base AdvReac Nausea & Verified 12/01/20 16:56 Vomiting & Diarrhea Sulfa (Sulfonamide AdvReac Nausea & Verified 12/01/20 16:56 Antibiotics) Vomiting & Diarrhea Physical Exam Vitals: Vital Signs Temp Pulse Resp BP Pulse Ox 12/01/20 17:11 99.0 F 112 H 18 163/99 98 12/01/20 14:25 99.9 F H 166 H 18 189/127 98 Intake and Output 12/01/20 12/01/20 12/01/20 06:59 14:59 22:59 Other: Weight 65.771 kg Patient isRestless and trying to get out of bed. Awake alert, confused and disoriented... HEENT: Normocephalic. Neck is supple. Pupils reactive. Nostrils clear. Oral cavity is moist. Neck reveals no JVD, carotid bruits, or thyromegaly. CHEST EXAMINATION: Trachea is central. Symmetrical expansion. Lung weeks clear to auscultation and percussion. CARDIAC: Normal S1, S2 with no gallops. No murmurs ABDOMEN: Soft. Bowel sounds normal. No organomegaly. No abdominal bruits. Extremities: reveal no edema. No clubbing or cyanosis Neurologically awake, alert, oriented x1-2 with well-coordinated movements. No focal deficits noted Skin: No rash or skin lesions. Psychiatric: Noncooperative Musculoskeletal: No joint swelling or deformity. Normal range of motion. Results CBC & Chem 7: 12/02/20 07:19 12/02/20 07:19 Labs: Abnormal Lab Results - Last 24 Hours (Table) 12/01/20 12/01/20 12/01/20 Range/Units 15:11 15:11 15:11 WBC 2.6 L (3.8-10.6) k/uL Hgb 12.5 L (13.0-17.5) gm/dL Hct 37.9 L (39.0-53.0) % Lymphocytes # (Manual) 0.23 L (1.0-4.8) k/uL Carbon Dioxide 18 L (22-30) mmol/L BUN 52 H (9-20) mg/dL Creatinine 1.80 H (0.66-1.25) mg/dL Glucose 106 H (74-99) mg/dL AST 63 H (17-59) U/L Creatine Kinase 2407 H* (55-170) U/L Urine Protein 1+ H (Negative) Urine Ketones 1+ H (Negative) Hyaline Casts 15 H (0-2) /lpf Urine Mucus Rare H (None) /hpf Urine Opiates Screen Detected H (NotDetected) Ur Amphetamines Screen Detected H (NotDetected) U Methamphetamines Scrn Detected H (NotDetected) Thrombosis Risk Factor Assmnt - DVT/VTE Prophylaxis DVT/VTE Prophylaxis: Pharmacologic Prophylaxis ordered Assessment and Plan Assessment: Acute psychosis and bizarre behavior Acute rhabdomyolysis with CK level 07/01/2006 Acute kidney injury likely prerenal and also rhabdomyolysis. Tonsillar cancer currently undergoing chemotherapy and radiation treatments Status post PEG tube placement due to poor oral intake from cancer. History of alcohol abuse Hepatitis C history Hypertension GERD COPD not in exacerbation Depression History of smoking DVT prophylaxis with heparin subcu Plan: Patient will be continued on IV hydration with normal saline. Monitor renal function and CK levels. Continue with blood pressure medications and follow-up closely. Psychiatry was consulted for evaluation. Follow-up CBC BMP and CK levels. Monitor for withdrawal symptoms. Nutrition service was consulted for calorie count for PEG tube feeding. Patient also tolerates mechanical soft diet. Time with Patient: Greater than 30
[2020-12-01] MEDS: HEPARIN SODIUM,PORCINE/PF 5,000 UNIT/0.5 ML SYRINGE SQ SCH (23:48)
[2020-12-01] MEDS: SODIUM CHLORIDE 0.9% 1,000 ML IV SCH (23:48)
[2020-12-02] MEDS: cloNIDine HCL 0.1 MG TAB PO SCH ×2 (08:30→21:29)
[2020-12-02] MEDS: CHOLECALCIFEROL 25 MCG (1000 IU) TABLET PO SCH (08:30)
[2020-12-02] MEDS: MAGNESIUM OXIDE 400 MG TAB PO SCH ×3 (08:30→21:30)
[2020-12-02] MEDS: HYDROmorphone 2 MG TAB PO PRN ×2 (08:30→17:17)
[2020-12-02] MEDS: MULTIVITAMINS, THERA 1 EACH TAB PO SCH (08:30)
[2020-12-02] MEDS: MAG HYDROX/AL HYDROX/SIMETH 30 ML, LIDOCAINE VISCOUS 30 ML, diphenhydrAMINE ELIXIR 75 M... PO SCH ×12 (08:30→21:30)
[2020-12-02] MEDS: CYANOCOBALAMIN 500 MCG TAB PO SCH (08:30)
[2020-12-02] MEDS: PANTOPRAZOLE 40 MG TABLET PO SCH (08:30)
[2020-12-02] MEDS: HEPARIN SODIUM,PORCINE/PF 5,000 UNIT/0.5 ML SYRINGE SQ SCH ×3 (08:31→16:14)
[2020-12-02] MEDS: SODIUM CHLORIDE 0.9% 1,000 ML IV SCH ×3 (08:37→21:30)
[2020-12-02] MEDS: MEGESTROL 400 MG/10 ML CUP PO SCH (09:57)
[2020-12-02 11:36] LABS: Basophils # (A) 0.01 X 10*3/uL (0.00-0.10); Basophils % (A) 0.5 %; Eosinophils # (A) 0.09 X 10*3/uL (0.04-0.35); Eosinophils % (A) 4.1 %; Lymphocytes # (A) 0.28 X 10*3/uL (0.90-5.00); Lymphocytes % (A) 12.7 %; MCH 28.2 pg (27.0-32.0); MCHC 32.3 g/dL (32.0-37.0); MCV 87.6 fL (80.0-97.0); Mean Platelet Volume 11.1 fL (9.5-12.2); Monocytes # (A) 0.56 X 10*3/uL (0.20-1.00); Monocytes % (A) 25.3 %; Neutrophils # (A) 1.27 X 10*3/uL (1.80-7.70); Neutrophils % (A) 57.4 %; Platelet Count 142 X 10*3/uL (140-440); RBC 3.54 X 10*6/uL (4.40-5.60); RDW 15.1 % (11.5-14.5); WBC 2.21 X 10*3/uL (4.50-10.00)
[2020-12-02 14:23] LABS: African American GFR (CKD) 88.6 (60.0-200.0); Calcium 7.7 mg/dL (8.7-10.3); Non-African American GFR(CKD) 76.5 (60.0-200.0); Potassium 3.7 mmol/L (3.5-5.5)
--- NOTE | 2020-12-02 16:47 | P.CN ---
Psychiatric Consult - . Consult date: 12/02/20 Consult:: Patient was seen in consult regarding "flight of ideas" He was gone for radiation therapy when I went there to see him and I had to wait for a while for him to return. According to his chart he has cancer of the tonsils, history of prostate cancer and has COPD GERD and hypertension. He was recently diagnosed with rhabdomyolysis. His most recent CK is 3386. He doesn't have any history of muscle injury. His UDS is positive for amphetamine, methamphetamine and opiates. He said the opiates is from his prescription of Dilaudid and insists that he had not used any meth for over 4 months. Computed tomography scan of the brain shows a age related atrophy changes and chronic small vessel ischemia. He is on Dilaudid 4 mg by mouth every 6 hours when necessary and fentanyl 25 g per hour patch every 72 hours. Patient was examined when he was laying down in his bed. He denies any psychiatric issues. He said his mother last month and has been living in his mother's house. His sister wants to get him out of the house and refuses to share the proceedings sale of house with him. Apparently she wants him to be in the long term and has threatened to send him to longterm if he refuses to vacate house. He is polite and cooperative. He does not show any psychomotor agitation or retardation. He is poorly shaven. His mustache Potter upper lip and part of lower lip. His speech is spontaneous and gets over inclusive. But he does not have flight of ideas. He has some dysarthria. I'm not sure if it is from narcotics or related to tonsillar cancer. His mood is euthymic and affect is appropriate. He denies suicidal and homicidal thoughts. He denies hallucinations or confusion. I am not sure if what he is saying about his sister is factual or is a delusional. He is oriented and can name the presidents. But he is unable to draw a picture of circular clock without 12 numbers and it ended time showing 10:15. Clock is not circular and the numbers are placed unevenly. Assessment: Appears to have vascular dementia. Most likely he has been abusing amphetamines which also caused elevated CPK. Cause of dysarthria is not clear. It may be related to tonsillar cancer or secondary to narcotics. Does not appear to have any other psychiatric condition. Recommendation: Dementia care which includes not using anticholinergic medications, cutting down narcotics to the minimum possible or discontinuing it, educating him about the procedures that are done for him, keeping his room bright and giving him simple instructions which can be repeated and can ask him to repeat the instructions so that he understands it. He does not need to be treated in the psychiatric unit even after he is medically cleared. You may want to consider neurology consult regarding dementia and management. Patient is on 12/02/20 16:29
[2020-12-02] MEDS: ACETAMINOPHEN TAB 325 MG TAB PO PRN (21:31)
--- NOTE | 2020-12-03 00:29 | P.PN ---
Subjective Progress Note Date: 12/02/20 Patient is a 70-year-old male with known history of COPD, hypertension, GERD, hepatitis C history of prostate cancer, tonsillar cancer currently undergoing chemotherapy and radiation treatment and alcohol abuse, prior history of smoking and depression and other multiple medical problems was brought to the hospital by police and petitioned due to altered mental status and bizarre behavior activity. Patient had been kicked out of the [place] house due to drinking. Patient is having flight of ideas. Denied any chest pain or shortness of breath. No complaints of abdominal pain. No leg swelling. Chest x-ray showed no acute cardiopulmonary process CT head showed age-related atrophic and chronic small vessel ischemic change without acute intracranial process. EKG showed sinus tachycardia Laboratory data showed WBC 2.6 hemoglobin 12.5 and platelets 167 Sodium 141 potassium 4.5 chloride 107 bicarb is 18 BUN 52 and creatinine 1.8 AST 63, CK 247 and troponin 0 0.026 Lipase 56 Urinalysis is negative for infection UDS is positive for opiates, amphetamines, methamphetamines. Serum alcohol level is less than 10 12/02/2020 Patient is currently resting in the bed comfortably. Awake alert but slightly confused. Denied any complaints of chest pain or shortness of. Patient is tolerating soft diet. Also started on PEG tube feeding. Patient was getting radiation treatments during previous admissions and will consult radiation oncology. Patient was not able to follow-up as outpatient Seen by psychiatry and thinks he has dementia with behavioral changes and does not require any inpatient psychiatric admission. CPK level is elevated. Continued on IV hydration and fluids via PEG tube. Patient has been afebrile. No nausea or vomiting. No abdominal pain. Current medications reviewed. Objective - Vital Signs Vital signs: Vital Signs Temp 99.5 F 12/02/20 14:00 Pulse 63 12/02/20 14:00 Resp 16 12/02/20 14:00 BP 123/70 12/02/20 14:00 Pulse Ox 96 12/02/20 14:00 Intake & Output 12/01/20 12/02/20 12/02/20 18:59 06:59 18:59 Weight 65.771 kg 65.771 kg Other: # Voids 2 - Exam Patient is Awake alert, confused and disoriented... HEENT: Normocephalic. Neck is supple. Pupils reactive. Nostrils clear. Oral cavity is moist. Neck reveals no JVD, carotid bruits, or thyromegaly. CHEST EXAMINATION: Trachea is central. Symmetrical expansion. Lung weeks clear to auscultation and percussion. CARDIAC: Normal S1, S2 with no gallops. No murmurs ABDOMEN: Soft. Bowel sounds normal. No organomegaly. No abdominal bruits. Extremities: reveal no edema. No clubbing or cyanosis Neurologically awake, alert, oriented x1-2 with well-coordinated movements. No focal deficits noted Skin: No rash or skin lesions. Psychiatric: cooperative Musculoskeletal: No joint swelling or deformity. Normal range of motion. - Labs CBC & Chem 7: 12/02/20 07:19 12/02/20 07:19 Labs: Abnormal Lab Results - Last 24 Hours (Table) 12/02/20 12/02/20 Range/Units 07:19 07:19 WBC 2.21 L (4.50-10.00) X 10*3/uL RBC 3.54 L (4.40-5.60) X 10*6/uL Hgb 10.0 L (13.0-17.0) g/dL Hct 31.0 L (39.6-50.0) % RDW 15.1 H (11.5-14.5) % Neutrophils # 1.27 L (1.80-7.70) X 10*3/uL Lymphocytes # 0.28 L (0.90-5.00) X 10*3/uL Carbon Dioxide 20.0 L (21.6-31.8) mmol/L BUN 42.0 H (9.0-27.0) mg/dL BUN/Creatinine Ratio 42.00 H (12.00-20.00) Ratio Glucose 115 H (70-110) mg/dL Calcium 7.7 L (8.7-10.3) mg/dL Creatine Kinase 3386 H* (35-257) U/L Assessment and Plan Assessment: Acute psychosis and bizarre behavior Possible dementia with behavioral changes. Acute rhabdomyolysis with CK level 07/01/2006 Acute kidney injury likely prerenal and also rhabdomyolysis. Tonsillar cancer currently undergoing chemotherapy and radiation treatments Status post PEG tube placement due to poor oral intake from cancer. History of alcohol abuse Hepatitis C history Hypertension GERD COPD not in exacerbation Depression History of smoking DVT prophylaxis with heparin subcu Plan: Patient will be continued on IV hydration with normal saline. Monitor renal function and CK levels. Continue with blood pressure medications and follow-up closely. Psychiatry was consulted for evaluation. Follow-up CBC BMP and CK levels. Monitor for withdrawal symptoms. Nutrition service was consulted for calorie count for PEG tube feeding. Patient also tolerates mechanical soft diet. Psychiatry recommends no inpatient psych admission at this time. Time with Patient: Greater than 30
[2020-12-03] MEDS: HYDROmorphone 2 MG TAB PO PRN ×2 (00:31→17:18)
[2020-12-03] MEDS: HEPARIN SODIUM,PORCINE/PF 5,000 UNIT/0.5 ML SYRINGE SQ SCH ×4 (00:33→21:18)
[2020-12-03] MEDS: SODIUM CHLORIDE 0.9% 1,000 ML IV SCH ×3 (05:45→21:16)
[2020-12-03] MEDS: MAG HYDROX/AL HYDROX/SIMETH 30 ML, LIDOCAINE VISCOUS 30 ML, diphenhydrAMINE ELIXIR 75 M... PO SCH ×12 (09:19→21:16)
[2020-12-03] MEDS: CYANOCOBALAMIN 500 MCG TAB PO SCH (09:20)
[2020-12-03] MEDS: MEGESTROL 400 MG/10 ML CUP PO SCH (09:20)
[2020-12-03] MEDS: cloNIDine HCL 0.1 MG TAB PO SCH ×2 (09:21→21:15)
[2020-12-03] MEDS: PANTOPRAZOLE 40 MG TABLET PO SCH (09:21)
[2020-12-03] MEDS: CHOLECALCIFEROL 25 MCG (1000 IU) TABLET PO SCH (09:21)
[2020-12-03] MEDS: MAGNESIUM OXIDE 400 MG TAB PO SCH ×3 (09:24→21:15)
[2020-12-03] MEDS: MULTIVITAMINS, THERA 1 EACH TAB PO SCH (09:24)
[2020-12-03 09:26] LABS: HCT 33.7 % (39.0-53.0); MCH 28.2 pg (25.0-35.0); MCHC 32.5 g/dL (31.0-37.0); MCV 86.7 fL (80.0-100.0); Mean Platelet Volume 8.2; Platelet Count 112 k/uL (150-450); RBC 3.89 m/uL (4.30-5.90); RDW 15.4 % (11.5-15.5)
[2020-12-03 09:52] LABS: WBC 0.6 k/uL (3.8-10.6)
[2020-12-03 10:33] LABS: African American GFR (CKD) >90 (>60 ml/min/1.73 sqM); Anion Gap 6 mmol/L; Blood Urea Nitrogen 25 mg/dL (9-20); Carbon Dioxide 21 mmol/L (22-30); Chloride 106 mmol/L (98-107); Glucose 109 mg/dL (74-99); Non-African American GFR(CKD) >90 (>60 ml/min/1.73 sqM); Potassium 3.6 mmol/L (3.5-5.1); Sodium 133 mmol/L (137-145)
[2020-12-03 10:47] LABS: Creatine Kinase 1358 U/L (55-170)
[2020-12-04] MEDS: HYDROmorphone 2 MG TAB PO PRN ×3 (01:07→19:37)
[2020-12-04] MEDS: SODIUM CHLORIDE 0.9% 1,000 ML IV SCH ×4 (04:57→22:10)
[2020-12-04] MEDS: PANTOPRAZOLE 40 MG TABLET PO SCH (08:44)
[2020-12-04] MEDS: CHOLECALCIFEROL 25 MCG (1000 IU) TABLET PO SCH (08:44)
[2020-12-04] MEDS: MEGESTROL 400 MG/10 ML CUP PO SCH (08:44)
[2020-12-04] MEDS: HEPARIN SODIUM,PORCINE/PF 5,000 UNIT/0.5 ML SYRINGE SQ SCH ×3 (08:44→15:32)
[2020-12-04] MEDS: MAGNESIUM OXIDE 400 MG TAB PO SCH ×3 (08:45→22:02)
[2020-12-04] MEDS: MULTIVITAMINS, THERA 1 EACH TAB PO SCH (08:45)
[2020-12-04] MEDS: cloNIDine HCL 0.1 MG TAB PO SCH ×2 (08:45→22:02)
[2020-12-04] MEDS: CYANOCOBALAMIN 500 MCG TAB PO SCH (08:45)
[2020-12-04] MEDS: MAG HYDROX/AL HYDROX/SIMETH 30 ML, LIDOCAINE VISCOUS 30 ML, diphenhydrAMINE ELIXIR 75 M... PO SCH ×12 (08:50→22:06)
[2020-12-04 09:00] LABS: African American GFR (CKD) >90 (>60 ml/min/1.73 sqM); Anion Gap 4 mmol/L; Blood Urea Nitrogen 19 mg/dL (9-20); Calcium 7.7 mg/dL (8.4-10.2); Carbon Dioxide 22 mmol/L (22-30); Chloride 107 mmol/L (98-107); Creatine Kinase 561 U/L (55-170); Glucose 113 mg/dL (74-99); Non-African American GFR(CKD) >90 (>60 ml/min/1.73 sqM); Potassium 4.2 mmol/L (3.5-5.1); Sodium 133 mmol/L (137-145)
[2020-12-04 09:42] LABS: Basophils % (A) 1 %; Eosinophils % (A) 3 %; HCT 30.1 % (39.0-53.0); HGB 10.5 gm/dL (13.0-17.5); Lymphocytes # (A) 0.2 k/uL (1.0-4.8); Lymphocytes % (A) 16 %; MCH 30.5 pg (25.0-35.0); MCV 87.2 fL (80.0-100.0); Mean Platelet Volume 8.2; Monocytes # (A) 0.1 k/uL (0-1.0); Monocytes % (A) 7 %; Neutrophils % (A) 69 %; Platelet Count 94 k/uL (150-450); RBC 3.46 m/uL (4.30-5.90)
[2020-12-04 09:48] LABS: WBC 1.4 k/uL (3.8-10.6)
[2020-12-04 13:26] LABS: Band Neutrophils % 4 %; Basophils # (M) 0.01 k/uL (0-0.2); Eosinophils # (M) 0.01 k/uL (0-0.7); Lymphocytes # (M) 0.36 k/uL (1.0-4.8); Monocytes # (M) 0.13 k/uL (0-1.0); Neutrophils % (M) 59 %; Nucleated Red Blood Cells 0 /100 WBC (0-0); Total Cells Counted 100
--- NOTE | 2020-12-04 17:28 | P.PN ---
Subjective Progress Note Date: 12/03/20 Principal diagnosis: Acute rhabdomyolysis Acute renal failure Tonsillar cancer currently undergoing chemotherapy and radiation treatments Status post PEG tube placement due to poor oral intake from cancer 70-year-old male with known history of COPD, hypertension, GERD, hepatitis C history of prostate cancer, tonsillar cancer currently undergoing chemotherapy and radiation treatment and alcohol abuse, prior history of smoking and depression and other multiple medical problems was brought to the hospital by police and petitioned due to altered mental status and bizarre behavior activity. Patient had been kicked out of the [place] due to drinking. Patient is having flight of ideas. Denied any chest pain or shortness of breath. 12/03/2020 Patient patient is seen and evaluated in room at bedside; reports fair pain control Vital signs are reviewed and are stable with a temperature of 98.9, pulse 76, respiration 18 and blood pressure 117/67; SpO2 of 100% on room air Lab review shows a WBC of 0.6, hemoglobin of 11, platelet count of 112 and slowly trending down; sodium of 133, potassium 3.6, BUN 25 with creatinine of 0.71; CPK trending down now off from 3386 down to 1358 this morning; patient remains on IV fluids in form of normal saline at rate of 1 30 mL an hour; we will plan to monitor renal function and electrolytes along with CPK Patient has been evaluated by psych and is diagnosed with vascular dementia along with substance abuse most likely with amphetamines causing elevated CPK and rhabdomyolysis; psych recommending to avoid using anticholinergic medications, cutting down on narcotics; keeping his room bright and giving him simple instructions which can be repeated and can ask him to repeat the instructions so that he understands it. He does not need to be treated in the psychiatric unit even after he is medically cleared Objective - Vital Signs Vital signs: Vital Signs Temp 98.7 F 12/03/20 07: Pulse 82 12/03/20 07:21 Resp 18 12/03/20 07:21 BP 143/67 12/03/20 07:21 Pulse Ox 96 12/03/20 07:21 Intake & Output 12/02/20 12/03/20 12/03/20 18:59 06:59 18:59 Output Total 500 Balance -500 Weight 65.771 kg 65.771 kg Output: Urine 500 - Exam Patient is Awake alert, confused and disoriented... HEENT: Normocephalic. Neck is supple. Pupils reactive. Nostrils clear. Oral cavity is moist. Neck reveals no JVD, carotid bruits, or thyromegaly. CHEST EXAMINATION: Trachea is central. Symmetrical expansion. Lung weeks clear to auscultation and percussion. CARDIAC: Normal S1, S2 with no gallops. No murmurs ABDOMEN: Soft. Bowel sounds normal. No organomegaly. No abdominal bruits. Extremities: reveal no edema. No clubbing or cyanosis Neurologically awake, alert, oriented x1-2 with well-coordinated movements. No focal deficits noted Skin: No rash or skin lesions. Psychiatric: cooperative Musculoskeletal: No joint swelling or deformity. Normal range of motion. - Labs CBC & Chem 7: 12/04/20 08:02 12/04/20 08:02 Labs: Abnormal Lab Results - Last 24 Hours (Table) 12/02/20 12/03/20 12/03/20 Range/Units 07:19 06:41 06:41 WBC 0.6 L* (3.8-10.6) k/uL RBC 3.89 L (4.30-5.90) m/uL Hgb 11.0 L (13.0-17.5) gm/dL Hct 33.7 L (39.0-53.0) % Plt Count 112 L (150-450) k/uL Sodium 133 L (137-145) mmol/L Carbon Dioxide 20.0 L 21 L (21.6-31.8) mmol/L BUN 42.0 H 25 H (9.0-27.0) mg/dL BUN/Creatinine Ratio 42.00 H (12.00-20.00) Ratio Glucose 115 H 109 H (70-110) mg/dL Calcium 7.7 L 8.0 L (8.7-10.3) mg/dL Creatine Kinase 3386 H* 1358 H* (35-257) U/L Microbiology - Last 24 Hours (Table) 12/01/20 17:30 Blood Culture - Preliminary Blood No Growth after 24 hours 12/01/20 17:15 Blood Culture - Preliminary Blood No Growth after 24 hours Assessment and Plan Assessment: 1. Acute psychosis and bizarre behavior; possible underlying vascular dementia - Psych on board; inpatient psych treatment is not recommended at this time; dementia care including avoiding anticholinergic medications, narcotics is recommend 2. Acute rhabdomyolysis, possibly secondary to amphetamine abuse; CPK continues to trend down slowly; patient remains on IV fluids in form of normal saline 3. Acute kidney injury likely prerenal and also rhabdomyolysis. Resolved 4. Tonsillar cancer currently undergoing chemotherapy and radiation treatments - Status post PEG tube placement due to poor oral intake from cancer. 5. Significant medical history including - History of alcohol abuse - Hepatitis C history - Hypertension - GERD - COPD not in exacerbation - Depression DVT prophylaxis with heparin subcu CODE STATUS; full code
--- NOTE | 2020-12-04 18:36 | P.PN ---
Subjective Progress Note Date: 12/04/20 Principal diagnosis: Acute rhabdomyolysis Acute renal failure Tonsillar cancer currently undergoing chemotherapy and radiation treatments Status post PEG tube placement due to poor oral intake from cancer 70-year-old male with known history of COPD, hypertension, GERD, hepatitis C history of prostate cancer, tonsillar cancer currently undergoing chemotherapy and radiation treatment and alcohol abuse, prior history of smoking and depression and other multiple medical problems was brought to the hospital by police and petitioned due to altered mental status and bizarre behavior activity. Patient had been kicked out of the [employer] due to drinking. Patient is having flight of ideas. Denied any chest pain or shortness of breath. 12/03/2020 Patient patient is seen and evaluated in room at bedside; reports fair pain control Vital signs are reviewed and are stable with a temperature of 98.9, pulse 76, respiration 18 and blood pressure 117/67; SpO2 of 100% on room air Lab review shows a WBC of 0.6, hemoglobin of 11, platelet count of 112 and slowly trending down; sodium of 133, potassium 3.6, BUN 25 with creatinine of 0.71; CPK trending down now off from 3386 down to 1358 this morning; patient remains on IV fluids in form of normal saline at rate of 1 30 mL an hour; we will plan to monitor renal function and electrolytes along with CPK Patient has been evaluated by psych and is diagnosed with vascular dementia along with substance abuse most likely with amphetamines causing elevated CPK and rhabdomyolysis; psych recommending to avoid using anticholinergic medications, cutting down on narcotics; keeping his room bright and giving him simple instructions which can be repeated and can ask him to repeat the instructions so that he understands it. He does not need to be treated in the psychiatric unit even after he is medically cleared 12/04/2020 Patient is seen and evaluated with family at bedside Vital signs are stable with a temperature of 99, pulse 60, respirations 16 and blood pressure of 160/77, SpO2 of 98% on room air Lab review shows WBC of 1.4 which is a slight trend up from 0.6 yesterday, hemoglobin of 10.5 and platelet count of 94; related to chemotherapy and radiation therapy; we will consult oncology if blood counts continue to trend down Chemical profile remains stable; CPK markedly improved and is down to 561 this morning; we will continue with IV fluids for another 24 hours Objective - Vital Signs Vital signs: Vital Signs Temp 99.0 F 12/04/20 13:28 Pulse 60 12/04/20 13:28 Resp 16 12/04/20 13:28 BP 160/77 12/04/20 13:28 Pulse Ox 98 12/04/20 13:28 Intake & Output 12/03/20 12/04/20 12/04/20 18:59 06:59 18:59 Intake Total 2160 Output Total 500 800 Balance 1660 -800 Weight 65.2 kg 71.5 kg Intake: Intake, IV Titration 1560 Amount Sodium Chloride 0.9% 1, 1560 000 ml @ 130 mls/hr IV . Q7H42M [facility] Rx#:[id number] Tube Feeding 480 Other 120 Output: Urine 500 800 Other: # Bowel Movements 1 - Exam Patient is Awake alert, confused and disoriented... HEENT: Normocephalic. Neck is supple. Pupils reactive. Nostrils clear. Oral ca vity is moist. Neck reveals no JVD, carotid bruits, or thyromegaly. CHEST EXAMINATION: Trachea is central. Symmetrical expansion. Lung weeks clear to auscultation and percussion. CARDIAC: Normal S1, S2 with no gallops. No murmurs ABDOMEN: Soft. Bowel sounds normal. No organomegaly. No abdominal bruits. Extremities: reveal no edema. No clubbing or cyanosis Neurologically awake, alert, oriented x1-2 with well-coordinated movements. No focal deficits noted Skin: No rash or skin lesions. Psychiatric: cooperative Musculoskeletal: No joint swelling or deformity. Normal range of motion. - Labs CBC & Chem 7: 12/04/20 08:02 12/04/20 08:02 Labs: Abnormal Lab Results - Last 24 Hours (Table) 12/04/20 12/04/20 Range/Units 08:02 08:02 WBC 1.4 L* (3.8-10.6) k/uL RBC 3.46 L (4.30-5.90) m/uL Hgb 10.5 L (13.0-17.5) gm/dL Hct 30.1 L (39.0-53.0) % Plt Count 94 L (150-450) k/uL Neutrophils # 1.0 L (1.3-7.7) k/uL Neutrophils # (Manual) 0.80 L (1.3-7.7) k/uL Lymphocytes # 0.2 L (1.0-4.8) k/uL Lymphocytes # (Manual) 0.36 L (1.0-4.8) k/uL Sodium 133 L (137-145) mmol/L Glucose 113 H (74-99) mg/dL Calcium 7.7 L (8.4-10.2) mg/dL Creatine Kinase 561 H (55-170) U/L Microbiology - Last 24 Hours (Table) 12/01/20 17:30 Blood Culture - Preliminary Blood No Growth after 48 hours 12/01/20 17:15 Blood Culture - Preliminary Blood No Growth after 48 hours Assessment and Plan Assessment: 1. Acute psychosis and bizarre behavior; possible underlying vascular dementia - Psych on board; inpatient psych treatment is not recommended at this time; dementia care including avoiding anticholinergic medications, narcotics is recommend 2. Acute rhabdomyolysis, possibly secondary to amphetamine abuse; CPK continues to trend down slowly; patient remains on IV fluids in form of normal saline 3. Acute kidney injury likely prerenal and also rhabdomyolysis. Resolved 4. Tonsillar cancer currently undergoing chemotherapy and radiation treatments - Status post PEG tube placement due to poor oral intake from cancer. 5. Significant medical history including - History of alcohol abuse - Hepatitis C history - Hypertension - GERD - COPD not in exacerbation - Depression DVT prophylaxis with heparin subcu CODE STATUS; full code
[2020-12-05] MEDS: HEPARIN SODIUM,PORCINE/PF 5,000 UNIT/0.5 ML SYRINGE SQ SCH ×3 (00:14→16:20)
[2020-12-05] MEDS: ACETAMINOPHEN TAB 325 MG TAB PO PRN ×2 (01:57→20:53)
[2020-12-05 06:56] LABS: African American GFR (CKD) >90 (>60 ml/min/1.73 sqM); Anion Gap 6 mmol/L; Blood Urea Nitrogen 12 mg/dL (9-20); Calcium 8.5 mg/dL (8.4-10.2); Carbon Dioxide 22 mmol/L (22-30); Chloride 106 mmol/L (98-107); Creatine Kinase 325 U/L (55-170); Glucose 124 mg/dL (74-99); Non-African American GFR(CKD) >90 (>60 ml/min/1.73 sqM); Potassium 4.2 mmol/L (3.5-5.1); Sodium 134 mmol/L (137-145)
[2020-12-05] MEDS: CYANOCOBALAMIN 500 MCG TAB PO SCH (08:21)
[2020-12-05] MEDS: MULTIVITAMINS, THERA 1 EACH TAB PO SCH (08:22)
[2020-12-05] MEDS: CHOLECALCIFEROL 25 MCG (1000 IU) TABLET PO SCH (08:22)
[2020-12-05] MEDS: PANTOPRAZOLE 40 MG TABLET PO SCH (08:22)
[2020-12-05] MEDS: cloNIDine HCL 0.1 MG TAB PO SCH ×2 (08:22→20:53)
[2020-12-05] MEDS: MAGNESIUM OXIDE 400 MG TAB PO SCH ×3 (08:22→20:53)
[2020-12-05] MEDS: MAG HYDROX/AL HYDROX/SIMETH 30 ML, LIDOCAINE VISCOUS 30 ML, diphenhydrAMINE ELIXIR 75 M... PO SCH ×12 (08:23→20:54)
[2020-12-05] MEDS: MEGESTROL 400 MG/10 ML CUP PO SCH (08:23)
[2020-12-05] MEDS: SODIUM CHLORIDE 0.9% 1,000 ML IV SCH ×2 (13:52→20:53)
[2020-12-05] MEDS: HYDROmorphone 2 MG TAB PO PRN (16:22)
--- NOTE | 2020-12-05 19:03 | P.PN ---
Subjective Progress Note Date: 12/05/20 Principal diagnosis: Acute rhabdomyolysis Acute renal failure Tonsillar cancer currently undergoing chemotherapy and radiation treatments Status post PEG tube placement due to poor oral intake from cancer 70-year-old male with known history of COPD, hypertension, GERD, hepatitis C history of prostate cancer, tonsillar cancer currently undergoing chemotherapy and radiation treatment and alcohol abuse, prior history of smoking and depression and other multiple medical problems was brought to the hospital by police and petitioned due to altered mental status and bizarre behavior activity. Patient had been kicked out of the [employer] due to drinking. Patient is having flight of ideas. Denied any chest pain or shortness of breath. 12/03/2020 Patient patient is seen and evaluated in room at bedside; reports fair pain control Vital signs are reviewed and are stable with a temperature of 98.9, pulse 76, respiration 18 and blood pressure 117/67; SpO2 of 100% on room air Lab review shows a WBC of 0.6, hemoglobin of 11, platelet count of 112 and slowly trending down; sodium of 133, potassium 3.6, BUN 25 with creatinine of 0.71; CPK trending down now off from 3386 down to 1358 this morning; patient remains on IV fluids in form of normal saline at rate of 1 30 mL an hour; we will plan to monitor renal function and electrolytes along with CPK Patient has been evaluated by psych and is diagnosed with vascular dementia along with substance abuse most likely with amphetamines causing elevated CPK and rhabdomyolysis; psych recommending to avoid using anticholinergic medications, cutting down on narcotics; keeping his room bright and giving him simple instructions which can be repeated and can ask him to repeat the instructions so that he understands it. He does not need to be treated in the psychiatric unit even after he is medically cleared 12/04/2020 Patient is seen and evaluated with family at bedside Vital signs are stable with a temperature of 99, pulse 60, respirations 16 and blood pressure of 160/77, SpO2 of 98% on room air Lab review shows WBC of 1.4 which is a slight trend up from 0.6 yesterday, hemoglobin of 10.5 and platelet count of 94; related to chemotherapy and radiation therapy; we will consult oncology if blood counts continue to trend down Chemical profile remains stable; CPK markedly improved and is down to 561 this morning; we will continue with IV fluids for another 24 hours 12/05/2020 Patient is seen and evaluated resting comfortably in bed; reports fair pain control; reports marked weakness Vital signs are reviewed and stable with a temperature of 98.1, pulse 73, respirations 16 and blood pressure 145/77 SpO2 of 97% on room air Blood glucose averaging above 200 We will cut back on IV fluids down to 75 mL an hour; last CPK checked yesterday was 561; patient is clinically stable; reports he has no place to go to once discharged; case management to see patient for discharge planning Objective - Vital Signs Vital signs: Vital Signs Temp 98.5 F 12/05/20 13:30 Pulse 82 12/05/20 13:30 Resp 18 12/05/20 13:30 BP 107/70 12/05/20 13:30 Pulse Ox 98 12/05/20 13:30 Intake & Output 12/04/20 12/05/20 12/05/20 18:59 06:59 18:59 Output Total 800 Balance -800 Weight 69 kg Output: Urine 800 Other: # Bowel Movements 1 - Exam Patient is Awake alert, confused and disoriented... HEENT: Normocephalic. Neck is supple. Pupils reactive. Nostrils clear. Oral cavity is moist. Neck reveals no JVD, carotid bruits, or thyromegaly. CHEST EXAMINATION: Trachea is central. Symmetrical expansion. Lung weeks clear to auscultation and percussion. CARDIAC: Normal S1, S2 with no gallops. No murmurs ABDOMEN: Soft. Bowel sounds normal. No organomegaly. No abdominal bruits. Extremities: reveal no edema. No clubbing or cyanosis Neurologically awake, alert, oriented x1-2 with well-coordinated movements. No focal deficits noted Skin: No rash or skin lesions. Psychiatric: cooperative Musculoskeletal: No joint swelling or deformity. Normal range of motion. - Labs CBC & Chem 7: 12/04/20 08:02 12/05/20 06:25 Labs: Abnormal Lab Results - Last 24 Hours (Table) 12/05/20 Range/Units 06:25 Sodium 134 L (137-145) mmol/L Glucose 124 H (74-99) mg/dL Creatine Kinase 325 H (55-170) U/L Microbiology - Last 24 Hours (Table) 12/01/20 17:30 Blood Culture - Preliminary Blood No Growth after 72 hours 12/01/20 17:15 Blood Culture - Preliminary Blood No Growth after 72 hours Assessment and Plan Assessment: 1. Acute psychosis and bizarre behavior; possible underlying vascular dementia - Psych on board; inpatient psych treatment is not recommended at this time; dementia care including avoiding anticholinergic medications, narcotics is recommend 2. Acute rhabdomyolysis, possibly secondary to amphetamine abuse; CPK continues to trend down slowly; patient remains on IV fluids in form of normal saline 3. Acute kidney injury likely prerenal and also rhabdomyolysis. Resolved 4. Tonsillar cancer currently undergoing chemotherapy and radiation treatments - Status post PEG tube placement due to poor oral intake from cancer. 5. Significant medical history including - History of alcohol abuse - Hepatitis C history - Hypertension - GERD - COPD not in exacerbation - Depression DVT prophylaxis with heparin subcu CODE STATUS; full code
[2020-12-06] MEDS: HEPARIN SODIUM,PORCINE/PF 5,000 UNIT/0.5 ML SYRINGE SQ SCH ×3 (00:08→15:40)
[2020-12-06] MEDS: HYDROmorphone 2 MG TAB PO PRN ×3 (00:30→19:58)
[2020-12-06] MEDS: SODIUM CHLORIDE 0.9% 1,000 ML IV SCH ×3 (02:51→20:01)
[2020-12-06] MEDS: MEGESTROL 400 MG/10 ML CUP PO SCH (08:01)
[2020-12-06] MEDS: MULTIVITAMINS, THERA 1 EACH TAB PO SCH (08:01)
[2020-12-06] MEDS: CYANOCOBALAMIN 500 MCG TAB PO SCH (08:01)
[2020-12-06] MEDS: MAG HYDROX/AL HYDROX/SIMETH 30 ML, LIDOCAINE VISCOUS 30 ML, diphenhydrAMINE ELIXIR 75 M... PO SCH ×12 (08:01→20:00)
[2020-12-06] MEDS: PANTOPRAZOLE 40 MG TABLET PO SCH (08:01)
[2020-12-06] MEDS: CHOLECALCIFEROL 25 MCG (1000 IU) TABLET PO SCH (08:01)
[2020-12-06] MEDS: MAGNESIUM OXIDE 400 MG TAB PO SCH ×3 (08:01→19:59)
[2020-12-06] MEDS: cloNIDine HCL 0.1 MG TAB PO SCH ×2 (08:01→19:59)
[2020-12-06 08:26] LABS: African American GFR (CKD) >90 (>60 ml/min/1.73 sqM); Anion Gap 5 mmol/L; Blood Urea Nitrogen 20 mg/dL (9-20); Calcium 7.6 mg/dL (8.4-10.2); Carbon Dioxide 21 mmol/L (22-30); Chloride 107 mmol/L (98-107); Glucose 118 mg/dL (74-99); Non-African American GFR(CKD) >90 (>60 ml/min/1.73 sqM); Potassium 4.1 mmol/L (3.5-5.1); Sodium 133 mmol/L (137-145)
[2020-12-06 11:08] LABS: HCT 33.8 % (39.0-53.0); HGB 10.9 gm/dL (13.0-17.5); MCH 28.4 pg (25.0-35.0); MCHC 32.2 g/dL (31.0-37.0); MCV 88.1 fL (80.0-100.0); RBC 3.84 m/uL (4.30-5.90); RDW 15.7 % (11.5-15.5); WBC 2.6 k/uL (3.8-10.6)
[2020-12-06 11:09] LABS: Platelet Count 76 k/uL (150-450)
[2020-12-06 12:38] LABS: Band Neutrophils % 2 %; Eosinophils # (M) 0.05 k/uL (0-0.7); Lymphocytes # (M) 0.47 k/uL (1.0-4.8); Monocytes # (M) 0.23 k/uL (0-1.0); Neutrophils % (M) 69 %; Nucleated Red Blood Cells 0 /100 WBC (0-0); Total Cells Counted 100
[2020-12-06 15:06] VITALS: BMI 23.8
--- NOTE | 2020-12-06 15:35 | P.PN ---
Subjective Progress Note Date: 12/06/20 70-year-old male with known history of COPD, hypertension, GERD, hepatitis C history of prostate cancer, tonsillar cancer currently undergoing chemotherapy and radiation treatment and alcohol abuse, prior history of smoking and depression and other multiple medical problems was brought to the hospital by police and petitioned due to altered mental status and bizarre behavior activity. Patient had been kicked out of the [place] house due to drinking. Patient is having flight of ideas. Denied any chest pain or shortness of breath. 12/03/2020 Patient patient is seen and evaluated in room at bedside; reports fair pain control Vital signs are reviewed and are stable with a temperature of 98.9, pulse 76, respiration 18 and blood pressure 117/67; SpO2 of 100% on room air Lab review shows a WBC of 0.6, hemoglobin of 11, platelet count of 112 and slowly trending down; sodium of 133, potassium 3.6, BUN 25 with creatinine of 0.71; CPK trending down now off from 3386 down to 1358 this morning; patient remains on IV fluids in form of normal saline at rate of 1 30 mL an hour; we will plan to monitor renal function and electrolytes along with CPK Patient has been evaluated by psych and is diagnosed with vascular dementia along with substance abuse most likely with amphetamines causing elevated CPK and rhabdomyolysis; psych recommending to avoid using anticholinergic medications, cutting down on narcotics; keeping his room bright and giving him simple instructions which can be repeated and can ask him to repeat the instructions so that he understands it. He does not need to be treated in the psychiatric unit even after he is medically cleared 12/04/2020 Patient is seen and evaluated with family at bedside Vital signs are stable with a temperature of 99, pulse 60, respirations 16 and blood pressure of 160/77, SpO2 of 98% on room air Lab review shows WBC of 1.4 which is a slight trend up from 0.6 yesterday, hemoglobin of 10.5 and platelet count of 94; related to chemotherapy and radiation therapy; we will consult oncology if blood counts continue to trend down Chemical profile remains stable; CPK markedly improved and is down to 561 this morning; we will continue with IV fluids for another 24 hours 12/05/2020 Patient is seen and evaluated resting comfortably in bed; reports fair pain control; reports marked weakness Vital signs are reviewed and stable with a temperature of 98.1, pulse 73, respirations 16 and blood pressure 145/77 SpO2 of 97% on room air Blood glucose averaging above 200 We will cut back on IV fluids down to 75 mL an hour; last CPK checked yesterday was 561; patient is clinically stable; reports he has no place to go to once d ischarged; case management to see patient for discharge planning 12/06/2020 Patient was seen and evaluated in follow-up this morning patient recently just received radiation treatment and will continue to complete the course at [facility]. Radiation oncology following closely. Patient currently receiving tube feeding and will need education regarding management and evaluation for compliance prior to discharge. Per case management patient does have the necessary supplies in the outpatient setting. Social work also following working on outpatient resources. White blood count is 2.6 today and hemoglobin is 10.9. Sodium is 133 with a potassium of 4.1 and current creatinine is 0.68. Patient to continue with daily radiation treatment and will discuss with social work and dietitian about treatment plan. Review of systems: Constitutional: No reports of fatigue, fever, or chills Cardiovascular: No reports of chest pain or palpitations Respiratory: No reports of shortness of breath or cough GI: No reports of nausea, vomiting, or diarrhea : No reports of dysuria or retention Neurovascular: Reports generalized weakness All medications have been reviewed Objective - Vital Signs Vital signs: Vital Signs Temp 98.4 F 12/06/20 07:33 Pulse 70 12/06/20 07:33 Resp 18 12/06/20 07:33 BP 110/68 12/06/20 07:33 Pulse Ox 96 12/06/20 07:33 Intake & Output 12/05/20 12/06/20 12/06/20 18:59 06:59 18:59 Weight 69.1 kg Other: Voiding Method Urinal - Exam Patient is Awake alert and oriented 2-3. Thin built. Temp is 98.4F, pulse is 70, respirations are 18, blood pressure is 110/68, oxygen saturation is 96% on room air. HEENT: Normocephalic. Neck is supple. Pupils reactive. Nostrils clear. Oral cavity is moist. Neck reveals no JVD, carotid bruits, or thyromegaly. CHEST EXAMINATION: Trachea is central. Symmetrical expansion. Lung weeks clear to auscultation and percussion. CARDIAC: S1, S2 are muffled ABDOMEN: Soft. Bowel sounds normal. No organomegaly. No abdominal bruits. Extremities: reveal no edema. No clubbing or cyanosis Neurologically awake, alert, oriented x2-3 with well-coordinated movements. No focal deficits noted Skin: No rash or skin lesions. Psychiatric: cooperative Musculoskeletal: No joint swelling or deformity. Normal range of motion. - Labs CBC & Chem 7: 12/06/20 07:02 12/06/20 07:02 Labs: Abnormal Lab Results - Last 24 Hours (Table) 12/06/20 12/06/20 Range/Units 07:02 07:02 WBC 2.6 L (3.8-10.6) k/uL RBC 3.84 L (4.30-5.90) m/uL Hgb 10.9 L (13.0-17.5) gm/dL Hct 33.8 L (39.0-53.0) % RDW 15.7 H (11.5-15.5) % Sodium 133 L (137-145) mmol/L Carbon Dioxide 21 L (22-30) mmol/L Glucose 118 H (74-99) mg/dL Calcium 7.6 L (8.4-10.2) mg/dL Microbiology - Last 24 Hours (Table) 12/01/20 17:30 Blood Culture - Preliminary Blood No Growth after 96 hours 12/01/20 17:15 Blood Culture - Preliminary Blood No Growth after 96 hours Assessment and Plan Assessment: -Acute psychosis and bizarre behavior, possible underlying vascular dementia -Acute rhabdomyolysis, possibly secondary to amphetamine abuse -Acute kidney injury likely prerenal and also rhabdomyolysis, resolved -Tonsillar cancer -History of alcohol abuse -History of hepatitis C -Hypertension -GERD -COPD, not in acute exacerbation -Depression -DVT prophylaxis -Full code Recommendations and discussion: Recommend continue with current radiation treatments, current medications, and current management. Case management and social work following working on discharge planning as patient has poor social support and history of noncompliance with medications and treatment plans. Patient was recently at [facility] to assist with travel and accommodation to make it to [facility] for radiation treatments and was found to be using illicit drugs and drinking. Patient does have oncology services out of [place] and is currently receiving radiation treatments here at [facility] with Dr. Wynne. Patient also has PEG t ube and will need education and guidance on proper maintenance and handling and to ensure he has the proper equipment to manage this in the outpatient setting. Dietitian to evaluate for compliance and understanding of PEG tube feedings. Due to multiple complex medical issues, prognosis is guarded. Possible discharge in 24-48 hours.
[2020-12-07] MEDS: HEPARIN SODIUM,PORCINE/PF 5,000 UNIT/0.5 ML SYRINGE SQ SCH ×3 (00:16→14:47)
[2020-12-07] MEDS: SODIUM CHLORIDE 0.9% 1,000 ML IV SCH ×2 (01:57→13:12)
[2020-12-07] MEDS: PANTOPRAZOLE 40 MG TABLET PO SCH (07:54)
[2020-12-07] MEDS: ACETAMINOPHEN TAB 325 MG TAB PO PRN (08:00)
[2020-12-07 09:44] LABS: African American GFR (CKD) 111.6 (60.0-200.0); Anion Gap 4.3 mmol/L (4.00-12.00); BUN/Creat Ratio 27.14 Ratio (12.00-20.00); Calcium 7.3 mg/dL (8.7-10.3); Carbon Dioxide 21.7 mmol/L (21.6-31.8); Non-African American GFR(CKD) 96.3 (60.0-200.0); Potassium 4.2 mmol/L (3.5-5.5)
[2020-12-07] MEDS: MULTIVITAMINS, THERA 1 EACH TAB PO SCH (09:55)
[2020-12-07] MEDS: CHOLECALCIFEROL 25 MCG (1000 IU) TABLET PO SCH (09:55)
[2020-12-07] MEDS: CYANOCOBALAMIN 500 MCG TAB PO SCH (09:55)
[2020-12-07] MEDS: MAGNESIUM OXIDE 400 MG TAB PO SCH ×2 (09:56→14:47)
[2020-12-07] MEDS: HYDROmorphone 2 MG TAB PO PRN (09:56)
[2020-12-07] MEDS: MEGESTROL 400 MG/10 ML CUP PO SCH (09:56)
[2020-12-07] MEDS: MAG HYDROX/AL HYDROX/SIMETH 30 ML, LIDOCAINE VISCOUS 30 ML, diphenhydrAMINE ELIXIR 75 M... PO SCH ×8 (09:58→14:48)
[2020-12-07] MEDS: cloNIDine HCL 0.1 MG TAB PO SCH (09:58)
[2020-12-07 10:04] LABS: Basophils # (A) 0 X 10*3/uL (0.00-0.10); Basophils % (A) 0 %; Crenated RBC 2+; Eosinophils # (A) 0.07 X 10*3/uL (0.04-0.35); Eosinophils % (A) 2.2 %; HCT 31.3 % (39.6-50.0); HGB 10.6 g/dL (13.0-17.0); Lymphocytes # (A) 0.43 X 10*3/uL (0.90-5.00); Lymphocytes % (A) 13.4 %; MCH 28.8 pg (27.0-32.0); MCHC 33.9 g/dL (32.0-37.0); MCV 85.1 fL (80.0-97.0); Mean Platelet Volume 12.3 fL (9.5-12.2); Monocytes # (A) 0.43 X 10*3/uL (0.20-1.00); Monocytes % (A) 13.4 %; Neutrophils # (A) 2.27 X 10*3/uL (1.80-7.70); Neutrophils % (A) 70.7 %; Platelet Count 87 X 10*3/uL (140-440); RBC 3.68 X 10*6/uL (4.40-5.60); RDW 15.8 % (11.5-14.5); WBC 3.21 X 10*3/uL (4.50-10.00)
[2020-12-07 10:42] VITALS: RESP 18
[2020-12-07 13:46] VITALS: BP 121/69; PULSE 61; TEMP 98.4
--- NOTE | 2020-12-07 15:07 | CDI ---
Documentation Clarification Form Date: 12/07/2020 02:53:00 PM From: aMndi FierroBarrazaJAZMIN tillman, CCDS Admit Date: 12/01/2020 04:45:00 PM Patient Name: Mani Somers Visit Number: [id number] Discharge Date: ATTENTION: The Clinical Documentation Specialists (CDI) and [facility] Coding Staff appreciate your assistance in clarifying documentation. Please respond to the clarification below the line at the bottom and electronically sign. The CDI & [facility] Coding staff will review the response and follow-up if needed. Please note: Queries are made part of the Legal Health Record. If you have any questions, please contact the author of this message via ITS. Dr. Claude Whitaker: The following was documented in the 12/04 Attending Progress Note: Lab review shows WBC of 1.4 which is a slight trend up from 0.6 yesterday, Hemoglobin of 10.5 and Platelet Count of 94; related to Chemotherapy and Radiation therapy; we will consult oncology if blood counts continue to trend down. Please clarify if there is an additional diagnosis and/or clinical significance related to these lab values. History/Risk Factors per the 12/01 H/P: COPD, Hypertension, GERD, Hepatitis C, Prostate Cancer and Tonsillar Cancer currently in Chemotherapy & Radiation treatments, Alcohol Abuse, Former smoker & Depression. Clinical indicators: Presented to the ED on 12/01 via EMS, brought in by Police & petitioned for altered mental status & bizarre activity. Demonstrating flight of ideas, depressed. ED Clinical Impression: Rhabdomyolysis, YVROSE, Dehydration, Methamphetamine Abuse, Tonsillar Cancer. 12/01 VS: T 99.9, P 166, R 18, BP 189/127, PO 98 RA, BMI: 24.2 12/01 LAB: WBC 2.6, RBC 4.32, Hgb 12.5, Hct 37.9, Pl Ct 167 12/02 LAB: WBC 2.21, RBC 3.54, Hgb 10.0, Hct 31.0, Pl Ct 142 12/03 LAB: WBC 0.6, RBC 3.89, Hgb 11.0, Hct 33.7, Pl Ct 112 12/04 LAB: WBC 1.4, RBC 3.46, Hgb 10.5, Hct 30.1, Pl Ct 94 12/06 LAB: WBC 2.6, RBC 3.84, Hgb 10.9, Hct 33.8, Pl Ct 76 Treatment: IV fl Na Cl 1,000 mls @ 999 mls/hr q1H, IV Fl Na Cl 1,000 mls @ 130 mls/hr q7H, po Dilaudid 2 mg prn, Fentanyl patch, po Decadron, po Vit D3, po Vit M12, po Megace. Nutrition Service was consulted for Calorie Count for PEG Tube Feeding. Is there an additional diagnosis and/or clinical significance related to the above lab result/information: [ ] Chronic blood loss anemia [ ] Hemolytic anemia [ ] Drug induced anemia [ ] Anemia due to malignancy [ ] Nutritional anemia [ ] Anemia of chronic disease, please specify: [ ] Unable to determine [ ] Other, please specify (Template Last Revised: June 2020) Anemia of chronic disease malignancy MTDD
--- NOTE | 2020-12-07 15:11 | CDI ---
Documentation Clarification Form Date: 12/07/2020 02:53:00 PM From: Mandi FierroBarrazaJAZMIN tillman, CCDS Admit Date: 12/01/2020 04:45:00 PM Patient Name: Mani Somers Visit Number: [id number] Discharge Date: ATTENTION: The Clinical Documentation Specialists (CDI) and [facility] Coding Staff appreciate your assistance in clarifying documentation. Please respond to the clarification below the line at the bottom and electronically sign. The CDI & [facility] Coding staff will review the response and follow-up if needed. Please note: Queries are made part of the Legal Health Record. If you have any questions, please contact the author of this message via ITS. Dr. Claude Whitaker: The following was documented in the 12/04 Attending Progress Note: Lab review shows WBC of 1.4 which is a slight trend up from 0.6 yesterday, Hemoglobin of 10.5 and Platelet Count of 94; related to Chemotherapy and Radiation therapy; we will consult oncology if blood counts continue to trend down. Please clarify if there is an additional diagnosis and/or clinical significance related to these lab values. History/Risk Factors per the 12/01 H/P: COPD, Hypertension, GERD, Hepatitis C, Prostate Cancer and Tonsillar Cancer currently in Chemotherapy & Radiation treatments, Alcohol Abuse, Former smoker & Depression. Clinical indicators: Presented to the ED on 12/01 via EMS, brought in by Police & petitioned for altered mental status & bizarre activity. Demonstrating flight of ideas, depressed. ED Clinical Impression: Rhabdomyolysis, YVROSE, Dehydration, Methamphetamine Abuse, Tonsillar Cancer. 12/01 VS: T 99.9, P 166, R 18, BP 189/127, PO 98 RA, BMI: 24.2 12/01 LAB: WBC 2.6, RBC 4.32, Hgb 12.5, Hct 37.9, Pl Ct 167 12/02 LAB: WBC 2.21, RBC 3.54, Hgb 10.0, Hct 31.0, Pl Ct 142 12/03 LAB: WBC 0.6, RBC 3.89, Hgb 11.0, Hct 33.7, Pl Ct 112 12/04 LAB: WBC 1.4, RBC 3.46, Hgb 10.5, Hct 30.1, Pl Ct 94 12/06 LAB: WBC 2.6, RBC 3.84, Hgb 10.9, Hct 33.8, Pl Ct 76 Treatment: IV fl Na Cl 1,000 mls @ 999 mls/hr q1H, IV Fl Na Cl 1,000 mls @ 130 mls/hr q7H, po Dilaudid 2 mg prn, Fentanyl patch, po Decadron, po Vit D3, po Vit M12, po Megace. Nutrition Service was consulted for Calorie Count for PEG Tube Feeding. Is there an additional diagnosis and/or clinical significance related to the above lab result/information: [ ] Chronic blood loss anemia [ ] Hemolytic anemia [ ] Drug induced anemia [ ] Anemia due to malignancy [ ] Nutritional anemia [ ] Anemia of chronic disease, please specify: [ ] Unable to determine [ ] Other, please specify (Template Last Revised: June 2020) MTDD
--- NOTE | 2020-12-07 15:16 | CDI ---
Documentation Clarification Form Date: 12/07/2020 03:12:36 PM From: Mandi FierroBarrazaJAZMIN tillman, CCDS Admit Date: 12/01/2020 04:45:00 PM Patient Name: Mani Somers Visit Number: [id number] Discharge Date: ATTENTION: The Clinical Documentation Specialists (CDI) and [facility] Coding Staff appreciate your assistance in clarifying documentation. Please respond to the clarification below the line at the bottom and electronically sign. The CDI & [facility] Coding staff will review the response and follow-up if needed. Please note: Queries are made part of the Legal Health Record. If you have any questions, please contact the author of this message via ITS. Dr. Claude Whitaker: Additional clarification of the following lab values is requested. History/Risk Factors per the 12/01 H/P: COPD, Hypertension, GERD, Hepatitis C, Prostate Cancer and Tonsillar Cancer currently in Chemotherapy & Radiation treatments, Alcohol Abuse, Former smoker & Depression. Clinical indicators: Presented to the ED on 12/01 via EMS, brought in by Police & petitioned for altered mental status & bizarre activity. Demonstrating flight of ideas, depressed. ED Clinical Impression: Rhabdomyolysis, YVROSE, Dehydration, Methamphetamine Abuse, Tonsillar Cancer. 12/01 VS: T 99.9, P 166, R 18, BP 189/127, PO 98 RA, BMI: 24.2 12/01 LAB: WBC 2.6, RBC 4.32, Hgb 12.5, Hct 37.9, Pl Ct 167 12/02 LAB: WBC 2.21, RBC 3.54, Hgb 10.0, Hct 31.0, Pl Ct 142 12/03 LAB: WBC 0.6, RBC 3.89, Hgb 11.0, Hct 33.7, Pl Ct 112 12/04 LAB: WBC 1.4, RBC 3.46, Hgb 10.5, Hct 30.1, Pl Ct 94 12/06 LAB: WBC 2.6, RBC 3.84, Hgb 10.9, Hct 33.8, Pl Ct 76 Treatment: IV fl Na Cl 1,000 mls @ 999 mls/hr q1H, IV Fl Na Cl 1,000 mls @ 130 mls/hr q7H, po Dilaudid 2 mg prn, Fentanyl patch, po Decadron, po Vit D3, po Vit M12, po Megace. Nutrition Service was consulted for Calorie Count for PEG Tube Feeding. Please clarify the etiology of pancytopenia, if known: [ ] Pancytopenia due to chemotherapy [ ] Pancytopenia drug induced, specify drug [ ] Pancytopenia due to other, please specify [ ] Other condition, please specify ____ [ ] Unable to determine (Template Last Revised: July 2020) Pancytopenia due to chemotherapy MTDD
--- NOTE | 2020-12-07 16:20 | P.DS ---
Providers Date of admission: 12/01/20 16:45 Expected date of discharge: 12/07/20 Attending physician: Lio Strauss Consults: 12/01/20 16:46 Consult Physician Routine Consulting Provider: Cristiano Tapia Consult Reason/Comments: Flight of ideas, petition Do you want consulting provider notified?: Already Contacted Primary care physician: [facility] Hospital Course: Final diagnosis -Anemia of chronic disease malignancy -Pancytopenia secondary to chemotherapy -Acute psychosis and bizarre behavior, possible underlying vascular dementia -Acute rhabdomyolysis, possibly secondary to amphetamine abuse -Acute kidney injury likely prerenal and also rhabdomyolysis, resolved -Tonsillar cancer -History of alcohol abuse -History of hepatitis C -Hypertension -GERD -COPD, not in acute exacerbation -Depression -DVT prophylaxis -Full code Discharge disposition Patient is being discharged in a stable condition with guarded prognosis to home. Patient will follow-up with Dr. Simon upon discharge. Patient will need to continue with [facility] and arrangements are being made for travel assistance for continued radiation treatments daily. Total time taken is grea ter than 35 minutes Hospital course This is a 70-year-old male with a past medical history of COPD, hypertension, GERD, hepatitis C, history of prostate cancer, tonsillar cancer, alcohol abuse, history of smoking, depression along with multiple complex medical issues and was brought here to the hospital for further evaluation by the police and petitioned due to altered mental status and bizarre behavior activity. Patient was recently staying at the [facility] in an attempt to be more compliant with radiation treatments here at [facility] and was kicked out due to drinking. Patient came in altered and having flight of ideas and was seen and evaluated by psychiatry. Patient is continued on radiation therapy at [facility] with Dr. Wynne and will continue on discharge to complete the course. Recommending Homecare although patient needs to follow-up with the [facility] and Homecare will be assigned to him and referrals have been placed for this by case management. Patient continues with tube feeding as mentioned below along with oral intake and will continue to do so in the outpatient setting. Patient oncology is out of [place] and will continue and patient is to follow-up with primary care provider upon discharge. Discussed and stressed the importance of medication compliance and treatment plan compliance and patient verbalized understanding. Currently no reports of chest pain, shortness of breath, or palpitations. Patient is afebrile. No reports of nausea or vomiting and patient is tolerating diet. Patient and family will further discuss palliative care in the outpatient setting. Guarded prognosis. On exam vital signs are stable. Cardio S1, S2 are muffled. Respiratory shows diminished breath sounds at the bases with a few scattered rhonchi noted. Abdomen is soft and nontender. Nervous system shows no focal deficits. Please refer to medication reconciliation sheet for a list of medications. Patient Condition at Discharge: Fair Plan - Discharge Summary Discharge Rx Participant: Yes New Discharge Prescriptions: New cloNIDine HCL [Catapres] 0.1 mg PO BID 30 Days #60 tab cloNIDine HCL [Catapres] 0.1 mg PO BID 14 Days #28 tab Albuterol Inhaler [Ventolin Hfa Inhaler] 1 puff INHALATION Q6H PRN 30 Days #1 puff PRN Reason: Shortness Of Breath Continue Cholecalciferol [Vitamin D3 (25 Mcg = 1000 Iu)] 50 mcg PO DAILY Multivitamins, Thera [Multivitamin (formulary)] 1 tab PO DAILY Cyanocobalamin (Vitamin B-12) [Vitamin B-12] 1,000 mcg PO DAILY diphenhydrAMINE ELIXIR [Benadryl Elixir] 75 mg PO TID #300 ml fentaNYL 25MCG/HR PATCH [Duragesic 25MCG/HR] 1 patch TRANSDERM Q72H #3 patch Magnesium Oxide [Mag-Ox] 400 mg PO TID #60 tab Megestrol [Megace] 400 mg PO DAILY #100 ml Nystatin 100,000 Unit/ml Susp [Mycostatin Oral Susp] 3,000,000 unit PO TID #100 ml Benzonatate [Tessalon Perles] 100 mg PO TID PRN #30 cap PRN Reason: Cough Acetaminophen Tab [Tylenol] 650 mg PO Q6HR PRN #30 tab PRN Reason: Fever And/ Or Pain Lidocaine Viscous [Xylocaine Viscous 2%] 30 ml PO TID #300 ml Pregabalin [Lyrica] 75 mg PO BID Calcium Carbonate [Tums] 500 mg PO TID PRN PRN Reason: Heartburn Pantoprazole [Protonix] 40 mg PO DAILY fentaNYL 12MCG/HR PATCH [Duragesic 12MCG/HR] 1 patch TRANSDERM Q72H #3 patch Mag Hydrox/Al Hydrox/Simeth [Maalox] 30 ml PO TID #300 ml Discharge Medication List Cholecalciferol [Vitamin D3 (25 Mcg = 1000 Iu)] 50 mcg PO DAILY 06/17/19 [History] Calcium Carbonate [Tums] 500 mg PO TID PRN 11/19/20 [History] Cyanocobalamin (Vitamin B-12) [Vitamin B-12] 1,000 mcg PO DAILY 11/19/20 [History] Multivitamins, Thera [Multivitamin (formulary)] 1 tab PO DAILY 11/19/20 [History] Pantoprazole [Protonix] 40 mg PO DAILY 11/19/20 [History] Acetaminophen Tab [Tylenol] 650 mg PO Q6HR PRN #30 tab 11/24/20 [Rx] Benzonatate [Tessalon Perles] 100 mg PO TID PRN #30 cap 11/24/20 [Rx] Lidocaine Viscous [Xylocaine Viscous 2%] 30 ml PO TID #300 ml 11/24/20 [Rx] Mag Hydrox/Al Hydrox/Simeth [Maalox] 30 ml PO TID #300 ml 11/24/20 [Rx] Magnesium Oxide [Mag-Ox] 400 mg PO TID #60 tab 11/24/20 [Rx] Megestrol [Megace] 400 mg PO DAILY #100 ml 11/24/20 [Rx] Nystatin 100,000 Unit/ml Susp [Mycostatin Oral Susp] 3,000,000 unit PO TID #100 ml 11/24/20 [Rx] diphenhydrAMINE ELIXIR [Benadryl Elixir] 75 mg PO TID #300 ml 11/24/20 [Rx] fentaNYL 12MCG/HR PATCH [Duragesic 12MCG/HR] 1 patch TRANSDERM Q72H #3 patch 11/24/20 [Rx] fentaNYL 25MCG/HR PATCH [Duragesic 25MCG/HR] 1 patch TRANSDERM Q72H #3 patch 11/24/20 [Rx] Pregabalin [Lyrica] 75 mg PO BID 12/01/20 [History] Albuterol Inhaler [Ventolin Hfa Inhaler] 1 puff INHALATION Q6H PRN 30 Days #1 puff 12/07/20 [Rx] cloNIDine HCL [Catapres] 0.1 mg PO BID 14 Days #28 tab 12/07/20 [Rx] cloNIDine HCL [Catapres] 0.1 mg PO BID 30 Days #60 tab 12/07/20 [Rx] Follow up Appointment(s)/Referral(s): [facility],Clinic [Primary Care Provider] - 12/27/20 8:00 am ( ) Ambulatory/Diagnostic Orders: Complete Blood Count w/diff [LAB.AMB] Time Frame: 2 Days, Location: None Selected Patient Instructions/Handouts: Dehydration (DC), Rhabdomyolysis (DC) Activity/Diet/Wound Care/Special Instructions: There are medications being held in the pharmacy for pt to get back at d/c Two-week supply of Catapres sent to [facility] pharmacy [facility] faxed paper prescriptions to the [facility]. Activity Limited until follow-up Follow-up with primary care provider upon discharge Continue tube feedings in the form of Jevity 1.5 with a goal rate of 40 mL per hour and continue with free water boluses of 30 mL every 4 hours and monitor for residual Continue dysphagia 3 chopped diet Continue with radiation oncology treatments and arrangements for transportation have been made social work Follow-up with [place] oncology [employer] faxed orders to the [facility] to try to arrange home care with a different agency. They will contact patient within 48 hours to set up first visit. Patient should call the [facility] at [phone] if he does not hear from home care within 48 hours. Discharge Disposition: HOME SELF-CARE
== END 2020-12-07 15:46 | disposition home or self-care (01) | DRG 682 ==
LOC: EC 14:15 → 5NMEDONC 16:45 → 4SSUR 17:30
PROVIDERS: ADMIT Internal Medicine; ATTEND Internal Medicine
PROC: 3E0G76Z Introduction of Nutritional Substance into Upper GI, Via Natural or Artificial Opening (ICD-10-PCS; principal; 2020-12-02)
DX: N17.9 Acute kidney failure, unspecified (principal); D61.810 Antineoplastic chemotherapy induced pancytopenia; M62.82 Rhabdomyolysis; F01.51 Vascular dementia, unspecified severity, with behavioral disturbance; F23 Brief psychotic disorder; F15.188 Other stimulant abuse with other stimulant-induced disorder; Z71.51 Drug abuse counseling and surveillance of drug abuser; E86.0 Dehydration; B19.20 Unspecified viral hepatitis C without hepatic coma; C09.9 Malignant neoplasm of tonsil, unspecified; D63.0 Anemia in neoplastic disease; F10.10 Alcohol abuse, uncomplicated; F32.9 Major depressive disorder, single episode, unspecified; I10 Essential (primary) hypertension; J44.9 Chronic obstructive pulmonary disease, unspecified; K21.9 Gastro-esophageal reflux disease without esophagitis; T45.1X5A Adverse effect of antineoplastic and immunosuppressive drugs, initial encounter; Z79.899 Other long term (current) drug therapy; Z80.0 Family history of malignant neoplasm of digestive organs; Z85.46 Personal history of malignant neoplasm of prostate; Z87.891 Personal history of nicotine dependence; Z93.1 Gastrostomy status; Z90.79 Acquired absence of other genital organ(s); Z91.19 Patient's noncompliance with other medical treatment and regimen
CPT/HCPCS: 36415; 70450; 71046; 77386; 80048; 80053; 80306; 80320; 81001; 82140; 82550; 83605; 83690; 83735; 84484; 85025; 87040; 93005; 96360; 99285

== ENCOUNTER 2020-12-13 12:02 | Observation (INO) | payer OTHER, MEDICARE ==
[2020-12-13] MEDS ORDERED: SODIUM CHLORIDE 0.9% 1,000 ML IV ONE ×2 (13:07→15:20)
[2020-12-13] MEDS ORDERED: ACETAMINOPHEN TAB 500 MG TAB PO STA (13:07)
--- NOTE | 2020-12-13 13:15 | ED ---
General Adult HPI - General Chief complaint: Headache Stated complaint: peg tube problem Time Seen by Provider: 12/13/20 12:20 Source: patient, family, RN notes reviewed, old records reviewed Mode of arrival: wheelchair Limitations: no limitations - History of Present Illness Initial comments: This is a 70-year-old male who has a history of throat cancer. Patient is getting radiation. Patient was sent here because he pulled his PEG tube out. Patient does have a headache patient states his been ongoing for at least 2 months and they've looked into and had found nothing. Patient states she accidentally pulled the pectoral up this morning. Patient denies any abdominal pain patient denies nausea vomiting. There was a note from Dr. Wynne his radiation oncologist that indicated he wanted the patient admitted for hydration and to see him in the hospital. Patient denies any fever chills or cough patient denies any chest pain difficulty breathing patient denies any dysuria hematuria urinary frequency. Patient states he's eating and drinking a fair amount. - Related Data Home Medications Medication Instructions Recorded Confirmed Calcium Carbonate [Tums] 500 mg PO TID PRN 11/19/20 12/13/20 Cyanocobalamin (Vitamin B-12) 1,000 mcg PO DAILY 11/19/20 12/13/20 [Vitamin B-12] Multivitamins, Thera [Multivitamin 1 tab PO DAILY 11/19/20 12/13/20 (formulary)] Pantoprazole [Protonix] 40 mg PO DAILY 11/19/20 12/13/20 Pregabalin [Lyrica] 75 mg PO BID 12/01/20 12/13/20 Albuterol Inhaler [Ventolin Hfa 1 puff INHALATION RT-Q6H PRN 12/13/20 12/13/20 Inhaler] Amitriptyline HCl [Elavil] 25 mg PO HS 12/13/20 12/13/20 Cephalexin [Keflex] 500 mg PO Q12H 12/13/20 12/13/20 Cholecalciferol [Vitamin D3 (25 50 mcg PO DAILY 12/13/20 12/13/20 Mcg = 1000 Iu)] Hydrocortisone Suppository 1 supp RECTAL BID PRN 12/13/20 12/13/20 [Anusol-Hc] Isosource 1.5cal 1 can PEG/G-TUBE DIRECTED 12/13/20 12/13/20 Lidocaine 5% Patch [Lidoderm 5% 1 patch TOPICAL DAILY PRN 12/13/20 12/13/20 Patch] methocarbamoL [Methocarbamol] 750 mg PO QID PRN 12/13/20 12/13/20 Previous Rx's Medication Instructions Recorded Acetaminophen Tab [Tylenol] 650 mg PO Q6HR PRN #30 tab 11/24/20 Benzonatate [Tessalon Perles] 100 mg PO TID PRN #30 cap 11/24/20 Lidocaine Viscous [Xylocaine 30 ml PO TID #300 ml 11/24/20 Viscous 2%] Mag Hydrox/Al Hydrox/Simeth 30 ml PO TID #300 ml 11/24/20 [Maalox] Magnesium Oxide [Mag-Ox] 400 mg PO TID #60 tab 11/24/20 Megestrol [Megace] 400 mg PO DAILY #100 ml 11/24/20 Nystatin 100,000 Unit/ml Susp 3,000,000 unit PO TID #100 ml 11/24/20 [Mycostatin Oral Susp] diphenhydrAMINE ELIXIR [Benadryl 75 mg PO TID #300 ml 11/24/20 Elixir] fentaNYL 25MCG/HR PATCH [Duragesic 1 patch TRANSDERM Q72H #3 patch 11/24/20 25MCG/HR] cloNIDine HCL [Catapres] 0.1 mg PO BID 30 Days #60 tab 12/07/20 Allergies Allergy/AdvReac Type Severity Reaction Status Date / Time erythromycin base AdvReac Nausea & Verified 12/13/20 12:25 Vomiting & Diarrhea Sulfa (Sulfonamide AdvReac Nausea & Verified 12/13/20 12:25 Antibiotics) Vomiting & Diarrhea Review of Systems ROS Statement: Those systems with pertinent positive or pertinent negative responses have been documented in the HPI. ROS Other: All systems not noted in ROS Statement are negative. Past Medical History Past Medical History: Cancer, COPD, GERD/Reflux, Hypertension, Prostate Disorder Additional Past Medical History / Comment(s): having a hard time eating and acid reflux coming up into my chest.hx prostate CA. Hep C , currently having chemotherapy and radiation treatments History of Any Multi-Drug Resistant Organisms: MRSA Date of last positivie culture/infection: 06/13/18 MDRO Source:: Left Hand Past Surgical History: Hernia Repair, Orthopedic Surgery, Prostate Surgery Additional Past Surgical History / Comment(s): Laparotomy with drainage of abscess. Prostatectomy with da Jessi PEG tube insertion Past Anesthesia/Blood Transfusion Reactions: No Reported Reaction Additional Past Anesthesia/Blood Transfusion Reaction / Comment(s): no hx blood transfusion Past Psychological History: Depression Smoking Status: Former smoker Past Alcohol Use History: Occasional Past Drug Use History: Prescription Drug Abuse - Past Family History Father Family Medical History: Cancer Additional Family Medical History / Comment(s): cholecystectomy, pancreatic cancer General Exam - General Exam Comments Initial Comments: GENERAL: Patient is well-developed and well-nourished. Patient is nontoxic and well- hydrated and is in mild distress. ENT: Neck is soft and supple. No significant lymphadenopathy is noted. Oropharynx is clear. Moist mucous membranes. Neck has full range of motion without eliciting any pain. EYES: The sclera were anicteric and conjunctiva were pink and moist. Extraocular movements were intact and pupils were equal round and reactive to light. Eyelids were unremarkable. PULMONARY: Unlabored respirations. Good breath sounds bilaterally. No audible rales rhonchi or wheezing was noted. CARDIOVASCULAR: There is a regular rate and rhythm without any murmurs gallops or rubs. ABDOMEN: Soft and nontender with normal bowel sounds. SKIN: Skin is clear with no lesions or rashes and otherwise unremarkable. NEUROLOGIC: Patient is alert and oriented x3. Cranial nerves II through XII are grossly intact. Motor and sensory are also intact. Normal speech, volume and content. Symmetrical smile. MUSCULOSKELETAL: Normal extremities with adequate strength and full range of motion. LYMPHATICS: No significant lymphadenopathy is noted PSYCHIATRIC: Normal psychiatric evaluation. Limitations: no limitations Course Vital Signs 12/13/20 12/13/20 12/13/20 12:19 15:10 16:53 Temperature 98.4 F 99.2 F Pulse Rate 83 80 92 Respiratory 18 18 19 Rate Blood Pressure 156/84 157/88 164/87 O2 Sat by Pulse 98 95 97 Oximetry Procedures - Feeding Tube Replacement Reason for Replacement: patient removed/pulled out Initial Tube Inserted: greater than 2 weeks Type of Tube: gastrostomy Insertion Site Prior to Procedure: clean Tube Used for Reinsertion: Bard, other Estonian Tube Size (F): 16 Balloon Size (mls): 4 Patient Tolerated Procedure: well Medical Decision Making - Medical Decision Making This patient was sent in to be admitted and get hydrated. I spoke with Dr. Whitaker he agreed to admit the patient admitted the patient I consult to Dr. Wynne. - Lab Data Result diagrams: 12/13/20 13:17 12/13/20 13:17 Lab Results 12/13/20 12/13/20 Range/Units 13:17 13:17 WBC 6.4 (3.8-10.6) k/uL RBC 4.25 L (4.30-5.90) m/uL Hgb 12.1 L (13.0-17.5) gm/dL Hct 37.3 L (39.0-53.0) % MCV 88.0 (80.0-100.0) fL MCH 28.4 (25.0-35.0) pg MCHC 32.3 (31.0-37.0) g/dL RDW 16.0 H (11.5-15.5) % Plt Count 380 D (150-450) k/uL MPV 8.1 Neutrophils % 78 % Lymphocytes % 9 % Monocytes % 8 % Eosinophils % 2 % Basophils % 0 % Neutrophils # 5.0 (1.3-7.7) k/uL Lymphocytes # 0.6 L (1.0-4.8) k/uL Monocytes # 0.5 (0-1.0) k/uL Eosinophils # 0.1 (0-0.7) k/uL Basophils # 0.0 (0-0.2) k/uL Anisocytosis Slight Sodium 135 L (137-145) mmol/L Potassium 4.5 (3.5-5.1) mmol/L Chloride 103 (98-107) mmol/L Carbon Dioxide 24 (22-30) mmol/L Anion Gap 8 mmol/L BUN 32 H (9-20) mg/dL Creatinine 0.94 (0.66-1.25) mg/dL Est GFR (CKD-EPI)AfAm >90 (>60 ml/min/1.73 sqM) Est GFR (CKD-EPI)NonAf 83 (>60 ml/min/1.73 sqM) Glucose 86 (74-99) mg/dL Calcium 8.9 (8.4-10.2) mg/dL Magnesium 2.0 (1.6-2.3) mg/dL Total Bilirubin 0.5 (0.2-1.3) mg/dL AST 21 (17-59) U/L ALT 12 (4-49) U/L Alkaline Phosphatase 66 (38-126) U/L Total Protein 6.2 L (6.3-8.2) g/dL Albumin 3.4 L (3.5-5.0) g/dL Disposition Clinical Impression: Dehydration, Chronic headache, S/P percutaneous endoscopic gastrostomy (PEG) tube placement Disposition: ADMITTED IP TO THIS [facility] Time of Disposition: 15:20
[2020-12-13 13:35] LABS: Anisocytosis Slight; Basophils % (A) 0 %; Eosinophils # (A) 0.1 k/uL (0-0.7); Eosinophils % (A) 2 %; HCT 37.3 % (39.0-53.0); HGB 12.1 gm/dL (13.0-17.5); Lymphocytes # (A) 0.6 k/uL (1.0-4.8); Lymphocytes % (A) 9 %; MCH 28.4 pg (25.0-35.0); MCHC 32.3 g/dL (31.0-37.0); Mean Platelet Volume 8.1; Monocytes # (A) 0.5 k/uL (0-1.0); Monocytes % (A) 8 %; Neutrophils % (A) 78 %; RBC 4.25 m/uL (4.30-5.90); WBC 6.4 k/uL (3.8-10.6)
[2020-12-13 13:41] LABS: Platelet Count 380 k/uL (150-450)
[2020-12-13 13:43] LABS: ALT 12 U/L (4-49); AST 21 U/L (17-59); African American GFR (CKD) >90 (>60 ml/min/1.73 sqM); Albumin 3.4 g/dL (3.5-5.0); Alkaline Phosphatase 66 U/L (38-126); Anion Gap 8 mmol/L; Blood Urea Nitrogen 32 mg/dL (9-20); Calcium 8.9 mg/dL (8.4-10.2); Carbon Dioxide 24 mmol/L (22-30); Chloride 103 mmol/L (98-107); Glucose 86 mg/dL (74-99); Non-African American GFR(CKD) 83 (>60 ml/min/1.73 sqM); Potassium 4.5 mmol/L (3.5-5.1); Sodium 135 mmol/L (137-145); Total Bilirubin 0.5 mg/dL (0.2-1.3); Total Protein 6.2 g/dL (6.3-8.2)
--- NOTE | 2020-12-13 14:09 | XR ---
EXAMINATION TYPE: XR chest 2V DATE OF EXAM: 12/13/2020 COMPARISON: 12/01/2020 HISTORY: Dyspnea TECHNIQUE: Frontal and lateral views of the chest are obtained. FINDINGS: Left port is unchanged. There is no focal air space opacity, pleural effusion, or pneumoth orax seen. The cardiac silhouette size is within normal limits. The osseous structures are intact. IMPRESSION: No acute cardiopulmonary process.
[2020-12-13] MEDS ORDERED: HYDROCORTISONE SUPPOSITORY 25 MG SUPP RECTAL PRN (18:24)
[2020-12-13] MEDS ORDERED: BENZONATATE 100 MG CAP PO PRN (18:24)
[2020-12-13] MEDS ORDERED: methocarbamoL 750 MG TAB PO PRN (18:24)
[2020-12-13] MEDS ORDERED: ACETAMINOPHEN TAB 325 MG TAB PO PRN (18:24)
[2020-12-13] MEDS ORDERED: ALBUTEROL NEBULIZED 2.5 MG/3 ML INHALATION PRN (18:24)
[2020-12-13] MEDS ORDERED: CALCIUM CARBONATE 500 MG CHEWABLE PO PRN (18:24)
[2020-12-13] MEDS ORDERED: [UNRECOGNIZED DRUG - OTHER] PEG/G-TUBE SCH (18:30)
[2020-12-13] MEDS ORDERED: ISOSOURCE PEG/G-TUBE SCH (18:30)
[2020-12-13] MEDS ORDERED: LIDOCAINE VISCOUS MUCOUS MEM PRN ×3 (18:46)
[2020-12-13] MEDS ORDERED: [UNRECOGNIZED DRUG - OTHER] MUCOUS MEM PRN ×3 (18:46)
[2020-12-13] MEDS ORDERED: DIPHENHYDRAMINE MUCOUS MEM PRN ×3 (18:46)
[2020-12-13] MEDS ORDERED: AMITRIPTYLINE HCL 25 MG TAB PO SCH (21:00)
[2020-12-13] MEDS ORDERED: diphenhydrAMINE ELIXIR 25 MG/10 ML CUP PO SCH ×2 (22:00)
[2020-12-13] MEDS ORDERED: LIDOCAINE VISCOUS PO SCH (22:00)
[2020-12-13] MEDS ORDERED: NYSTATIN 100,000 UNIT/ML SUSP 500,000 UNIT/5 ML CUP PO SCH (22:00)
--- NOTE | 2020-12-13 22:22 | HP ---
HISTORY AND PHYSICAL DATE OF SERVICE: 12/13/2020 CHIEF COMPLAINT: Dehydration and pulled out PEG tube. HISTORY OF PRESENT ILLNESS: This 70-year-old gentleman with a past medical history of multiple medical problems including history of COPD, GERD, hypertension, prostate disorder, history of prostate cancer, history of hepatitis C currently receiving radiation and chemotherapy, also had a PEG tube also. Patient apparently pulled the PEG tube out. The patient also complaining of headache. The patient was found to be dehydrated. The patient admitted for further evaluation and treatment. Dr. Wynne, Radiation Oncology has seen the patient and Dr. Wynne will see the patient in the hospital. There is no history of fever, rigors, chills at this time. PAST MEDICAL HISTORY: History of COPD, GERD, hypertension, history of prostate disorder, history of prostate cancer. History of hernia repair, DJD. MEDICATIONS: Medications prior to admission include home medications are: Nystatin, lidocaine, amitriptyline, methocarbamol, Anusol HC, Keflex, Catapres, Maalox, Tylenol, Megace, magnesium oxide, Celexa, Xylocaine, Lyrica, Protonix, multivitamins, Duragesic, vitamin B12, vitamin D3, Tums, Tessalon, Ventolin HFA. ALLERGIES: ERYTHROMYCIN, SULFA. FAMILY HISTORY: History of cholecystectomy, pancreatic cancer. SOCIAL HISTORY: History of alcohol, heroin, opiate pain medications. Remote history of nicotine dependence. REVIEW OF SYSTEMS: ENT: No diminished vision. No diminished hearing. CARDIOVASCULAR: No angina or palpitations. RESPIRATORY: As mentioned earlier. GI: As mentioned earlier. : As mentioned earlier. NERVOUS SYSTEM: No numbness, weakness. ALLERGY/IMMUNOLOGY: No asthma or hayfever. MUSCULOSKELETAL: As mentioned earlier. HEMATOLOGY/ONCOLOGY: As mentioned earlier. ENDOCRINE: No history of diabetes or hypothyroidism. CONSTITUTIONAL: As mentioned earlier. DERMATOLOGY: Negative. RHEUMATOLOGY: Negative. PSYCHIATRY as mentioned earlier. PHYSICAL EXAMINATION: Patient is alert, oriented x3. Pulse is 92. Blood pressure 164/87, respirations 19, temperature 99.2, pulse ox 97% on room air. HEENT: Conjunctivae normal. NECK: No JVD. CARDIOVASCULAR: S1, S2 muffled. RESPIRATORY: Breath sounds diminished in the bases. Scattered rhonchi. No crackles. ABDOMEN: Soft, nontender. No mass palpable. LEGS: Soft. PEG tube removed. Otherwise legs no edema. No swelling. NERVOUS System:Higher functions as mentioned. Moves all four limbs. No focal deficits. Lymphatics: No lymph nodes palpable in the neck, axillae or groin. SKIN: No ulcer, rashes or bleeding. JOINTS: No active deforming arthropathy. LABS: WBC 6.2, hemoglobin 12.1. Sodium 135. ASSESSMENT: 1. Severe dehydration and accidental removal of the PEG tube. 2. Hyponatremia. 3. Anemia, normocytic anemia of malignancy. 4. History of tonsillar squamous cell carcinoma. 5. History of chronic obstructive pulmonary disease. 6. Gastroesophageal reflux disease. 7. Hypertension. 8. History of prostate cancer. 9. Hepatitis C. 10.History of MRSA. 11.History of hernia repair. 12.History of depression. 13.FULL CODE. RECOMMENDATIONS AND DISCUSSION: In this 70-year-old gentleman admitted with multiple complex medical issues, at this time I recommend to continue the current medical management and treatment. Otherwise IV fluids. Treat hydration. Repeat labs. We will consult Dr. Wynne's and continue to monitor. Prognosis guarded. Further recommendations to follow. Home medications were resumed. A copy of this dictation is being forwarded to Dr. Strange who is the following the patient in the outpatient setting. MMODL / IJN: [id number] /
[2020-12-13] MEDS: CEPHALEXIN 500 MG CAP PO SCH (23:29)
[2020-12-13] MEDS: MAGNESIUM OXIDE 400 MG TAB PO SCH (23:29)
[2020-12-13] MEDS: PREGABALIN 75 MG CAP PO SCH (23:29)
[2020-12-13] MEDS: cloNIDine HCL 0.1 MG TAB PO SCH (23:29)
[2020-12-13] MEDS: PANTOPRAZOLE 40 MG TABLET PO SCH (23:29)
[2020-12-14 05:28] VITALS: RESP 18
[2020-12-14] MEDS ORDERED: MEGESTROL 400 MG/10 ML CUP PO SCH (09:00)
[2020-12-14] MEDS ORDERED: CYANOCOBALAMIN 500 MCG TAB PO SCH (09:00)
[2020-12-14] MEDS ORDERED: MULTIVITAMINS, THERA 1 EACH TAB PO SCH (09:00)
[2020-12-14] MEDS: CEPHALEXIN 500 MG CAP PO SCH (10:09)
[2020-12-14] MEDS: PREGABALIN 75 MG CAP PO SCH (10:10)
[2020-12-14] MEDS: PANTOPRAZOLE 40 MG TABLET PO SCH (10:10)
[2020-12-14] MEDS: CHOLECALCIFEROL 25 MCG (1000 IU) TABLET PO SCH ×2 (10:10→10:11)
[2020-12-14] MEDS: cloNIDine HCL 0.1 MG TAB PO SCH (10:10)
[2020-12-14] MEDS: MAGNESIUM OXIDE 400 MG TAB PO SCH (10:10)
[2020-12-14 11:53] VITALS: BP 121/62; PULSE 72; TEMP 98.4
[2020-12-14 13:12] VITALS: BMI 22.4
--- NOTE | 2020-12-15 16:31 | P.DS ---
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 Patient will follow-up with the [facility] in the outpatient setting upon discharge. Patient to also the follow-up with radiation oncology to complete his radiation therapy treatments. Total time taken is greater than 35 minutes. Hospital course This is a 70-year-old male who was recently admitted with headache and found to be dehydrated and also accidentally removed his PEG tube and was being closely monitored. PEG tube was replaced and functioning and will resume tube feedings. Patient also eats by mouth dysphasia chopped diet and will continue. Patient follows at the [facility] and does have home care and will need palliative care as well. Patient to continue at [facility] for radiation treatments to complete his course. Patient would like to go home today. Patient does have a history of noncompliance with medications and follow-up appointments and palliative care consult was placed. Currently no reports of chest pain, shortness of breath, or palpitations. Patient is afebrile. No reports of nausea or vomiting and macey delgado is tolerating diet. Patient will be discharged home today. Guarded prognosis. On exam vital signs are stable. Cardio S1, S2 are muffled. Respiratory system shows diminished breath sounds at the bases with no wheezing or rhonchi noted. Abdomen is soft and nontender. Nervous system shows no focal deficits. Please refer to medication reconciliation sheet for a list of medications. Patient Condition at Discharge: Fair Plan - Discharge Summary Discharge Rx Participant: Yes New Discharge Prescriptions: Continue Multivitamins, Thera [Multivitamin (formulary)] 1 tab PO DAILY Cyanocobalamin (Vitamin B-12) [Vitamin B-12] 1,000 mcg PO DAILY diphenhydrAMINE ELIXIR [Benadryl Elixir] 75 mg PO TID #300 ml fentaNYL 25MCG/HR PATCH [Duragesic 25MCG/HR] 1 patch TRANSDERM Q72H #3 patch Magnesium Oxide [Mag-Ox] 400 mg PO TID #60 tab Megestrol [Megace] 400 mg PO DAILY #100 ml Nystatin 100,000 Unit/ml Susp [Mycostatin Oral Susp] 3,000,000 unit PO TID #100 ml Benzonatate [Tessalon Perles] 100 mg PO TID PRN #30 cap PRN Reason: Cough Acetaminophen Tab [Tylenol] 650 mg PO Q6HR PRN #30 tab PRN Reason: Fever And/ Or Pain Lidocaine Viscous [Xylocaine Viscous 2%] 30 ml PO TID #300 ml Pregabalin [Lyrica] 75 mg PO BID cloNIDine HCL [Catapres] 0.1 mg PO BID 30 Days #60 tab Cholecalciferol [Vitamin D3 (25 Mcg = 1000 Iu)] 50 mcg PO DAILY Amitriptyline HCl [Elavil] 25 mg PO HS Cephalexin [Keflex] 500 mg PO Q12H Hydrocortisone Suppository [Anusol-Hc] 1 supp RECTAL BID PRN PRN Reason: Hemorrhoids methocarbamoL [Methocarbamol] 750 mg PO QID PRN PRN Reason: Muscle Spasm Calcium Carbonate [Tums] 500 mg PO TID PRN PRN Reason: Heartburn Pantoprazole [Protonix] 40 mg PO DAILY Mag Hydrox/Al Hydrox/Simeth [Maalox] 30 ml PO TID #300 ml Isosource 1.5cal 1 can PEG/G-TUBE DIRECTED Albuterol Inhaler [Ventolin Hfa Inhaler] 1 puff INHALATION RT-Q6H PRN PRN Reason: Shortness Of Breath Lidocaine 5% Patch [Lidoderm 5% Patch] 1 patch TOPICAL DAILY PRN PRN Reason: Pain Discharge Medication List Calcium Carbonate [Tums] 500 mg PO TID PRN 11/19/20 [History] Cyanocobalamin (Vitamin B-12) [Vitamin B-12] 1,000 mcg PO DAILY 11/19/20 [History] Multivitamins, Thera [Multivitamin (formulary)] 1 tab PO DAILY 11/19/20 [History] Pantoprazole [Protonix] 40 mg PO DAILY 11/19/20 [History] Acetaminophen Tab [Tylenol] 650 mg PO Q6HR PRN #30 tab 11/24/20 [Rx] Benzonatate [Tessalon Perles] 100 mg PO TID PRN #30 cap 11/24/20 [Rx] Lidocaine Viscous [Xylocaine Viscous 2%] 30 ml PO TID #300 ml 11/24/20 [Rx] Mag Hydrox/Al Hydrox/Simeth [Maalox] 30 ml PO TID #300 ml 11/24/20 [Rx] Magnesium Oxide [Mag-Ox] 400 mg PO TID #60 tab 11/24/20 [Rx] Megestrol [Megace] 400 mg PO DAILY #100 ml 11/24/20 [Rx] Nystatin 100,000 Unit/ml Susp [Mycostatin Oral Susp] 3,000,000 unit PO TID #100 ml 11/24/20 [Rx] diphenhydrAMINE ELIXIR [Benadryl Elixir] 75 mg PO TID #300 ml 11/24/20 [Rx] fentaNYL 25MCG/HR PATCH [Duragesic 25MCG/HR] 1 patch TRANSDERM Q72H #3 patch 11/24/20 [Rx] Pregabalin [Lyrica] 75 mg PO BID 12/01/20 [History] cloNIDine HCL [Catapres] 0.1 mg PO BID 30 Days #60 tab 12/07/20 [Rx] Albuterol Inhaler [Ventolin Hfa Inhaler] 1 puff INHALATION RT-Q6H PRN 12/13/20 [History] Amitriptyline HCl [Elavil] 25 mg PO HS 12/13/20 [History] Cephalexin [Keflex] 500 mg PO Q12H 12/13/20 [History] Cholecalciferol [Vitamin D3 (25 Mcg = 1000 Iu)] 50 mcg PO DAILY 12/13/20 [History] Hydrocortisone Suppository [Anusol-Hc] 1 supp RECTAL BID PRN 12/13/20 [History] Isosource 1.5cal 1 can PEG/G-TUBE DIRECTED 12/13/20 [History] Lidocaine 5% Patch [Lidoderm 5% Patch] 1 patch TOPICAL DAILY PRN 12/13/20 [History] methocarbamoL [Methocarbamol] 750 mg PO QID PRN 12/13/20 [History] Follow up Appointment(s)/Referral(s): [facility], [NON-STAFF] - [address] [facility],Clinic [Primary Care Provider] - 1-2 days Patient Instructions/Handouts: Dehydration (DC), PEG Tube Insertion (DC) Activity/Diet/Wound Care/Special Instructions: Activity Limited until follow-up Follow-up with primary care provider upon discharge Follow-up with your oncologist outpatient Continue with radiation oncology treatments to finish the treatment course Take medications as prescribed Avoid alcohol and illicit drug use Continue with PEG tube feedings and dysphagia chopped diet Discharge Disposition: HOME WITH HOME HEALTH SERVICES
== END 2020-12-14 16:30 | disposition home health service (06) ==
LOC: EC 12:02 → 1SOBS 15:21 → 6NMEDSUR 16:08 → 5NMEDONC 21:02
PROVIDERS: ADMIT Hospitalist; ATTEND Hospitalist
DX: E86.0 Dehydration (principal); E87.1 Hypo-osmolality and hyponatremia; D63.0 Anemia in neoplastic disease; Z85.818 Personal history of malignant neoplasm of other sites of lip, oral cavity, and pharynx; J44.9 Chronic obstructive pulmonary disease, unspecified; K21.9 Gastro-esophageal reflux disease without esophagitis; Z91.14 Patient's other noncompliance with medication regimen; Z91.19 Patient's noncompliance with other medical treatment and regimen; B19.20 Unspecified viral hepatitis C without hepatic coma; F32.9 Major depressive disorder, single episode, unspecified; R47.02 Dysphasia; I10 Essential (primary) hypertension; F19.90 Other psychoactive substance use, unspecified, uncomplicated; Z85.46 Personal history of malignant neoplasm of prostate; Z87.891 Personal history of nicotine dependence; Z86.14 Personal history of Methicillin resistant Staphylococcus aureus infection; Z92.3 Personal history of irradiation; Z92.21 Personal history of antineoplastic chemotherapy; Z79.899 Other long term (current) drug therapy; Z88.2 Allergy status to sulfonamides; Z88.1 Allergy status to other antibiotic agents; Z83.79 Family history of other diseases of the digestive system; Z80.0 Family history of malignant neoplasm of digestive organs
CPT/HCPCS: 96361 ×3; 96374; 99285; 36415; 94640; 80053; 83735; 85025; 71046; G0378 ×3; J1642; S0179

== ENCOUNTER 2020-12-27 19:06 | Emergency (ER) | payer OTHER, MEDICARE ==
[2020-12-27 19:23] VITALS: RESP 16; TEMP 98.2
[2020-12-27] MEDS ORDERED: ONDANSETRON 4 MG/2 ML VIAL IVP STA (19:50)
[2020-12-27] MEDS ORDERED: MORPHINE SULFATE 4 MG/ML SYRINGE IV STA (19:50)
[2020-12-27] MEDS ORDERED: SODIUM CHLORIDE 0.9% 1,000 ML IV STA (19:50)
--- NOTE | 2020-12-27 19:53 | ED ---
General Adult HPI - General Chief complaint: Nausea/Vomiting/Diarrhea Stated complaint: nausea, vomiting Time Seen by Provider: 12/27/20 19:38 Source: patient Mode of arrival: ambulatory Limitations: no limitations - History of Present Illness Initial comments: 70-year-old male with a past medical history of throat cancer presents to the emergency room for a chief complaint of abdominal pain. Patient reports that for the past 2-3 days he has had abdominal pain. Reports it is mostly in the right lower quadrant. Patient has also had nausea vomiting. Patient denies diarrhea. Denies fevers. Patient does have a PEG tube because of the throat cancer and has been giving himself feedings. Patient does not do chemotherapy any longer. He states he has finished his radiation as well although is not sure how long ago his last treatment for radiation was.Patient has no other complaints at this time including shortness of breath, chest pain, headache, or visual changes. - Related Data Home Medications Medication Instructions Recorded Confirmed Calcium Carbonate [Tums] 500 mg PO TID PRN 11/19/20 12/13/20 Cyanocobalamin (Vitamin B-12) 1,000 mcg PO DAILY 11/19/20 12/13/20 [Vitamin B-12] Multivitamins, Thera [Multivitamin 1 tab PO DAILY 11/19/20 12/13/20 (formulary)] Pantoprazole [Protonix] 40 mg PO DAILY 11/19/20 12/13/20 Pregabalin [Lyrica] 75 mg PO BID 12/01/20 12/13/20 Albuterol Inhaler [Ventolin Hfa 1 puff INHALATION RT-Q6H PRN 12/13/20 12/13/20 Inhaler] Amitriptyline HCl [Elavil] 25 mg PO HS 12/13/20 12/13/20 Cephalexin [Keflex] 500 mg PO Q12H 12/13/20 12/13/20 Cholecalciferol [Vitamin D3 (25 50 mcg PO DAILY 12/13/20 12/13/20 Mcg = 1000 Iu)] Hydrocortisone Suppository 1 supp RECTAL BID PRN 12/13/20 12/13/20 [Anusol-Hc] Isosource 1.5cal 1 can PEG/G-TUBE DIRECTED 12/13/20 12/13/20 Lidocaine 5% Patch [Lidoderm 5% 1 patch TOPICAL DAILY PRN 12/13/20 12/13/20 Patch] methocarbamoL [Methocarbamol] 750 mg PO QID PRN 12/13/20 12/13/20 Previous Rx's Medication Instructions Recorded Acetaminophen Tab [Tylenol] 650 mg PO Q6HR PRN #30 tab 11/24/20 Benzonatate [Tessalon Perles] 100 mg PO TID PRN #30 cap 11/24/20 Lidocaine Viscous [Xylocaine 30 ml PO TID #300 ml 11/24/20 Viscous 2%] Mag Hydrox/Al Hydrox/Simeth 30 ml PO TID #300 ml 11/24/20 [Maalox] Magnesium Oxide [Mag-Ox] 400 mg PO TID #60 tab 11/24/20 Megestrol [Megace] 400 mg PO DAILY #100 ml 11/24/20 Nystatin 100,000 Unit/ml Susp 3,000,000 unit PO TID #100 ml 11/24/20 [Mycostatin Oral Susp] diphenhydrAMINE ELIXIR [Benadryl 75 mg PO TID #300 ml 11/24/20 Elixir] fentaNYL 25MCG/HR PATCH [Duragesic 1 patch TRANSDERM Q72H #3 patch 11/24/20 25MCG/HR] cloNIDine HCL [Catapres] 0.1 mg PO BID 30 Days #60 tab 12/07/20 Ondansetron [Zofran ODT] 4 mg PO Q8HR PRN #15 tab 12/27/20 Allergies Allergy/AdvReac Type Severity Reaction Status Date / Time erythromycin base AdvReac Nausea & Verified 12/27/20 19:20 Vomiting & Diarrhea Sulfa (Sulfonamide AdvReac Nausea & Verified 12/27/20 19:20 Antibiotics) Vomiting & Diarrhea Review of Systems ROS Statement: Those systems with pertinent positive or pertinent negative responses have been documented in the HPI. ROS Other: All systems not noted in ROS Statement are negative. Past Medical History Past Medical History: Cancer, COPD, GERD/Reflux, Hypertension, Prostate Disorder Additional Past Medical History / Comment(s): having a hard time eating and acid reflux coming up into my chest.hx prostate CA. Hep C , currently having chemotherapy and radiation treatments History of Any Multi-Drug Resistant Organisms: MRSA Date of last positivie culture/infection: 06/13/18 MDRO Source:: Left Hand Past Surgical History: Hernia Repair, Orthopedic Surgery, Prostate Surgery Additional Past Surgical History / Comment(s): Laparotomy with drainage of abscess. Prostatectomy with da Jessi PEG tube insertion Past Anesthesia/Blood Transfusion Reactions: No Reported Reaction Additional Past Anesthesia/Blood Transfusion Reaction / Comment(s): no hx blood transfusion Past Psychological History: Depression Smoking Status: Former smoker Past Alcohol Use History: Occasional Past Drug Use History: Prescription Drug Abuse - Past Family History Father Family Medical History: Cancer Additional Family Medical History / Comment(s): cholecystectomy, pancreatic cancer General Exam Limitations: no limitations General appearance: alert, in no apparent distress Head exam: Present: atraumatic, normocephalic, normal inspection Eye exam: Present: normal appearance, PERRL, EOMI. Absent: scleral icterus, conjunctival injection, periorbital swelling ENT exam: Present: normal exam, mucous membranes moist Neck exam: Present: normal inspection, full ROM. Absent: tenderness, menin gismus, lymphadenopathy Respiratory exam: Present: normal lung sounds bilaterally. Absent: respiratory distress, wheezes, rales, rhonchi, stridor Cardiovascular Exam: Present: regular rate, normal rhythm, normal heart sounds. Absent: systolic murmur, diastolic murmur, rubs, gallop, clicks GI/Abdominal exam: Present: soft, tenderness (Mild right lower quadrant abdominal tenderness. No upper abdominal tenderness. No left lower quadrant tenderness. No guarding or rebound.), normal bowel sounds. Absent: distended, guarding, rebound, rigid Neurological exam: Present: alert Course Vital Signs 12/27/20 12/27/20 19:20 22:13 Temperature 98.2 F Pulse Rate 93 80 Respiratory 16 16 Rate Blood Pressure 144/93 169/89 O2 Sat by Pulse 98 100 Oximetry Medical Decision Making - Medical Decision Making Vitals are stable. Patient is afebrile. Patient has mild right lower quadrant tenderness without guarding or rebound. CBC is unremarkable. CMP does show evidence of dehydration, patient was given a liter of fluid. Urinalysis is unremarkable. Lactic acid is normal. CT abdomen and pelvis shows no acute abnormality. There is a stable left adrenal mass suggestive of benign disease. Patient reevaluated does have some improvement. Patient at this time is stable for discharge home and he is agreeable to this plan with strict return parameters. He will return here for any worsening symptoms. - Lab Data Result diagrams: 12/27/20 20:06 12/27/20 20:06 Lab Results 12/27/20 12/27/20 12/27/20 Range/Units 20:06 20:06 20:06 WBC 5.9 (3.8-10.6) k/uL RBC 4.28 L (4.30-5.90) m/uL Hgb 12.7 L (13.0-17.5) gm/dL Hct 37.2 L (39.0-53.0) % MCV 86.8 (80.0-100.0) fL MCH 29.7 (25.0-35.0) pg MCHC 34.2 (31.0-37.0) g/dL RDW 14.5 (11.5-15.5) % Plt Count 369 (150-450) k/uL MPV 8.9 Neutrophils % 73 % Lymphocytes % 10 % Monocytes % 12 % Eosinophils % 1 % Basophils % 0 % Neutrophils # 4.3 (1.3-7.7) k/uL Lymphocytes # 0.6 L (1.0-4.8) k/uL Monocytes # 0.7 (0-1.0) k/uL Eosinophils # 0.1 (0-0.7) k/uL Basophils # 0.0 (0-0.2) k/uL Sodium 135 L (137-145) mmol/L Potassium 4.0 (3.5-5.1) mmol/L Chloride 100 (98-107) mmol/L Carbon Dioxide 27 (22-30) mmol/L Anion Gap 8 mmol/L BUN 34 H (9-20) mg/dL Creatinine 0.88 (0.66-1.25) mg/dL Est GFR (CKD-EPI)AfAm >90 (>60 ml/min/1.73 sqM) Est GFR (CKD-EPI)NonAf 88 (>60 ml/min/1.73 sqM) Glucose 112 H (74-99) mg/dL Plasma Lactic Acid [place] (0.7-2.0) mmol/L Calcium 9.5 (8.4-10.2) mg/dL Total Bilirubin 0.4 (0.2-1.3) mg/dL AST 22 (17-59) U/L ALT 11 (4-49) U/L Alkaline Phosphatase 58 (38-126) U/L Total Protein 6.7 (6.3-8.2) g/dL Albumin 3.8 (3.5-5.0) g/dL Amylase 54 (30-110) U/L Lipase 281 (23-300) U/L Urine Color Yellow Urine Appearance Cloudy (Clear) Urine pH 8.5 H (5.0-8.0) Ur Specific [place] 1.024 (1.001-1.035) Urine Protein 1+ H (Negative) Urine Glucose (UA) Negative (Negative) Urine Ketones Negative (Negative) Urine Blood Negative (Negative) Urine Nitrite Negative (Negative) Urine Bilirubin Negative (Negative) Urine Urobilinogen 2.0 (<2.0) mg/dL Ur Leukocyte Esterase Negative (Negative) Ur Squamous Epith Cells 3 (0-4) /hpf Amorphous Sediment Few H (None) /hpf Hyaline Casts 1 (0-2) /lpf Urine Mucus Rare H (None) /hpf 12/27/20 Range/Units 20:06 WBC (3.8-10.6) k/uL RBC (4.30-5.90) m/uL Hgb (13.0-17.5) gm/dL Hct (39.0-53.0) % MCV (80.0-100.0) fL MCH (25.0-35.0) pg MCHC (31.0-37.0) g/dL RDW (11.5-15.5) % Plt Count (150-450) k/uL MPV Neutrophils % % Lymphocytes % % Monocytes % % Eosinophils % % Basophils % % Neutrophils # (1.3-7.7) k/uL Lymphocytes # (1.0-4.8) k/uL Monocytes # (0-1.0) k/uL Eosinophils # (0-0.7) k/uL Basophils # (0-0.2) k/uL Sodium (137-145) mmol/L Potassium (3.5-5.1) mmol/L Chloride (98-107) mmol/L Carbon Dioxide (22-30) mmol/L Anion Gap mmol/L BUN (9-20) mg/dL Creatinine (0.66-1.25) mg/dL Est GFR (CKD-EPI)AfAm (>60 ml/min/1.73 sqM) Est GFR (CKD-EPI)NonAf (>60 ml/min/1.73 sqM) Glucose (74-99) mg/dL Plasma Lactic Acid [place] 1.3 (0.7-2.0) mmol/L Calcium (8.4-10.2) mg/dL Total Bilirubin (0.2-1.3) mg/dL AST (17-59) U/L ALT (4-49) U/L Alkaline Phosphatase (38-126) U/L Total Protein (6.3-8.2) g/dL Albumin (3.5-5.0) g/dL Amylase (30-110) U/L Lipase (23-300) U/L Urine Color Urine Appearance (Clear) Urine pH (5.0-8.0) Ur Specific [place] (1.001-1.035) Urine Protein (Negative) Urine Glucose (UA) (Negative) Urine Ketones (Negative) Urine Blood (Negative) Urine Nitrite (Negative) Urine Bilirubin (Negative) Urine Urobilinogen (<2.0) mg/dL Ur Leukocyte Esterase (Negative) Ur Squamous Epith Cells (0-4) /hpf Amorphous Sediment (None) /hpf Hyaline Casts (0-2) /lpf Urine Mucus (None) /hpf Disposition Clinical Impression: Nausea & vomiting, Abdominal pain Disposition: HOME SELF-CARE Condition: Good Instructions (If sedation given, give patient instructions): Abdominal Pain (ED) Additional Instructions: Please follow-up with your doctor in one to 2 days. Return to the emergency room for any worsening symptoms. Prescriptions: Ondansetron [Zofran ODT] 4 mg PO Q8HR PRN #15 tab PRN Reason: Nausea Is patient prescribed a controlled substance at d/c from ED?: No Referrals: [facility],Clinic [Primary Care Provider] - 1-2 days Time of Disposition: 22:22
[2020-12-27 20:18] LABS: Basophils % (A) 0 %; Eosinophils # (A) 0.1 k/uL (0-0.7); Eosinophils % (A) 1 %; HCT 37.2 % (39.0-53.0); HGB 12.7 gm/dL (13.0-17.5); Lymphocytes # (A) 0.6 k/uL (1.0-4.8); Lymphocytes % (A) 10 %; MCH 29.7 pg (25.0-35.0); MCHC 34.2 g/dL (31.0-37.0); MCV 86.8 fL (80.0-100.0); Mean Platelet Volume 8.9; Monocytes # (A) 0.7 k/uL (0-1.0); Monocytes % (A) 12 %; Neutrophils # (A) 4.3 k/uL (1.3-7.7); Neutrophils % (A) 73 %; Platelet Count 369 k/uL (150-450); RBC 4.28 m/uL (4.30-5.90); RDW 14.5 % (11.5-15.5); WBC 5.9 k/uL (3.8-10.6)
[2020-12-27 20:29] LABS: ALT 11 U/L (4-49); AST 22 U/L (17-59); African American GFR (CKD) >90 (>60 ml/min/1.73 sqM); Albumin 3.8 g/dL (3.5-5.0); Alkaline Phosphatase 58 U/L (38-126); Amylase 54 U/L (30-110); Anion Gap 8 mmol/L; Blood Urea Nitrogen 34 mg/dL (9-20); Calcium 9.5 mg/dL (8.4-10.2); Carbon Dioxide 27 mmol/L (22-30); Chloride 100 mmol/L (98-107); Glucose 112 mg/dL (74-99); Lipase 281 U/L (23-300); Non-African American GFR(CKD) 88 (>60 ml/min/1.73 sqM); Sodium 135 mmol/L (137-145); Total Bilirubin 0.4 mg/dL (0.2-1.3); Total Protein 6.7 g/dL (6.3-8.2)
[2020-12-27] MEDS ORDERED: diphenhydrAMINE 50 MG/ML 1 ML VIAL IVP STA (20:43)
[2020-12-27] MEDS ORDERED: METOCLOPRAMIDE 5 MG/ML 2 ML VIAL IVP STA (20:43)
[2020-12-27] MEDS ORDERED: HYDROmorphone 0.5 MG/0.5 ML SYRINGE IVP STA (20:43)
[2020-12-27 21:18] LABS: Amorphous Sediment,Urine Few /hpf; Appearance,Urine Cloudy (Clear); Bilirubin,Urine Negative (Negative); Blood,Urine Negative (Negative); Color,Urine Yellow; Glucose,Urine (UA) Negative (Negative); Hyaline Casts,Urine 1 /lpf (0-2); Ketones,Urine Negative (Negative); Leukocyte Esterase,Urine Negative (Negative); Mucus,Urine Rare /hpf; Nitrite,Urine Negative (Negative); PH, Urine 8.5 (5.0-8.0); Protein,Urine 1+ (Negative); Specific Gravity,Urine 1.024 (1.001-1.035); Squamous Epithelial Cell,Urine 3 /hpf (0-4)
--- NOTE | 2020-12-27 21:33 | CT ---
EXAMINATION TYPE: CT abdomen pelvis w con DATE OF EXAM: 12/27/2020 COMPARISON: 12/04/2018 HISTORY: abd pain, nausea and vomiting CT DLP: 613.3 mGycm Automated exposure control for dose reduction was used. CONTRAST: Performed with IV Contrast, patient injected with 100 mL of Isovue 370. Images obtained from the diaphragm to the floor the pelvis with IV contrast. Lung bases are clear of infiltrate. There is no pleural effusion. Heart size is normal. There is no p ericardial effusion. Liver spleen stomach pancreas gallbladder appear intact. The bile ducts are not dilated. There is gastrostomy tube noted in good position in the fundus of the stomach. There is low-density oval-shaped 3 x 2 cm left adrenal mass suggestive of benign disease and unchange d. Kidneys show satisfactory contrast opacification. There is no hydronephrosis. Ureters are not dila riya. Delayed images show normal renal excretion. There is no evidence of renal mass. There is no retr operitoneal adenopathy. The bladder distends smoothly. There is no inguinal hernia. There is no free fluid in the pelvis. There are pelvic multiple surgical clips consistent with prostate surgery. Appendix is not seen. There is no sign of thickened appendix. There is no mesenteric edema. There is no ascites or free air. There is no sign of a bowel obstruction. There are a few sigmoid diverticula. There is no sign of diverticulitis. The terminal ileum appears normal. There is a minimal lumbar lev oscoliosis. There is no lumbar compression fracture. There is mild hypertrophic spurring in the lumba r spine. There is mild L4-5 disc space narrowing. The posterior elements are intact. The bony pelvis appears intact. The hip joints are intact. IMPRESSION: No acute abnormality of the abdomen pelvis. Prostate surgery. Gastrostomy tube is noted. Stable left adrenal mass suggestive of benign disease.
[2020-12-27 22:14] VITALS: BP 169/89; PULSE 80
[2020-12-27] MEDS ORDERED: ONDANSETRON 4 MG ODT STARTER PACK 2 TAB BTL PO STA (22:23)
== END 2020-12-27 22:20 | disposition home or self-care (01) ==
LOC: EC 19:06 → SUPCPDRO 19:06 → EC 22:20
DX: R10.31 Right lower quadrant pain (principal); R11.2 Nausea with vomiting, unspecified; K21.9 Gastro-esophageal reflux disease without esophagitis; J44.9 Chronic obstructive pulmonary disease, unspecified; I10 Essential (primary) hypertension; F32.9 Major depressive disorder, single episode, unspecified; Z88.2 Allergy status to sulfonamides; Z88.1 Allergy status to other antibiotic agents; Z87.891 Personal history of nicotine dependence; Z85.46 Personal history of malignant neoplasm of prostate; Z90.79 Acquired absence of other genital organ(s); Z93.1 Gastrostomy status
CPT/HCPCS: 99284; 96374; 96375 ×4; 96361; 36415; 80053; 82150; 83605; 83690; 85025; 81001; 74177; J2270; J1200; J2765; J2405; S0119; J1170; Q9967

== ENCOUNTER 2021-01-18 10:54 | Inpatient (IN) | payer OTHER, MEDICARE ==
[2021-01-18] MEDS ORDERED: SODIUM CHLORIDE 0.9% 500 ML 500 ML IV STA (11:52)
[2021-01-18 12:31] LABS: INR 0.9 (<1.2)
--- NOTE | 2021-01-18 12:31 | ED ---
Skin/Abscess/FB HPI - General Chief complaint: Skin/Abscess/Foreign Body Stated complaint: Possible infection on face/neck Time Seen by Provider: 01/18/21 11:14 Source: patient Mode of arrival: wheelchair Limitations: no limitations - History of Present Illness Initial comments: Patient is a 70-year-old male, currently undergoing treatment for throat cancer, presenting to the emergency Department with complaints of blisters on the right side of his neck. Patient states that he woke up this morning and noticed 3 huge of blisters on the right side of his neck, 2 of which have drained and opened. He states that it is painful to the touch, he noticed some redness and thought this could be an infection so came in for evaluation. He states he has been feeling general fatigue, some mild nausea over the past few days but no fevers. His appetite has been lower. He last had radiation one week ago, with Dr. Wynne. His other oncologist is out of [place]. He denies any chest pain or short of breath, no cough, no abdominal pain. Denies any dysuria. He has no further complaints. Vital signs are stable upon arrival. - Related Data Home Medications Medication Instructions Recorded Confirmed Calcium Carbonate [Tums] 500 mg PO TID PRN 11/19/20 01/18/21 Cyanocobalamin (Vitamin B-12) 1,000 mcg PO DAILY 11/19/20 01/18/21 [Vitamin B-12] Multivitamins, Thera [Multivitamin 1 tab PO DAILY 11/19/20 01/18/21 (formulary)] Pantoprazole [Protonix] 40 mg PO BID 11/19/20 01/18/21 Pregabalin [Lyrica] 75 mg PO BID 12/01/20 01/18/21 Albuterol Inhaler [Ventolin Hfa 1 puff INHALATION RT-Q6H PRN 12/13/20 01/18/21 Inhaler] Amitriptyline HCl [Elavil] 25 mg PO HS 12/13/20 01/18/21 Cholecalciferol [Vitamin D3 (25 50 mcg PO DAILY 12/13/20 01/18/21 Mcg = 1000 Iu)] Hydrocortisone Suppository 1 supp RECTAL BID PRN 12/13/20 01/18/21 [Anusol-Hc] Isosource 1.5cal 1 can PEG/G-TUBE DIRECTED 12/13/20 01/18/21 methocarbamoL [Methocarbamol] 750 mg PO QID PRN 12/13/20 01/18/21 Benzonatate [Tessalon Perles] 100 mg PO TID PRN 01/18/21 01/18/21 Fluticasone/Salmeterol [Advair 1 puff INHALATION RT-BID 01/18/21 01/18/21 250-50 Diskus] Hydrocodone/Acetaminophen [[place] 1 tab PO Q8H PRN 01/18/21 01/18/21 7.5-325] Mag Hydrox/Al Hydrox/Simeth 10 ml PO QID PRN 01/18/21 01/18/21 [Maalox] Naloxone HCl [Narcan] 4 mg NASAL DIRECTED 01/18/21 01/18/21 Nystatin 100,000 Unit/gm Oint 1 applic TOPICAL BID 01/18/21 01/18/21 [Mycostatin Oint] guaiFENesin 200 mg PO BID 01/18/21 01/18/21 Previous Rx's Medication Instructions Recorded Acetaminophen Tab [Tylenol] 650 mg PO Q6HR PRN #30 tab 11/24/20 Magnesium Oxide [Mag-Ox] 400 mg PO TID #60 tab 11/24/20 cloNIDine HCL [Catapres] 0.1 mg PO BID 30 Days #60 tab 12/07/20 Allergies Allergy/AdvReac Type Severity Reaction Status Date / Time erythromycin base AdvReac Nausea & Verified 01/18/21 13:52 Vomiting & Diarrhea Sulfa (Sulfonamide AdvReac Nausea & Verified 01/18/21 13:52 Antibiotics) Vomiting & Diarrhea Review of Systems ROS Statement: Those systems with pertinent positive or pertinent negative responses have been documented in the HPI. ROS Other: All systems not noted in ROS Statement are negative. Past Medical History Past Medical History: Cancer, COPD, GERD/Reflux, Hypertension, Prostate Disorder Additional Past Medical History / Comment(s): having a hard time eating and acid reflux coming up into my chest.hx prostate CA. Hep C , currently having chemotherapy and radiation treatments History of Any Multi-Drug Resistant Organisms: MRSA Date of last positivie culture/infection: 06/13/18 MDRO Source:: Left Hand Past Surgical History: Hernia Repair, Orthopedic Surgery, Prostate Surgery Additional Past Surgical History / Comment(s): Laparotomy with drainage of abscess. Prostatectomy with da Jessi PEG tube insertion Past Anesthesia/Blood Transfusion Reactions: No Reported Reaction Additional Past Anesthesia/Blood Transfusion Reaction / Comment(s): no hx blood transfusion Past Psychological History: Depression Smoking Status: Former smoker Past Alcohol Use History: Occasional Past Drug Use History: Prescription Drug Abuse - Past Family History Father Family Medical History: Cancer Additional Family Medical History / Comment(s): cholecystectomy, pancreatic cancer General Exam - General Exam Comments Initial Comments: GENERAL: Patient is well-developed and well-nourished. Patient is nontoxic and in no acute distress. HEAD: Atraumatic, normocephalic. EYES: Pupils equal round and reactive to light, extraocular movements intact, sclera anicteric, conjunctiva are normal. Eyelids were unremarkable. ENT: TMs normal, nares patent, oropharynx clear without exudates. Moist mucous membranes. NECK: Normal range of motion, supple without lymphadenopathy or JVD. LUNGS: Unlabored respirations. Breath sounds clear to auscultation bilaterally and equal. No wheezes rales or rhonchi. HEART: Regular rate and rhythm without murmurs, rubs or gallops. ABDOMEN: Soft, nontender, normoactive bowel sounds. No guarding, no rebound. No masses appreciated. PEG tube present. : Deferred MUSCULOSKELETAL: Normal extremities with adequate strength and normal range of motion, no pitting or edema. No clubbing or cyanosis. NEUROLOGICAL: Patient is alert and oriented x 3. Motor and sensory are also intact. Cranial nerves II through XII grossly intact. Symmetrical smile. Normal speech, normal gait. PSYCH: Normal mood, normal affect. SKIN: Warm, Dry, normal turgor. Port present in left upper chest. Patient has a large blister noted to the right neck, this approximate 3 cm in diameter fluid filled, he also has 2 other blisters that have opened on his neck, extending up towards the bottom of right ear, down to the upper trap, some mild surrounding erythema, as is tender to the touch. Limitations: no limitations Course Vital Signs 01/18/21 01/18/21 11:08 13:20 Temperature 98.1 F Pulse Rate 70 66 Respiratory 18 18 Rate Blood Pressure 160/85 149/91 O2 Sat by Pulse 99 99 Oximetry Medical Decision Making - Medical Decision Making Patient is a 70-year-old male currently undergoing radiation treatment for throat cancer presenting with a one-day history of large blisters on the right side of his neck, from the bottom of his right ear extending down to the top of his right shoulder area. These are tender, very large, two have opened, one is fluid-filled. No fevers, his vitals are within normal limits. Labs reveal a normal white count, stable hemoglobin 11.6, creatinine is elevated from his baseline at 1.45 with BUN at 28, CK is 479. I did speak with Dr. Wynne, patient's radiation oncologist, he does agree to see the patient in the hospital, recommended antibiotics. I will start patient on Rocephin and dose of the ankle, also continue him on fluids for YVROSE. Patient accepted by Dr. Fraser with consult to Dr. Wynne and ID. agent is agreeable to this plan of care. Case discussed with Dr. Greenberg. - Lab Data Result diagrams: 01/18/21 11:58 01/18/21 11:58 Lab Results 01/18/21 01/18/21 01/18/21 Range/Units 11:58 11:58 11:58 WBC 8.7 (3.8-10.6) k/uL RBC 3.85 L (4.30-5.90) m/uL Hgb 11.6 L (13.0-17.5) gm/dL Hct 35.0 L (39.0-53.0) % MCV 90.8 (80.0-100.0) fL MCH 30.2 (25.0-35.0) pg MCHC 33.2 (31.0-37.0) g/dL RDW 15.8 H (11.5-15.5) % Plt Count 211 (150-450) k/uL MPV 8.6 Neutrophils % 81 % Lymphocytes % 9 % Monocytes % 6 % Eosinophils % 1 % Basophils % 0 % Neutrophils # 7.1 (1.3-7.7) k/uL Lymphocytes # 0.8 L (1.0-4.8) k/uL Monocytes # 0.6 (0-1.0) k/uL Eosinophils # 0.1 (0-0.7) k/uL Basophils # 0.0 (0-0.2) k/uL PT (9.0-12.0) sec INR (<1.2) APTT (22.0-30.0) sec Sodium 132 L (137-145) mmol/L Potassium 4.9 (3.5-5.1) mmol/L Chloride 98 (98-107) mmol/L Carbon Dioxide 25 (22-30) mmol/L Anion Gap 9 mmol/L BUN 28 H (9-20) mg/dL Creatinine 1.45 H (0.66-1.25) mg/dL Est GFR (CKD-EPI)AfAm 56 (>60 ml/min/1.73 sqM) Est GFR (CKD-EPI)NonAf 49 (>60 ml/min/1.73 sqM) Glucose 98 (74-99) mg/dL Plasma Lactic Acid Gumaro 1.1 (0.7-2.0) mmol/L Calcium 9.3 (8.4-10.2) mg/dL Magnesium 1.9 (1.6-2.3) mg/dL Total Bilirubin 0.5 (0.2-1.3) mg/dL AST 39 (17-59) U/L ALT 15 (4-49) U/L Alkaline Phosphatase 68 (38-126) U/L Creatine Kinase 479 H (55-170) U/L Total Protein 6.8 (6.3-8.2) g/dL Albumin 4.0 (3.5-5.0) g/dL 01/18/21 Range/Units 11:58 WBC (3.8-10.6) k/uL RBC (4.30-5.90) m/uL Hgb (13.0-17.5) gm/dL Hct (39.0-53.0) % MCV (80.0-100.0) fL MCH (25.0-35.0) pg MCHC (31.0-37.0) g/dL RDW (11.5-15.5) % Plt Count (150-450) k/uL MPV Neutrophils % % Lymphocytes % % Monocytes % % Eosinophils % % Basophils % % Neutrophils # (1.3-7.7) k/uL Lymphocytes # (1.0-4.8) k/uL Monocytes # (0-1.0) k/uL Eosinophils # (0-0.7) k/uL Basophils # (0-0.2) k/uL PT 10.0 (9.0-12.0) sec INR 0.9 (<1.2) APTT 22.5 (22.0-30.0) sec Sodium (137-145) mmol/L Potassium (3.5-5.1) mmol/L Chloride (98-107) mmol/L Carbon Dioxide (22-30) mmol/L Anion Gap mmol/L BUN (9-20) mg/dL Creatinine (0.66-1.25) mg/dL Est GFR (CKD-EPI)AfAm (>60 ml/min/1.73 sqM) Est GFR (CKD-EPI)NonAf (>60 ml/min/1.73 sqM) Glucose (74-99) mg/dL Plasma Lactic Acid [place]umaro (0.7-2.0) mmol/L Calcium (8.4-10.2) mg/dL Magnesium (1.6-2.3) mg/dL Total Bilirubin (0.2-1.3) mg/dL AST (17-59) U/L ALT (4-49) U/L Alkaline Phosphatase (38-126) U/L Creatine Kinase (55-170) U/L Total Protein (6.3-8.2) g/dL Albumin (3.5-5.0) g/dL Disposition Clinical Impression: Cellulitis, neck, Blisters of multiple sites, YVROSE (acute kidney injury) Disposition: ADMITTED IP TO THIS [facility] Condition: Stable Referrals: [facility],Clinic [Primary Care Provider] - 1-2 days Decision Date: 01/18/21 Decision Time: 14:12
[2021-01-18 12:32] LABS: Partial Thromboplastin Time 22.5 sec (22.0-30.0)
[2021-01-18 12:37] LABS: Calcium 9.3 mg/dL (8.4-10.2); Magnesium 1.9 mg/dL (1.6-2.3); Potassium 4.9 mmol/L (3.5-5.1); Total Bilirubin 0.5 mg/dL (0.2-1.3); Total Protein 6.8 g/dL (6.3-8.2)
[2021-01-18 13:03] LABS: Basophils % (A) 0 %; Eosinophils # (A) 0.1 k/uL (0-0.7); Eosinophils % (A) 1 %; HGB 11.6 gm/dL (13.0-17.5); Lymphocytes # (A) 0.8 k/uL (1.0-4.8); Lymphocytes % (A) 9 %; MCH 30.2 pg (25.0-35.0); MCHC 33.2 g/dL (31.0-37.0); MCV 90.8 fL (80.0-100.0); Mean Platelet Volume 8.6; Monocytes # (A) 0.6 k/uL (0-1.0); Monocytes % (A) 6 %; Neutrophils # (A) 7.1 k/uL (1.3-7.7); Neutrophils % (A) 81 %; Platelet Count 211 k/uL (150-450); RBC 3.85 m/uL (4.30-5.90); RDW 15.8 % (11.5-15.5); WBC 8.7 k/uL (3.8-10.6)
[2021-01-18] MEDS ORDERED: ONDANSETRON 4 MG/2 ML VIAL IVP PRN (14:05)
[2021-01-18] MEDS ORDERED: IBUPROFEN 400 MG TAB PO PRN (14:05)
[2021-01-18] MEDS ORDERED: NALOXONE 0.4 MG/ML 1 ML VIAL IV PRN (14:05)
[2021-01-18] MEDS ORDERED: cefTRIAXone IN SWFI 1,000 MG/10 ML SYRINGE IVP STA (14:08)
[2021-01-18] MEDS ORDERED: VANCOMYCIN IV PER PHARMACY 1 EACH MISC MISCELLANE PRN (14:08)
[2021-01-18] MEDS ORDERED: VANCOMYCIN 1,250 MG in SODIUM CHLORIDE 0.9% 250 ML IVPB ONE (15:00)
[2021-01-18] MEDS: SODIUM CHLORIDE 0.9% 1,000 ML IV SCH (15:01)
[2021-01-18] MEDS: HYDROcodone/APAP 5-325MG 1 EACH TAB PO PRN ×2 (16:41→22:24)
[2021-01-18 22:38] LABS: Glucose,Whole Blood 112 mg/dL (75-99)
--- NOTE | 2021-01-18 22:43 | ED ---
Medical Decision Making - Lab Data Result diagrams: 01/18/21 11:58 01/18/21 11:58 Lab Results 01/18/21 01/18/21 01/18/21 Range/Units 11:58 11:58 11:58 WBC 8.7 (3.8-10.6) k/uL RBC 3.85 L (4.30-5.90) m/uL Hgb 11.6 L (13.0-17.5) gm/dL Hct 35.0 L (39.0-53.0) % MCV 90.8 (80.0-100.0) fL MCH 30.2 (25.0-35.0) pg MCHC 33.2 (31.0-37.0) g/dL RDW 15.8 H (11.5-15.5) % Plt Count 211 (150-450) k/uL MPV 8.6 Neutrophils % 81 % Lymphocytes % 9 % Monocytes % 6 % Eosinophils % 1 % Basophils % 0 % Neutrophils # 7.1 (1.3-7.7) k/uL Lymphocytes # 0.8 L (1.0-4.8) k/uL Monocytes # 0.6 (0-1.0) k/uL Eosinophils # 0.1 (0-0.7) k/uL Basophils # 0.0 (0-0.2) k/uL PT (9.0-12.0) sec INR (<1.2) APTT (22.0-30.0) sec Sodium 132 L (137-145) mmol/L Potassium 4.9 (3.5-5.1) mmol/L Chloride 98 (98-107) mmol/L Carbon Dioxide 25 (22-30) mmol/L Anion Gap 9 mmol/L BUN 28 H (9-20) mg/dL Creatinine 1.45 H (0.66-1.25) mg/dL Est GFR (CKD-EPI)AfAm 56 (>60 ml/min/1.73 sqM) Est GFR (CKD-EPI)NonAf 49 (>60 ml/min/1.73 sqM) Glucose 98 (74-99) mg/dL Plasma Lactic Acid Gumaro 1.1 (0.7-2.0) mmol/L Calcium 9.3 (8.4-10.2) mg/dL Magnesium 1.9 (1.6-2.3) mg/dL Total Bilirubin 0.5 (0.2-1.3) mg/dL AST 39 (17-59) U/L ALT 15 (4-49) U/L Alkaline Phosphatase 68 (38-126) U/L Creatine Kinase 479 H (55-170) U/L Total Protein 6.8 (6.3-8.2) g/dL Albumin 4.0 (3.5-5.0) g/dL 01/18/21 Range/Units 11:58 WBC (3.8-10.6) k/uL RBC (4.30-5.90) m/uL Hgb (13.0-17.5) gm/dL Hct (39.0-53.0) % MCV (80.0-100.0) fL MCH (25.0-35.0) pg MCHC (31.0-37.0) g/dL RDW (11.5-15.5) % Plt Count (150-450) k/uL MPV Neutrophils % % Lymphocytes % % Monocytes % % Eosinophils % % Basophils % % Neutrophils # (1.3-7.7) k/uL Lymphocytes # (1.0-4.8) k/uL Monocytes # (0-1.0) k/uL Eosinophils # (0-0.7) k/uL Basophils # (0-0.2) k/uL PT 10.0 (9.0-12.0) sec INR 0.9 (<1.2) APTT 22.5 (22.0-30.0) sec Sodium (137-145) mmol/L Potassium (3.5-5.1) mmol/L Chloride (98-107) mmol/L Carbon Dioxide (22-30) mmol/L Anion Gap mmol/L BUN (9-20) mg/dL Creatinine (0.66-1.25) mg/dL Est GFR (CKD-EPI)AfAm (>60 ml/min/1.73 sqM) Est GFR (CKD-EPI)NonAf (>60 ml/min/1.73 sqM) Glucose (74-99) mg/dL Plasma Lactic Acid Gumaro (0.7-2.0) mmol/L Calcium (8.4-10.2) mg/dL Magnesium (1.6-2.3) mg/dL Total Bilirubin (0.2-1.3) mg/dL AST (17-59) U/L ALT (4-49) U/L Alkaline Phosphatase (38-126) U/L Creatine Kinase (55-170) U/L Total Protein (6.3-8.2) g/dL Albumin (3.5-5.0) g/dL - EKG Data -: EKG Interpreted by Me (EKG shows sinus a 91 NH 126 QRS 88 QTc 09/17) Disposition Clinical Impression: Cellulitis, neck, Blisters of multiple sites, YVROSE (acute kidney injury) Disposition: ADMITTED IP TO THIS HOSP Condition: Stable
[2021-01-19] MEDS ORDERED: ALBUTEROL NEBULIZED 2.5 MG/3 ML INHALATION PRN (00:03)
[2021-01-19] MEDS ORDERED: BENZONATATE 100 MG CAP PO PRN (00:03)
[2021-01-19] MEDS ORDERED: CALCIUM CARBONATE 500 MG CHEWABLE PO PRN (00:03)
[2021-01-19] MEDS ORDERED: amLODIPine 5 MG TAB PO SCH (00:05)
[2021-01-19] MEDS ORDERED: cloNIDine HCL 0.1 MG TAB PO SCH (00:15)
--- NOTE | 2021-01-19 00:25 | P.HPIM ---
History of Present Illness This is a pleasant 70 years old male with history of throat cancer that undergoing chemo and radiotherapy, his radiologist is Dr. Wynne and oncologist is from outside facility. No problems including COPD, hypertension, hepatitis C, history of prostatic cancer. Presents of one-day duration of right cheek redness and swelling with some blistering radiating to the right neck and small area of right upper back at the base. He denies any other symptoms like no chest pain/dyspnea. No GI or urinary complaints. No fever. Vital signs stable, blood pressure is elevated with systolic blood pressure 170- 190 Labs reviewed unremarkable except for creatinine mildly elevated at 1.4 and mildly low sodium. Review of Systems Review of systems CONSTITUTIONAL: No fever, no malaise, no fatigue. HEENT: No recent visual problems or hearing problems. Denied any sore throat. CARDIOVASCULAR: No orthopnea, PND, no palpitations, no syncope. PULMONARY: No shortness of breath, no cough, no hemoptysis. GASTROINTESTINAL: No diarrhea, no nausea, no vomiting, no abdominal pain. Normoactive bowel sounds. NEUROLOGICAL: No headaches, no weakness, no numbness. HEMATOLOGICAL: Denies any bleeding or petechiae. GENITOURINARY: Denies any burning micturition, frequency, or urgency. MUSCULOSKELETAL/RHEUMATOLOGICAL: Denies any joint pain, swelling, or any muscle pain. ENDOCRINE: Denies any polyuria or polydipsia. Past Medical History Past Medical History: Cancer, COPD, GERD/Reflux, Hypertension, Prostate Disorder Additional Past Medical History / Comment(s): having a hard time eating and acid reflux coming up into my chest.hx prostate CA. Hep C , currently having chemotherapy and radiation treatments History of Any Multi-Drug Resistant Organisms: MRSA Date of last positivie culture/infection: 06/13/18 MDRO Source:: Left Hand Past Surgical History: Hernia Repair, Orthopedic Surgery, Prostate Surgery Additional Past Surgical History / Comment(s): Laparotomy with drainage of abscess. Prostatectomy with da Jessi PEG tube insertion Past Anesthesia/Blood Transfusion Reactions: No Reported Reaction Additional Past Anesthesia/Blood Transfusion Reaction / Comment(s): no hx blood transfusion Past Psychological History: Depression Smoking Status: Former smoker Past Alcohol Use History: Occasional Past Drug Use History: Prescription Drug Abuse - Past Family History Father Family Medical History: Cancer Additional Family Medical History / Comment(s): cholecystectomy, pancreatic cancer Medications and Allergies Home Medications Medication Instructions Recorded Confirmed Type Calcium Carbonate [Tums] 500 mg PO TID PRN 11/19/20 01/18/21 History Cyanocobalamin (Vitamin B-12) 1,000 mcg PO DAILY 11/19/20 01/18/21 History [Vitamin B-12] Multivitamins, Thera [Multivitamin 1 tab PO DAILY 11/19/20 01/18/21 History (formulary)] Pantoprazole [Protonix] 40 mg PO BID 11/19/20 01/18/21 History Acetaminophen Tab [Tylenol] 650 mg PO Q6HR PRN #30 tab 11/24/20 01/18/21 Rx Magnesium Oxide [Mag-Ox] 400 mg PO TID #60 tab 11/24/20 01/18/21 Rx Pregabalin [Lyrica] 75 mg PO BID 12/01/20 01/18/21 History cloNIDine HCL [Catapres] 0.1 mg PO BID 30 Days #60 tab 12/07/20 01/18/21 Rx Albuterol Inhaler [Ventolin Hfa 1 puff INHALATION RT-Q6H PRN 12/13/20 01/18/21 History Inhaler] Amitriptyline HCl [Elavil] 25 mg PO HS 12/13/20 01/18/21 History Cholecalciferol [Vitamin D3 (25 50 mcg PO DAILY 12/13/20 01/18/21 History Mcg = 1000 Iu)] Hydrocortisone Suppository 1 supp RECTAL BID PRN 12/13/20 01/18/21 History [Anusol-Hc] Isosource 1.5cal 1 can PEG/G-TUBE DIRECTED 12/13/20 01/18/21 History methocarbamoL [Methocarbamol] 750 mg PO QID PRN 12/13/20 01/18/21 History Benzonatate [Tessalon Perles] 100 mg PO TID PRN 01/18/21 01/18/21 History Fluticasone/Salmeterol [Advair 1 puff INHALATION RT-BID 01/18/21 01/18/21 History 250-50 Diskus] Hydrocodone/Acetaminophen [[place] 1 tab PO Q8H PRN 01/18/21 01/18/21 History 7.5-325] Mag Hydrox/Al Hydrox/Simeth 10 ml PO QID PRN 01/18/21 01/18/21 History [Maalox] Naloxone HCl [Narcan] 4 mg NASAL DIRECTED 01/18/21 01/18/21 History Nystatin 100,000 Unit/gm Oint 1 applic TOPICAL BID 01/18/21 01/18/21 History [Mycostatin Oint] guaiFENesin 200 mg PO BID 01/18/21 01/18/21 History Allergies Allergy/AdvReac Type Severity Reaction Status Date / Time erythromycin base AdvReac Nausea & Verified 01/18/21 13:52 Vomiting & Diarrhea Sulfa (Sulfonamide AdvReac Nausea & Verified 01/18/21 13:52 Antibiotics) Vomiting & Diarrhea Physical Exam Vitals: Vital Signs Temp Pulse Resp BP Pulse Ox 01/18/21 23:30 85 18 176/86 98 01/18/21 23:17 77 18 98 01/18/21 22:59 83 20 193/116 100 01/18/21 22:49 89 20 194/99 01/18/21 22:38 12 01/18/21 15:41 62 18 159/105 99 01/18/21 13:20 66 18 149/91 99 01/18/21 11:08 98.1 F 70 18 160/85 99 Intake and Output 01/18/21 01/18/21 01/19/21 14:59 22:59 06:59 Output Total 2350 Balance -2350 Output: Urine 2100 Post Void Residual 250 Other: Weight 65.771 kg GENERAL: The patient is alert and oriented x3, not in any acute distress. Well developed, well nourished. HEENT: Pupils are round and equally reacting to light. EOMI. No scleral icterus. No conjunctival pallor. Normocephalic, atraumatic. No pharyngeal erythema. No thyromegaly. -Right facial erythema with blistering lesion and swelling involving the right cheek, right neck and right upper back of the neck base CARDIOVASCULAR: S1 and S2 present. No murmurs, rubs, or gallops. PULMONARY: Chest is clear to auscultation, no wheezing or crackles. ABDOMEN: Soft, nontender, nondistended, normoactive bowel sounds. No palpable organomegaly. MUSCULOSKELETAL: No joint swelling or deformity. EXTREMITIES: No cyanosis, clubbing, or pedal edema. NEUROLOGICAL: Gross neurological examination did not reveal any focal deficits. SKIN: No rashes. no petechiae. Results CBC & Chem 7: 01/18/21 11:58 01/18/21 11:58 Labs: Abnormal Lab Results - Last 24 Hours (Table) 01/18/21 01/18/21 01/18/21 Range/Units 11:58 11:58 22:37 RBC 3.85 L (4.30-5.90) m/uL Hgb 11.6 L (13.0-17.5) gm/dL Hct 35.0 L (39.0-53.0) % RDW 15.8 H (11.5-15.5) % Lymphocytes # 0.8 L (1.0-4.8) k/uL Sodium 132 L (137-145) mmol/L BUN 28 H (9-20) mg/dL Creatinine 1.45 H (0.66-1.25) mg/dL POC Glucose (mg/dL) 112 H (75-99) mg/dL Creatine Kinase 479 H (55-170) U/L Assessment and Plan Assessment: Right facial and neck cellulitis with blistering lesion Recent history of throat cancer undergoing chemo and radiotherapy Hypertension, uncontrolled upon admission COPD, no acute exacerbation History of prostatic cancer History of GERD History of hepatitis C Plan: This is a pleasant 70 years old male presents with possible right facial cellulitis with a blistering lesion Continue with antibiotics and IV hydration and consult infectious disease team Consult hematology and oncology team Follow-up culture results At [facility], continue with clonidine and follow-up blood pressure Labs and medication were reviewed.. Continue same treatment. Continue with symptomatic treatment. Resume home medication. Monitor lytes and vitals. DVT and GI prophylaxis. Further recommendationsas per clinical course of the patient DVT prophylaxis: Subcutaneous heparin GI Prophylaxis: Pepcid PT/OT: Pending Prognosis is guarded
[2021-01-19] MEDS: ACETAMINOPHEN TAB 325 MG TAB PO PRN ×2 (00:55→21:12)
[2021-01-19 01:05] LABS: Appearance,Urine Clear (Clear); Bilirubin,Urine Negative (Negative); Blood,Urine Negative (Negative); Color,Urine Yellow; Glucose,Urine (UA) Negative (Negative); Ketones,Urine Negative (Negative); Leukocyte Esterase,Urine Negative (Negative); Nitrite,Urine Negative (Negative); Protein,Urine Negative (Negative); Specific Gravity,Urine 1.019 (1.001-1.035); Urobilinogen,Urine <2.0 mg/dL (<2.0)
[2021-01-19] MEDS: SODIUM CHLORIDE 0.9% 1,000 ML IV SCH ×2 (01:15→09:02)
[2021-01-19] MEDS: VANCOMYCIN 1,250 MG in SODIUM CHLORIDE 0.9% 250 ML IVPB SCH ×2 (03:59→15:41)
[2021-01-19 05:13] LABS: African American GFR (CKD) 67 (>60 ml/min/1.73 sqM); Anion Gap 4 mmol/L; Blood Urea Nitrogen 22 mg/dL (9-20); Calcium 8.4 mg/dL (8.4-10.2); Carbon Dioxide 28 mmol/L (22-30); Chloride 98 mmol/L (98-107); Glucose 127 mg/dL (74-99); Non-African American GFR(CKD) 58 (>60 ml/min/1.73 sqM); Potassium 4.2 mmol/L (3.5-5.1); Sodium 130 mmol/L (137-145)
[2021-01-19] MEDS: PANTOPRAZOLE 40 MG TABLET PO SCH ×2 (08:59→16:14)
[2021-01-19] MEDS: HYDROcodone/APAP 5-325MG 1 EACH TAB PO PRN ×2 (08:59→16:15)
[2021-01-19] MEDS: PREGABALIN 75 MG CAP PO SCH ×2 (08:59→21:12)
[2021-01-19] MEDS: HEPARIN SODIUM,PORCINE/PF 5,000 UNIT/0.5 ML SYRINGE SQ SCH ×2 (09:00→21:12)
--- NOTE | 2021-01-19 11:21 | P.PN ---
Subjective This is a pleasant 70 years old male with history of throat cancer that undergoing chemo and radiotherapy, his radiologist is Dr. Wynne and oncologist is from outside facility. No problems including COPD, hypertension, hepatitis C, history of prostatic cancer. Presents of one-day duration of right cheek redness and swelling with some blistering radiating to the right neck and small area of right upper back at the base. He denies any other symptoms like no chest pain/dyspnea. No GI or urinary complaints. No fever. Vital signs stable, blood pressure is elevated with systolic blood pressure 170- 190 Labs reviewed unremarkable except for creatinine mildly elevated at 1.4 and mildly low sodium. 01/19/21 Patient is feeling better. His cellulitis on the right cheek, neck and right upper back is improving. There is still some purulent discharge. Culture has been sent. Hemodynamically stable, his blood pressure was borderline 115/66, his Norvasc and clonidine were held while keeping monitor and blood pressure to prevent hypertension Creatinine improving to 1.4 down to 1.2. Patient remains on IV vancomycin and normal saline at 75 mL/h Objective - Vital Signs Vital signs: Vital Signs Temp 98.1 F 01/18/21 11:08 Pulse 68 01/19/21 03:47 Resp 18 01/19/21 03:47 BP 115/66 01/19/21 02:40 Pulse Ox 95 01/19/21 03:47 Intake & Output 01/18/21 01/19/21 01/19/21 18:59 06:59 18:59 Output Total 2100 250 Balance -2100 -250 Weight 65.771 kg Output: Urine 2100 Post Void Residual 250 - Exam GENERAL: The patient is alert and oriented x3, not in any acute distress. Well developed, well nourished. HEENT: Pupils are round and equally reacting to light. EOMI. No scleral icterus. No conjunctival pallor. Normocephalic, atraumatic. No pharyngeal erythema. No thyromegaly. -Right facial erythema with blistering lesion and swelling involving the right cheek, right neck and right upper back of the neck base CARDIOVASCULAR: S1 and S2 present. No murmurs, rubs, or gallops. PULMONARY: Chest is clear to auscultation, no wheezing or crackles. ABDOMEN: Soft, nontender, nondistended, normoactive bowel sounds. No palpable organomegaly. MUSCULOSKELETAL: No joint swelling or deformity. EXTREMITIES: No cyanosis, clubbing, or pedal edema. NEUROLOGICAL: Gross neurological examination did not reveal any focal deficits. SKIN: No rashes. no petechiae. - Labs CBC & Chem 7: 01/18/21 11:58 01/19/21 04:29 Labs: Abnormal Lab Results - Last 24 Hours (Table) 01/18/21 01/18/21 01/18/21 Range/Units 11:58 11:58 22:37 RBC 3.85 L (4.30-5.90) m/uL Hgb 11.6 L (13.0-17.5) gm/dL Hct 35.0 L (39.0-53.0) % RDW 15.8 H (11.5-15.5) % Lymphocytes # 0.8 L (1.0-4.8) k/uL Sodium 132 L (137-145) mmol/L BUN 28 H (9-20) mg/dL Creatinine 1.45 H (0.66-1.25) mg/dL Glucose (74-99) mg/dL POC Glucose (mg/dL) 112 H (75-99) mg/dL Creatine Kinase 479 H (55-170) U/L 01/19/21 Range/Units 04:29 RBC (4.30-5.90) m/uL Hgb (13.0-17.5) gm/dL Hct (39.0-53.0) % RDW (11.5-15.5) % Lymphocytes # (1.0-4.8) k/uL Sodium 130 L (137-145) mmol/L BUN 22 H (9-20) mg/dL Creatinine 1.26 H (0.66-1.25) mg/dL Glucose 127 H (74-99) mg/dL POC Glucose (mg/dL) (75-99) mg/dL Creatine Kinase (55-170) U/L Microbiology - Last 24 Hours (Table) 01/19/21 00:00 Wound Culture - Preliminary Face Assessment and Plan Assessment: Right facial and neck cellulitis with blistering lesion Recent history of throat cancer undergoing chemo and radiotherapy Hypertension, uncontrolled upon admission COPD, no acute exacerbation History of prostatic cancer History of GERD History of hepatitis C Plan: This is a pleasant 70 years old male presents with possible right facial cellulitis with a blistering lesion is improving Continue with antibiotics and IV hydration and consult infectious disease team Consult hematology and oncology team Follow-up culture results At [facility], continue with clonidine and follow-up blood pressure Labs and medication were reviewed.. Continue same treatment. Continue with symptomatic treatment. Resume home medication. Monitor lytes and vitals. DVT and GI prophylaxis. Further recommendationsas per clinical course of the patient DVT prophylaxis: Subcutaneous heparin GI Prophylaxis: Pepcid PT/OT: Pending Prognosis is guarded
[2021-01-19 14:53] VITALS: BMI 23.3
--- NOTE | 2021-01-19 16:44 | P.CONS ---
History of Present Illness - Reason for Consult Consult date: 01/19/21 tonsilar malignancy Requesting physician: Jayy E Sheet - Chief Complaint moist desquamation of rt side of face - History of Present Illness Mr. Somers is a very pleasant 69-year-old gentleman with multiple comorbidities who is here for Infection to the right side of his face. 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 He is currently under the care of Dr. Cortez in [facility] and Dr. Wynne of Radiation Oncology. Patient states he completed treatment about 3 weeks L. He is swallowing, he is utilizing his PEG tube overnight. He denies fevers, nausea, vomiting, oral irritation, chest pain, acute changes in respiratory status, abdominal pain or cramping, acute changes in bowel or bladder habits. He is having difficulty putting on weight. He denies any other rash, skin changes, swelling or bleeding. He does have some mild numbness in the left foot. He states that since completion of treatment the skin on the right side of his face has progressively worsened, he is not able to detail any specific skin care regimen he has been using. Review of Systems 10 point review of systems is negative except as stated in HPI Past Medical History Past Medical History: Cancer, COPD, GERD/Reflux, Hypertension, Prostate Disorder Additional Past Medical History / Comment(s): having a hard time eating and acid reflux coming up into my chest.hx prostate CA. Hep C , currently having chemotherapy and radiation treatments History of Any Multi-Drug Resistant Organisms: MRSA Year Discovered:: 06/13/18 MDRO Source:: Left Hand Past Surgical History: Hernia Repair, Orthopedic Surgery, Prostate Surgery Additional Past Surgical History / Comment(s): Laparotomy with drainage of abscess. Prostatectomy with da Jessi PEG tube insertion Past Anesthesia/Blood Transfusion Reactions: No Reported Reaction Additional Past Anesthesia/Blood Transfusion Reaction / Comm: no hx blood transfusion Past Psychological History: Depression Smoking Status: Former smoker Past Alcohol Use History: Occasional Past Drug Use History: Prescription Drug Abuse - Past Family History Father Family Medical History: Cancer Additional Family Medical History / Comment(s): cholecystectomy, pancreatic cancer Medications and Allergies Home Medications Medication Instructions Recorded Confirmed Type Calcium Carbonate [Tums] 500 mg PO TID PRN 11/19/20 01/18/21 History Cyanocobalamin (Vitamin B-12) 1,000 mcg PO DAILY 11/19/20 01/18/21 History [Vitamin B-12] Multivitamins, Thera [Multivitamin 1 tab PO DAILY 11/19/20 01/18/21 History (formulary)] Pantoprazole [Protonix] 40 mg PO BID 11/19/20 01/18/21 History Acetaminophen Tab [Tylenol] 650 mg PO Q6HR PRN #30 tab 11/24/20 01/18/21 Rx Magnesium Oxide [Mag-Ox] 400 mg PO TID #60 tab 11/24/20 01/18/21 Rx Pregabalin [Lyrica] 75 mg PO BID 12/01/20 01/18/21 History cloNIDine HCL [Catapres] 0.1 mg PO BID 30 Days #60 tab 12/07/20 01/18/21 Rx Albuterol Inhaler [Ventolin Hfa 1 puff INHALATION RT-Q6H PRN 12/13/20 01/18/21 History Inhaler] Amitriptyline HCl [Elavil] 25 mg PO HS 12/13/20 01/18/21 History Cholecalciferol [Vitamin D3 (25 50 mcg PO DAILY 12/13/20 01/18/21 History Mcg = 1000 Iu)] Hydrocortisone Suppository 1 supp RECTAL BID PRN 12/13/20 01/18/21 History [Anusol-Hc] Isosource 1.5cal 1 can PEG/G-TUBE DIRECTED 12/13/20 01/18/21 History methocarbamoL [Methocarbamol] 750 mg PO QID PRN 12/13/20 01/18/21 History Benzonatate [Tessalon Perles] 100 mg PO TID PRN 01/18/21 01/18/21 History Fluticasone/Salmeterol [Advair 1 puff INHALATION RT-BID 01/18/21 01/18/21 History 250-50 Diskus] Hydrocodone/Acetaminophen [Tiona 1 tab PO Q8H PRN 01/18/21 01/18/21 History 7.5-325] Mag Hydrox/Al Hydrox/Simeth 10 ml PO QID PRN 01/18/21 01/18/21 History [Maalox] Naloxone HCl [Narcan] 4 mg NASAL DIRECTED 01/18/21 01/18/21 History Nystatin 100,000 Unit/gm Oint 1 applic TOPICAL BID 01/18/21 01/18/21 History [Mycostatin Oint] guaiFENesin 200 mg PO BID 01/18/21 01/18/21 History Allergies Allergy/AdvReac Type Severity Reaction Status Date / Time erythromycin base AdvReac Nausea & Verified 01/18/21 13:52 Vomiting & Diarrhea Sulfa (Sulfonamide AdvReac Nausea & Verified 01/18/21 13:52 Antibiotics) Vomiting & Diarrhea Physical Exam Vitals: Vital Signs Temp Pulse Pulse Resp BP BP Pulse Ox 01/19/21 11:26 97.7 F 66 19 135/69 98 01/19/21 08:00 66 19 01/19/21 03:47 68 18 95 01/19/21 02:40 68 18 115/66 96 01/19/21 01:15 79 18 135/79 97 01/19/21 00:49 82 18 137/79 98 01/19/21 00:01 79 18 148/83 98 01/18/21 23:30 85 18 176/86 98 01/18/21 23:17 77 18 98 01/18/21 22:59 83 20 193/116 100 01/18/21 22:49 89 20 194/99 01/18/21 22:38 12 Intake and Output 01/19/21 01/19/21 01/19/21 06:59 14:59 22:59 Other: # Voids 1 Weight 65.771 kg - Constitutional General appearance: cooperative, no acute distress, thin - EENT Eyes: anicteric sclerae, EOMI ENT: hearing grossly normal, normal oropharynx - Neck Thickening of the skin on the right side of the face and neck, no palpable adenopathy - Respiratory Respiratory: bilateral: CTA - Cardiovascular Rhythm: regular Heart sounds: normal: S1, S2 Abnormal Heart Sounds: no systolic murmur, no diastolic murmur, no rub, no S3 Gallop, no S4 Gallop, no click, no other leg Peripheral Edema: bilateral: None - Gastrointestinal PEG tube General gastrointestinal: no absent bowel sounds, no decreased bowel sounds, no distended, no hepatomegaly, no hyperactive bowel sounds, normal bowel sounds, no organomegaly, no rigid, no scaphoid, soft, no splenomegaly, no tenderness, no umbilical hernia, no ventral hernia - Neurologic Neurologic: CNII-XII intact - Musculoskeletal Musculoskeletal: strength equal bilaterally - Psychiatric Moderate anxiety, irritability Psychiatric: A&O x's 3, intact judgment & insight Results CBC & Chem 7: 01/18/21 11:58 01/19/21 04:29 Labs: Abnormal Lab Results - Last 24 Hours (Table) 01/18/21 01/19/21 01/19/21 Range/Units 22:37 04:29 04:29 Sodium 130 L (137-145) mmol/L BUN 22 H (9-20) mg/dL Creatinine 1.26 H (0.66-1.25) mg/dL Glucose 127 H (74-99) mg/dL POC Glucose (mg/dL) 112 H (75-99) mg/dL Procalcitonin 0.10 H (0.02-0.09) ng/mL Microbiology - Last 24 Hours (Table) 01/18/21 12:23 Blood Culture - Preliminary Blood No Growth after 24 hours 01/18/21 12:03 Blood Culture - Preliminary Blood No Growth after 24 hours 01/19/21 00:00 Wound Culture - Preliminary Face Assessment and Plan (1) Cellulitis, neck Current Visit: Yes Status: Acute Priority: High Code(s): L03.221 - CELLULITIS OF NECK SNOMED Code(s): 58395522 (2) Tonsil neoplasm Current Visit: Yes Status: Chronic Priority: Medium Code(s): D49.0 - NEOPLASM OF UNSPECIFIED BEHAVIOR OF DIGESTIVE SYSTEM SNOMED Code(s): 046525892 Plan: Patient states he has completed chemotherapy and radiation, about 3 weeks ago. He is experiencing wet desquamation from radiation. Recommendation for local wound care and antibiotic therapy. Radiation Oncology is on consult. Patient is utilizing his PEG tube for additional nutrition, he states that he is able to swallow now as well. Follow-up with his Primary Oncologist and stay on follow-up as directed by Radiation Oncologist. Doctor attests: I performed a history and physical examination of this patient, developed impression and plan of care. Discussed with dictator. I agree with d ictators note, documented as a scribe.
[2021-01-19] MEDS: AMITRIPTYLINE HCL 25 MG TAB PO SCH (21:12)
--- NOTE | 2021-01-19 23:06 | P.CONS ---
History of Present Illness - Reason for Consult Consult date: 01/19/21 blister to the neck Requesting physician: Jayy E Sheet - Chief Complaint right side neck blister x 1 day - History of Present Illness History of present illness : Patient is 70-year-old male with a past medical history significant for throat cancer for the patient undergoing chemoradiation therapy patient presented to emergency department with complaints of blister on the right side of the neck the patient mention that he woke up yesterday morning noticed to have 3 large blister on the right side neck to be some drainage and pt is complaining of pain to the side of the neck more of a sharp in nature 4 to 5-10 and radiation patient is complaining of generalized fatigue and some malaise with the symptom the patient was evaluated by the ER physician on arrival to the ER patient was afebrile patient did have a normal white count kidney function was slightly elevated urine was negative local cultures were obtained patient was started on vancomycin and admitted to the hospital infectious was consulted for further management of antibiotic therapy Review of system: CONSTITUTIONAL: Positive for weakness denies high-grade fever. EYES: No complaint. ENT: As per history of present illness. RESPIRATORY: No complaint. CARDIOVASCULAR: No complaint. GENITOURINARY: No complaint. GASTROINTESTINAL: No complaint. MUSCULOSKELETAL: No complaint. INTEGUMENTARY: No complaint. PSYCHOLOGIC: No complaint. ENDOCRINE: No complaint. NEUROLOGIC: No complaint. Past medical history : Reviewed, documented below Past surgical history : Reviewed, documented below Social history: Reviewed, documented below Medications: Reviewed, as documented below GENERAL DESCRIPTION: Elderly male lying in bed, no distress. No tachypnea or accessory muscle of respiration use. HEENT: Shows Pallor , no scleral icterus. Oral mucous membrane is dry. NECK: Trachea central, no thyromegaly. Paracervical back and the facial area did have a superficial ulceration from a ruptured blister minimal surrounding redness no foul-smelling drainage LUNGS: Unlabored breathing. Clear to auscultation anteriorly. No wheeze or crackle. HEART: S1, S2, regular rate and rhythm. ABDOMEN: Soft, no tenderness , guarding or rigidity EXTREMITIES: No edema of feet. SKIN: No rash, no masses palpable. NEUROLOGICAL: The patient is awake, alert, oriented x3, mood and affect normal. LABS AND RADIOLOGY: Reviewed results see below Assessment : Patient with blister formation to the right side of the neck which is not following a dermatome pattern could be related to her radiation damage w ith underlying cellulitis not entirely excluded likely from gram-positive skin chapin Plan: 1-vancomycin pharmacy to dose her with a target trough of 15 while watching her kidney function and Vanco trough closely. 2-Marked the area of the redness We will follow on clinical condition and cultures to further adjust medication if needed Thank you for this consultation we will follow the patient along with you Review of Systems Pos Past Medical History Past Medical History: Cancer, COPD, GERD/Reflux, Hypertension, Prostate Disorder Additional Past Medical History / Comment(s): having a hard time eating and acid reflux coming up into my chest.hx prostate CA. Hep C , currently having chemotherapy and radiation treatments History of Any Multi-Drug Resistant Organisms: MRSA Year Discovered:: 06/13/18 MDRO Source:: Left Hand Past Surgical History: Hernia Repair, Orthopedic Surgery, Prostate Surgery Additional Past Surgical History / Comment(s): Laparotomy with drainage of a bscess. Prostatectomy with da Jessi PEG tube insertion Past Anesthesia/Blood Transfusion Reactions: No Reported Reaction Additional Past Anesthesia/Blood Transfusion Reaction / Comm: no hx blood transfusion Past Psychological History: Depression Smoking Status: Former smoker Past Alcohol Use History: Occasional Past Drug Use History: Prescription Drug Abuse - Past Family History Father Family Medical History: Cancer Additional Family Medical History / Comment(s): cholecystectomy, pancreatic cancer Medications and Allergies Home Medications Medication Instructions Recorded Confirmed Type Calcium Carbonate [Tums] 500 mg PO TID PRN 11/19/20 01/18/21 History Cyanocobalamin (Vitamin B-12) 1,000 mcg PO DAILY 11/19/20 01/18/21 History [Vitamin B-12] Multivitamins, Thera [Multivitamin 1 tab PO DAILY 11/19/20 01/18/21 History (formulary)] Pantoprazole [Protonix] 40 mg PO BID 11/19/20 01/18/21 History Acetaminophen Tab [Tylenol] 650 mg PO Q6HR PRN #30 tab 11/24/20 01/18/21 Rx Magnesium Oxide [Mag-Ox] 400 mg PO TID #60 tab 11/24/20 01/18/21 Rx Pregabalin [Lyrica] 75 mg PO BID 12/01/20 01/18/21 History cloNIDine HCL [Catapres] 0.1 mg PO BID 30 Days #60 tab 12/07/20 01/18/21 Rx Albuterol Inhaler [Ventolin Hfa 1 puff INHALATION RT-Q6H PRN 12/13/20 01/18/21 History Inhaler] Amitriptyline HCl [Elavil] 25 mg PO HS 12/13/20 01/18/21 History Cholecalciferol [Vitamin D3 (25 50 mcg PO DAILY 12/13/20 01/18/21 History Mcg = 1000 Iu)] Hydrocortisone Suppository 1 supp RECTAL BID PRN 12/13/20 01/18/21 History [Anusol-Hc] Isosource 1.5cal 1 can PEG/G-TUBE DIRECTED 12/13/20 01/18/21 History methocarbamoL [Methocarbamol] 750 mg PO QID PRN 12/13/20 01/18/21 History Benzonatate [Tessalon Perles] 100 mg PO TID PRN 01/18/21 01/18/21 History Fluticasone/Salmeterol [Advair 1 puff INHALATION RT-BID 01/18/21 01/18/21 History 250-50 Diskus] Hydrocodone/Acetaminophen [Walford 1 tab PO Q8H PRN 01/18/21 01/18/21 History 7.5-325] Mag Hydrox/Al Hydrox/Simeth 10 ml PO QID PRN 01/18/21 01/18/21 History [Maalox] Naloxone HCl [Narcan] 4 mg NASAL DIRECTED 01/18/21 01/18/21 History Nystatin 100,000 Unit/gm Oint 1 applic TOPICAL BID 01/18/21 01/18/21 History [Mycostatin Oint] guaiFENesin 200 mg PO BID 01/18/21 01/18/21 History Allergies Allergy/AdvReac Type Severity Reaction Status Date / Time erythromycin base AdvReac Nausea & Verified 01/18/21 13:52 Vomiting & Diarrhea Sulfa (Sulfonamide AdvReac Nausea & Verified 01/18/21 13:52 Antibiotics) Vomiting & Diarrhea Physical Exam Vitals: Vital Signs Temp Pulse Resp BP Pulse Ox 01/19/21 03:47 68 18 95 01/19/21 02:40 68 18 115/66 96 01/19/21 01:15 79 18 135/79 97 01/19/21 00:49 82 18 137/79 98 01/19/21 00:01 79 18 148/83 98 01/18/21 23:30 85 18 176/86 98 01/18/21 23:17 77 18 98 01/18/21 22:59 83 20 193/116 100 01/18/21 22:49 89 20 194/99 01/18/21 22:38 12 01/18/21 15:41 62 18 159/105 99 01/18/21 13:20 66 18 149/91 99 01/18/21 11:08 98.1 F 70 18 160/85 99 Intake and Output 01/18/21 01/19/21 01/19/21 22:59 06:59 14:59 Output Total 2350 Balance -2350 Output: Urine 2100 Post Void Residual 250 . Results CBC & Chem 7: 01/18/21 11:58 01/19/21 04:29 Labs: Abnormal Lab Results - Last 24 Hours (Table) 01/18/21 01/18/21 01/18/21 Range/Units 11:58 11:58 22:37 RBC 3.85 L (4.30-5.90) m/uL Hgb 11.6 L (13.0-17.5) gm/dL Hct 35.0 L (39.0-53.0) % RDW 15.8 H (11.5-15.5) % Lymphocytes # 0.8 L (1.0-4.8) k/uL Sodium 132 L (137-145) mmol/L BUN 28 H (9-20) mg/dL Creatinine 1.45 H (0.66-1.25) mg/dL Glucose (74-99) mg/dL POC Glucose (mg/dL) 112 H (75-99) mg/dL Creatine Kinase 479 H (55-170) U/L 01/19/21 Range/Units 04:29 RBC (4.30-5.90) m/uL Hgb (13.0-17.5) gm/dL Hct (39.0-53.0) % RDW (11.5-15.5) % Lymphocytes # (1.0-4.8) k/uL Sodium 130 L (137-145) mmol/L BUN 22 H (9-20) mg/dL Creatinine 1.26 H (0.66-1.25) mg/dL Glucose 127 H (74-99) mg/dL POC Glucose (mg/dL) (75-99) mg/dL Creatine Kinase (55-170) U/L
[2021-01-20] MEDS: VANCOMYCIN 1,250 MG in SODIUM CHLORIDE 0.9% 250 ML IVPB SCH (03:00)
[2021-01-20] MEDS: SODIUM CHLORIDE 0.9% 1,000 ML IV SCH ×2 (05:15→14:39)
[2021-01-20 06:11] LABS: African American GFR (CKD) >90 (>60 ml/min/1.73 sqM); Non-African American GFR(CKD) 85 (>60 ml/min/1.73 sqM)
[2021-01-20] MEDS: HEPARIN SODIUM,PORCINE/PF 5,000 UNIT/0.5 ML SYRINGE SQ SCH ×4 (08:59→20:18)
[2021-01-20] MEDS: PANTOPRAZOLE 40 MG TABLET PO SCH ×2 (09:00→16:56)
[2021-01-20] MEDS: PREGABALIN 75 MG CAP PO SCH ×2 (09:00→20:14)
[2021-01-20] MEDS: HYDROcodone/APAP 5-325MG 1 EACH TAB PO PRN ×2 (09:02→20:15)
--- NOTE | 2021-01-20 12:27 | P.PN ---
Subjective This is a pleasant 70 years old male with history of throat cancer that undergoing chemo and radiotherapy, his radiologist is Dr. Wynne and oncologist is from outside facility. No problems including COPD, hypertension, hepatitis C, history of prostatic cancer. Presents of one-day duration of right cheek redness and swelling with some blistering radiating to the right neck and small area of right upper back at the base. He denies any other symptoms like no chest pain/dyspnea. No GI or urinary complaints. No fever. Vital signs stable, blood pressure is elevated with systolic blood pressure 170- 190 Labs reviewed unremarkable except for creatinine mildly elevated at 1.4 and mildly low sodium. 01/19/21 Patient is feeling better. His cellulitis on the right cheek, neck and right upper back is improving. There is still some purulent discharge. Culture has been sent. Hemodynamically stable, his blood pressure was borderline 115/66, his Norvasc and clonidine were held while keeping monitor and blood pressure to prevent hypertension Creatinine improving to 1.4 down to 1.2. Patient remains on IV vancomycin and normal saline at 75 mL/h 01/20/2021 His right face and neck cellulitis is improving. His vital signs stable and his blood pressure is controlled on no medication, his clonidine 0.1 mg twice daily which is well medication is on hold his creatinine back to normal today at 0.9. Wound culture is growing MRSA and Streptococcus Patient is currently covered with IV vancomycin Oncology input is appreciated and the recommend follow-up with his primary oncologist upon discharge Objective - Vital Signs Vital signs: Vital Signs Temp 98.7 F 01/20/21 04:48 Pulse 73 01/20/21 04:48 Resp 18 01/20/21 04:48 BP 174/85 01/20/21 04:48 Pulse Ox 96 01/20/21 04:48 Intake & Output 01/19/21 01/20/21 01/20/21 18:59 06:59 18:59 Intake Total 1150 350 Output Total 300 Balance 1150 50 Weight 65.771 kg Intake: Intake, IV Titration 1150 Amount Sodium Chloride 0.9% 1, 900 000 ml @ 75 mls/hr IV . [id number] [facility] Rx#:[id number] Vancomycin 1,250 mg In 250 Sodium Chloride 0.9% 250 ml @ 125 mls/hr IVPB Q12H [facility] Rx#:[id number] Oral 350 Output: Urine 300 Other: Voiding Method Toilet # Voids 1 1 - Exam GENERAL: The patient is alert and oriented x3, not in any acute distress. Well developed, well nourished. HEENT: Pupils are round and equally reacting to light. EOMI. No scleral icterus. No conjunctival pallor. Normocephalic, atraumatic. No pharyngeal erythema. No thyromegaly. -Right facial erythema with blistering lesion and swelling involving the right cheek, right neck and right upper back of the neck base CARDIOVASCULAR: S1 and S2 present. No murmurs, rubs, or gallops. PULMONARY: Chest is clear to auscultation, no wheezing or crackles. ABDOMEN: Soft, nontender, nondistended, normoactive bowel sounds. No palpable organomegaly. MUSCULOSKELETAL: No joint swelling or deformity. EXTREMITIES: No cyanosis, clubbing, or pedal edema. NEUROLOGICAL: Gross neurological examination did not reveal any focal deficits. SKIN: No rashes. no petechiae. - Labs CBC & Chem 7: 01/18/21 11:58 01/20/21 05:23 Labs: Abnormal Lab Results - Last 24 Hours (Table) 01/19/21 Range/Units 04:29 Procalcitonin 0.10 H (0.02-0.09) ng/mL Microbiology - Last 24 Hours (Table) 01/19/21 00:00 Gram Stain - Preliminary Face Wound Culture - Preliminary Presumptive MRSA Beta Hemolytic Strep Group C 01/18/21 12:23 Blood Culture - Preliminary Blood No Growth after 24 hours 01/18/21 12:03 Blood Culture - Preliminary Blood No Growth after 24 hours Assessment and Plan Assessment: Right facial and neck cellulitis with blistering lesion Recent history of throat cancer undergoing chemo and radiotherapy Hypertension, uncontrolled upon admission COPD, no acute exacerbation History of prostatic cancer History of GERD History of hepatitis C Plan: This is a pleasant 70 years old male presents with possible right facial cellulitis with a blistering lesion is improving Continue with antibiotics and IV hydration and consult infectious disease team Consult hematology and oncology team Follow-up culture results At [facility], continue with clonidine and follow-up blood pressure Labs and medication were reviewed.. Continue same treatment. Continue with symptomatic treatment. Resume home medication. Monitor lytes and vitals. DVT and GI prophylaxis. Further recommendationsas per clinical course of the patient DVT prophylaxis: Subcutaneous heparin GI Prophylaxis: Pepcid PT/OT: Pending Prognosis is guarded
[2021-01-20] MEDS ORDERED: VANCOMYCIN TROUGH DUE 1 EACH MISC MISCELLANE ONE (13:00)
[2021-01-20] MEDS: VANCOMYCIN 1,000 MG in SODIUM CHLORIDE 0.9% 250 ML IVPB SCH (14:38)
--- NOTE | 2021-01-20 18:25 | PN ---
PROGRESS NOTE DATE OF SERVICE: 01/20/2021 REASON FOR FOLLOWUP: Right facial and neck cellulitis. INTERVAL HISTORY: The patient is afebrile. The patient mentioned feeling slightly better. Pain and discomfort to the right side of the neck and face have slightly decreased. No chest pain, shortness of breath or cough. No abdominal pain or diarrhea. PHYSICAL EXAMINATION: Blood pressure 148/81 with a pulse of 79, temperature 98.2. He is 97% on room air. GENERAL DESCRIPTION: General description is an elderly male lying in bed in no distress. HEENT EXAMINATION: Right facial area did have blisters and minimal swelling and redness. No worsening from the line just placed yesterday. LUNGS: Unlabored breathing. Clear to auscultation anteriorly. HEART: S1, S2. Regular rate and rhythm. ABDOMEN: Soft. No tenderness. LABS: Creatinine 0.92. Vancomycin trough is 24.5. Local culture with presumptive MRSA and strep. Blood culture negative. DIAGNOSTIC IMPRESSION AND PLAN: Patient with right facial blisters and cellulitis involving the neck area. Culture with MRSA and strep. Patient is covered with vancomycin; to continue while monitoring his clinical course closely. Continue with supportive care. MMODL / IJN: [id number] /
[2021-01-20] MEDS: AMITRIPTYLINE HCL 25 MG TAB PO SCH (20:14)
[2021-01-21] MEDS: VANCOMYCIN 1,000 MG in SODIUM CHLORIDE 0.9% 250 ML IVPB SCH ×2 (01:51→14:25)
[2021-01-21] MEDS: PREGABALIN 75 MG CAP PO SCH ×2 (09:00→20:01)
[2021-01-21] MEDS: HYDROcodone/APAP 5-325MG 1 EACH TAB PO PRN ×2 (09:00→19:04)
[2021-01-21] MEDS: PANTOPRAZOLE 40 MG TABLET PO SCH ×2 (09:00→18:57)
[2021-01-21] MEDS: HEPARIN SODIUM,PORCINE/PF 5,000 UNIT/0.5 ML SYRINGE SQ SCH ×2 (09:01→20:01)
[2021-01-21] MEDS: CEFEPIME 2 GM in SODIUM CHLORIDE 0.9% 100 ML IVPB SCH (17:15)
--- NOTE | 2021-01-21 17:19 | PN ---
PROGRESS NOTE DATE OF SERVICE: 01/21/2021 REASON FOR FOLLOWUP: Right-sided facial cellulitis, MRSA. INTERVAL HISTORY: The patient is afebrile. The patient is currently breathing comfortably. Right-sided facial swelling, redness and pain have slightly decreased. No chest pain, shortness of breath or cough. No abdominal pain or diarrhea. PHYSICAL EXAMINATION: Blood pressure 171/72 with a pulse of 68, temperature 98.3. He is 97% on room air. GENERAL DESCRIPTION: General description is an elderly male up in the bed in no distress. HEENT EXAMINATION: Right facial swelling and redness have slightly decreased. LUNGS: Unlabored breathing. Clear to auscultation. HEART: S1, S2. Regular rate and rhythm. ABDOMEN: Soft. No tenderness. Right facial swelling and redness have slightly decreased and the wound is drying out. LABS: Creatinine 0.92. Vancomycin trough is slightly high. Local culture with presumptive MRSA and Gram-negative bacilli. DIAGNOSTIC IMPRESSION AND PLAN: Patient with right facial cellulitis. Culture now showing a Gram-negative in addition to the presumptive MRSA and cefepime to cover for the Gram-negative. Continue vancomycin and continue supportive care. MMODL / IJN: [id number] /
[2021-01-21] MEDS: SODIUM CHLORIDE 0.9% 1,000 ML IV SCH ×2 (18:47→18:48)
[2021-01-21] MEDS: AMITRIPTYLINE HCL 25 MG TAB PO SCH (20:01)
[2021-01-21] MEDS ORDERED: cloNIDine HCL 0.1 MG TAB PO SCH (21:00)
--- NOTE | 2021-01-21 21:30 | P.PN ---
Subjective Progress Note Date: 01/21/21 Patient has refused labs today. Objective - Vital Signs Vital signs: Vital Signs Temp 98.3 F 01/21/21 11:10 Pulse 68 01/21/21 11:10 Resp 18 01/21/21 11:10 BP 171/72 01/21/21 11:10 Pulse Ox 97 01/21/21 11:10 Intake & Output 01/20/21 01/21/21 01/21/21 18:59 06:59 18:59 Intake Total 1150 1250 Balance 1150 1250 Intake: Intake, IV Titration 1150 1050 Amount Sodium Chloride 0.9% 1, 900 800 000 ml @ 75 mls/hr IV . [id number] [facility] Rx#:[id number] Vancomycin 1,000 mg In 250 250 Sodium Chloride 0.9% 250 ml @ 125 mls/hr IVPB Q12H [facility] Rx#:[id number] Oral 200 Other: Voiding Method Toilet Toilet # Voids 1 - Exam - Constitutional General appearance: cooperative, no acute distress, thin - EENT Eyes: anicteric sclerae, EOMI ENT: hearing grossly normal, normal oropharynx - Neck Thickening of the skin on the right side of the face and neck, no palpable adenopathy - Respiratory Respiratory: bilateral: CTA - Cardiovascular Rhythm: regular Heart sounds: normal: S1, S2 Abnormal Heart Sounds: no systolic murmur, no diastolic murmur, no rub, no S3 Gallop, no S4 Gallop, no click, no other leg Peripheral Edema: bilateral: None - Gastrointestinal PEG tube General gastrointestinal: no absent bowel sounds, no decreased bowel sounds, no distended, no hepatomegaly, no hyperactive bowel sounds, normal bowel sounds, no organomegaly, no rigid, no scaphoid, soft, no splenomegaly, no tenderness, no umbilical hernia, no ventral hernia - Neurologic Neurologic: CNII-XII intact - Musculoskeletal Musculoskeletal: strength equal bilaterally - Psychiatric Moderate anxiety, irritability Psychiatric: A&O x's 3, intact judgment & insight - Labs CBC & Chem 7: 01/18/21 11:58 01/20/21 05:23 Labs: Microbiology - Last 24 Hours (Table) 01/19/21 00:00 Gram Stain - Preliminary Face Wound Culture - Preliminary Presumptive MRSA Beta Hemolytic Strep Group C Gram Neg Bacilli 01/18/21 12:23 Blood Culture - Preliminary Blood No Growth after 48 hours 01/18/21 12:03 Blood Culture - Preliminary Blood No Growth after 48 hours Assessment and Plan Plan: Assessment and Plan Cellulitis, neck Current Visit: Yes Status: Acute Priority: High Code(s): L03.221 - CELLULITIS OF NECK SNOMED Code(s): 45914731 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 Discussed with dictator. I agree with dictators note, documented as a scribe.
--- NOTE | 2021-01-21 23:04 | P.PN ---
Subjective This is a pleasant 70 years old male with history of throat cancer that undergoing chemo and radiotherapy, his radiologist is Dr. Wynne and oncologist is from outside facility. No problems including COPD, hypertension, hepatitis C, history of prostatic cancer. Presents of one-day duration of right cheek redness and swelling with some blistering radiating to the right neck and small area of right upper back at the base. He denies any other symptoms like no chest pain/dyspnea. No GI or urinary complaints. No fever. Vital signs stable, blood pressure is elevated with systolic blood pressure 170- 190 Labs reviewed unremarkable except for creatinine mildly elevated at 1.4 and mildly low sodium. 01/19/21 Patient is feeling better. His cellulitis on the right cheek, neck and right upper back is improving. There is still some purulent discharge. Culture has been sent. Hemodynamically stable, his blood pressure was borderline 115/66, his Norvasc and clonidine were held while keeping monitor and blood pressure to prevent hypertension Creatinine improving to 1.4 down to 1.2. Patient remains on IV vancomycin and normal saline at 75 mL/h 01/20/2021 His right face and neck cellulitis is improving. His vital signs stable and his blood pressure is controlled on no medication, his clonidine 0.1 mg twice daily which is well medication is on hold his creatinine back to normal today at 0.9. Wound culture is growing MRSA and Streptococcus Patient is currently covered with IV vancomycin Oncology input is appreciated and the recommend follow-up with his primary oncologist upon discharge 01/21/2021 His right neck and face cellulitis is improving each day and drying up. Today he was started on dysphagia Diet and ensure. Vitals are stable, and Norvasc for blood pressure control. Clonidine is restarted today. Which is his home medication Continue with IV vancomycin and normal saline [facility] labs in the morning His wound culture: presumptive MRSA, but the mother's Streptococcus and gram- negative bacilli Objective - Vital Signs Vital signs: Vital Signs Temp 98.3 F 01/21/21 11:10 Pulse 68 01/21/21 11:10 Resp 18 01/21/21 11:10 BP 171/72 01/21/21 11:10 Pulse Ox 97 01/21/21 11:10 Intake & Output 01/20/21 01/21/21 01/21/21 18:59 06:59 18:59 Intake Total 1150 1250 Balance 1150 1250 Weight 65.771 kg Intake: Intake, IV Titration 1150 1050 Amount Sodium Chloride 0.9% 1, 900 800 000 ml @ 75 mls/hr IV . [id number] [facility] Rx#:[id number] Vancomycin 1,000 mg In 250 250 Sodium Chloride 0.9% 250 ml @ 125 mls/hr IVPB Q12H [facility] Rx#:[id number] Oral 200 Other: Voiding Method Toilet Toilet # Voids 1 - Exam GENERAL: The patient is alert and oriented x3, not in any acute distress. Well developed, well nourished. HEENT: Pupils are round and equally reacting to light. EOMI. No scleral icterus. No conjunctival pallor. Normocephalic, atraumatic. No pharyngeal erythema. No thyromegaly. -Right facial erythema with blistering lesion and swelling involving the right cheek, right neck and right upper back of the neck base CARDIOVASCULAR: S1 and S2 present. No murmurs, rubs, or gallops. PULMONARY: Chest is clear to auscultation, no wheezing or crackles. ABDOMEN: Soft, nontender, nondistended, normoactive bowel sounds. No palpable organomegaly. MUSCULOSKELETAL: No joint swelling or deformity. EXTREMITIES: No cyanosis, clubbing, or pedal edema. NEUROLOGICAL: Gross neurological examination did not reveal any focal deficits. SKIN: No rashes. no petechiae. - Labs CBC & Chem 7: 01/18/21 11:58 01/20/21 05:23 Labs: Microbiology - Last 24 Hours (Table) 01/19/21 00:00 Gram Stain - Preliminary Face Wound Culture - Preliminary Presumptive MRSA Beta Hemolytic Strep Group C Gram Neg Bacilli 01/18/21 12:23 Blood Culture - Preliminary Blood No Growth after 48 hours 01/18/21 12:03 Blood Culture - Preliminary Blood No Growth after 48 hours Assessment and Plan Assessment: Right facial and neck cellulitis with blistering lesion Recent history of throat cancer undergoing chemo and radiotherapy Hypertension, uncontrolled upon admission COPD, no acute exacerbation History of prostatic cancer History of GERD History of hepatitis C Plan: This is a pleasant 70 years old male presents with possible right facial cellulitis with a blistering lesion is improving Continue with antibiotics and IV hydration and consult infectious disease team Consult hematology and oncology team Follow-up culture results At [facility], continue with clonidine and follow-up blood pressure Labs and medication were reviewed.. Continue same treatment. Continue with symptomatic treatment. Resume home medication. Monitor lytes and vitals. DVT and GI prophylaxis. Further recommendationsas per clinical course of the patient DVT prophylaxis: Subcutaneous heparin GI Prophylaxis: Pepcid PT/OT: Pending Prognosis is guarded
[2021-01-22] MEDS: CEFEPIME 2 GM in SODIUM CHLORIDE 0.9% 100 ML IVPB SCH ×3 (00:18→18:44)
[2021-01-22] MEDS: VANCOMYCIN 1,000 MG in SODIUM CHLORIDE 0.9% 250 ML IVPB SCH ×2 (02:19→14:24)
[2021-01-22] MEDS: HYDROcodone/APAP 5-325MG 1 EACH TAB PO PRN ×3 (03:56→21:54)
[2021-01-22 06:12] LABS: Basophils % (A) 0 %; Eosinophils # (A) 0.2 k/uL (0-0.7); Eosinophils % (A) 3 %; HCT 36.6 % (39.0-53.0); HGB 11.8 gm/dL (13.0-17.5); Lymphocytes # (A) 0.4 k/uL (1.0-4.8); Lymphocytes % (A) 6 %; MCH 29.7 pg (25.0-35.0); MCHC 32.3 g/dL (31.0-37.0); MCV 91.8 fL (80.0-100.0); Mean Platelet Volume 9.4; Monocytes # (A) 0.3 k/uL (0-1.0); Monocytes % (A) 6 %; Neutrophils # (A) 4.6 k/uL (1.3-7.7); Neutrophils % (A) 82 %; Platelet Count 198 k/uL (150-450); RBC 3.99 m/uL (4.30-5.90); RDW 15.8 % (11.5-15.5); WBC 5.6 k/uL (3.8-10.6)
[2021-01-22 06:30] LABS: Anion Gap 5 mmol/L; Blood Urea Nitrogen 14 mg/dL (9-20); Carbon Dioxide 24 mmol/L (22-30); Chloride 106 mmol/L (98-107); Glucose 106 mg/dL (74-99); Potassium 3.9 mmol/L (3.5-5.1); Sodium 135 mmol/L (137-145)
[2021-01-22 06:31] LABS: ALT 9 U/L (4-49); AST 16 U/L (17-59); African American GFR (CKD) >90 (>60 ml/min/1.73 sqM); Albumin 3.1 g/dL (3.5-5.0); Albumin/Globulin Ratio 1.2; Alkaline Phosphatase 54 U/L (38-126); Calcium 8.9 mg/dL (8.4-10.2); Globulin 2.6 g/dL; Magnesium 1.6 mg/dL (1.6-2.3); Non-African American GFR(CKD) >90 (>60 ml/min/1.73 sqM); Phosphorus 3.1 mg/dL (2.5-4.5); Total Bilirubin 0.4 mg/dL (0.2-1.3); Total Protein 5.7 g/dL (6.3-8.2)
[2021-01-22] MEDS: PANTOPRAZOLE 40 MG TABLET PO SCH ×2 (08:24→18:45)
[2021-01-22] MEDS: PREGABALIN 75 MG CAP PO SCH ×2 (08:24→20:46)
[2021-01-22] MEDS: amLODIPine 5 MG TAB PO SCH (08:24)
[2021-01-22] MEDS: HEPARIN SODIUM,PORCINE/PF 5,000 UNIT/0.5 ML SYRINGE SQ SCH ×2 (08:24→20:46)
[2021-01-22] MEDS: cloNIDine HCL 0.1 MG TAB PO SCH ×2 (08:24→20:46)
[2021-01-22] MEDS: ACETAMINOPHEN TAB 325 MG TAB PO PRN ×2 (08:33→19:01)
[2021-01-22] MEDS ORDERED: cloNIDine HCL 0.2 MG TAB PO SCH (09:00)
--- NOTE | 2021-01-22 16:36 | PN ---
PROGRESS NOTE DATE OF SERVICE: 01/22/2021 REASON FOR FOLLOWUP: Right facial cellulitis and wound. INTERVAL HISTORY: The patient is currently afebrile. The patient is breathing comfortably. Right facial pain and discomfort have slightly decreased. No chest pain, shortness of breath or cough. No abdominal pain or diarrhea. PHYSICAL EXAMINATION: Blood pressure 134/75 with a pulse of 75, temperature 98.5. He is 96% on room air. GENERAL DESCRIPTION: General description is an elderly male lying in bed in no distress. HEENT EXAMINATION: Right facial swelling and redness have slightly decreased. LUNGS: Unlabored breathing. Clear to auscultation anteriorly. HEART: S1, S2. Regular rate and rhythm. ABDOMEN: Soft. No tenderness. LABS: Hemoglobin is 11.9, white count of 5.6, BUN of 14, creatinine 0.77. Culture showing Staph aureus and Gram-negative bacilli. DIAGNOSTIC IMPRESSION AND PLAN: Patient with right facial blister wound and cellulitis. Culture has not been finalized. The patient is covered with cefepime and vancomycin while waiting for the culture to finalize to determine his discharge antibiotics. Monitor his clinical course closely. MMODL / IJN: [id number] /
--- NOTE | 2021-01-22 17:16 | P.PN ---
Subjective This is a pleasant 70 years old male with history of throat cancer that undergoing chemo and radiotherapy, his radiologist is Dr. Wynne and oncologist is from outside facility. No problems including COPD, hypertension, hepatitis C, history of prostatic cancer. Presents of one-day duration of right cheek redness and swelling with some blistering radiating to the right neck and small area of right upper back at the base. He denies any other symptoms like no chest pain/dyspnea. No GI or urinary complaints. No fever. Vital signs stable, blood pressure is elevated with systolic blood pressure 170- 190 Labs reviewed unremarkable except for creatinine mildly elevated at 1.4 and mildly low sodium. 01/19/21 Patient is feeling better. His cellulitis on the right cheek, neck and right upper back is improving. There is still some purulent discharge. Culture has been sent. Hemodynamically stable, his blood pressure was borderline 115/66, his Norvasc and clonidine were held while keeping monitor and blood pressure to prevent hypertension Creatinine improving to 1.4 down to 1.2. Patient remains on IV vancomycin and normal saline at 75 mL/h 01/20/2021 His right face and neck cellulitis is improving. His vital signs stable and his blood pressure is controlled on no medication, his clonidine 0.1 mg twice daily which is well medication is on hold his creatinine back to normal today at 0.9. Wound culture is growing MRSA and Streptococcus Patient is currently covered with IV vancomycin Oncology input is appreciated and the recommend follow-up with his primary oncologist upon discharge 01/21/2021 His right neck and face cellulitis is improving each day and drying up. Today he was started on dysphagia Diet and ensure. Vitals are stable, and Norvasc for blood pressure control. Clonidine is restarted today. Which is his home medication Continue with IV vancomycin and normal saline [facility] labs in the morning His wound culture: presumptive MRSA, but the mother's Streptococcus and gram- negative bacilli 01/22/2021 Cheek and neck wound and infection is improving and drying up every day continuously and slowly. Hemodynamically stable, creatinine normal at 0.7. Blood pressure improved with clonidine and Norvasc down to 134/75 Wound culture is growing MRSA and beta hemolytic Streptococcus, third microorganism showed up 2 days ago and it turned out to be enterococcus. Antibiotic adjusted with vancomycin and cefepime was added Continue with gentle hydration at 75 mL/h Patient will need close monitoring in the hospital and IV antibiotic. Discussed with ID team Objective - Vital Signs Vital signs: Vital Signs Temp 98.5 F 01/22/21 13:00 Pulse 75 01/22/21 13:00 Resp 17 01/22/21 13:00 BP 134/75 01/22/21 13:00 Pulse Ox 96 01/22/21 13:00 Intake & Output 01/21/21 01/22/21 01/22/21 18:59 06:59 18:59 Intake Total 900 950 Balance 900 950 Weight 65.771 kg Intake: Intake, IV Titration 900 950 Amount Cefepime 2 gm In Sodium 100 Chloride 0.9% 100 ml @ 25 mls/hr IVPB Q8HR [facility] Rx# :[id number] Sodium Chloride 0.9% 1, 900 600 000 ml @ 75 mls/hr IV . [id number] [facility] Rx#:[id number] Vancomycin 1,000 mg In 250 Sodium Chloride 0.9% 250 ml @ 125 mls/hr IVPB Q12H [facility] Rx#:[id number] Other: Voiding Method Toilet Toilet # Voids 0 # Bowel Movements 0 - Exam GENERAL: The patient is alert and oriented x3, not in any acute distress. Well developed, well nourished. HEENT: Pupils are round and equally reacting to light. EOMI. No scleral icterus. No conjunctival pallor. Normocephalic, atraumatic. No pharyngeal erythema. No thyromegaly. -Right facial erythema with blistering lesion and swelling involving the right cheek, right neck and right upper back of the neck base CARDIOVASCULAR: S1 and S2 present. No murmurs, rubs, or gallops. PULMONARY: Chest is clear to auscultation, no wheezing or crackles. ABDOMEN: Soft, nontender, nondistended, normoactive bowel sounds. No palpable organomegaly. MUSCULOSKELETAL: No joint swelling or deformity. EXTREMITIES: No cyanosis, clubbing, or pedal edema. NEUROLOGICAL: Gross neurological examination did not reveal any focal deficits. SKIN: No rashes. no petechiae. - Labs CBC & Chem 7: 01/22/21 05:53 01/22/21 05:53 Labs: Abnormal Lab Results - Last 24 Hours (Table) 01/22/21 01/22/21 Range/Units 05:53 05:53 RBC 3.99 L (4.30-5.90) m/uL Hgb 11.8 L (13.0-17.5) gm/dL Hct 36.6 L (39.0-53.0) % RDW 15.8 H (11.5-15.5) % Lymphocytes # 0.4 L (1.0-4.8) k/uL Sodium 135 L (137-145) mmol/L Glucose 106 H (74-99) mg/dL AST 16 L (17-59) U/L Total Protein 5.7 L (6.3-8.2) g/dL Albumin 3.1 L (3.5-5.0) g/dL Microbiology - Last 24 Hours (Table) 01/19/21 00:00 Gram Stain - Final Face Wound Culture - Final Methicillin resist S. aureus Beta Hemolytic Strep Group C Enterobacter cloacae 01/18/21 12:23 Blood Culture - Preliminary Blood No Growth after 96 hours 01/18/21 12:03 Blood Culture - Preliminary Blood No Growth after 96 hours Assessment and Plan Assessment: Right facial and neck cellulitis with blistering lesion Recent history of throat cancer undergoing chemo and radiotherapy Hypertension, uncontrolled upon admission COPD, no acute exacerbation History of prostatic cancer History of GERD History of hepatitis C Plan: This is a pleasant 70 years old male presents with possible right facial cellulitis with a blistering lesion is improving Continue with antibiotics and IV hydration and consult infectious disease team Consult hematology and oncology team Follow-up culture results At [facility], continue with clonidine and follow-up blood pressure Labs and medication were reviewed.. Continue same treatment. Continue with symptomatic treatment. Resume home medication. Monitor lytes and vitals. DVT and GI prophylaxis. Further recommendationsas per clinical course of the patient DVT prophylaxis: Subcutaneous heparin GI Prophylaxis: Pepcid PT/OT: Pending Prognosis is guarded
[2021-01-22] MEDS: AMITRIPTYLINE HCL 25 MG TAB PO SCH (20:45)
[2021-01-22] MEDS: SODIUM CHLORIDE 0.9% 1,000 ML IV SCH (21:56)
[2021-01-23] MEDS: CEFEPIME 2 GM in SODIUM CHLORIDE 0.9% 100 ML IVPB SCH ×3 (00:02→16:59)
[2021-01-23] MEDS: SODIUM CHLORIDE 0.9% 1,000 ML IV SCH ×2 (00:03→21:56)
[2021-01-23] MEDS ORDERED: VANCOMYCIN TROUGH DUE 1 EACH MISC MISCELLANE ONE (01:00)
[2021-01-23] MEDS: VANCOMYCIN 1,000 MG in SODIUM CHLORIDE 0.9% 250 ML IVPB SCH ×2 (01:39→15:27)
[2021-01-23 03:33] LABS: African American GFR (CKD) >90 (>60 ml/min/1.73 sqM); Anion Gap 7 mmol/L; Blood Urea Nitrogen 16 mg/dL (9-20); Carbon Dioxide 23 mmol/L (22-30); Chloride 104 mmol/L (98-107); Glucose 107 mg/dL (74-99); Non-African American GFR(CKD) >90 (>60 ml/min/1.73 sqM); Potassium 4.4 mmol/L (3.5-5.1); Sodium 134 mmol/L (137-145)
[2021-01-23] MEDS: PANTOPRAZOLE 40 MG TABLET PO SCH ×2 (07:22→17:00)
[2021-01-23] MEDS: PREGABALIN 75 MG CAP PO SCH ×2 (08:53→21:58)
[2021-01-23] MEDS: amLODIPine 5 MG TAB PO SCH (08:53)
[2021-01-23] MEDS: cloNIDine HCL 0.1 MG TAB PO SCH ×2 (08:53→21:58)
[2021-01-23] MEDS: HEPARIN SODIUM,PORCINE/PF 5,000 UNIT/0.5 ML SYRINGE SQ SCH ×2 (08:53→21:57)
[2021-01-23] MEDS: HYDROcodone/APAP 5-325MG 1 EACH TAB PO PRN ×2 (11:28→19:31)
--- NOTE | 2021-01-23 11:30 | P.PN ---
Subjective This is a pleasant 70 years old male with history of throat cancer that undergoing chemo and radiotherapy, his radiologist is Dr. Wynne and oncologist is from outside facility. No problems including COPD, hypertension, hepatitis C, history of prostatic cancer. Presents of one-day duration of right cheek redness and swelling with some blistering radiating to the right neck and small area of right upper back at the base. He denies any other symptoms like no chest pain/dyspnea. No GI or urinary complaints. No fever. Vital signs stable, blood pressure is elevated with systolic blood pressure 170- 190 Labs reviewed unremarkable except for creatinine mildly elevated at 1.4 and mildly low sodium. 01/19/21 Patient is feeling better. His cellulitis on the right cheek, neck and right upper back is improving. There is still some purulent discharge. Culture has been sent. Hemodynamically stable, his blood pressure was borderline 115/66, his Norvasc and clonidine were held while keeping monitor and blood pressure to prevent hypertension Creatinine improving to 1.4 down to 1.2. Patient remains on IV vancomycin and normal saline at 75 mL/h 01/20/2021 His right face and neck cellulitis is improving. His vital signs stable and his blood pressure is controlled on no medication, his clonidine 0.1 mg twice daily which is well medication is on hold his creatinine back to normal today at 0.9. Wound culture is growing MRSA and Streptococcus Patient is currently covered with IV vancomycin Oncology input is appreciated and the recommend follow-up with his primary oncologist upon discharge 01/21/2021 His right neck and face cellulitis is improving each day and drying up. Today he was started on dysphagia Diet and ensure. Vitals are stable, and Norvasc for blood pressure control. Clonidine is restarted today. Which is his home medication Continue with IV vancomycin and normal saline [facility] labs in the morning His wound culture: presumptive MRSA, but the mother's Streptococcus and gram- negative bacilli 01/22/2021 Cheek and neck wound and infection is improving and drying up every day continuously and slowly. Hemodynamically stable, creatinine normal at 0.7. Blood pressure improved with clonidine and Norvasc down to 134/75 Wound culture is growing MRSA and beta hemolytic Streptococcus, third microorganism showed up 2 days ago and it turned out to be enterococcus. Antibiotic adjusted with vancomycin and cefepime was added Continue with gentle hydration at 75 mL/h Patient will need close monitoring in the hospital and IV antibiotic. Discussed with ID team 01/23/2021 Patient right facial and cheek and neck cellulitis still improving every day and drying up. Blood pressure better controlled. Creatinine from today are stable Discomfort with IV vancomycin and cefepime. Blood culture is growing MRSA and became SEPTIC AND enterococcus cloak E which is sensitive to cefepime Lower IV fluids to 50 mL per hour Patient still needs IV antibiotics currently Objective - Vital Signs Vital signs: Vital Signs Temp 98.0 F 01/23/21 04:50 Pulse 72 01/23/21 04:50 Resp 16 01/23/21 04:50 BP 147/78 01/23/21 04:50 Pulse Ox 98 01/23/21 04:50 Intake & Output 01/22/21 01/23/21 01/23/21 18:59 06:59 18:59 Intake Total 1625 Balance 1625 Intake: Intake, IV Titration 1125 Amount Cefepime 2 gm In Sodium 200 Chloride 0.9% 100 ml @ 25 mls/hr IVPB Q8HR [facility] Rx# :[id number] Sodium Chloride 0.9% 1, 675 000 ml @ 75 mls/hr IV . [id number] [facility] Rx#:[id number] Vancomycin 1,000 mg In 250 Sodium Chloride 0.9% 250 ml @ 125 mls/hr IVPB Q12H [facility] Rx#:[id number] Oral 500 Other: Voiding Method Toilet Toilet Toilet # Voids 2 # Bowel Movements 0 - Exam GENERAL: The patient is alert and oriented x3, not in any acute distress. Well developed, well nourished. HEENT: Pupils are round and equally reacting to light. EOMI. No scleral icterus. No conjunctival pallor. Normocephalic, atraumatic. No pharyngeal erythema. No thyromegaly. -Right facial erythema with blistering lesion and swelling involving the right cheek, right neck and right upper back of the neck base CARDIOVASCULAR: S1 and S2 present. No murmurs, rubs, or gallops. PULMONARY: Chest is clear to auscultation, no wheezing or crackles. ABDOMEN: Soft, nontender, nondistended, normoactive bowel sounds. No palpable organomegaly. MUSCULOSKELETAL: No joint swelling or deformity. EXTREMITIES: No cyanosis, clubbing, or pedal edema. NEUROLOGICAL: Gross neurological examination did not reveal any focal deficits. SKIN: No rashes. no petechiae. - Labs CBC & Chem 7: 01/22/21 05:53 01/23/21 02:00 Labs: Abnormal Lab Results - Last 24 Hours (Table) 01/23/21 Range/Units 02:00 Sodium 134 L (137-145) mmol/L Glucose 107 H (74-99) mg/dL Microbiology - Last 24 Hours (Table) 01/19/21 00:00 Gram Stain - Final Face Wound Culture - Final Methicillin resist S. aureus Beta Hemolytic Strep Group C Enterobacter cloacae 01/18/21 12:23 Blood Culture - Preliminary Blood No Growth after 96 hours 01/18/21 12:03 Blood Culture - Preliminary Blood No Growth after 96 hours Assessment and Plan Assessment: Right facial and neck cellulitis with blistering lesion Recent history of throat cancer undergoing chemo and radiotherapy Hypertension, uncontrolled upon admission COPD, no acute exacerbation History of prostatic cancer History of GERD History of hepatitis C Plan: This is a pleasant 70 years old male presents with possible right facial cellulitis with a blistering lesion is improving Continue with antibiotics and IV hydration and consult infectious disease team Consult hematology and oncology team Follow-up culture results At [facility], continue with clonidine and follow-up blood pressure Labs and medication were reviewed.. Continue same treatment. Continue with symptomatic treatment. Resume home medication. Monitor lytes and vitals. DVT and GI prophylaxis. Further recommendationsas per clinical course of the patient DVT prophylaxis: Subcutaneous heparin GI Prophylaxis: Pepcid PT/OT: Pending Prognosis is guarded
[2021-01-23] MEDS: VANCOMYCIN 750 MG in SODIUM CHLORIDE 0.9% 250 ML IVPB SCH (15:17)
[2021-01-23] MEDS: ACETAMINOPHEN TAB 325 MG TAB PO PRN (17:00)
--- NOTE | 2021-01-23 19:11 | PN ---
PROGRESS NOTE DATE OF SERVICE: 01/23/2021 REASON FOR FOLLOWUP: Right facial wound infection. INTERVAL HISTORY: The patient is afebrile. The patient is feeling better, breathing comfortably. Denies having any chest pain or shortness of breath or cough. No abdominal pain or diarrhea. PHYSICAL EXAMINATION: Blood pressure is 150/82 with a pulse of 74, temperature 98.5. He is 98% on room air. GENERAL DESCRIPTION: General description is an elderly male lying in bed in no distress. HEENT EXAMINATION: Right facial swelling and redness have decreased. LUNGS: Unlabored breathing. Clear to auscultation anteriorly. HEART: S1, S2. Regular rate and rhythm. ABDOMEN: Soft. No tenderness. LABS: Culture positive for MRSA, strep and enterobacter. DIAGNOSTIC IMPRESSION AND PLAN: Patient with right facial wound infection with secondary cellulitis. Culture with enterobacter and MRSA. Patient is covered with cefepime and vancomycin oral Bactrim DS and close outpatient followup. Continue with supportive care. MMODL / IJN: [id number] /
[2021-01-23 21:04] VITALS: RESP 18
[2021-01-23] MEDS: AMITRIPTYLINE HCL 25 MG TAB PO SCH (21:58)
[2021-01-24] MEDS: CEFEPIME 2 GM in SODIUM CHLORIDE 0.9% 100 ML IVPB SCH ×2 (00:07→08:24)
[2021-01-24] MEDS: VANCOMYCIN 750 MG in SODIUM CHLORIDE 0.9% 250 ML IVPB SCH (03:03)
[2021-01-24] MEDS: cloNIDine HCL 0.1 MG TAB PO SCH (08:26)
[2021-01-24] MEDS: PANTOPRAZOLE 40 MG TABLET PO SCH (08:26)
[2021-01-24] MEDS: SODIUM CHLORIDE 0.9% 1,000 ML IV SCH (08:26)
[2021-01-24] MEDS: amLODIPine 5 MG TAB PO SCH (08:26)
[2021-01-24] MEDS: PREGABALIN 75 MG CAP PO SCH (08:26)
[2021-01-24] MEDS: HEPARIN SODIUM,PORCINE/PF 5,000 UNIT/0.5 ML SYRINGE SQ SCH (08:26)
[2021-01-24] MEDS: HYDROcodone/APAP 5-325MG 1 EACH TAB PO PRN (08:33)
[2021-01-24] MEDS ORDERED: LACTULOSE 20 GM/30 ML CUP PO ONE (11:30)
[2021-01-24 13:55] VITALS: BP 136/76; PULSE 70; TEMP 98.3
--- NOTE | 2021-01-24 13:55 | PN ---
PROGRESS NOTE DATE OF SERVICE: 01/24/2021 REASON FOR FOLLOWUP: Right neck and facial cellulitis. INTERVAL HISTORY: The patient is afebrile. The patient's overall pain and discomfort to the right side of the neck and the face have improved. No chest pain, shortness of breath or cough. No abdominal pain or diarrhea. PHYSICAL EXAMINATION: Blood pressure 136/80 with a pulse of 73, temperature of 98.2. He is 98% on room air. GENERAL DESCRIPTION: General description is an elderly male lying in bed in no distress. HEENT EXAMINATION: Right facial swelling and redness have decreased. Wound is crusting out. LUNGS: Unlabored breathing. Clear to auscultation anteriorly. HEART: S1, S2. Regular rate and rhythm. ABDOMEN: Soft. No tenderness. LABS: No new labs have been obtained today. Culture has been positive for enterobacter and MRSA. DIAGNOSTIC IMPRESSION AND PLAN: Patient with right facial cellulitis involving the neck area as well. Culture has been positive for MRSA and enterobacter. Unfortunately the patient is ALLERGIC TO BACTRIM and that cannot be used. We will consider oral doxycycline and Cipro on discharge and close outpatient followup. Prescription was sent to the pharmacy. MMODL / IJN: [id number] /
--- NOTE | 2021-01-25 09:04 | P.DS ---
Providers Date of admission: 01/18/21 14:05 Expected date of discharge: 01/24/21 Attending physician: Jayy Fraser MD Consults: 01/18/21 14:06 Consult Physician Urgent Consulting Provider: Saad Wynne Consult Reason/Comments: Right-sided facial blisters/infection Do you want consulting provider notified?: Already Contacted Consult Physician Urgent Consulting Provider: Pranav Hare Consult Reason/Comments: Right sided facial blisters s/p radiation 1 month ago Do you want consulting provider notified?: Yes 01/19/21 00:17 Consult Physician ONCE Consulting Provider: Braden Ozuna Consult Reason/Comments: throat cancer Do you want consulting provider notified?: Yes, Notify in am Primary care physician: [facility] Hospital Course: Final diagnosis Right facial and neck cellulitis with blistering lesion Recent history of throat cancer undergoing chemo and radiotherapy Hypertension, uncontrolled upon admission COPD, no acute exacerbation History of prostatic cancer History of GERD History of hepatitis C Discharge disposition Patient is being discharged in a stable condition with guarded prognosis to home. Patient will follow-up with [facility] upon discharge. Patient also instructed to follow-up with his oncologist out of [place] upon discharge.. Patient to continue on oral antibiotics in the form of doxycycline 100 mg twice daily along with Cipro 500 mg twice daily for the next 10 days to complete the course. Total time taken is greater than 35 minutes. Hospital course This is a 70-year-old male who was recently admitted with right cheek redness and swelling along with some blistering that was radiating to the right neck and small area of the right upper back at the base and was being closely monitored. Wound care along with infectious disease consulted and patient was started on broad spectrum antibiotics. Infectious disease following and wound cultures finalized showing MRSA with beta hemolytic strep group C and enterobacter. Patient will continue on oral antibiotics in the form of doxycycline along with oral Cipro per infectious disease recommendations for another 10 days to complete the course. Patient refusing any form of rehab and is already set up through the MD for home care. Currently no reports of chest pain, shortness of breath, or palpitations. Patient is afebrile. No reports of nausea or vomiting and patient is tolerating diet. Patient will be discharged home today. Guarded prognosis. On exam vital signs are stable. Cardio S1, S2 are muffled. Respiratory shows diminished breath sounds at the bases with no wheezing or rhonchi noted. Abdomen is soft and nontender. Nervous system shows no focal deficits. Please refer to medication reconciliation sheet for a list of medications. Patient Condition at Discharge: Stable Plan - Discharge Summary New Discharge Prescriptions: New Ciprofloxacin HCl [Cipro] 500 mg PO Q12HR 10 Days #20 tab Doxycycline Hyclate 100 mg PO BID 10 Days #20 tab amLODIPine [Norvasc] 5 mg PO DAILY #30 tab Continue Multivitamins, Thera [Multivitamin (formulary)] 1 tab PO DAILY Cyanocobalamin (Vitamin B-12) [Vitamin B-12] 1,000 mcg PO DAILY Magnesium Oxide [Mag-Ox] 400 mg PO TID #60 tab Acetaminophen Tab [Tylenol] 650 mg PO Q6HR PRN #30 tab PRN Reason: Fever And/ Or Pain Pregabalin [Lyrica] 75 mg PO BID cloNIDine HCL [Catapres] 0.1 mg PO BID 30 Days #60 tab Cholecalciferol [Vitamin D3 (25 Mcg = 1000 Iu)] 50 mcg PO DAILY Amitriptyline HCl [Elavil] 25 mg PO HS Hydrocortisone Suppository [Anusol-Hc] 1 supp RECTAL BID PRN PRN Reason: Hemorrhoids methocarbamoL [Methocarbamol] 750 mg PO QID PRN PRN Reason: Muscle Spasm Hydrocodone/Acetaminophen [[place] 7.5-325] 1 tab PO Q8H PRN PRN Reason: Pain Calcium Carbonate [Tums] 500 mg PO TID PRN PRN Reason: Heartburn Pantoprazole [Protonix] 40 mg PO BID Isosource 1.5cal 1 can PEG/G-TUBE DIRECTED Albuterol Inhaler [Ventolin Hfa Inhaler] 1 puff INHALATION RT-Q6H PRN PRN Reason: Shortness Of Breath Benzonatate [Tessalon Perles] 100 mg PO TID PRN PRN Reason: Cough Nystatin 100,000 Unit/gm Oint [Mycostatin Oint] 1 applic TOPICAL BID guaiFENesin 200 mg PO BID Fluticasone/Salmeterol [Advair 250-50 Diskus] 1 puff INHALATION RT-BID Naloxone HCl [Narcan] 4 mg NASAL DIRECTED Mag Hydrox/Al Hydrox/Simeth [Maalox] 10 ml PO QID PRN PRN Reason: GERD Discharge Medication List Calcium Carbonate [Tums] 500 mg PO TID PRN 11/19/20 [History] Cyanocobalamin (Vitamin B-12) [Vitamin B-12] 1,000 mcg PO DAILY 11/19/20 [History] Multivitamins, Thera [Multivitamin (formulary)] 1 tab PO DAILY 11/19/20 [History] Pantoprazole [Protonix] 40 mg PO BID 11/19/20 [History] Acetaminophen Tab [Tylenol] 650 mg PO Q6HR PRN #30 tab 11/24/20 [Rx] Magnesium Oxide [Mag-Ox] 400 mg PO TID #60 tab 11/24/20 [Rx] Pregabalin [Lyrica] 75 mg PO BID 12/01/20 [History] cloNIDine HCL [Catapres] 0.1 mg PO BID 30 Days #60 tab 12/07/20 [Rx] Albuterol Inhaler [Ventolin Hfa Inhaler] 1 puff INHALATION RT-Q6H PRN 12/13/20 [History] Amitriptyline HCl [Elavil] 25 mg PO HS 12/13/20 [History] Cholecalciferol [Vitamin D3 (25 Mcg = 1000 Iu)] 50 mcg PO DAILY 12/13/20 [History] Hydrocortisone Suppository [Anusol-Hc] 1 supp RECTAL BID PRN 12/13/20 [History] Isosource 1.5cal 1 can PEG/G-TUBE DIRECTED 12/13/20 [History] methocarbamoL [Methocarbamol] 750 mg PO QID PRN 12/13/20 [History] Benzonatate [Tessalon Perles] 100 mg PO TID PRN 01/18/21 [History] Fluticasone/Salmeterol [Advair 250-50 Diskus] 1 puff INHALATION RT-BID 01/18/21 [History] Hydrocodone/Acetaminophen [[place] 7.5-325] 1 tab PO Q8H PRN 01/18/21 [History] Mag Hydrox/Al Hydrox/Simeth [Maalox] 10 ml PO QID PRN 01/18/21 [History] Naloxone HCl [Narcan] 4 mg NASAL DIRECTED 01/18/21 [History] Nystatin 100,000 Unit/gm Oint [Mycostatin Oint] 1 applic TOPICAL BID 01/18/21 [History] guaiFENesin 200 mg PO BID 01/18/21 [History] Ciprofloxacin HCl [Cipro] 500 mg PO Q12HR 10 Days #20 tab 01/24/21 [Rx] Doxycycline Hyclate 100 mg PO BID 10 Days #20 tab 01/24/21 [Rx] amLODIPine [Norvasc] 5 mg PO DAILY #30 tab 01/24/21 [Rx] Follow up Appointment(s)/Referral(s): [facility] [Primary Care Provider] - 1-2 days (OFFICE WILL CALL YOU WITH APPOINTMENT DATE AND TIME.) Patient Instructions/Handouts: MRSA (Methicillin-Resistant Staphylococcus Aureus) (DC), Cellulitis (DC) Activity/Diet/Wound Care/Special Instructions: Your home care company will be resumed by the MD. Activity Limited until follow-up Continue with antibiotics until finished Follow-up with primary care provider on discharge Continue current diet Follow-up with your oncologist out of [place] upon discharge Discharge Disposition: HOME WITH HOME HEALTH SERVICES
[2021-01-25] MEDS ORDERED: VANCOMYCIN TROUGH DUE 1 EACH MISC MISCELLANE ONE (14:00)
== END 2021-01-24 13:50 | disposition home health service (06) | DRG 603 ==
LOC: EC 10:54 → 5NMEDONC 14:05 → 1SOBS 01-19 07:53 → 5NMEDONC 01-19 14:56
PROVIDERS: ADMIT Internal Medicine; ATTEND Internal Medicine
DX: L03.211 Cellulitis of face (principal); N17.9 Acute kidney failure, unspecified; E87.1 Hypo-osmolality and hyponatremia; J44.9 Chronic obstructive pulmonary disease, unspecified; Z93.1 Gastrostomy status; B95.62 Methicillin resistant Staphylococcus aureus infection as the cause of diseases classified elsewhere; B95.4 Other streptococcus as the cause of diseases classified elsewhere; I10 Essential (primary) hypertension; K21.9 Gastro-esophageal reflux disease without esophagitis; F32.9 Major depressive disorder, single episode, unspecified; Z88.1 Allergy status to other antibiotic agents; Z88.2 Allergy status to sulfonamides; Z79.899 Other long term (current) drug therapy; Z79.891 Long term (current) use of opiate analgesic; Z87.891 Personal history of nicotine dependence; Z85.46 Personal history of malignant neoplasm of prostate; Z92.21 Personal history of antineoplastic chemotherapy; Z92.3 Personal history of irradiation; Z86.14 Personal history of Methicillin resistant Staphylococcus aureus infection; Z86.19 Personal history of other infectious and parasitic diseases; Z85.818 Personal history of malignant neoplasm of other sites of lip, oral cavity, and pharynx
CPT/HCPCS: 36415; 51798; 80048; 80053; 80202; 81003; 82550; 82565; 83605; 83735; 84100; 84145; 85025; 85610; 85730; 87040; 87070; 87077; 87186; 87205; 93005; 99284

== ENCOUNTER → 2021-02-25 | Outpatient (CLI) | payer OTHER, MEDICARE ==
--- NOTE | 2021-02-28 07:59 | PE ---
EXAMINATION TYPE: PET CT fusion skull to thigh DATE OF EXAM: 02/25/2021 COMPARISON: Most recent CT abdomen and pelvis study December 27, 2020 and older studies. Outside PET CT October 20, 2020 HISTORY: Left tonsillar cancer originally diagnosed in 2019. TECHNIQUE: Following the intravenous administration of 13.04 mCi of F-18 FDG, whole body images are performed from the skull base to the midthigh. Images are reviewed on the computer in the coronal, a xial, and sagittal planes. Reconstructed rotating images are created on independent workstation and reviewed on the computer. A localization and attenuation correction CT is performed in conjunction with the PET scan. Blood glucose level equals 118. Dedicated PET/CT imaging of the neck. SCAN: Subsequent Scan FINDINGS: SKULL BASE AND NECK: Marked improvement in abnormal hypermetabolic soft tissue left oral pharyngeal airway extending laterally at level of the mandible causing anterior submandibular displacement on pr ior. No residual abnormal hypermetabolic uptake at this level is identified currently. Some residual but improved abnormal soft tissue remains present with difficult accurately measure on noncontrast CT . Persistent stable mild uptake posteriorly at level of vocal cord is favored benign. No new areas of abnormal hypermetabolic uptake. CHEST, MEDIASTINUM, AND HILAR REGION: New patchy reticulonodular infiltrates in the right midlung lat eral aspect. Additional patchy nodular infiltrates with mild hypermetabolic uptake right lung base. M ax SUV is 3.31 at this level on axial image 135. ABDOMEN AND PELVIS: Percutaneous PEG tube redemonstrated. No new areas of abnormal hypermetabolic upt nesha OSSEOUS STRUCTURES: No new areas of abnormal hypermetabolic uptake OTHER CT: Stable left subclavian central venous catheter. Patient has little intra-abdominal fat. Pro state suspect is surgically absent. Bladder shows mild concentric wall thickening on current study. T here is left lateral lower thoracic intramuscular lipoma axial image 132 redemonstrated. Underlying s coliosis in the lumbar spine. IMPRESSION: Complete positive treatment response. Suspect new right lung multifocal pneumonia or infe ction. Correlate clinically. Presence of slight nodularity and mild abnormal hypermetabolic uptake ri ght lung base makes underlying new neoplasm not entirely excluded. Short term CT and/or PET CT follow -up after infection treatment advised.
== END | disposition home or self-care (01) ==
LOC: RADPETMAIN 13:40
PROVIDERS: ATTEND Radiology Radiation Oncology
DX: C09.9 Malignant neoplasm of tonsil, unspecified (principal)
CPT/HCPCS: 78815; A9552